=== PATIENT | female | born 1940 | race Caucasian/White ===

== ENCOUNTER 2017-06-23 11:13 | Emergency (ER) | payer MEDICARE, OTHER ==
[~2017-06-23] VITALS: Ht 162.6 cm; Wt 72.6 kg
[~2017-06-23 11:13] MED LIST: AGM875T PO; APIX5TAB2 PO; AZAT50TA PO; ENAL2.5T PO; FERR240T9 PO; KETO5DRO OP; LEVO50TA6 PO; LISI1TAB6 PO; METO25TA2 PO; METO50TA2 PO
--- NOTE | 2017-06-23 11:38 | ED EENT ---
History of Present Illness General Chief Complaint: Foreign Body Stated Complaint: HEARING AID STUCK IN LEFT EAR Nursing Triage Note: pt reports she has part of her hearing aide stuck in her l ear. Source: patient Exam Limitations: no limitations History of Present Illness Time seen by provider: 11:22 Initial Comments Here with report that she believes part of her hearing aid is stuck in her left ear. She states that she was combing her hair and accidentally caught her hearing aid wire and then her hearing aid flew out. She noticed that there was a piece missing and was concerned it was in her ear. She denies any pain. Timing/Duration: abrupt, this morning Associated Symptoms: No change in hearing, No ear drainage Allergies and Home Medications Allergies Coded Allergies: Sulfa (Sulfonamide Antibiotics) (Unverified Allergy, Unknown, 08/31/14) aspirin (Unverified Allergy, Unknown, 08/31/14) Home Medications Apixaban 5 Mg Tablet, 5 MG PO BID, #60 Ref 4 Prescribed by: KAILASH CANALES on 09/03/14 0933 Azathioprine 50 Mg Tablet, 50 MG PO DAILY, (Reported) Enalapril Maleate 2.5 Mg Tablet, 2.5 MG PO DAILY, #30 Ref 4 Prescribed by: KAILASH CANALES on 09/03/14 0933 Levothyroxine Sodium 50 Mcg Tablet, 50 MCG PO DAILY, (Reported) Metoprolol Tartrate 50 Mg Tablet, 50 MG PO BID, #60 Ref 12 Prescribed by: HENNA COLE on 11/19/15 1249 Review of Systems Constitutional: see HPI Ears: See HPI, Denies Pain, Denies Bloody Discharge Past Raeqpje-Qvrzrj-Rvkjwe Hx Patient Social History Alcohol Use: Denies Use Recreational Drug Use: No Smoking Status: Never a Smoker Recent Foreign Travel: No Contact w/Someone Who Travel: No Recent Infectious Disease Expo: No Immunizations Up To Date PED Vaccines UTD: No Date of Influenza Vaccine: Aug 16, 2015 Seasonal Allergies Seasonal Allergies: No Surgeries HX Surgeries: Yes Surgeries: Gallbladder Respiratory Hx Respiratory Disorders: No Cardiovascular Hx Cardiac Disorders: Yes ([place] 2013, EF 35% when in Afib last in 2013, up to 52 % on conversion) Cardiac Disorders: Atrial Fibrillation, Heart Attack, Hypertension Neurological Hx Neurological Disorders: No Reproductive System Hx Reproductive Disorders: No Genitourinary Hx Genitourinary Disorders: No Gastrointestinal Hx Gastrointestinal Disorders: Yes (Autoimmune Hepatitis ) Gastrointestinal Disorders: Hepatitis, Gall Bladder Disease Musculoskeletal Hx Musculoskeletal Disorders: No Endocrine Hx Endocrine Disorders: Yes Endocrine Disorders: Hypothyroidsim HEENT HX ENT Disorders: Yes Hearing Impairment: Hard of Hearing, Bilateral Hearing Aide Cancer Hx Cancer: No Psychosocial Hx Psychiatric Problems: No Integumentary HX Skin/Integumentary Disorder: No Blood Transfusions Hx Blood Disorders: Yes (anemia) Adverse Reaction to a Blood Tr: No Reviewed Nursing Assessment Reviewed/Agree w Nursing PMH: Yes Family Medical History Family Medial History: Cardiovascular disease G8 BROTHER (PACEMAKER) Completed stroke 19 FATHER 19 MOTHER Congenital disease Diabetes mellitus G8 BROTHER FHx: cancer G8 SISTER (FEMALE CANCER, UNSURE OF TYPE, OF CA) Myocardial infarction 19 FATHER Prostate cancer 19 FATHER Physical Exam Vital Signs Vital Sign - Last 12Hours 06/23/17 11:25 Temp 98.1 Pulse 76 Resp 18 B/P (MAP) 156/90 Pulse Ox 100 General Appearance: WD/WN, no apparent distress Ears: left ear other (no foreign body noted), bilateral ear TM normal, bilateral ear auricle normal, bilateral ear canal normal Neurologic/Psychiatric: alert, oriented x 3 Progress/Results/Core Measures Results/Orders Vital Signs/I&O Vital Sign - Last 12Hours 06/23/17 11:25 Temp 98.1 Pulse 76 Resp 18 B/P (MAP) 156/90 Pulse Ox 100 Blood Pressure Mean: 112 Progress Note : Progress Note Seen and evaluated. Evaluation of the ear on the left and right done and no foreign body identified. Patient will follow-up with her ear doctor. Discharged home with return precautions. Patient verbalize understanding instructions and agreement with plan. Departure Impression Impression: Primary Impression: Normal ear exam Disposition: HOME, SELF-CARE Condition: Improved Departure-Patient Inst. Decision time for Depature: 11:36 Referrals: DIEGO QUINONEZ MD, MARK D MD (PCP/Family) Primary Care Physician Patient Instructions: General (DC) Add. Discharge Instructions: All discharge instructions reviewed with patient and/or family. Voiced understanding. No obvious foreign body found. Follow-up with Dr. Quinonez to evaluate your hearing aid. Return for other concerns as needed. LATOYA BARRON MD Jun 23, 2017 11:38
[2017-06-23 11:43] VITALS: BP 152/89
== END 2017-06-23 11:43 | disposition home or self-care (01) ==
LOC: EDUNIT# 11:13 → ER 11:15
DX: T16.2XXA Foreign body in left ear, initial encounter (principal); I48.91 Unspecified atrial fibrillation; I25.2 Old myocardial infarction; I10 Essential (primary) hypertension; E03.9 Hypothyroidism, unspecified; D64.9 Anemia, unspecified; Z79.01 Long term (current) use of anticoagulants
CPT/HCPCS: 99282

== ENCOUNTER → 2017-09-07 | Outpatient (CLI) | payer MEDICARE, OTHER | LOC: CARD 12:59 | PROVIDERS: ATTEND Internal Medicine Cardiovascular Disease | DX: I48.0 Paroxysmal atrial fibrillation (principal); I25.10 Atherosclerotic heart disease of native coronary artery without angina pectoris; R09.89 Other specified symptoms and signs involving the circulatory and respiratory systems; I10 Essential (primary) hypertension; I34.0 Nonrheumatic mitral (valve) insufficiency | CPT/HCPCS: 93306 ==

== ENCOUNTER 2018-06-28 22:46 | Inpatient (IN) | payer MEDICARE, OTHER ==
[~2018-06-28] VITALS: Ht 162.6 cm; Wt 34.1 kg
[~2018-06-28 22:46] MED LIST changes: +METO50TA15 PO; -METO50TA2 PO
[2018-06-28] MEDS ORDERED: ONDANSETRON 4 MG (ZOFRAN) ORAL DISSOLVE TAB PO ONE (23:30)
[2018-06-28 23:37] VITALS: BP_SYST 162; BP_SYST 163; BP_SYST 169; BP_DIAS 79; BP_DIAS 81; BP_DIAS 82
--- NOTE | 2018-06-28 23:39 | ED Neurological Problem ---
General Chief Complaint: Abdominal/GI Problems Stated Complaint: NAUSEA/VOMITING/BALANCE ISSUES Nursing Triage Note: PT PRESENTS TO ER WITH COMPLAINT OF NAUSEA, VOMITING, AND DIARRHEA. Nursing Sepsis Screen: No Definite Risk Source: patient Exam Limitations: no limitations History of Present Illness Date Seen by Provider: Jun 28, 2018 Time Seen by Provider: 23:29 Initial Comments Patient presents to the ER by private conveyance with her son and chief complaint that today he sometime around 10:00 in the morning she started having some dizziness without tinnitus, ear pain, nose congestion, fever, chills, falls , syncope or history of coronary disease or stroke. She describes the dizziness as being pulled from one side to the other but not any one side specifically. She's having no weakness numbness or tingling. No facial asymmetry or slurred speech. She says when she gets up from lying down or from sitting or changes position she starts getting dizzy feeling the room spinning around her. She's having no dysuria, cough, shortness of breath or chest pain. She has not taken her evening blood pressure pills yet. She also has a history of autoimmune hepatitis. 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 She says is progressively gotten worse when she changes positions tonight and is why she came to the ER. She's had this set of symptoms before in the past several times but never lasting more than a day and never very serious usually just for an hour or so. She does not have a history of Mnire's disease. She does wear bilateral hearing aids but does not use nasal steroids. She is on L acquits for atrial fibrillation and has not missed any doses. Allergies and Home Medications Allergies Coded Allergies: Sulfa (Sulfonamide Antibiotics) (Unverified Allergy, Unknown, 08/31/14) aspirin (Unverified Allergy, Unknown, 08/31/14) Home Medications Apixaban 5 Mg Tablet, 5 MG PO BID Prescribed by: KAILASH CANALES on 09/03/14932 Azathioprine 50 Mg Tablet, 50 MG PO DAILY, (Reported) Enalapril Maleate 2.5 Mg Tablet, 2.5 MG PO DAILY Prescribed by: KAILASH CANALES on 09/03/14932 Levothyroxine Sodium 50 Mcg Tablet, 50 MCG PO DAILY, (Reported) Metoprolol Tartrate 50 Mg Tablet, 50 MG PO BID Prescribed by: HENNA COLE on 11/19/15 1249 Patient Home Medication List Home Medication List Reviewed: Yes Review of Systems Constitutional: No chills, No diaphoresis; dizziness; No fever, No malaise Eyes: Denies Blindness, Denies Blurred Vision, Denies Drainage, Denies Inflammation, Denies Pain, Denies Photophobia, Denies Previous Injury Ears, Nose, Mouth, Throat: denies ear pain, denies ear discharge, denies nose pain, denies nose discharge, denies epistaxis Respiratory: No cough, No dyspnea on exertion, No phlegm, No short of breath Cardiovascular: No chest pain, No palpitations Gastrointestinal: No abdominal pain; nausea, vomiting Genitourinary: No discharge, No dysuria Past Sgaloew-Uevikf-Rzkxxq Hx Patient Social History Alcohol Use: Denies Use Recreational Drug Use: No Smoking Status: Never a Smoker Recent Foreign Travel: No Contact w/Someone Who Travel: No Recent Infectious Disease Expo: No Immunizations Up To Date PED Vaccines UTD: No Date of Influenza Vaccine: Aug 16, 2015 Seasonal Allergies Seasonal Allergies: No Past Medical History Surgeries: Yes Gallbladder Respiratory: No Cardiac: Yes ([place] 2013, EF 35% when in Afib last in 2013, up to 52% on conversion) Atrial Fibrillation, Heart Attack, Hypertension Neurological: No Reproductive Disorders: No Genitourinary: No Gastrointestinal: Yes (Autoimmune Hepatitis ) Hepatitis, Gall Bladder Disease Musculoskeletal: No Endocrine: Yes Hypothyroidsim HEENT: Yes Hearing Impairment: Hard of Hearing, Bilateral Hearing Aide Cancer: No Psychosocial: No Integumentary: No Blood Disorders: Yes (anemia) Adverse Reaction/Blood Tranf: No Family Medical History Cardiovascular disease G8 BROTHER (PACEMAKER) Completed stroke 19 FATHER 19 MOTHER Congenital disease Diabetes mellitus G8 BROTHER FHx: cancer G8 SISTER (FEMALE CANCER, UNSURE OF TYPE, OF CA) Myocardial infarction 19 FATHER Prostate cancer 19 FATHER Physical Exam Vital Signs Vital Signs - First Documented 06/28/18 23:09 Temp 98.2 Pulse 88 Resp 20 B/P (MAP) 173/83 (113) Pulse Ox 97 O2 Delivery Room Air Capillary Refill : Less Than 3 Seconds Height, Weight, BMI Height: 5'4.00" Weight: 160lbs. 12.8oz. [id number]; BMI Method:Stated General Appearance: WD/WN, no apparent distress HEENT: PERRL/EOMI, normal ENT inspection, TMs normal, pharynx normal Neck: non-tender, full range of motion, supple, normal inspection Respiratory: chest non-tender, lungs clear, normal breath sounds, no respiratory distress, no accessory muscle use Cardiovascular: normal peripheral pulses, regular rate, rhythm, no edema Peripheral Pulses: 2+ Radial Pulses (R), 2+ Radial Pulses (L) Gastrointestinal: normal bowel sounds, non tender, soft, no organomegaly Extremities: normal inspection, normal capillary refill Neurologic/Psychiatric: alert, normal mood/affect, oriented x 3, other ( negative head impulse test, negative for nystagmus, negative test of skew.) Crainal Nerves: normal hearing, normal speech, PERRL Coordination/Gait: normal finger to nose, normal gait Motor/Sensory: no motor deficit, no sensory deficit, no pronator drift Stroke Onset of Symptoms Date of Onset of Symptoms: Jun 28, 2018 Time of Symptom Onset: 10:00 Onset of Symptoms: Yes Symptoms onset unknown: No NIH Stroke Scale Assessment Select: Initial Level of Consciousness: 0=Alert (0), Level of Consciousness- Questions: 0=Answers both month/age (0), LOC Commands: 0=Performs both tasks (0) , Gaze: Normal (0), Visual Loyd: 0=No visual loss (0), Facial Movement ( Facial Paresis): 0=Normal symmetrical mnt (0), Motor Function-Arms Right: 0=No drift (0), Motor Function-Arms Left: 0=No drift (0), Motor Function-Legs Right: 0=No drift (0), Motor Function-Legs Left: 0=No drift (0), Limb Ataxia: 0=Absent (0), Sensory: 0=Normal:no loss (0), Best Language: 0=No aphasia (0), Dysarthria : 0=Normal (0), Extinction & Inattention: 0=No abnormality (0), Total: 0 Stroke Thrombolytic Exclusion Age 18 or Over: Yes Acute intenal hemorrhage: No History of CVA: No Uncontrolled Coagulation Defec: No Intracranial Hemorrhage: No Severe Hypertension: No GI or Bleed: No Subarachnoid Hemorrhage: No Intracranial Neoplasm/Aneurysm: No Oral Anticoagulants: Yes Surgery or Trauma: No Puncture of Non-Compressible V: No Recent CPR: No Diabetic Hemorrhagic Retinopat: No Organ Biopsy: No Recent Obstetric Delivery: No Glucose: No Significant Hepatic Dysfunctio: No NIH Stoke Scale >22: No Bacterial Endocarditis: No Pericarditis: No Improving Symptoms: No Platelets: No TPA Contraindication: Yes IV - TPa Received IV - TPa Procedure Performed?: No Progress/Results/Core Measures Results/Orders Lab Results Laboratory Tests Test 06/28/18 23:21 06/29/18 00:15 06/29/18 00:16 Range/Units Urine Color YELLOW Urine Clarity SLIGHTLY CLOUDY Urine pH 6 5-9 Urine Specific [place] 1.015 L 1.016-1.022 Urine Protein 3+ H NEGATIVE Urine Glucose (UA) NEGATIVE NEGATIVE Urine Ketones NEGATIVE NEGATIVE Urine Nitrite NEGATIVE NEGATIVE Urine Bilirubin NEGATIVE NEGATIVE Urine Urobilinogen NORMAL NORMAL MG/DL Urine Leukocyte Esterase 2+ H NEGATIVE Urine RBC (Auto) 2+ H NEGATIVE Urine RBC NONE /HPF Urine WBC 0-2 /HPF Urine Squamous Epithelial Cells 2-5 /HPF Urine Crystals NONE /LPF Urine Bacteria MODERATE H /HPF Urine Casts NONE /LPF Urine Mucus LARGE H /LPF Urine Culture Indicated YES White Blood Count 9.9 4.3-11.0 10^3/uL Red Blood Count 4.87 4.35-5.85 10^6/uL Hemoglobin 14.1 11.5-16.0 G/DL Hematocrit 44 35-52 % Mean Corpuscular Volume 91 80-99 FL Mean Corpuscular Hemoglobin 29 25-34 PG Mean Corpuscular Hemoglobin Concent 32 32-36 G/DL Red Cell Distribution Width 14.5 10.0-14.5 % Platelet Count 262 130-400 10^3/uL Mean Platelet Volume 10.1 7.4-10.4 FL Neutrophils (%) (Auto) 85 H 42-75 % Lymphocytes (%) (Auto) 8 L 12-44 % Monocytes (%) (Auto) 6 0-12 % Eosinophils (%) (Auto) 0 0-10 % Basophils (%) (Auto) 0 0-10 % Neutrophils # (Auto) 8.5 H 1.8-7.8 X 10^3 Lymphocytes # (Auto) 0.8 L 1.0-4.0 X 10^3 Monocytes # (Auto) 0.6 0.0-1.0 X 10^3 Eosinophils # (Auto) 0.0 0.0-0.3 10^3/uL Basophils # (Auto) 0.0 0.0-0.1 10^3/uL Prothrombin Time 13.0 12.2-14.7 SEC INR Comment 1.0 0.8-1.4 Activated Partial Thromboplast Time 28 24-35 SEC D-Dimer 0.38 0.00-0.49 UG/ML Sodium Level 140 135-145 MMOL/L Potassium Level 4.2 3.6-5.0 MMOL/L Chloride Level 105 98-107 MMOL/L Carbon Dioxide Level 24 21-32 MMOL/L Anion Gap 11 5-14 MMOL/L Blood Urea Nitrogen 9 7-18 MG/DL Creatinine 0.77 0.60-1.30 MG/DL Estimat Glomerular Filtration Rate > 60 BUN/Creatinine Ratio 12 Glucose Level 123 H 70-105 MG/DL Calcium Level 10.6 H 8.5-10.1 MG/DL Corrected Calcium 10.5 H 8.5-10.1 MG/DL Total Bilirubin 0.7 0.1-1.0 MG/DL Aspartate Amino Transf (AST/SGOT) 41 H 5-34 U/L Alanine Aminotransferase (ALT/SGPT) 65 H 0-55 U/L Alkaline Phosphatase 173 H 40-136 U/L Troponin I < 0.30 <0.30 NG/ML Total Protein 7.6 6.4-8.2 GM/DL Albumin 4.1 3.2-4.5 GM/DL Glucometer 115 H 70-110 MG/DL My Orders Orders - CARLOS ALBERTO PATTERSON Ondansetron Oral Dissolve Tab (Zofran (06/28/18 23:30) Orthostatic Vital Signs (Adult (06/28/18 23:29) Ekg Tracing (06/28/18 23:39) Continuous Ekg Monitoring (06/28/18 23:39) Cbc With Automated Diff (06/29/18 00:08) Protime With Inr (06/29/18 00:08) Partial Thromboplastin Time (06/29/18 00:08) Comprehensive Metabolic Panel (06/29/18 00:08) Fibrin Degradation Products (06/29/18 00:08) Troponin I (06/29/18 00:08) Ua Culture If Indicated (06/29/18 00:08) Nothing By Mouth (06/29/18 Breakfast) Accucheck Stat ONCE (06/29/18 00:08) Saline Lock/Iv-Start (06/29/18 00:08) Vital Signs Stroke Patient Q15M (06/29/18 00:08) Ct Head Wo-R/O Stroke (06/29/18 00:08) Intake & Output 06,14,22 (06/29/18 00:08) Monitor-Rhythm Ecg Trace Only (06/29/18 00:08) Dysphagia Screening Tool (06/29/18 00:08) Urine Culture (06/28/18 23:21) Medications Given in ED Current Medications Medications Dose Ordered Sig/Corazon Route Start Time Stop Time Status Last Admin Dose Admin Ondansetron HCl 4 mg ONCE ONCE PO 06/28/18 23:30 06/28/18 23:31 DC 06/28/18 23:36 4 MG Vital Signs/I&O 06/28/18 06/28/18 23:09 23:37 Temp 98.2 Pulse 88 68 70 70 Resp 20 B/P (MAP) 173/83 (113) 162/79 (106) 169/82 (111) 163/81 (108) Pulse Ox 97 O2 Delivery Room Air Blood Pressure Mean: 113 Progress Progress Note : Time: 23:38 Progress Note Hints negative making a central etiology less likely. NIH score is 0. This sounds like BPPV by history and cursory examination. We'll get a set of orthostatic vitals and an EKG but she is not presently in atrial fibrillation. She is on her blood thinners so a stroke is fairly unlikely. She is not exhibiting any neurologic deficits. We'll give her some nausea medicine and wants her nausea is feeling better then we will check her for [place]-Hallpike maneuver for BPPV. Orthostatic vital signs unremarkable. Sonya-Hallpike examination unrevealing of any nystagmus or vertigo. Patient's now revealing that her symptoms are more that she's been pulled to one side or the other but not any one side specifically which seems less like vertigo. We'll get a CT scan to look at her cerebellum as the best test secondary tonight and consult with neurology but other than her otitis media effusion her clinical exam so far has been negative. NIH -0. Initial ECG Impression Date: Jun 28, 2018 Initial ECG Impression Time: 23:44 Initial ECG Rate: 67 Initial ECG Rhythm: Normal Sinus Initial ECG Intervals: Normal Initial ECG Impression: Normal Comment No ST elevation or depression. Sinus rhythm. Diagnostic Imaging Diagonstic Imaging: CT (c/o) Plain Films/CT/US/NM/MRI: head Comments No acute intracranial hemorrhage, mass effect, tumor, evidence of stroke. Reviewed: Reviewed by Me, Discussed w/Radiologist Consults : Consults Notes Dr. Pretty, [facility] neurology stroke center [place] paraprofessional physician: After reviewing her symptoms, clinical history and examination he feels that with her nausea vomiting and being pulled to both sides as well as a little unusual could be a stroke and her ABCD 2 score is 4 points which is moderate risk so he recommends holding on to her and getting an MRI in the morning. Departure Communication (Admissions) Time/Spoke to Admitting Phy: 01:23 Dr. Miranda: Discussed case lab imaging findings and plan to get an MRI in the morning and he agrees with this plan. Impression Primary Impression: Cerebellar disorder Additional Impression: Nausea & vomiting Qualified Codes: R11.2 - Nausea with vomiting, unspecified Disposition: 09 ADMITTED INPATIENT Condition: Stable Admissions Decision to Admit Reason: Admit from ER (General) Decision to Admit/Date: Jun 29, 2018 Time/Decision to Admit Time: 01:23 Departure-Patient Inst. Referrals: HENNA COLE MD (PCP/Family) Primary Care Physician Copy Copies To 1: HENNA COLE MD, TITUS J Jun 28, 2018 23:39
[2018-06-29 00:18] LABS: BILIRUBIN,URINE NEGATIVE (NEGATIVE); COLOR,URINE YELLOW; GLUCOSE, URINE (UA) NEGATIVE (NEGATIVE); KETONES,URINE NEGATIVE (NEGATIVE); LEUKOCYTE ESTERASE ,URINE 2+ (NEGATIVE); NITRITE,URINE NEGATIVE (NEGATIVE); PH,URINE 6 (5-9); PROTEIN,URINE 3+ (NEGATIVE); UROBILINOGEN,URINE NORMAL (NORMAL)
[2018-06-29 00:26] LABS: BACTERIA,URINE MODERATE /HPF; CLARITY,URINE SLIGHTLY CLOUDY; WBC,URINE 0-2 /HPF
[2018-06-29 00:27] LABS: BASOPHILS % (AUTO) 0 % (0-10); EOSINOPHILS % (AUTO) 0 % (0-10); HEMATOCRIT 44 % (35-52); HEMOGLOBIN 14.1 G/DL (11.5-16.0); LYMPHOCYTES # (AUTO) 0.8 X 10^3 (1.0-4.0); LYMPHOCYTES % (AUTO) 8 % (12-44); MEAN CORPUSCULAR HEMOGLOBIN 29 PG (25-34); MEAN CORPUSCULAR HGB CONC 32 G/DL (32-36); MEAN CORPUSCULAR VOLUME 91 FL (80-99); MEAN PLATELET VOLUME 10.1 FL (7.4-10.4); MONOCYTES # (AUTO) 0.6 X 10^3 (0.0-1.0); MONOCYTES % (AUTO) 6 % (0-12); NEUTROPHILS # (AUTO) 8.5 X 10^3 (1.8-7.8); NEUTROPHILS % (AUTO) 85 % (42-75); PLATELET COUNT 262 10^3/uL (130-400); RED BLOOD COUNT 4.87 10^6/uL (4.35-5.85); RED CELL DISTRIBUTION WIDTH 14.5 % (10.0-14.5); WHITE BLOOD COUNT 9.9 10^3/uL (4.3-11.0)
[2018-06-29 00:37] LABS: FIBRIN DEGRADATION PRODUCTS 0.38 UG/ML (0.00-0.49)
[2018-06-29 00:45] LABS: ALANINE AMINOTRANSFERASE 65 U/L (0-55); ALBUMIN 4.1 GM/DL (3.2-4.5); ALKALINE PHOSPHATASE 173 U/L (40-136); BILIRUBIN,TOTAL 0.7 MG/DL (0.1-1.0); BUN/CREATININE RATIO 12; CALCIUM 10.6 MG/DL (8.5-10.1); CARBON DIOXIDE 24 MMOL/L (21-32); CHLORIDE 105 MMOL/L (98-107); CREATININE SERUM 0.77 MG/DL (0.60-1.30); GFR ESTIMATED > 60; GLUCOSE 123 MG/DL (70-105); POTASSIUM 4.2 MMOL/L (3.6-5.0); SODIUM 140 MMOL/L (135-145); TOTAL PROTEIN 7.6 GM/DL (6.4-8.2)
--- OUTSIDE RECORDS SUMMARY | 2018-06-29 02:12 | XMS REPORT | Continuity of Care Document ---
Author Author [facility] Organization [facility] Address Unknown Phone Unavailable Allergies Active Description Code Type Severity Reaction Onset Reported/Identified Relationship to Patient Clinical Status Yes aspirin [id number] Drug Allergy Unknown N/A 08/31/2014 Yes Sulfa (Sulfonamide Antibiotics) [id number] Drug Allergy Unknown N/A 2013 Medications There is no data. Problems Date Dx Coded Attending Type Code Diagnosis Diagnosed By 09/03/2014 KAILASH CANALES MD Ot 244.8 ACQUIRED HYPOTHYROID NEC 09/03/2014 KAILASH CANALES MD Ot 272.4 HYPERLIPIDEMIA NEC/NOS 09/03/2014 KAILASH CANALES MD Ot 275.42 HYPERCALCEMIA 09/03/2014 KAILASH CANALES MD Ot 276.51 DEHYDRATION 09/03/2014 KAILASH CANALES MD Ot 276.8 HYPOPOTASSEMIA 09/03/2014 KAILASH CANALES MD Ot 401.9 HYPERTENSION NOS 09/03/2014 KAILASH CANALES MD Ot 414.01 CORONARY ATHEROSCLEROSIS OF [place] CORON 09/03/2014 KAILASH CANALES MD Ot 427.31 ATRIAL FIBRILLATION 09/03/2014 KAILASH CANALES MD Ot 780.79 OTH MALAISE FATIGUE 09/03/2014 KAILASH CANALES MD Ot 787.01 NAUSEA WITH VOMITING 09/03/2014 KAILASH CANALES MD Ot 790.29 OTHER ABNORMAL GLUCOSE 09/29/2014 KAILASH CANALES MD Ot 397.0 09/29/2014 KAILASH CANALES MD Ot 401.9 09/29/2014 KAILASH CANALES MD Ot 414.00 09/29/2014 KAILASH CANALES MD Ot 424.0 09/29/2014 KAILASH CANALES MD Ot 427.31 09/29/2014 KAILASH CANALES MD Ot 428.0 11/03/2014 KAILASH CANALES MD Ot 397.0 11/03/2014 KAILASH CANALES MD, Ot 401.9 11/03/2014 PARKER BECKFORD, KAILASH García Ot 414.00 11/03/2014 PARKER BECKFORD, KAILASH García Ot 424.0 11/03/2014 PARKER BECKFORD, KAILASH García Ot 427.31 11/03/2014 KAILASH CANALES MD Ot 428.0 11/28/2014 HENNA COLE MD Ot 790.6 12/25/2014 HENNA COLE MD Ot 790.6 01/01/2015 HENNA COLE MD Ot 790.6 05/25/2015 CLAIR ENRIQUE [employer] Ot 372.74 CONJUNCTIVA VASC ANOMALY 05/25/2015 CLAIR [employer] Ot 379.93 REDNESS/DISCHARGE OF EYE 05/25/2015 CLAIR [employer] Ot 465.9 ACUTE URI NOS 11/19/2015 HENNA COLE MD Ot E03.9 HYPOTHYROIDISM, UNSPECIFIED 11/19/2015 HENNA COLE MD Ot E78.5 HYPERLIPIDEMIA, UNSPECIFIED 11/19/2015 HENNA COLE MD Ot E86.0 DEHYDRATION 11/19/2015 HENNA COLE MD Ot I10 ESSENTIAL (PRIMARY) HYPERTENSION 11/19/2015 HENNA COLE MD Ot I25.10 ATHSCL HEART DISEASE OF [place] CORONARY 11/19/2015 HENNA COLE MD Ot I25.2 OLD MYOCARDIAL INFARCTION 11/19/2015 HENNA COLE MD Ot I42.9 CARDIOMYOPATHY, UNSPECIFIED 11/19/2015 HENNA COLE MD Ot I48.0 PAROXYSMAL ATRIAL FIBRILLATION 11/19/2015 HENNA COLE MD Ot I50.9 HEART FAILURE, UNSPECIFIED 11/19/2015 HENNA COLE MD Ot I65.23 OCCLUSION AND STENOSIS OF BILATERAL [place] 11/19/2015 HENNA COLE MD Ot K52.9 NONINFECTIVE GASTROENTERITIS AND COLITIS 11/19/2015 HENNA COLE MD Ot K75.4 AUTOIMMUNE HEPATITIS 11/19/2015 HENNA COLE MD Ot Z79.01 RESIDENTIAL (CURRENT) USE OF ANTICOAGULANT 06/23/2017 LATOYA BARRON MD Ot D64.9 ANEMIA, UNSPECIFIED 06/23/2017 LATOYA BARRON MD Ot E03.9 HYPOTHYROIDISM, UNSPECIFIED 06/23/2017 LATOYA BARRON MD Ot I10 ESSENTIAL (PRIMARY) HYPERTENSION 06/23/2017 LATOYA BARRON MD Ot I25.2 OLD MYOCARDIAL INFARCTION 06/23/2017 LATOYA BARRON MD Ot I48.91 UNSPECIFIED ATRIAL FIBRILLATION 06/23/2017 LATOYA BARRON MD Ot T16.2XXA FOREIGN BODY IN LEFT EAR, INITIAL ENCOUN 06/23/2017 LATOYA BARRON MD Ot 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 06/23/2017 Ot V76.12 OTH SCREEN MAMMO-MALIGN NEOPLASM OF PAZ 06/23/2017 KAILASH CANALES MD Ot 397.0 TRICUSPID VALVE DISEASE 06/23/2017 KAILASH CANALES MD Ot 401.9 HYPERTENSION NOS 06/23/2017 KAILASH CANALES MD Ot 414.00 CORON ATHEROSCLER NOS TYPE VESSEL, NATIV 06/23/2017 KAILASH CANALES MD Ot 424.0 MITRAL VALVE DISORDER 06/23/2017 KAILASH CANALES MD Ot 427.31 ATRIAL FIBRILLATION 06/23/2017 KAILASH CANALES MD Ot 428.0 CONGESTIVE HEART FAILURE NOS 06/23/2017 KELSEY BECKFORD, HENNA Moreland Ot 790.6 ABN BLOOD CHEMISTRY NEC 09/29/2017 KAILASH CANALES MD Ot I10 ESSENTIAL (PRIMARY) HYPERTENSION 09/29/2017 KAILASH CANALES MD Ot I25.10 ATHSCL HEART DISEASE OF [place] CORONARY 09/29/2017 KAILASH CANALES MD Ot I34.0 NONRHEUMATIC MITRAL (VALVE) INSUFFICIENC 09/29/2017 KAILASH CANALES MD, Ot I48.0 PAROXYSMAL ATRIAL FIBRILLATION 09/29/2017 KAILASH CANALES MD Ot R09.89 OTH SYMPTOMS AND SIGNS INVOLVING THE CIR 10/01/2017 KAILASH CANALES MD Ot I10 ESSENTIAL (PRIMARY) HYPERTENSION 10/01/2017 KAILASH CANALES MD Ot I25.10 ATHSCL HEART DISEASE OF [place] CORONARY 10/01/2017 KAILASH CANALES MD Ot I34.0 NONRHEUMATIC MITRAL (VALVE) INSUFFICIENC 10/01/2017 KAILASH CANALES MD Ot I48.0 PAROXYSMAL ATRIAL FIBRILLATION 10/01/2017 KAILASH CANALES MD Ot R09.89 OTH SYMPTOMS AND SIGNS INVOLVING THE CIR Procedures Code Description Performed By Performed On 37.22 LEFT HEART CARDIAC CATH 09/02/2014 88.56 CORONAR ARTERIOGR-2 CATH 09/02/2014 Results There is no data. Encounters ACCT No. Visit Date/Time Discharge Status Pt. Type Provider Facility Loc./Unit Complaint [id number] 09/07/2017 12:59:00 09/07/2017 23:59:59 CLS Outpatient KAILASH CANALES MD [facility] CARD CAD I25.10 [id number] 06/23/2017 11:15:00 06/23/2017 11:43:00 DIS Emergency LATOYA BARRON MD [facility] ER HEARING AID STUCK IN LEFT EAR [id number] 11/16/2015 11:25:00 11/19/2015 13:45:00 DIS Inpatient HENNA COLE MD [facility] 4TH AFIB WITH RVR NAUSEA VOMITING [id number] 05/25/2015 15:31:00 05/25/2015 16:08:00 DIS Emergency CLAIR ENRIQUE [employer] [facility] ER EYE IRRITATION [id number] 11/27/2014 10:43:00 11/27/2014 23:59:59 CLS Outpatient HENNA COLE MD [facility] RAD ELEVATED LFT [id number] 09/26/2014 08:56:00 09/26/2014 23:59:59 CLS Outpatient KAILASH CANALES MD [facility] CARD AFIB,CAD,CHF,HTN [id number] 08/31/2014 02:43:00 09/03/2014 14:05:00 DIS Inpatient KAILASH CANALES MD [facility] CSD A FIB W/RVR [id number] 07/09/2012 10:29:00 Document Registration [id number] 05/26/2015 05:31:59 ACT Document Registration
[2018-06-29 04:12] VITALS: BP 184/81
[2018-06-29] MEDS ORDERED: ACETAMINOPHEN 500 MG TAB (TYLENOL) PO PRN (05:00)
[2018-06-29] MEDS ORDERED: ONDANSETRON 4 MG/2 ML (SDV) Z0FRAN IV PRN (05:00)
--- NOTE | 2018-06-29 06:33 | Diagnostic Imaging Report ---
INDICATION: Dizziness, nausea and vomiting. FINDINGS: There is no intracranial hemorrhage, hydrocephalus, edema, mass or mass effect. There are no abnormal extra-axial fluid collections. The basilar cisterns patent. The sulci were non-effaced. Orbits, sinuses and calvarium appeared nonacute. IMPRESSION: No hemorrhage, edema or acute appearing abnormalities. Dictated by: Dictated on workstation # [id number]
[2018-06-29] MEDS: LEVOTHYROXINE 50 MCG (LEVOTHROID) TAB PO SCH (06:52)
[2018-06-29 07:31] VITALS: BP 166/80
[2018-06-29] MEDS: meTOprolol TARTRATE 50 MG (LOPRESSOR) TAB PO SCH ×2 (09:19→19:55)
[2018-06-29] MEDS: azaTHIOprine (IMURAN) 50 MG TAB PO SCH (09:19)
[2018-06-29] MEDS: APIXABAN 5 MG (ELIQUIS) TABLET PO SCH ×2 (09:20→19:55)
[2018-06-29] MEDS: ENALAPRIL 2.5 MG (VASOTEC) TAB PO SCH (09:20)
--- NOTE | 2018-06-29 10:08 | History & Physical-Hospitalist ---
History of Present Illness HPI/Chief Complaint The patient is a 78-year-old white female who was feeling well up until some time after 2 p.m. She'll return having driven herself to her eye appointment and back earlier that morning. Sometime after 2 she developed unbalanced sensation where she had difficulty walking. She's had a history of vertigo likely benign positional in etiology in the past for report of this was different. She became diaphoretic and then had some nausea and vomiting. She called her son who brought her to the emergency room. This was later more than 6 hours after the onset of her symptoms. A CT head was performed which revealed no significant abnormalities. She apparently at that time did not have a facial droop that was noted did appear to have some mild dysmetria and was admitted to undergo MRI this morning. Upon my arrival the patient was sleeping she was easily aroused but exhibited significant dysarthria and had a mild but obvious right facial droop. She denied headache nausea or vomiting initiate attempted to answer more questions during the interview her speech improved from being initially unintelligible to being mostly intelligible. She voices no other complaints see below review of systems. Lying in bed she was not feeling unsteady. She also denied any current vertigo. Past medical history is significant for paroxysmal atrial fibrillation for which she has been on Eliquis for the last several years. She's had no previous history of CVA or thromboembolic events. She does have a history of hypertension as well as autoimmune hepatitis for which she has done well on low- dose azathioprine and sulfasalazine. Date Seen 06/29/18 Time Seen by Provider: 09:00 Attending Physician Henna Cole MD PCP Henna Cole MD Referring Physician Date of Admission Jun 29, 2018 at 02:05 Home Medications & Allergies Home Medications Reviewed patient Home Medication Reconciliation performed by pharmacy medication reconciliations certified appliance service technician and/or nursing. Patients Allergies have been reviewed. Allergies Allergies Coded Allergies Sulfa (Sulfonamide Antibiotics) (Unverified Allergy, Unknown, 08/31/14) aspirin (Unverified Allergy, Unknown, 08/31/14) Past Rcqxiom-Kyvbjy-Kblomz Hx Past Med/Social Hx: Reviewed and Corrections made Patient Social History Alcohol Use: Denies Use Recreational Drug Use: No Smoking Status: Never a Smoker Physical Abuse Screen: No Sexual Abuse: No Recent Foreign Travel: No Contact w/other who traveled: No Recent Infectious Disease Expo: No Immunizations Up To Date Pediatric: No Date of Influenza Vaccine: Aug 16, 2015 Seasonal Allergies Seasonal Allergies: No Past Medical History Surgeries: Gallbladder Cardiac: Atrial Fibrillation, Heart Attack, Hypertension Reproductive: No Gastrointestinal: Hepatitis, Gall Bladder Disease Endocrine: Hypothyroidsim Hearing Impairment: Hard of Hearing, Bilateral Hearing Aide History of Blood Disorders: Yes (anemia) Adverse Reaction to Blood Mena: No Family History Cardiovascular disease G8 BROTHER (PACEMAKER) Completed stroke 19 FATHER 19 MOTHER Congenital disease Diabetes mellitus G8 BROTHER FHx: cancer G8 SISTER (FEMALE CANCER, UNSURE OF TYPE, OF CA) Myocardial infarction 19 FATHER Prostate cancer 19 FATHER Review of Systems Constitutional: No chills, No diaphoresis; dizziness; No fever, No malaise; weakness; No weight gain, No weight loss, No other EENTM: other (No double vision change in hearing or change in tinnitus reported.) Respiratory: No cough, No dyspnea on exertion, No hemoptysis, No orthopnea, No phlegm, No short of breath, No stridor, No wheezing, No other Cardiovascular: no symptoms reported, see HPI; No chest pain, No edema, No Hx of Intervention, No palpitations, No syncope, No vascular heart diseas, No other Psychiatric/Neurological: No Symptoms Reported, See HPI; Denies Anxiety, Denies Depressed, Denies Emotional Problems, Denies Headache, Denies Numbness, Denies Paresthesia, Denies Pre-Existing Deficit, Denies Seizure, Denies Tingling , Denies Tremors; Weakness (Mild generalized); Denies Other Physical Exam Physical Exam Vital Signs Vital Signs - First Documented 06/28/18 23:09 Temp 98.2 Pulse 88 Resp 20 B/P (MAP) 173/83 (113) Pulse Ox 97 O2 Delivery Room Air Capillary Refill : Less Than 3 Seconds Height, Weight, BMI Height: 5'4.00" Weight: 75lbs. 3.0oz. [id number]; BMI Method:Stated General Appearance: No Apparent Distress, WD/WN HEENT: PERRL/EOMI, Pharynx Normal, Other (Mild right facial droop patient is able to smile but there is loss of the right nasolabial fold at rest) Neck: Full Range of Motion, Normal Inspection, Non Tender, Supple, Carotid Bruit Respiratory: Chest Non Tender, Lungs Clear, Normal Breath Sounds, No Accessory Muscle Use, No Respiratory Distress Cardiovascular: Regular Rate, Rhythm, No Edema, No Gallop, No JVD, No Murmur, Normal Peripheral Pulses Gastrointestinal: Normal Bowel Sounds, No Organomegaly, No Pulsatile Mass, Non Tender, Soft Extremity: Normal Capillary Refill, Normal Inspection, Normal Range of Motion, Non Tender, No Calf Tenderness, No Pedal Edema Neurologic/Psychiatric: Alert, Normal Mood/Affect, launch leader II-XII Norm as Tested ( Except for mild right seventh nerve deficit), Abnormal Cerebellar Tests ( Patient exhibits some mild dysmetria on the right with finger to nose pointing there is just mildly impaired right lower extremity control on attempting to perform guiding the right heel down the left alcantara. This is in comparison to the left) Results Results/Procedures Labs Laboratory Tests 06/29/18 00:15 Patient resulted labs reviewed. Assessment/Plan Admission Diagnosis 1. 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 In addition there appears to be mild right seventh nerve deficit. MRI with contrast pending we will initiate physical therapy and likely subsequent speech therapy. We'll add aspirin to Eliquis. 2. History of paroxysmal fibrillation continue telemetry monitoring for now. 3. Autoimmune hepatitis under good control on low-dose azathioprine in and sulfasalazine will continue. 4. Hypertension continue current therapy. Admission Status: Inpatient Order (span 2 midnights) Reason for Inpatient Admission: See above Critical Care Critically Ill Patient Clinical Quality Measures DVT/VTE Risk/Contraindication: Risk Factor Score Per Nursin RFS Level Per Nursing on Admit: 1=Low/No VTE PPX Stroke: Date of last known well: Jun 28, 2018 Time of last known well: 10:00 Symptoms onset unknown: No HENNA COLE MD Jun 29, 2018 10:08
[2018-06-29] MEDS ORDERED: VITA400C60 PO (10:43)
[2018-06-29] MEDS ORDERED: APIX5TAB PO (10:43)
[2018-06-29] MEDS ORDERED: METO50TA15 PO (10:43)
[2018-06-29] MEDS ORDERED: ENAL5TAB PO (10:43)
[2018-06-29 12:00] VITALS: BP 161/71
--- NOTE | 2018-06-29 12:03 | Diagnostic Imaging Report ---
CLINICAL INDICATION: Patient states she feels off balance. Patient has recently been diagnosed with glaucoma. EXAM: MRI of the brain performed without IV contrast. Sequences include axial DWI, ADC map, axial T2, axial FLAIR, axial T1, coronal gradient echo, and sagittal T1. COMPARISON: Head CT without contrast dated 06/29/2018. FINDINGS: There is a 7 mm x 4 mm area of diffusion restriction within the midline/just left of midline aspect of the jennifer with very minimal associated T2 signal. There is consistent with acute infarct. There is no other acute intracranial process. There is focal, patchy and confluent areas of high T2 signal white matter changes seen throughout both cerebral hemispheres, jennifer, and right cerebellum, likely representing chronic small vessel ischemic changes. The brain parenchymal volume appears appropriate for patient's age. [place] vascular structures show no gross abnormality as visualized. The pituitary gland, sella, and suprasellar regions are unremarkable as visualized. Basal cisterns are unremarkable. There is no hydrocephalus. There is no intracranial hemorrhage or brain herniation. There are postoperative changes to both globes which may be related to lens implants. Otherwise, the extracranial soft tissue, skull, and orbits are unremarkable. Paranasal sinuses are clear. Temporal bone structures show no significant abnormality. IMPRESSION: 1: There is a small acute cerebral infarct involving the midline/slightly left of midline aspect of the jennifer. There is no intracranial hemorrhage, hydrocephalus, or brain herniation. 2: Otherwise, there are age-related brain parenchymal changes with chronic small vessel ischemic disease and mild leukoaraiosis. Results of this report was discussed with Dr. Tip Miranda via the telephone on 06/29/2018 at 1155 hours. Dictated by: Dictated on workstation # [id number]
[2018-06-29 13:11] LABS: CHOLESTEROL 235 MG/DL (< 200); HDL CHOLESTEROL 59 MG/DL (40-60); TRIGLYCERIDES 127 MG/DL (<150); VLDL CHOLESTEROL 25 MG/DL (5-40)
--- NOTE | 2018-06-29 14:18 | Physical Therapy Evaluation ---
PT Evaluation-General Medical Diagnosis Admission Date Jun 29, 2018 at 02:05 Medical Diagnosis: cerebellar D/O Onset Date: Jun 29, 2018 Therapy Diagnosis Therapy Diagnosis: generalized weakness/debility Height/Weight Height (Feet): 5 Height (Inches): 4.00 Weight (Pounds): 75 Weight (Ounces): 3.0 Precautions Precautions/Isolations: Fall Prevention, Standard Precautions Weight Bear Status Right Lower Extremity: Right Weight Bearing/Tolerated Left Lower Extremity: Left Weight Bearing/Tolerated Referral Physician: Mynor Reason for Referral: Evaluation/Treatment Medical History Pertinent Medical History: Atrial Fib, HTN, [place] Current History ER with N&V and balance issues/patient denies dizziness Reviewed History: Yes Social History Home: Single Level Current Living Status: Alone Entry Into Home: Stairs With Railing PT Steps Into Home: 3 PT Steps Inside Home: 2 Prior/Core FIM Prior Level of Function Functional [place] Measure 0=Not Assessed/NA 4=Minimal Assistance 1=Total Assistance 5=Supervision or Setup 2=Maximal Assistance 6=Modified Candler 3=Moderate Assistance 7=Complete [place] Bed Mobility: 7 Transfers (B,C,W/C) (FIM): 7 Gait: 7 Locomotion: 7 drove to eye appointment 06/28/18 PT Evaluation-Current Subjective Patient agrees to PT. Denies pain. Pain Numeric Pain Scale: 0-No Pain Location: No Pain Reported Objective Patient Orientation: Normal For Age Problem Solving: Fair ROM/Strength ROM Lower Extremities bilateral LE WNL Strength Lower Extremities left knee flexion/extension 4+/5; hip flexion 4+/5; DF/PF 4+/5 right knee flexion/extension 4-/5; hip flexion 4-/5; DF/PF 4-/5 Integumentary/Posture Integumentary refer to nursing notes Bowel Incontinence: No Bladder Incontinence: No Posture WFL Neuromuscular (Tone, Coordination, Reflexes) diminished proprioception with right sided activities Sensory Vision: Hearing: Hearing Aid/Aides Sensation Right Lower Extremit: Intact Sensation Left Lower Extremity: Intact Transfers Functional Candler Measure 0=Not Assessed/NA 4=Minimal Assistance 1=Total Assistance 5=Supervision or Setup 2=Maximal Assistance 6=Modified Candler 3=Moderate Assistance 7=Complete [place] Transfers (B, C, W/C) (FIM): 4 Scootin Rollin Supine to/from Sit: 5 Sit to/from Stand: 4 (CGA for safety) CGA for safety Gait Mode of Locomotion: Walk Anticipated Mode of Locomotion: Walk Gait (FIM): 5 Distance (FIM): 3=150 ft Distance: 300' Gait Level of Assist: 5 Gait Persons Needed: 1 Gait Assistive Device: FWW Comments/Gait Description steady, functional gait sequence with no deviation with FWW use/close SBA for safety Balance Sitting Static: Normal Sitting Dynamic: Normal Standing Static: Fair Standing Dynamic: Fair Assessment/Needs 78 y.o. female, will benefit from skilled PT to address functional mobility to improve current LOF. Patient has noted right sided "lag" with activity and requires FWW for safe mobility with Fair Balance. Rehab Potential: Fair PT Chief Writer Goals Chief Writer Goals PT Senior Care Goals Time Frame: Jul 10, 2018 Transfers (B,C,W/C) (FIM): 6 Gait (FIM): 6 Gait distance (FIM): 3=150 ft Distance: >400' Gait Level of Assist: 6 Gait Assistive Device: None, FWW Stairs (FIM): 2 # of Steps: 5 Stairs Level Of Assist: 6 PT Plan Problem List Problem List: Functional Strength, Safety, Balance, Gait Treatment/Plan Treatment Plan: Continue Plan of Care Treatment Plan: Education, Functional Activity Lizet, Functional Strength, Gait , Safety, Therapeutic Exercise, Transfers Treatment Duration: Jul 10, 2018 Frequency: 11 times per week Estimated Hrs Per Day: .5 hour per day Patient and/or Family Agrees t: Yes Safety Risks/Education Patient Education: Safety Issues Teaching Recipient: Patient Response to Teaching: Verbalize Understanding Discharge Recommendations Therapy D/C Recommendations: Acute Rehab, Physical Therapy Home Care, Group Home (TCU/NH) Time/GCodes Time In: 1245 Time Out: 1314 Total Billed Treatment Time: 29 Total Billed Treatment 1 visit EVModC 14 min FA 15 min PT/OT Therapy GCodes Therapy Functional Limitation: Physical Therapy Test(s)/Tool used to determine: FIM Functional Limitation-Current Charge Code: MOBCUR Modifier: CK Functional Limitation-Goal Charge Code: MOBGOAL Modifier: MICHELLE HERCULES PT Jun 29, 2018 14:18
[2018-06-29 15:35] VITALS: BP 121/58
--- NOTE | 2018-06-29 16:46 | ST Dysphagia Evaluation ---
Speech Evaluation-General Medical Diagnosis cerebellar D/O Onset Date: Jun 29, 2018 Therapy Diagnosis Therapy Diagnosis: Dysphagia Precautions Precautions/Isolations: Fall Prevention, Standard Precautions Referral Referring Physician: Dr. Lowe Reason for Referral: Evaluation/Treatment Medical History Pertinent Medical History: Atrial Fib, HTN, [place] Reviewed History: Yes Social History Current Living Status: Alone Speech PLF/Current-Dysphagia Prior Level of Function No dysphagia in the past. Subjective Pt in bed. Pleasant and cooperative. Cognitive Status Patient Orientation: Person Oral Motor Skills Dentition: Natural Ability to Follow Directions: Good Oral Expression Ability: Mild Impairment Voice Voice Phonatory-Based Quality: Normal Voice Pitch: Normal Voice Loudness: Normal Oral-Facial Assessment Oral-Facial Dentition: Normal Labial Seal Description: Droops Left Smile: Droops Left Lingual Protrusion: Normal Lingual Strength: Normal Dysphagia Evaluation Consistencies Presented: Regular, Thin Liquid, Mechanical Soft, Pureed WFL WFL Dietary Recommendations: Regular Liquid Recommendations: Thin Dysphagia Evaluation Summary Pt appears to have functional swallow with no s/s of aspiration. Barriers to Learning None Speech Short Term Goals Short Term Goals Short Term Goals no STGs as skilled ST not indicated. Speech Fci Goals Fci Goals no LTGs as skilled ST not indicated. Speech-Plan Patient/Family Goals Patient/Family Goals: to return home Treatment Plan Speech Therapy Treatment Plan: Modify Plan, See Comments (skilled ST not indicated) no skilled ST indicated Frequency: Modified Program (IRF) (0) Estimated Hrs Per Day: Other Rehab Potential: Good Pt/Family Agrees to Plan: Yes Safety Risks/Education Teaching Recipient: Patient Teaching Methods: Discussion Response to Teaching: Verbalize Understanding Time Speech Therapy Time In: 15:15 Speech Therapy Time Out: 15:30 Total Billed Time: 15 Billed Treatment Time 1, DYSEVS Speech GCodes Functional Limitation-Current Modifier: CK Functional Limitation-Goal Modifier: CI NEHAL CERVANTES ST Jun 29, 2018 16:46
[2018-06-29 19:50] VITALS: BP 154/68
[2018-06-30] VITALS (7 sets, daily range): BP systolic 127–167; BP diastolic 60–84
[2018-06-30] MEDS: LEVOTHYROXINE 50 MCG (LEVOTHROID) TAB PO SCH (05:50)
[2018-06-30] MEDS: ENALAPRIL 2.5 MG (VASOTEC) TAB PO SCH (08:53)
[2018-06-30] MEDS: azaTHIOprine (IMURAN) 50 MG TAB PO SCH (08:53)
[2018-06-30] MEDS: APIXABAN 5 MG (ELIQUIS) TABLET PO SCH ×2 (08:53→20:32)
[2018-06-30] MEDS: meTOprolol TARTRATE 50 MG (LOPRESSOR) TAB PO SCH ×2 (08:55→20:32)
--- NOTE | 2018-06-30 10:59 | Progress Note-Hospitalist ---
MIKEVICENTE ESPINOZA MED STUDENT 06/30/18 1059: Subjective HPI/CC On Admission Date Seen by Provider: Jun 30, 2018 Time Seen by Provider: 10:30 The patient is a 78-year-old white female who was feeling well up until some time after 2 p.m. She'll return having driven herself to her eye appointment and back earlier that morning. Sometime after 2 she developed unbalanced sensation where she had difficulty walking. She's had a history of vertigo likely benign positional in etiology in the past for report of this was different. She became diaphoretic and then had some nausea and vomiting. She called her son who brought her to the emergency room. This was later more than 6 hours after the onset of her symptoms. A CT head was performed which revealed no significant abnormalities. She apparently at that time did not have a facial droop that was noted did appear to have some mild dysmetria and was admitted to undergo MRI this morning. Upon my arrival the patient was sleeping she was easily aroused but exhibited significant dysarthria and had a mild but obvious right facial droop. She denied headache nausea or vomiting initiate attempted to answer more questions during the interview her speech improved from being initially unintelligible to being mostly intelligible. She voices no other complaints see below review of systems. Lying in bed she was not feeling unsteady. She also denied any current vertigo. Past medical history is significant for paroxysmal atrial fibrillation for which she has been on Eliquis for the last several years. She's had no previous history of CVA or thromboembolic events. She does have a history of hypertension as well as autoimmune hepatitis for which she has done well on low- dose azathioprine and sulfasalazine. Subjective/Events-last exam Pt was alert and oriented this morning. Denies pain. Has not been able to ambulate yet. R facial droop is still apparent. Interview complicated by significant dysarthria. R CN VII impairment. B/l muscle strength testing performed: +5/5 L UE, +5/5 L LE, +3/5 R UE, +1/5 R LE. Objective Exam Vital Signs Vital Signs Date Time Temp Pulse Resp B/P (MAP) Pulse Ox O2 Delivery O2 Flow Rate FiO2 06/30/18 08:00 97.4 80 18 132/62 (85) 96 Room Air Capillary Refill : Less Than 3 Seconds Results/Procedures Lab Patient resulted labs reviewed. Assessment/Plan Assessment and Plan Assess & Plan/Chief Complaint Assessment: CVA Plan: Rehab consult Restart home medications Continue telemetry- hx of paroxysmal fibrillation Continue Eliquis Monitor bowel/bladder Critical Care Critical Care: Critically Ill Patient Clinical Quality Measures DVT/VTE Risk/Contraindication: Risk Factor Score Per Nursin RFS Level Per Nursing on Admit: 1=Low/No VTE PPX Stroke: Date of last known well: Jun 28, 2018 Time of last known well: 10:00 Symptoms onset unknown: No JESSICA GARCIA DO 06/30/18 1148: Subjective Subjective/Events-last exam Difficult to communicate due to dysarthria Inpatient rehabilitation evaluation and will likely go there tomorrow Reconcile all home meds Review of Systems Neurological: Weakness, Incoordination Objective Exam General Appearance: No Apparent Distress, WD/WN, Chronically ill Respiratory: Chest Non Tender, Lungs Clear, Normal Breath Sounds, No Accessory Muscle Use, No Respiratory Distress Cardiovascular: Regular Rate, Rhythm, No Edema, No Gallop, No JVD, No Murmur, Normal Peripheral Pulses Neurologic/Psychiatric: Alert, Oriented x3, Depressed Affect, Motor Weakness Assessment/Plan Assessment and Plan Assess & Plan/Chief Complaint DC telemetry Reconcile and restarted all home meds Inpatient rehabilitation tomorrow Diagnosis/Problems Diagnosis/Problems (1) Acute CVA (cerebrovascular accident) Status: Acute (2) Dysarthria Status: Acute (3) Atrial fibrillation Status: Chronic Qualifiers: Atrial fibrillation type: paroxysmal Qualified Codes: I48.0 - Paroxysmal atrial fibrillation VICENTE SEGOVIA STUDENT Jun 30, 2018 10:59 JESSICA GARCIA DO Jun 30, 2018 11:48
--- NOTE | 2018-06-30 11:04 | Progress Note-Hospitalist ---
Subjective HPI/CC On Admission Date Seen by Provider: Jun 30, 2018 Time Seen by Provider: 10:00 The patient is a 78-year-old white female who was feeling well up until some time after 2 p.m. She'll return having driven herself to her eye appointment and back earlier that morning. Sometime after 2 she developed unbalanced sensation where she had difficulty walking. She's had a history of vertigo likely benign positional in etiology in the past for report of this was different. She became diaphoretic and then had some nausea and vomiting. She called her son who brought her to the emergency room. This was later more than 6 hours after the onset of her symptoms. A CT head was performed which revealed no significant abnormalities. She apparently at that time did not have a facial droop that was noted did appear to have some mild dysmetria and was admitted to undergo MRI this morning. Upon my arrival the patient was sleeping she was easily aroused but exhibited significant dysarthria and had a mild but obvious right facial droop. She denied headache nausea or vomiting initiate attempted to answer more questions during the interview her speech improved from being initially unintelligible to being mostly intelligible. She voices no other complaints see below review of systems. Lying in bed she was not feeling unsteady. She also denied any current vertigo. Past medical history is significant for paroxysmal atrial fibrillation for which she has been on Eliquis for the last several years. She's had no previous history of CVA or thromboembolic events. She does have a history of hypertension as well as autoimmune hepatitis for which she has done well on low- dose azathioprine and sulfasalazine. Subjective/Events-last exam Patient stable See other note completed Objective Exam Vital Signs Vital Signs Date Time Temp Pulse Resp B/P (MAP) Pulse Ox O2 Delivery O2 Flow Rate FiO2 06/30/18 08:00 97.4 80 18 132/62 (85) 96 Room Air Capillary Refill : Less Than 3 Seconds General Appearance: No Apparent Distress, WD/WN Neurologic/Psychiatric: Motor Weakness Results/Procedures Lab Patient resulted labs reviewed. Assessment/Plan Assessment and Plan Assess & Plan/Chief Complaint CVA Critical Care Critical Care: Critically Ill Patient Clinical Quality Measures DVT/VTE Risk/Contraindication: Risk Factor Score Per Nursin RFS Level Per Nursing on Admit: 1=Low/No VTE PPX Stroke: Date of last known well: Jun 28, 2018 Time of last known well: 10:00 Symptoms onset unknown: JESSICA Mcallister DO Jun 30, 2018 11:04
--- NOTE | 2018-06-30 15:38 | Physical Therapy Daily Note ---
PT Daily Note-Current Subjective Pt. up in chair, states she feels she is weaker today than yesterday, has less control and less balance. Speech slurred and facial droop evident Pain Numeric Pain Scale: 0-No Pain Mental Status Patient Orientation: Normal For Age Transfers Functional [place] Measure 0=Not Assessed/NA 4=Minimal Assistance 1=Total Assistance 5=Supervision or Setup 2=Maximal Assistance 6=Modified [place] 3=Moderate Assistance 7=Complete IndependenceIRFPAI Quality Coding Scale 6 Independent with activity with or without an assistive device 5 Patient requires set up or clean up by helper. Patient completes activity by themselves 4 Supervision or touching assist (CGA). [place] provide cues , steadying assist 3 The helper provides less than half the effort to complete the activity 2 The helper provides more than half the effort to complete the activity 1 Dependent. The helper does all the effort to complete an activity 7 Patient refused to complete or attempt activity 9 The patient did not perform the activity before the current illness or injury 88 Not attempted due to Medical conditions or safety concerns sit to stand x 8 trials started out requiring min assist and ended at CGA to SBA with cues and education Weight Bearing Right Lower Extremity: Right Weight Bearing/Tolerated Left Lower Extremity: Left Weight Bearing/Tolerated Gait Training 100ft, 25ftx4,40ft, many sit to stands turns approaches and education regarding use of FWW in tight space like home. pt. flexed at trunk with effort required to advance RLE. R hand also has difficulty holding to FWW Exercises Seated Therapy Exercises: Ankle pumps, Sit to stand (x8 ), Long arc quads, Hip flexion, Hip abd/add Seated Reps: 15 Assessment Current Status: Good Progress possibly increased symptoms this date PT Care Home Goals Document Control Supervisor Goals PT Document Control Supervisor Goals Time Frame: Jul 10, 2018 Transfers (B,C,W/C) (FIM): 6 Gait (FIM): 6 Gait distance (FIM): 3=150 ft Distance: >400' Gait Level of Assist: 6 Gait Assistive Device: None, FWW Stairs (FIM): 2 # of Steps: 5 Stairs Level Of Assist: 6 PT Plan Treatment/Plan Treatment Plan: Continue Plan of Care Treatment Plan: Education, Functional Activity Lizet, Functional Strength, Gait , Safety, Therapeutic Exercise, Transfers Treatment Duration: Jul 10, 2018 Frequency: 11 times per week Estimated Hrs Per Day: .5 hour per day Patient and/or Family Agrees t: Yes Safety Risks/Education Patient Education: Gait Training, Transfer Techniques, Correct Positioning, Disease Process, Safety Issues Teaching Recipient: Patient Teaching Methods: Demonstration, Discussion Response to Teaching: Verbalize Understanding, Return Demonstration, Reinforcement Needed Time/GCodes Time In: 1505 Time Out: 1535 Total Billed Treatment Time: 30 Total Billed Treatment 1,EX10m,GT20m G Codes Necessary: No PT/OT Therapy GCodes Therapy Functional Limitation: Physical Therapy Test(s)/Tool used to determine: FIM Functional Limitation-Current Charge Code: MOBCUR Modifier: CK Functional Limitation-Goal Charge Code: MOBGOAL Modifier: FRANTZ SANCHEZ ASSOCIATE ACCOUNTANT Jun 30, 2018 15:37
[2018-07-01] VITALS: BP 145/67
[2018-07-01 08:00] VITALS: BP 126/73
[2018-07-01] MEDS: LEVOTHYROXINE 50 MCG (LEVOTHROID) TAB PO SCH (08:44)
[2018-07-01] MEDS: meTOprolol TARTRATE 50 MG (LOPRESSOR) TAB PO SCH ×2 (08:44→20:34)
[2018-07-01] MEDS: APIXABAN 5 MG (ELIQUIS) TABLET PO SCH ×2 (08:44→20:33)
[2018-07-01] MEDS: azaTHIOprine (IMURAN) 50 MG TAB PO SCH (08:45)
[2018-07-01] MEDS: ENALAPRIL 5 MG (VASOTEC) TAB PO SCH (10:05)
--- NOTE | 2018-07-01 11:00 | Progress Note-Hospitalist ---
JULIETTEVICENTE MED STUDENT 07/01/18 1100: Subjective HPI/CC On Admission Date Seen by Provider: Jul 01, 2018 Time Seen by Provider: 10:56 The patient is a 78-year-old white female who was feeling well up until some time after 2 p.m. She'll return having driven herself to her eye appointment and back earlier that morning. Sometime after 2 she developed unbalanced sensation where she had difficulty walking. She's had a history of vertigo likely benign positional in etiology in the past for report of this was different. She became diaphoretic and then had some nausea and vomiting. She called her son who brought her to the emergency room. This was later more than 6 hours after the onset of her symptoms. A CT head was performed which revealed no significant abnormalities. She apparently at that time did not have a facial droop that was noted did appear to have some mild dysmetria and was admitted to undergo MRI this morning. Upon my arrival the patient was sleeping she was easily aroused but exhibited significant dysarthria and had a mild but obvious right facial droop. She denied headache nausea or vomiting initiate attempted to answer more questions during the interview her speech improved from being initially unintelligible to being mostly intelligible. She voices no other complaints see below review of systems. Lying in bed she was not feeling unsteady. She also denied any current vertigo. Past medical history is significant for paroxysmal atrial fibrillation for which she has been on Eliquis for the last several years. She's had no previous history of CVA or thromboembolic events. She does have a history of hypertension as well as autoimmune hepatitis for which she has done well on low- dose azathioprine and sulfasalazine. Subjective/Events-last exam Pt is doing well No improvement in muscle strength since yesterday Denies any pain Has not had a BM in a few days- will start bowel regimen Elevated LDL- initiate statin therapy Plan is to move down to rehab tomorrow morning Note: spoke to attending regarding repeat MRI due to RN concerns. Repeat neurologic exam showed no changes from yesterday- muscle strength +5/5 LUE, LLE. +1/5 RLE, +4/5 RUE. Sensation intact b/l. CN I-XII intact b/l. Dysarthria noted. Denies numbness/tingling. Has recently started to feel a bit dizzy. Will notify nurse. Objective Exam Vital Signs Vital Signs Date Time Temp Pulse Resp B/P (MAP) Pulse Ox O2 Delivery O2 Flow Rate FiO2 07/01/18 10:05 61 07/01/18 08:00 97.4 18 126/73 (90) 97 Room Air Capillary Refill : Less Than 3 Seconds General Appearance: No Apparent Distress Results/Procedures Lab Laboratory Tests 07/01/18 12:05 Patient resulted labs reviewed. Assessment/Plan Assessment and Plan Assess & Plan/Chief Complaint Assessment: CVA Plan: Bowel regimen Start statin Reviewed meds and labs Move to rehab tomorrow Critical Care Critical Care: Critically Ill Patient Diagnosis/Problems Diagnosis/Problems (1) Cerebellar disorder Status: Acute (2) Dysarthria Status: Acute (3) Acute CVA (cerebrovascular accident) Status: Acute Clinical Quality Measures DVT/VTE Risk/Contraindication: Risk Factor Score Per Nursin RFS Level Per Nursing on Admit: 1=Low/No VTE PPX Stroke: Date of last known well: Jun 28, 2018 Time of last known well: 10:00 Symptoms onset unknown: No JESSICA GARCIA DO 07/01/18 1151: Subjective Subjective/Events-last exam RN concerned about extension of the stroke since her ability to walk with PT was significantly depressed compared to yesterday so will order repeat MRI of the brain and I spoke to Radiologist Dr Messina about this I called Stroke center after MRI confirmed extension of the stroke on MRI and she recommended CT angiogram of brain and neck to assess for any thrombosis was that was obtained and noted at 1830 hours the results revealed no thrombosis. Pt has no additional treatment options since she is allergic to ASA. Review of Systems Neurological: Weakness, Incoordination Objective Exam General Appearance: No Apparent Distress, WD/WN, Chronically ill Respiratory: Lungs Clear, Normal Breath Sounds Cardiovascular: Regular Rate, Rhythm, No Edema Neurologic/Psychiatric: Alert, Oriented x3, Motor Weakness (right) Results/Procedures Lab Laboratory Tests 07/01/18 12:05 Assessment/Plan Assessment and Plan Assess & Plan/Chief Complaint Rechecked MRI for new infarct versus extension of the CVA and it did reveal extension of the CVA but CT angiogram did not reveal any thrombosis amenable for extraction at [facility] Diagnosis/Problems Diagnosis/Problems (1) Acute CVA (cerebrovascular accident) Status: Acute (2) Cerebellar disorder Status: Acute (3) Dysarthria Status: Acute (4) Atrial fibrillation Status: Chronic Qualifiers: Atrial fibrillation type: chronic Qualified Codes: I48.2 - Chronic atrial fibrillation (5) Hemiparesis Status: Acute Qualifiers: Hemiparesis etiology: late effect of cerebrovascular disease Cerebrovascular disease type: cerebral infarction Hemiparesis laterality: right dominant side Qualified Codes: I69.351 - Hemiplegia and hemiparesis following cerebral infarction affecting right dominant side VICENTE SEGOVIA STUDENT Jul 01, 2018 11:00 JESSICA GARCIA DO Jul 01, 2018 11:51
--- NOTE | 2018-07-01 11:29 | Physical Therapy Daily Note ---
PT Daily Note-Current Subjective Patient in bed pre tx, agrees to PT, no complaints of pain. Appearance Patient in recliner post tx with nurse call, phone, tray, chair alarm on. Mental Status Patient Orientation: Person, Place Transfers Functional [place] Measure 0=Not Assessed/NA 4=Minimal Assistance 1=Total Assistance 5=Supervision or Setup 2=Maximal Assistance 6=Modified [place] 3=Moderate Assistance 7=Complete IndependenceIRFPAI Quality Coding Scale 6 Independent with activity with or without an assistive device 5 Patient requires set up or clean up by helper. Patient completes activity by themselves 4 Supervision or touching assist (CGA). [place] provide cues , steadying assist 3 The helper provides less than half the effort to complete the activity 2 The helper provides more than half the effort to complete the activity 1 Dependent. The helper does all the effort to complete an activity 7 Patient refused to complete or attempt activity 9 The patient did not perform the activity before the current illness or injury 88 Not attempted due to Medical conditions or safety concerns Transfers (B, C, W/C) (FIM): 4 Scootin Rollin Supine to/from Sit: 4 Sit to/from Stand: 4 Bed to/from Chair: 4 Patient needed min assist for bed mobility, sit to stand, and stand pivot transfers. She needs assist getting her right leg out of bed, and has poor balance initially upon standing. Weight Bearing Right Lower Extremity: Right Weight Bearing/Tolerated Left Lower Extremity: Left Weight Bearing/Tolerated Gait Training Gait (FIM): 2 Distance: 60' Gait Level of Assist: 4 Gait Persons Needed: 1 Gait Assistive Device: FWW CGA, slow ambulation, patient needs cues to not slump over walker, impaired coordination with stepping with the right leg. Exercises Seated Therapy Exercises: Ankle pumps, Long arc quads, Hip flexion Seated Reps: 20 Treatments bed mobility and transfers, ambulation, functional strengthening/AROM Assessment Current Status: Poor Progress Patient seems to have had a decline in general functional mobility since her evaluation. PT [employer] Management Consultant Goals Skilled Nursing Goals PT Skilled Nursing Goals Time Frame: Jul 10, 2018 Transfers (B,C,W/C) (FIM): 6 Gait (FIM): 6 Gait distance (FIM): 3=150 ft Distance: >400' Gait Level of Assist: 6 Gait Assistive Device: None, FWW Stairs (FIM): 2 # of Steps: 5 Stairs Level Of Assist: 6 PT Plan Problem List Problem List: Activity Tolerance, Functional Strength, Safety, Balance, Gait, Transfer, Bed Mobility, ROM Treatment/Plan Treatment Plan: Continue Plan of Care Treatment Plan: Bed Mobility, Education, Functional Activity Lizet, Functional Strength, Gait, Safety, Therapeutic Exercise, Transfers Treatment Duration: Jul 10, 2018 Frequency: 11 times per week Estimated Hrs Per Day: .5 hour per day Patient and/or Family Agrees t: Yes Safety Risks/Education Patient Education: Gait Training, Transfer Techniques, Correct Positioning, Safety Issues Teaching Recipient: Patient Teaching Methods: Demonstration, Discussion Response to Teaching: Reinforcement Needed Time/GCodes Time In: 1105 Time Out: 1121 Total Billed Treatment Time: 16 Total Billed Treatment 1 visit GT 16' PT/OT Therapy GCodes Therapy Functional Limitation: Physical Therapy Test(s)/Tool used to determine: FIM Functional Limitation-Current Charge Code: MOBCUR Modifier: CK Functional Limitation-Goal Charge Code: MOBGOAL Modifier: NEDRA LOBATO PT Jul 01, 2018 11:29
[2018-07-01] MEDS: POLYETHYLENE GLYCOL 17 GM (MIRALAX) PACK PO SCH ×2 (11:55→20:33)
[2018-07-01] MEDS: SENNA W/DOCUSATE (SENOKOT S) TABLET PO SCH ×2 (11:55→20:34)
[2018-07-01] MEDS: LACTULOSE SYRUP 10GM/15ML (ENULOSE) 30ML UDC PO SCH ×2 (11:55→20:33)
[2018-07-01 12:12] LABS: HEMOGLOBIN 14.3 G/DL (11.5-16.0); MEAN PLATELET VOLUME 9.6 FL (7.4-10.4); RED BLOOD COUNT 4.82 10^6/uL (4.35-5.85); RED CELL DISTRIBUTION WIDTH 14.5 % (10.0-14.5); WHITE BLOOD COUNT 7.6 10^3/uL (4.3-11.0)
[2018-07-01 12:32] LABS: ALANINE AMINOTRANSFERASE 54 U/L (0-55); ALKALINE PHOSPHATASE 146 U/L (40-136); BILIRUBIN,TOTAL 0.9 MG/DL (0.1-1.0); BUN/CREATININE RATIO 14; CALCIUM 10.7 MG/DL (8.5-10.1); CARBON DIOXIDE 25 MMOL/L (21-32); CHLORIDE 105 MMOL/L (98-107); CREATININE SERUM 0.76 MG/DL (0.60-1.30); GFR ESTIMATED > 60; GLUCOSE 116 MG/DL (70-105); POTASSIUM 3.7 MMOL/L (3.6-5.0); SODIUM 138 MMOL/L (135-145); TOTAL PROTEIN 7.3 GM/DL (6.4-8.2)
[2018-07-01] MEDS ORDERED: GADOBUTROL 7.5 MMOL/7.5 ML (GADAVIST) VIAL IV ONE (13:45)
--- NOTE | 2018-07-01 14:17 | Diagnostic Imaging Report ---
CLINICAL INDICATION: Patient having worsening stroke symptoms with right leg weakness. EXAMINATION: MRI of the brain performed without and with 7 cc of Gadavist IV contrast. Sequences include axial DWI, ADC map, axial gradient echo, axial T2, axial FLAIR, axial T1, axial T1 post IV contrast, coronal T1 fat-sat post IV contrast, and sagittal T1 post IV contrast. COMPARISON: MRI of the brain performed without contrast dated 06/29/2018. FINDINGS: There is interval progression and increased size of the acute/subacute infarct in the left of midline of the jennifer with diffusion restriction seen. This area currently measures 1.9 cm x 1.0 cm in greatest axial dimension compared to the prior study measured at 7 mm x 4 mm. There is associated high T2 signal in the region. There is no associated IV contrast enhancement. There are no other areas concerning for acute intracranial process. There is stable focal, patchy, and confluent areas of high T2 signal white matter changes seen throughout both cerebral hemispheres and periventricular regions, likely representing chronic small vessel ischemic disease and leukoaraiosis. The brain parenchymal volume appears appropriate for patient's age. The [place] vascular structures show no gross abnormality as visualized. The pituitary gland, sella, and suprasellar regions are unremarkable as visualized. There is no hydrocephalus. Basal cisterns are unremarkable. There are postoperative changes to both globes which may be related to lens implants. The extracranial soft tissue, skull, and orbits are stable and otherwise unremarkable. Paranasal sinuses and temporal bone structures show no significant abnormality. IMPRESSION: 1: There is interval progression and increased size of the acute/subacute infarct involving the left midline aspect of the jennifer. There is associated high T2 signal with no abnormal IV contrast enhancement. 2: The remainder of this exam shows no significant interval change compared to the prior study of comparison. Dictated by: Dictated on workstation # [id number]
[2018-07-01] MEDS ORDERED: IOHEXOL 350 MG/ML 100 ML (OMNIPAQUE 350) VIAL IV ONE (15:30)
[2018-07-01] MEDS ORDERED: NS 100 ML (IVPB) BAG IV ONE (15:30)
[2018-07-01 16:00] VITALS: BP 130/60
--- NOTE | 2018-07-01 18:44 | Diagnostic Imaging Report ---
PROCEDURE: CT angiography of the head and CT angiography of the neck with and without contrast. TECHNIQUE: Contiguous noncontrast images were obtained from the skull base through the vertex. After intravenous contrast administration, helical CT angiography of the neck was performed. Source data was reformatted into multiple MIP projections. Delayed post contrast acquisition was also obtained. INDICATION: Infarct of the left jennifer demonstrated on MRI. FINDINGS: Noncontrasted images of the head show no evidence of intracranial hemorrhage. There is good opacification of the aorta and cervical vessels. The vertebral arteries and carotid arteries show normal takeoff. The vessels are symmetrical. The internal carotid artery shows moderate stenosis, bilaterally, estimated at less than 50%, at the proximal takeoff. The internal carotid arteries show good flow and are widely patent to the carotid siphon. There is no significant atherosclerotic change within the carotid siphon. The anterior, middle and posterior cerebral arteries show good opacification without evidence of occlusion or stenosis. The cerebellar arteries are patent. Both vertebral arteries supply the basilar artery. There is no evidence of intracranial aneurysm. Delayed images show no evidence of abnormal intracranial enhancement. The ventricles and cortical gyral pattern are normal. IMPRESSION: 1. MR angiography of the head and neck showing mild atherosclerotic changes in the carotid arteries, bilaterally, at the internal coronary takeoff with no hemodynamic changes. No evidence of carotid dissection. 2. Intracranial vessels show no evidence of occlusive disease or stenosis. No evidence of vascular spasm. Dictated by: Dictated on workstation # [id number]
[2018-07-01] MEDS ORDERED: ATORVASTATIN 10 MG (LIPITOR) TABLET PO SCH (21:00)
[2018-07-01 23:01] VITALS: BP 130/61
[2018-07-02] MEDS: LEVOTHYROXINE 50 MCG (LEVOTHROID) TAB PO SCH (05:38)
[2018-07-02 07:35] VITALS: BP 151/67
[2018-07-02] MEDS: POLYETHYLENE GLYCOL 17 GM (MIRALAX) PACK PO SCH (08:57)
[2018-07-02] MEDS: ENALAPRIL 5 MG (VASOTEC) TAB PO SCH (08:57)
[2018-07-02] MEDS: APIXABAN 5 MG (ELIQUIS) TABLET PO SCH (08:58)
[2018-07-02] MEDS: azaTHIOprine (IMURAN) 50 MG TAB PO SCH (08:58)
[2018-07-02] MEDS: LACTULOSE SYRUP 10GM/15ML (ENULOSE) 30ML UDC PO SCH (08:58)
[2018-07-02] MEDS: meTOprolol TARTRATE 50 MG (LOPRESSOR) TAB PO SCH (08:58)
[2018-07-02] MEDS: SENNA W/DOCUSATE (SENOKOT S) TABLET PO SCH (08:58)
[2018-07-02] MEDS ORDERED: ATOR10TA66 PO (10:23)
--- NOTE | 2018-07-02 10:24 | Discharge Summary-Hospitalist ---
Diagnosis/Chief Complaint Date of Admission Jun 29, 2018 at 14:14 Date of Discharge Discharge Date: Jul 02, 2018 Admission Diagnosis 1. 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 In addition there appears to be mild right seventh nerve deficit. MRI with contrast pending we will initiate physical therapy and likely subsequent speech therapy. We'll add aspirin to Eliquis. 2. History of paroxysmal fibrillation continue telemetry monitoring for now. 3. Autoimmune hepatitis under good control on low-dose azathioprine in and sulfasalazine will continue. 4. Hypertension continue current therapy. Discharge Diagnosis (1) Acute CVA (cerebrovascular accident) Status: Acute Assessment & Plan: not a tPA candidate (2) Cerebellar disorder Status: Acute (3) Dysarthria Status: Acute (4) Atrial fibrillation Status: Chronic (5) Hemiparesis Status: Acute Discharge Summary Discharge Physical Exam Allergies: Coded Allergies: Sulfa (Sulfonamide Antibiotics) (Unverified Allergy, Unknown, 08/31/14) aspirin (Unverified Allergy, Unknown, 08/31/14) Vitals & I&Os Vital Signs Date Time Temp Pulse Resp B/P (MAP) Pulse Ox O2 Delivery O2 Flow Rate FiO2 07/02/18 07:35 97.0 62 18 151/67 (95) 97 Room Air General Appearance: Alert, Oriented X3, Cooperative Respiratory: Clear to Auscultation, Normal Air Movement Cardiovascular: Regular Rate, Normal S1, Normal S2 Neuro: Other (motor weakness right) Hospital Course Hospital course: Patient had an uneventful hospital course although there was a subtle change in her status with physical therapy the day before transferring to inpatient rehabilitation prompting a repeat MRI that did show an extension of the stroke but by only a subtle amount so I did speak with stroke center and they recommended CT angiogram of the neck and brain which revealed no large thrombosis that would be possible to evacuate so she was maintain on current treatment and I did confer with her about her aspirin sensitivity and she cannot take aspirin medication because of the irritation to her stomach. She was ready for inpatient rehabilitation transfer and she did resume normal bowel function after medications were given yesterday and was ready to begin therapy to recover. Labs (last 24 hrs) Laboratory Tests 07/01/18 12:05: White Blood Count 7.6, Red Blood Count 4.82, Hemoglobin 14.3, Hematocrit 44, Mean Corpuscular Volume 91, Mean Corpuscular Hemoglobin 30, Mean Corpuscular Hemoglobin Concent 33, Red Cell Distribution Width 14.5, Platelet Count 287, Mean Platelet Volume 9.6, Sodium Level 138, Potassium Level 3.7, Chloride Level 105, Carbon Dioxide Level 25, Anion Gap 8, Blood Urea Nitrogen 11, Creatinine 0.76, Estimat Glomerular Filtration Rate > 60, BUN/Creatinine Ratio 14, Glucose Level 116H, Calcium Level 10.7H, Corrected Calcium 10.7H, Total Bilirubin 0.9, Aspartate Amino Transf (AST/SGOT) 37H, Alanine Aminotransferase (ALT/SGPT) 54, Alkaline Phosphatase 146H, Total Protein 7.3, Albumin 4.0 Microbiology 06/28/18 Urine Culture - Final, Complete See Comments Sent To [facility] Patient resulted labs reviewed. Discussion & Recommendations Discharge Planning: <30 minutes discharge planning Discharge Home Medications: Active Scripts Active Atorvastatin Calcium 10 Mg Tablet 10 Mg PO HS Reported Eliquis (Apixaban) 5 Mg Tablet 5 Mg PO BID Metoprolol Tartrate 50 Mg Tablet 50 Mg PO BID Enalapril Maleate 5 Mg Tablet 5 Mg PO DAILY Vitamin E (Vitamin E Acetate) 400 Unit Capsule 400 Unit PO DAILY Levothyroxine Sodium 50 Mcg Tablet 50 Mcg PO DAILY Azathioprine 50 Mg Tablet 50 Mg PO DAILY Instructions to patient/family Please see electronic discharge instructions given to patient. Clinical Quality Measures DVT/VTE Risk/Contraindication: Risk Factor Score Per Nursin RFS Level Per Nursing on Admit: 1=Low/No VTE PPX Stroke: Date of last known well: Jun 28, 2018 Time of last known well: 10:00 Symptoms onset unknown: No Problem Qualifiers (1) Atrial fibrillation: Atrial fibrillation type: chronic Qualified Codes: I48.2 - Chronic atrial fibrillation (2) Hemiparesis: Hemiparesis etiology: late effect of cerebrovascular disease Cerebrovascular disease type: cerebral infarction Hemiparesis laterality: right dominant side Qualified Codes: I69.351 - Hemiplegia and hemiparesis following cerebral infarction affecting right dominant side JESSICA GARCIA DO Jul 02, 2018 10:24
== END 2018-07-02 09:40 | DRG 65 ==
LOC: EDUNIT# 22:46 → ER 22:47 → 4TH 22:48 → UNDOADMOB 06-29 02:05 → INTOOBSV 06-29 14:14 → OBSVTOIN 06-29 14:14 → UNDODISIN 07-02 09:40
PROVIDERS: ADMIT Internal Medicine; ATTEND Internal Medicine
DX: I63.9 Cerebral infarction, unspecified (principal); R47.1 Dysarthria and anarthria; R29.810 Facial weakness; R27.0 Ataxia, unspecified; G81.91 Hemiplegia, unspecified affecting right dominant side; I48.0 Paroxysmal atrial fibrillation; I10 Essential (primary) hypertension; R29.700 NIHSS score 0; K75.4 Autoimmune hepatitis; I25.2 Old myocardial infarction; E03.9 Hypothyroidism, unspecified; H91.93 Unspecified hearing loss, bilateral; H40.9 Unspecified glaucoma; Z79.01 Long term (current) use of anticoagulants; Z79.899 Other long term (current) drug therapy; Z97.4 Presence of external hearing-aid
CPT/HCPCS: 36415; 70450; 70496; 70498; 70551; 70553; 80053; 80061; 81000; 82962; 84484; 85025; 85027; 85379; 85610; 85730; 87088; 93005; 93041; G0378

== ENCOUNTER 2018-07-02 09:17 | Inpatient (IN) | payer MEDICARE, OTHER ==
[~2018-07-02] VITALS: Ht 162.6 cm; Wt 75.2 kg
[~2018-07-02 09:17] MED LIST changes: +APIX5TAB PO; +ENAL5TAB PO; +VITA400C60 PO
[2018-07-02] MEDS ORDERED: ATOR10TA66 PO (10:23)
[2018-07-02 10:45] VITALS: BP 147/70
--- NOTE | 2018-07-02 12:59 | Physical Therapy Evaluation ---
PT Evaluation-General Medical Diagnosis Admission Date Jul 02, 2018 at 09:40 Medical Diagnosis: Acute posterior circulation/vertebrobasilar CVA Onset Date: Jun 29, 2018 Therapy Diagnosis Therapy Diagnosis: Weakness right side; abn gait. 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 PT Evaluation-Current Subjective Pt agreeable to PT. Reports she wants to get better at walking so she can return home. Pain Numeric Pain Scale: 0-No Pain Location: No Pain Reported Objective Patient Orientation: Person, Place, Time, Situation Problem Solving: Fair Attachments: IV ROM/Strength ROM Lower Extremities Left LE ROM is WNL all planes; Rigth LE AAROM WNL all planes. Strenght Lower Extremities Right LE strength is as follows: quads 2/5; hamstrings 2/5; DF 0/5, hip flexion 1/5 Left LE strength is grossly 4+/5. Integumentary/Posture Integumentary Refer to nursing notes Posture Pt tends to keep her head down; rounded shoulders. Neuromuscular (Tone, Coordination, Reflexes) Functional Sensory Vision: Functional Hearing: Functional Hand Dominance: Left Sensation Right Lower Extremit: Impaired Sensation Left Lower Extremity: Impaired Transfers Functional [place] Measure 0=Not Assessed/NA 4=Minimal Assistance 1=Total Assistance 5=Supervision or Setup 2=Maximal Assistance 6=Modified [place] 3=Moderate Assistance 7=Complete IndependenceIRFPAI Quality Coding Scale 6 Independent with activity with or without an assistive device 5 Patient requires set up or clean up by helper. Patient completes activity by themselves 4 Supervision or touching assist (CGA). [place] provide cues , steadying assist 3 The helper provides less than half the effort to complete the activity 2 The helper provides more than half the effort to complete the activity 1 Dependent. The helper does all the effort to complete an activity 7 Patient refused to complete or attempt activity 9 The patient did not perform the activity before the current illness or injury 88 Not attempted due to Medical conditions or safety concerns Transfers (B, C, W/C) (FIM): 3 Roll Left to Right (QC): 4 Supine to/from Sit: 3 (assist with both legs into bed. ) Sit to/from Stand: 3 (mod assist at initial standing; tends to be retropulsive and locks her right knee) bed t/f WC(FIM only if WC use): 3 Sit to Lying (QC): 3 Lying to Sitting/Side of Bed(Q: 3 Sit to Stand (QC): 3 Chair/Xuj-db-Zlgse Xfer(QC): 3 Car Transfer (QC): 3 skilled cues for for sequencing and segmentation of task; slow to complete all tasks. Gait Does the Patient Walk?: Yes Mode of Locomotion: Walk Anticipated Mode of Locomotion: Walk Gait (FIM): 2 Distance (FIM): 3=154-87 ft Walk 10 feet (QC): 4 (CGA for safety due to limited DF [facility]. ) Walk 50 ft with 2 Turns(QC): 4 Walk 150 ft (QC): 88 Walking 10ft/uneven surface-QC: 3 Gait Level of Assist: 4 Gait Persons Needed: 1 Gait Assistive Device: FWW Comments/Gait Description Decreased coordination with the right LE and decreased toe clearance with step through; tends to lock right knee in extension to stabilize. Keeps head down. Slow and with difficulty. Stairs Stairs (FIM): 2 #of Steps: 1 Level of Assist: 3 1 Step (curb) (QC): 3 4 Steps (QC): 88 12 Steps (QC): 88 Needs cues to sequence and mod assist to get her right foot upl. Balance Sitting Static: Fair Sitting Dynamic: Fair Standing Static: Poor Standing Dynamic: Poor Picking up an Object (QC): 88 (unsafe to attempt) Treatment Treatment focused on gait short distances specifically in her room with turning ; also worked on sit to stand transfers with sequencing. Then, co treat with OT to address functional transfers during showering and dressing/undressing. OT addressed self care tasks, as PT addressed safety with transfers and worked on transfers into and out of shower, standing static and dynamic balacne to non garment sewing machine operator the shower as well as to don and doff her pants for toileting and undress/dressing. REquired the skill of 2 clinicians as her balance is poor and with impaired use of her right UE needs assist for ADL's. Assessment/Needs Pt presents post CVA with right Hemiparesis. She has impaired bed mobilty, transfers, gait, LE weakness on the right (foot drop); impaired balance and limited functional activity tolerance. She was indep at her PLOF. She will beneift from aggressive skilled PT intervention to address these deficits and promote her mobility to allow her to return home as before. Rehab Potential: Good PT Short Term Goals Short Term Goals Time Frame: Jul 16, 2018 Transfers (B,C,W/C) (FIM): 4 Gait (FIM): 4 Distance (FIM): 3=150 ft Gait Assistive Device: FWW PT Detention Goals Salvage Diver Goals PT Salvage Diver Goals Time Frame: Jul 30, 2018 Transfers (B,C,W/C) (FIM): 6 Sit to Lying (QC): 6 Lying-Sitting on Side/Bed(QC): 6 Sit to Stand (QC): 6 Roll Left to Right (QC): 6 Chair/Dqf-mz-Tailt Xfer(QC): 6 Car Transfer (QC): 6 Gait (FIM): 6 Gait distance (FIM): 3=150 ft Walk 10 feet (QC): 6 Walk 10ft-Uneven Surface(QC): 6 Walk 50ft with 2 Turns (QC): 6 Walk 150 ft (QC): 6 Gait Assistive Device: FWW Stairs (FIM): 5 # of Steps: 4 (household exception) 1 Step (curb) (QC): 6 4 Steps (QC): 6 12 Steps (QC): 88 Stairs Level Of Assist: 6 Picking up an Object (QC): 4 Goals are for patient to be mod indep with mobility to allow her to return home as before. PT Plan Problem List Problem List: Activity Tolerance, Functional Strength, Safety, Balance, Gait, Transfer, Bed Mobility Treatment/Plan Treatment Plan: Continue Plan of Care Treatment Plan: Bed Mobility, Education, Functional Activity Lizet, Functional Strength, Group Therapy, Gait, Safety, Therapeutic Exercise, Transfers Treatment Duration: Jul 30, 2018 Frequency: At least 5 of 7 days/Wk (IRF) Estimated Hrs Per Day: 1.5 hours per day Patient and/or Family Agrees t: Yes Safety Risks/Education Patient Education: Gait Training, Transfer Techniques, Safety Issues Teaching Recipient: Patient Teaching Methods: Discussion Response to Teaching: Reinforcement Needed Time/GCodes Time In: 1040 Time Out: 1120 ([id number] treat with OT) Total Billed Treatment Time: 80 Total Billed Treatment visit [facility] 20 FA 60 DAVID MIR PT Jul 02, 2018 12:59
--- NOTE | 2018-07-02 14:32 | Therapy Group Daily Note ---
Therapy Daily Group Note Patient Education Topic Other List Below Other/Notes Pt was an active participant in OT/PT group. She introduced herself by sharing her name, where she lives and what she would do with a million dollars. She contributed to education/discussion on transfers, including bed, car, and chair. She was returned to her room at 1:30 and [facility] Start Time: 13:00 Stop Time: 13:30 Total Billed Treatment Time: 30 Total Billed Treatment visit, group 30 minutes ELIZABETH HUDSON OT Jul 02, 2018 14:31
--- NOTE | 2018-07-02 14:36 | Occupational Therapy Eval ---
OT Evaluation-General/PLF Medical Diagnosis Admission Date Jul 02, 2018 at 09:40 Medical Diagnosis: Acute posterior circulation/vertebrobasilar CVA Onset Date: Jun 29, 2018 Therapy Diagnosis Therapy Diagnosis: decr self care, weakness, decr funct mob, decr coord, decr act deep Height/Weight Height (Feet): 5 Height (Inches): 4.00 Weight (Pounds): 160 Weight (Ounces): 0.0 Precautions Precautions/Isolations: Fall Prevention, Standard Precautions, Pressure Ulcer Referral Physician: Deondre Referral Reason: Evaluation/Treatment Medical History Pertinent Medical History: Atrial Fib, HTN, Hypothroidism, [place] Additional Medical History Autoimmune hepatitis, glaucoma. [place]. Anemia. Vertigo Current History Admitted with n/v and balance issues. R sided weakness, dysarthria Reviewed History: Yes Social History Home: Single Level Current Living Status: Alone Entry Into Home: Ramp (in garage) ADL-Prior Level of Function ADL PLOF Comments Pt reported that she was able to manage all of her basic ADLs, cook, clean, do laundry prior to illness. 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 DME/Equipment: Shower (with seat), Tall Toilet OT Current Status Subjective Pt seen in room, up in w/c, agreeable to OT. Pain reported 0/10. Appearance Alert, cooperative Mental Status/Objective Patient Orientation: Person, Place, Time, Situation Attachments: [place]ine Lock Current Glasses/Contacts: Yes (reading) Hearing Aids: Yes (bilat) Dentures/Partials: Yes (bilat) Hand Dominance: Left Upper Extremity ROM Grossly WFL bilat, with R hand lagging behind L and with incoordination Upper Extremity Sensation WFL bilat per pt report Upper Extremity Strength R UE lags behind L, with decreased grasp. R shoulder approx 3+/5, elbow 3+/5, wrist 2+/5, fingers 2+/5. L UE 4/5 overall Pt has difficulty with smooth eye movements and may have some r sided neglect ADL-Treatment ADL-Current Co-treat ADLS with PT due to need for two different skilled professionals. OT worked on ADLs, transfers and UE function and PT worked on balance, LE function , transfers. Pt needed occasional help to place R hand on walker or on grab bar. Pt groomed, bathed, dressed, toileted and was left up in recliner to finish eating, all needs met. Functional [place] Measure 0=Not Assessed/NA 4=Minimal Assistance 1=Total Assistance 5=Supervision or Setup 2=Maximal Assistance 6=Modified [place] 3=Moderate Assistance 7=Complete IndependenceIRFPAI Quality Coding Scale 6 Independent with activity with or without an assistive device 5 Patient requires set up or clean up by helper. Patient completes activity by themselves 4 Supervision or touching assist (CGA). [place] provide cues , steadying assist 3 The helper provides less than half the effort to complete the activity 2 The helper provides more than half the effort to complete the activity 1 Dependent. The helper does all the effort to complete an activity 7 Patient refused to complete or attempt activity 9 The patient did not perform the activity before the current illness or injury 88 Not attempted due to Medical conditions or safety concerns Eating (FIM): 5 (Setup, extra time. has dentures and can't eat some foods without them) Eating (QC): 5 Grooming (FIM): 4 (Min assist brushing teeth, seated at sink. Brushed hair setup. Washed face and hands in shower) Oral Hygiene (QC): 3 Bathing (FIM): 1 (60%. Decreased sigging balance affects ability to wash and dry feet. two person assist to stand to wash and dry bottom and mario alberto. Shower bench, grab bars, hand held shower) Bathing Location: L Arm, R Arm, L Upper Leg, R Upper Leg, Chest, Abdomen Shower/Bathe Self (QC): 1 Upper Body Dressing (FIM): 3 (Min assist to don shirt. Help to hook bra) Upper Body Dressing (QC): 3 Lower Body Dressing (FIM): 1 (Two people to stand to pull pants up (one to balance, one to pull pants up.) Help with slipper socks off and on) Lower Body Dressing (QC): 1 On/Off Footwear (QC): 1 Toileting (FIM): 1 (Two people, one to stnad and one to manage clothing. Pt can manage hygiene in front with supervision. Tall toilet, grab bar, FWW) Toileting Hygiene (QC): 1 Toilet/Commode Transfer (FIM): 3 (Min assist to sit, mod assist to get off tall toilet, grab bar, FWW) Toilet Transfer (QC): 3 Shower Transfer (FIM): 1 (two person assist due to decreased mobility R foot and decr use R hand. In/out of shower stall and on/off shower bench. Grab bars) Education OT Patient Education: Modified ADL techniques, Purpose of tx/functional activities, Rehab process, Safety issues, Transfer techniques, Use of adapted equipment Teaching Recipient: Patient Teaching Methods: Demonstration, Discussion Response to Teaching: Verbalize Understanding, Return Demonstration, Reinforcement Needed OT Short Term Goals Short Term Goals Time Frame: Jul 09, 2018 Grooming(FIM): 5 Upper Body Dressing(FIM): 5 Lower Body Dressing(FIM): 3 Toileting(FIM): 3 Toilet/Commode Transfer(FIM): 3 Additional Short Term Goals: 1-Demonstrate ADL Tasks, 2-Verbalize Understanding , 3-ImproveStrength/[place] 1=Demonstrate adherence to instructed precautions during ADL tasks. 2=Patient will verbalize/demonstrate understanding of assistive devices/ modifications for ADL. 3=Patient will improve strength/tolerance for activity to enable patient to perform ADL's. OT Fci Goals Fci Goals Time Frame: Jul 23, 2018 Eating (FIM): 6 Eating (QC): 6 Groomin Oral Hygiene (QC): 6 Bathing(FIM): 5 Shower/Bathe Self (QC): 5 Upper Body Dressing(FIM): 5 Upper Body Dressing (QC): 5 Lower Body Dressing(FIM): 5 Lower Body Dressing (QC): 5 On/Off Footwear (QC): 5 Toileting(FIM): 6 Toileting Hygiene (QC): 6 Toilet/Commode Transfer(FIM): 6 Toilet/Commode Transfer (QC): 6 Shower Transfer(FIM): 5 Additional Goals: 1-Demonstrate ADL Tasks, 2-Verbalize Understanding, 3- ImproveStrength/[place] 1=Demonstrate adherence to instructed precautions during ADL tasks. 2=Patient will verbalize/demonstrate understanding of assistive devices/ modifications for ADL. 3=Patient will improve strength/tolerance for activity to enable patient to perform ADL's. OT Education/Plan Problem List/Assessment Assessment: Decreased Activ Tolerance, Decreased UE Strength, Dependent Transfers, Impaired Coordination, Impaired Funct Balance, Impaired Self-Care Skills, Restricted Funct UE ROM, Visual-Perceptual Deficit Discharge Recommendations Plan/Recommendations: Continue POC Treatment Plan/Plan of Care Treatment,Training & Education: Yes Patient would benefit from OT for education, treatment and training to promote independence in ADL's, mobility, safety and/or upper extremity function for ADL' s. Plan of Care: ADL Retraining, Functional Mobility, Group Exercise/Act as Ind ( education, exercise, activity tolerance, communication, functional activities, functional mobility), UE Funct Exercise/Act, UE Neuromus Re-Ed/Coord, Visual/ Perceptual Retrain (if needed) Treatment Duration: Jul 23, 2018 Frequency: At least 5 of 7 days/Wk (IRF) Estimated Hrs Per Day: 1.5 hours per day Agreement: Yes Rehab Potential: Good Time/GCodes Start Time: 11:20 Stop Time: 12:15 Total Time Billed (hr/min): 55 Billed Treatment Time visit, OT evaluation high intensity 15 minutes ([id number]), ADL 40 minutes ([id number]) co-tx with PT ELIZABETH HUDSON OT Jul 02, 2018 14:36
--- NOTE | 2018-07-02 14:47 | ST Cognitive Linguistic Eval ---
Speech Evaluation-General Medical Diagnosis Acute posterior circulation/vertebrobasilar CVA Onset Date: Jun 29, 2018 Therapy Diagnosis Therapy Diagnosis: Cognition Precautions Precautions/Isolations: Fall Prevention, Standard Precautions, Pressure Ulcer Referral Referring Physician: Dr. Mendosa Reason for Referral: Evaluation/Treatment Medical History Pertinent Medical History: Atrial Fib, HTN, [place] Reviewed History: Yes Social History Current Living Status: Alone Speech PLF-Current Status Prior Level of Function Independent Subjective Pt pleasant. Pain Numeric Pain Scale: 0-No Pain Language Eval: Auditory Comprehends Simple Yes/No Ques: Functional Follows 1-Step Commands: Functional Follows Complex Directions: Functional Follows General Conversations: Functional Language Eval: Verbal Language Completes Spontaneous Greeting: Functional Produces Auto, Serial Info: Functional Cognitive Patient Orientation Pt oriented x 3. Objective Cognitive Domain Attention: WNL Memory: WNL Problem Solving: Functional Objective Results [facility] results indicate cognition WFL. Pt demonstrates mild dysarthria and is mostly intelligible. Oral Motor/Speech Production Mild dysarthria. Impression Cognition WFL. Mild dysarthria. Communication/Social Cognition Comprehension: 7 Expression: 4 Social Interaction: 7 Problem Solvin Memory: 7 Speech Patient Assess Expression of Ideas/Wants: Expression (4) Understanding Verbal Content: Understands (4) Repetition of Three Words: Three (3) Temporal Orientation: Year: Correct (3) Temporal Orientation: Month: Accurate within 5 days(2) Temporal Orientation: Day: Correct (1) Recall : Wear to say "Sock": Yes, no cue required (2) Recall : Color: Yes, no cue required (2) Recall : Bed: Yes, no cue required (2) Speech Short Term Goals Short Term Goals Short Term Goals Pt will only require min assist with oral motor exercises. Pt will complete verbal expression tasks with at least 80% accuracy with or without comp strategies. Comprehension: 7 Expression: 4 Social Interaction: 7 Problem Solvin Memory: 7 Speech Preschool Education Director Goals [place] Goals Pt will be independent with Oral motor exercises Pt's verbal expressive speech will be at least 95% accurate with or without the use compensatory strategies. Comprehension: 7 Expression: 6 Social Interaction: 7 Problem Solvin Memory: 7 Speech-Plan Patient/Family Goals Patient/Family Goals: to talk better. Treatment Plan Speech Therapy Treatment Plan: Modify Plan, See Comments (Skilled ST ) Pt could benefit from skilled ST. Frequency: 5 times per week Estimated Hrs Per Day: .25 hour per day Rehab Potential: Good Barriers to Learning: Nnone Pt/Family Agrees to Plan: Yes Safety Risks/Education Teaching Recipient: Patient Teaching Methods: Discussion Response to Teaching: Verbalize Understanding Time Speech Therapy Time In: 13:00 Speech Therapy Time Out: 13:30 Total Billed Time: 30 Billed Treatment Time 1, LASTNDNEHAL Weaver Jul 02, 2018 14:46
--- NOTE | 2018-07-02 15:38 | PM&R Post Admission Assessment ---
Post Admission Physician Asses Date seen by provider: Jul 02, 2018 Time seen by provider: 12:45 The preadmission screen agrees with the post admission assessment that the patient is a good candidate for inpatient rehabilitation. The patient will have a comprehensive program of inpatient rehabilitation with a goal of maximizing level of functional independence prior to discharge home with family and HHC. The patient will have PT/OT ninety minutes per day, each discipline, five days a week for 18 days for gait, strengthening, conditioning , balance, ADLs, any patient/family/caregiver training as necessary. Speech therapy to do cognitive assessment and treat as indicated. Rehabilitation nursing to assist with bowel, bladder, skin, wound care, medication administration, pain management. Inking Machine Tender to assist with discharge planning, community reentry. SCD's for DVT prophylaxis. She appears to be well motivated to participate in three hours of therapy a day. She should be able to tolerate three hours of therapy a day from a medical standpoint. She should benefit from the three hours of therapy a day. She has a reasonable discharge plan, reasonable discharge rehabilitation goals and a supportive family. She has various comorbidities that need to be closely monitored with medications and treatments adjusted on a daily basis as needed. These include: HTN Chronic A FIB Barriers to discharge for this patient who had been independent prior to this are for her to be modified independent to supervision for ADLs and mobility skills prior to discharge home with Family and HHC, so as to lessen the burden of the caregivers. Risks for this patient include: 1. Fall 2. Fracture 3. DVT 4. Pulmonary embolism 5. Wound infection 6. Skin breakdown 7. Contractures 8. Poorly controlled pain 9. Urinary retention 10. UTI 11. Respiratory infection 12. Aspiration 13. Poorly controlled HTN 14. Poorly controlled A FIB 15. Recurrent stroke Estimated Length of Stay: 18 days Prognosis: Rehab prognosis appears good for goal of discharge home with family and HHC hopefully at the level ofmodified independent to supervision for ADLs and mobility skills. General: Alert, Oriented X3, Cooperative, No Acute Distress HEENT: Atraumatic, PERRLA, EOMI, Mucous Memb Moist/[place] Neck: Supple, No JVD Lungs: Clear to Auscultation Heart: Regular Rate Abdomen: Normal Bowel Sounds, Soft, No Tenderness Extremities: No Edema Neuro: Other (RT HP gait imbalance poor standing balance) RATNA COULTER MD Jul 02, 2018 15:38
--- NOTE | 2018-07-02 16:07 | HISTORY AND PHYSICAL ---
DATE OF SERVICE: 07/02/2018 ADMISSION HISTORY AND PHYSICAL CHIEF COMPLAINT: Difficulty with walking. HISTORY OF PRESENT ILLNESS: The patient is a 78-year-old female, who has been living alone independently in [place], [place], who developed dizziness and difficulty walking and difficulty with balance. She was admitted to the service of Dr. Lowe PCP for evaluation and treatment. MRI revealed an acute/subacute infarct involving the left jennifer accounting for her complaints. Therapies were begun. She was felt to be appropriate for inpatient rehabilitation. Currently, she is mod assist for transfers, has poor standing balance. She is alert and oriented and able to follow commands. She is left hand dominant. She requires assistance for her ADLs as well.She is setup for eating and min assist for grooming .She is Mod assist for upper body dressing and dependent for lower body dressing. PAST MEDICAL HISTORY: Paroxysmal atrial fibrillation, placed on Eliquis with aspirate now added, autoimmune hepatitis under good control on low dose of azathioprine and sulfasalazine, will continue, and hypertension. PAST SURGICAL HISTORY: Noncontributory. ALLERGIES: SULFA AND ASPIRIN. FAMILY HISTORY: Noncontributory. SOCIAL HISTORY: She is a and had been independent, driving prior to this. She has supportive family nearby. REVIEW OF SYSTEMS: A 10-point review of systems significant for impaired balance, right-sided weakness. MEDICATIONS: 1. Vasotec 5 mg p.o. daily. 2. Vitamin E 400 units p.o. daily. 3. Imuran 50 mg p.o. daily. 4. Synthroid 50 mcg p.o. daily. 5. Lipitor 10 mg p.o. at bedtime. 6. Lactulose 10 grams p.o. b.i.d. 7. MiraLax 34 grams p.o. b.i.d. 8. Senokot-S 2 tablets p.o. b.i.d. 9. Eliquis 5 mg p.o. b.i.d. 10. Metoprolol 50 mg p.o. b.i.d. PHYSICAL EXAMINATION: GENERAL: Significant for a pleasant elderly female appearing her stated age, lying in bed, in no acute distress. VITAL SIGNS: She is afebrile, pulse is 58, respirations 18, blood pressure 147/70, O2 sat 97% on room air. HEENT: Vision, speech and hearing grossly intact. She was reported to have mild dysarthria, I believe that is improved. No oral lesion is noted. No swallow disorder noted. NECK: Supple without mass. HEART: Regular rhythm. CHEST: Clear. ABDOMEN: Soft, nontender, bowel sounds present. EXTREMITIES: No lower leg edema, no calf tenderness. MUSCULOSKELETAL: The patient has functional active range of motion in all 4 extremities. NEUROLOGIC: Right lower extremity strength quads are 2/5 as well as hamstrings, hip flexion 1/5, dorsiflexion 0/5. The left lower extremity grossly 4+/5. Sensation is diminished to touch in both feet. Cognition appears grossly intact.Discordination RT Upper limb and sensation intact BUES Strength RT shoulder 3+/5 elbow 3+/5 RT wrist and fingers 2+/5 .Left upper limb 4/5 IMPRESSION: 1. 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 2. Dysarthria appears improving. 3. Atrial fibrillation, chronic. Controlled with medication. 4. Paroxysmal atrial fibrillation, on Eliquis, controlled. 5. Autoimmune hepatitis under good control with Imuran. 6. Hypertension, controlled with medication. 7. DVT prophylaxis Eliquis and scds PLAN: The patient will have a comprehensive program of inpatient rehabilitation with goal of maximizing level of functional independence prior to discharge home with family and home health care. The patient will have PT and OT 90 minutes per day each discipline, 5 days a week for 18 days with the above goals in mind. Please see post admission physician evaluation, which is a separate document for details of plan of care. Speech therapy to do a cognitive assessment and treat as indicated. Rehabilitation nursing to assist with bowel, bladder, skin care, medication administration, pain management. visitor services specialist to assist with discharge planning and community reentry. Follow up with Dr. Rodríguez and hospitalist service as per their schedule. ESTIMATED LENGTH OF STAY: 18 days. PROGNOSIS: Rehab prognosis appears good for goal of discharging home with home health care and family. Hopefully, at the modified independent to supervision level for ADLs and mobility skills. DIET: Regular. CODE STATUS: Full code. Job ID: [id number] DocumentID: [id number] Dictated Date: 07/02/2018 15:34:08 [place] Date: 07/02/2018 16:06:52 Dictated By: RATNA COULTER MD [facility]
[2018-07-02 18:10] VITALS: BP 146/73
--- OUTSIDE RECORDS SUMMARY | 2018-07-02 18:23 | XMS REPORT | Continuity of Care Document ---
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 05/25/2015 CLAIR ENRIQUE MUD ANALYSIS OPERATOR Ot 379.93 REDNESS/DISCHARGE OF EYE 05/25/2015 CLAIR ENRIQUE MUD ANALYSIS OPERATOR Ot 465.9 ACUTE URI NOS 11/19/2015 HENNA COLE MD Ot E03.9 HYPOTHYROIDISM, UNSPECIFIED 11/19/2015 HENNA COLE MD Ot E78.5 HYPERLIPIDEMIA, UNSPECIFIED 11/19/2015 HENNA COLE MD Ot E86.0 DEHYDRATION 11/19/2015 HENNA COLE MD Ot I10 ESSENTIAL (PRIMARY) HYPERTENSION 11/19/2015 HENNA COLE MD Ot I25.10 ATHSCL HEART DISEASE OF [place] CORONARY 11/19/2015 HENNA COLE MD Ot I25.2 [...] HEPATITIS 11/19/2015 HENNA COLE MD Ot Z79.01 SENIOR CARE (CURRENT) USE OF ANTICOAGULANT 06/23/2017 LATOYA BARRON [...] ENCOUN 06/23/2017 LATOYA BARRON MD Ot Z79.01 GUIDANCE SERVICES COORDINATOR (CURRENT) USE OF ANTICOAGULANT 06/23/2017 Ot V76.12 [...] MD Ot I25.10 ATHSCL HEART DISEASE OF [place] CORONARY 09/29/2017 KAILASH CANALES MD Ot I34.0 NONRHEUMATIC MITRAL (VALVE) INSUFFICIENC 09/29/2017 KAILASH CANALES MD, Ot I48.0 PAROXYSMAL ATRIAL FIBRILLATION 09/29/2017 KAILASH CANALES MD Ot R09.89 OTH SYMPTOMS AND SIGNS INVOLVING THE CIR 10/01/2017 KAILASH CANALES MD Ot I10 ESSENTIAL (PRIMARY) HYPERTENSION 10/01/2017 KAILASH CANALES MD Ot I25.10 ATHSCL HEART DISEASE OF [place] CORONARY 10/01/2017 KAILASH CANALES MD Ot I34.0 [...] Status Pt. Type Provider Facility Loc./Unit Complaint [id number] 09/07/2017 12:59:00 09/07/2017 23:59:59 CLS Outpatient KAILASH CANALES MD [facility] CARD CAD I25.10 [id number] 06/23/2017 11:15:00 06/23/2017 11:43:00 DIS Emergency LATOYA BARRON MD [facility] ER HEARING AID STUCK IN LEFT EAR [id number] 11/16/2015 11:25:00 11/19/2015 13:45:00 DIS Inpatient HENNA COLE MD [facility] 4TH AFIB WITH RVR NAUSEA VOMITING [id number] 05/25/2015 15:31:00 05/25/2015 16:08:00 DIS Emergency CLAIR ENRIQUE MUD ANALYSIS OPERATOR [facility] ER EYE IRRITATION [id number] 11/27/2014 10:43:00 11/27/2014 23:59:59 CLS Outpatient HENNA COLE MD [facility] RAD ELEVATED LFT [id number] 09/26/2014 08:56:00 09/26/2014 23:59:59 CLS Outpatient KAILASH CANALES MD [facility] CARD AFIB,CAD,CHF,HTN [id number] 08/31/2014 02:43:00 09/03/2014 14:05:00 DIS Inpatient KAILASH CANALES MD [facility] CSD A FIB W/RVR [id number] 07/09/2012 10:29:00 Document Registration [email or web address] 05/26/2015 05:31:59 ACT Document Registration
[2018-07-02] MEDS: ATORVASTATIN 10 MG (LIPITOR) TABLET PO SCH (21:07)
[2018-07-02] MEDS: APIXABAN 5 MG (ELIQUIS) TABLET PO SCH (21:07)
[2018-07-02] MEDS: SENNA W/DOCUSATE (SENOKOT S) TABLET PO SCH (21:07)
[2018-07-02] MEDS: meTOprolol TARTRATE 50 MG (LOPRESSOR) TAB PO SCH (21:07)
[2018-07-02] MEDS: LACTULOSE SYRUP 10GM/15ML (ENULOSE) 30ML UDC PO SCH (21:15)
[2018-07-02] MEDS: POLYETHYLENE GLYCOL 17 GM (MIRALAX) PACK PO SCH (21:15)
[2018-07-03 06:13] VITALS: BP 137/73
[2018-07-03] MEDS: LEVOTHYROXINE 50 MCG (LEVOTHROID) TAB PO SCH (06:20)
--- NOTE | 2018-07-03 07:52 | PM & R (SOAP) Progress Note ---
Subjective This was a face to face visit with the patient. Date Seen by Provider: Jul 03, 2018 Time Seen by Provider: 08:00 Subjective/Events-last exam Patient was seen in her room this AM Adjusting well to unit Patient mod assist for transfers Review of Systems Neurological: Weakness, Incoordination Objective Physician Exam Last Set of Vital Signs Vital Signs Date Time Temp Pulse Resp B/P (MAP) Pulse Ox O2 Delivery O2 Flow Rate FiO2 07/03/18 06:13 97.8 53 18 137/73 (94) 98 Room Air Capillary Refill : I&O Intake and Output 07/03/18 00:00 Daily Weight Change No General: Alert, Oriented X3, Cooperative, No Acute Distress HEENT: Atraumatic, PERRLA, EOMI, Mucous Memb Moist/[place] Neck: Supple, No JVD Lungs: Clear to Auscultation Heart: Regular Rate Abdomen: Normal Bowel Sounds, Soft, No Tenderness Extremities: No Edema Neuro: Other (RT HP gait imbalance poor standing balance) Assessment/Plan Assessment and Plan Left jennifer stroke with RT HP and gait imbalance Dysarthria improving A FIB controlled with med on eliquis Autoimmune hepatitis managed with meds HTN controlled with meds Plan Continue PT/OT/ST Team Conference next week 07-07-18 Co-Morbidities that are continuing to impact the rehab process: (include details ) RATNA COULTER MD Jul 03, 2018 07:52
[2018-07-03] MEDS: POLYETHYLENE GLYCOL 17 GM (MIRALAX) PACK PO SCH ×3 (09:08→21:02)
[2018-07-03] MEDS: SENNA W/DOCUSATE (SENOKOT S) TABLET PO SCH ×3 (09:08→21:02)
[2018-07-03] MEDS: ENALAPRIL 5 MG (VASOTEC) TAB PO SCH (09:08)
[2018-07-03] MEDS: APIXABAN 5 MG (ELIQUIS) TABLET PO SCH ×2 (09:09→20:55)
[2018-07-03] MEDS: meTOprolol TARTRATE 50 MG (LOPRESSOR) TAB PO SCH ×2 (09:09→20:55)
[2018-07-03] MEDS: VITAMIN E 400 INTLU CAP PO SCH (09:09)
[2018-07-03] MEDS: azaTHIOprine (IMURAN) 50 MG TAB PO SCH (09:09)
[2018-07-03] MEDS: LACTULOSE SYRUP 10GM/15ML (ENULOSE) 30ML UDC PO SCH ×3 (09:09→21:02)
--- NOTE | 2018-07-03 15:57 | Physical Therapy Daily Note ---
PT Daily Note-Current Subjective No issues reported on arrival or during treatment. Mental Status Patient Orientation: Person, Place, Time, Situation Transfers Functional [place] Measure 0=Not Assessed/NA 4=Minimal Assistance 1=Total Assistance 5=Supervision or Setup 2=Maximal Assistance 6=Modified [place] 3=Moderate Assistance 7=Complete IndependenceIRFPAI Quality Coding Scale 6 Independent with activity with or without an assistive device 5 Patient requires set up or clean up by helper. Patient completes activity by themselves 4 Supervision or touching assist (CGA). [place] provide cues , steadying assist 3 The helper provides less than half the effort to complete the activity 2 The helper provides more than half the effort to complete the activity 1 Dependent. The helper does all the effort to complete an activity 7 Patient refused to complete or attempt activity 9 The patient did not perform the activity before the current illness or injury 88 Not attempted due to Medical conditions or safety concerns Supine to/from Sit: 4 Sit to/from Stand: 4 Weight Bearing Right Lower Extremity: Right Full Weight Bearing Left Lower Extremity: Left Full Weight Bearing Gait Training Does the Patient Walk?: Yes Gait (FIM): 3 Distance (FIM): 3=150 ft Distance: 150ft Gait Level of Assist: 3 Gait Persons Needed: 1 Gait Assistive Device: FWW Had to rate her gait fim at 3 due to 2 episodes of loss of balance requiring moderate assist. Began dragging (R) foot in last 10ft of gait training. Exercises Supine Ex: LE Protocol Supine Reps: 15 50% assist needed for (R) LE exercises. Assessment Pt is aware of the loss of balance and foot drag, but the (R) hemiparesis limits her ability to respond and correct. PT Short Term Goals Short Term Goals Time Frame: Jul 16, 2018 Gait (FIM): 4 Distance (FIM): 3=150 ft Gait Assistive Device: FWW PT Fleet Administrative Assistant Goals Fleet Administrative Assistant Goals PT Fleet Administrative Assistant Goals Time Frame: Jul 30, 2018 Transfers (B,C,W/C) (FIM): 6 Sit to Lying (QC): 6 Lying-Sitting on Side/Bed(QC): 6 Sit to Stand (QC): 6 Roll Left to Right (QC): 6 Chair/Asu-ws-Gceze Xfer(QC): 6 Car Transfer (QC): 6 Gait (FIM): 6 Gait distance (FIM): 3=150 ft Walk 10 feet (QC): 6 Walk 10ft-Uneven Surface(QC): 6 Walk 50ft with 2 Turns (QC): 6 Walk 150 ft (QC): 6 Gait Assistive Device: FWW Stairs (FIM): 5 # of Steps: 4 (household exception) 1 Step (curb) (QC): 6 4 Steps (QC): 6 12 Steps (QC): 88 Stairs Level Of Assist: 6 Picking up an Object (QC): 4 PT Plan Treatment/Plan Treatment Plan: Continue Plan of Care Treatment Plan: Bed Mobility, Education, Functional Activity Lizet, Functional Strength, Group Therapy, Gait, Safety, Therapeutic Exercise, Transfers Treatment Duration: Jul 30, 2018 Frequency: At least 5 of 7 days/Wk (IRF) Estimated Hrs Per Day: 1.5 hours per day Patient and/or Family Agrees t: Yes Time/GCodes Time In: 1200 Time Out: 1215 Total Billed Treatment Time: 15 Total Billed Treatment 1, gt 15 CHAGO SUN PT Jul 03, 2018 15:57
[2018-07-03 18:42] VITALS: BP 152/73
[2018-07-03] MEDS: ATORVASTATIN 10 MG (LIPITOR) TABLET PO SCH (20:55)
[2018-07-04 05:11] VITALS: BP 148/76
[2018-07-04] MEDS: LEVOTHYROXINE 50 MCG (LEVOTHROID) TAB PO SCH (06:04)
[2018-07-04] MEDS: azaTHIOprine (IMURAN) 50 MG TAB PO SCH (09:32)
[2018-07-04] MEDS: meTOprolol TARTRATE 50 MG (LOPRESSOR) TAB PO SCH ×2 (09:32→20:08)
[2018-07-04] MEDS: APIXABAN 5 MG (ELIQUIS) TABLET PO SCH ×2 (09:32→20:08)
[2018-07-04] MEDS: ENALAPRIL 5 MG (VASOTEC) TAB PO SCH (09:32)
[2018-07-04] MEDS: VITAMIN E 400 INTLU CAP PO SCH (09:32)
[2018-07-04] MEDS: SENNA W/DOCUSATE (SENOKOT S) TABLET PO SCH ×2 (09:51→20:07)
[2018-07-04] MEDS: LACTULOSE SYRUP 10GM/15ML (ENULOSE) 30ML UDC PO SCH ×2 (09:51→20:06)
[2018-07-04] MEDS: POLYETHYLENE GLYCOL 17 GM (MIRALAX) PACK PO SCH ×2 (09:51→20:07)
[2018-07-04 18:00] VITALS: BP 134/67
[2018-07-04] MEDS: ATORVASTATIN 10 MG (LIPITOR) TABLET PO SCH (20:08)
[2018-07-05 05:33] VITALS: BP 114/71
[2018-07-05] MEDS: LEVOTHYROXINE 50 MCG (LEVOTHROID) TAB PO SCH (06:01)
[2018-07-05] MEDS: VITAMIN E 400 INTLU CAP PO SCH (08:02)
[2018-07-05] MEDS: azaTHIOprine (IMURAN) 50 MG TAB PO SCH (08:02)
[2018-07-05] MEDS: SENNA W/DOCUSATE (SENOKOT S) TABLET PO SCH ×2 (08:03→20:27)
[2018-07-05] MEDS: APIXABAN 5 MG (ELIQUIS) TABLET PO SCH ×2 (08:03→20:27)
[2018-07-05] MEDS: LACTULOSE SYRUP 10GM/15ML (ENULOSE) 30ML UDC PO SCH ×2 (08:03→20:26)
[2018-07-05] MEDS: POLYETHYLENE GLYCOL 17 GM (MIRALAX) PACK PO SCH ×2 (08:03→20:25)
[2018-07-05] MEDS: ENALAPRIL 5 MG (VASOTEC) TAB PO SCH (08:11)
[2018-07-05] MEDS: meTOprolol TARTRATE 50 MG (LOPRESSOR) TAB PO SCH ×2 (08:11→20:27)
--- NOTE | 2018-07-05 11:02 | Physical Therapy Daily Note ---
PT Daily Note-Current Subjective Pt. agrees to Rx. States she is feeling a little better. Pain Numeric Pain Scale: 0-No Pain Mental Status Patient Orientation: Person, Place, Situation Transfers Functional [place] Measure 0=Not Assessed/NA 4=Minimal Assistance 1=Total Assistance 5=Supervision or Setup 2=Maximal Assistance 6=Modified [place] 3=Moderate Assistance 7=Complete IndependenceIRFPAI Quality Coding Scale 6 Independent with activity with or without an assistive device 5 Patient requires set up or clean up by helper. Patient completes activity by themselves 4 Supervision or touching assist (CGA). [place] provide cues , steadying assist 3 The helper provides less than half the effort to complete the activity 2 The helper provides more than half the effort to complete the activity 1 Dependent. The helper does all the effort to complete an activity 7 Patient refused to complete or attempt activity 9 The patient did not perform the activity before the current illness or injury 88 Not attempted due to Medical conditions or safety concerns Transfers (B, C, W/C) (FIM): 3 Scootin Rollin Supine to/from Sit: 4 Sit to/from Stand: 3 much work focused on sit to stand with forward weight shift emphasized as well as how to toll to right and side to sit TRF. Pt required min to mod assist for these TRFs Weight Bearing Right Lower Extremity: Right Full Weight Bearing Left Lower Extremity: Left Full Weight Bearing Gait Training Does the Patient Walk?: Yes Gait (FIM): 3 Distance (FIM): 3=150 ft (150,100,75) Gait Level of Assist: 3 Gait Persons Needed: 1 Gait Assistive Device: FWW w/c to follow, needs assist for balance and alignment and skilled verbal instruction for step length etc Wheelchair Training Does the Pt Use a Wheelchair?: No Exercises Supine Ex: Bridging, Ankle pumps (HC stretch), Rolling, Heel Slides, Short Arc Quads, Scooting, Straight leg raise, Hip abd/add Supine Reps: 15 Seated Therapy Exercises: Sit to stand, Long arc quads Seated Reps: 10 Treatments required assist for exercises on right: heels slides and hip abd Assessment Current Status: Good Progress gives full effort, gait improved, sit to stand consistently requires assist, sup to side to sit improving PT Short Term Goals Short Term Goals Time Frame: Jul 16, 2018 Gait (FIM): 4 Distance (FIM): 3=150 ft Gait Assistive Device: FWW PT Retirement Goals Retirement Goals PT Retirement Goals Time Frame: Jul 30, 2018 Transfers (B,C,W/C) (FIM): 6 Sit to Lying (QC): 6 Lying-Sitting on Side/Bed(QC): 6 Sit to Stand (QC): 6 Roll Left to Right (QC): 6 Chair/Llm-nt-Yocfs Xfer(QC): 6 Car Transfer (QC): 6 Gait (FIM): 6 Gait distance (FIM): 3=150 ft Walk 10 feet (QC): 6 Walk 10ft-Uneven Surface(QC): 6 Walk 50ft with 2 Turns (QC): 6 Walk 150 ft (QC): 6 Gait Assistive Device: FWW Stairs (FIM): 5 # of Steps: 4 (household exception) 1 Step (curb) (QC): 6 4 Steps (QC): 6 12 Steps (QC): 88 Stairs Level Of Assist: 6 Picking up an Object (QC): 4 PT Plan Treatment/Plan Treatment Plan: Continue Plan of Care Treatment Plan: Bed Mobility, Education, Functional Activity Lizet, Functional Strength, Group Therapy, Gait, Safety, Therapeutic Exercise, Transfers Treatment Duration: Jul 30, 2018 Frequency: At least 5 of 7 days/Wk (IRF) Estimated Hrs Per Day: 1.5 hours per day Patient and/or Family Agrees t: Yes Safety Risks/Education Patient Education: Gait Training, Transfer Techniques, Correct Positioning, Safety Issues Teaching Recipient: Patient Teaching Methods: Demonstration, Discussion Response to Teaching: Verbalize Understanding, Reinforcement Needed needs instruction and hands on for all Time/GCodes Time In: 1000 Time Out: 1100 Total Billed Treatment Time: 60 Total Billed Treatment 1,GT30m,FA15m,EX15m G Codes Necessary: FRANTZ Kolb INTEGRATED PROGRAM TEACHER Jul 05, 2018 11:02
--- NOTE | 2018-07-05 11:30 | Occupational Ther Daily Note ---
OT Current Status-Daily Note Subjective Pt seen in room, up in bed, agreeable to OT. No pain mentioned. Appearance Alert, cooperative Mental Status/Objective Functional [place] Measure 0=Not Assessed/NA 4=Minimal Assistance 1=Total Assistance 5=Supervision or Setup 2=Maximal Assistance 6=Modified [place] 3=Moderate Assistance 7=Complete [place] ADL-Treatment Pt wanted to shower. She was able to get up out to EOB with close SBA, with HOB raised up. Sit to stand mod A, cues for hand placement. Walked mod A, FWW to bathroom and was able to get on/off tall toilet with mod assist. She stood, balancing on FWW with R hand and able to pull pants down with L, mod assist. Managed hygiene, pulling paper off roll with R hand. She walked mod A to shower (R foot with more difficulty clearing steps) and transferred into shower with min assist, mod assist out of shower stall (moving toward R leg). On/off shower bench with min assist, help to position leg, place R hand on grab bar. She washed and dried all parts except back and bottom, seated on bench. She used both hands but L was limited by IV in elbow and took cap off soap. Pt concerned about falling when seated so she was encouraged to hold on to grab bar with R hand. transferred mod assist to w/c positioned next to shower. Pt was able to put pre-fastened bra on over her head and also don shirt, both with just a little help to straighten them in back. Help to put feet into pants and underwear but she pulled them up to thighs. OT pulled pants up while she balanced with both hands on FWW, with help. OT put on slipper socks. She brushed her teeth and hair while seated at sink, managing toothpaste cap and water. pt left up in w/c, all needs met. Functional [place] Measure 0=Not Assessed/NA 4=Minimal Assistance 1=Total Assistance 5=Supervision or Setup 2=Maximal Assistance 6=Modified [place] 3=Moderate Assistance 7=Complete IndependenceIRFPAI Quality Coding Scale 6 Independent with activity with or without an assistive device 5 Patient requires set up or clean up by helper. Patient completes activity by themselves 4 Supervision or touching assist (CGA). [place] provide cues , steadying assist 3 The helper provides less than half the effort to complete the activity 2 The helper provides more than half the effort to complete the activity 1 Dependent. The helper does all the effort to complete an activity 7 Patient refused to complete or attempt activity 9 The patient did not perform the activity before the current illness or injury 88 Not attempted due to Medical conditions or safety concerns Grooming (FIM): 5 (setup to get to sink, w/c. Brushed teeth and hair) Bathing (FIM): 4 (Washed and dried all aprts except back and bottom, seated on shower bench, Grab bar, hand held shower. Pt used R hand to wash, take cap of soap) Upper Body (FIM): 4 (Bra and shirt, a little help to straighten in back) Lower Body Dressing (FIM): 2 (Help with socks, pants over feet, pants over hips. FWW) Toileting (FIM): 3 (Helped to pull pants down, able to wipe (pants take off to shower)) Toilet/Commode Transfer (FIM): 3 (Mod assist getting on/off tall toilet, with grab bar, FWW) Education OT Patient Education: Modified ADL techniques, Progress toward Goal/Update tx plan, Purpose of tx/functional activities, Safety issues, Transfer techniques Teaching Recipient: Patient Teaching Methods: Discussion Response to Teaching: Verbalize Understanding, Return Demonstration, Reinforcement Needed OT Short Term Goals Short Term Goals Time Frame: Jul 09, 2018 Grooming(FIM): 5 Upper Body Dressing(FIM): 5 Lower Body Dressing(FIM): 3 Toileting(FIM): 3 Toilet/Commode Transfer(FIM): 3 Additional Short Term Goals: 1-Demonstrate ADL Tasks, 2-Verbalize Understanding , 3-ImproveStrength/[place] 1=Demonstrate adherence to instructed precautions during ADL tasks. 2=Patient will verbalize/demonstrate understanding of assistive devices/ modifications for ADL. 3=Patient will improve strength/tolerance for activity to enable patient to perform ADL's. OT Report Clerk Goals Report Clerk Goals Time Frame: Jul 23, 2018 Eating (FIM): 6 Eating (QC): 6 Groomin Oral Hygiene (QC): 6 Bathing(FIM): 5 Shower/Bathe Self (QC): 5 Upper Body Dressing(FIM): 5 Upper Body Dressing (QC): 5 Lower Body Dressing(FIM): 5 Lower Body Dressing (QC): 5 On/Off Footwear (QC): 5 Toileting(FIM): 6 Toileting Hygiene (QC): 6 Toilet/Commode Transfer(FIM): 6 Toilet/Commode Transfer (QC): 6 Shower Transfer(FIM): 5 Additional Goals: 1-Demonstrate ADL Tasks, 2-Verbalize Understanding, 3- ImproveStrength/[place] 1=Demonstrate adherence to instructed precautions during ADL tasks. 2=Patient will verbalize/demonstrate understanding of assistive devices/ modifications for ADL. 3=Patient will improve strength/tolerance for activity to enable patient to perform ADL's. OT Education/Plan Discharge Recommendations Plan/Recommendations: Continue POC Treatment Plan/Plan of Care Patient would benefit from OT for education, treatment and training to promote independence in ADL's, mobility, safety and/or upper extremity function for ADL' s. Plan of Care: ADL Retraining, Functional Mobility, Group Exercise/Act as Ind ( education, exercise, activity tolerance, communication, functional activities, functional mobility), UE Funct Exercise/Act, UE Neuromus Re-Ed/Coord, Visual/ Perceptual Retrain (if needed) Treatment Duration: Jul 23, 2018 Frequency: At least 5 of 7 days/Wk (IRF) Estimated Hrs Per Day: 1.5 hours per day Agreement: Yes Rehab Potential: Good Time/GCodes Start Time: 09:00 Stop Time: 10:00 Total Time Billed (hr/min): 60 Billed Treatment Time visit, 60 minutes ADL ELIZABETH HUDSON OT Jul 05, 2018 11:30
--- NOTE | 2018-07-05 14:15 | Occupational Ther Daily Note ---
OT Current Status-Daily Note Subjective Pt seen in room, up in w/c, agreeable to OT. No pain mentioned. Appearance Alert, cooperative Mental Status/Objective Functional [place] Measure 0=Not Assessed/NA 4=Minimal Assistance 1=Total Assistance 5=Supervision or Setup 2=Maximal Assistance 6=Modified [place] 3=Moderate Assistance 7=Complete [place] ADL-Treatment Functional [place] Measure 0=Not Assessed/NA 4=Minimal Assistance 1=Total Assistance 5=Supervision or Setup 2=Maximal Assistance 6=Modified [place] 3=Moderate Assistance 7=Complete IndependenceIRFPAI Quality Coding Scale 6 Independent with activity with or without an assistive device 5 Patient requires set up or clean up by helper. Patient completes activity by themselves 4 Supervision or touching assist (CGA). [place] provide cues , steadying assist 3 The helper provides less than half the effort to complete the activity 2 The helper provides more than half the effort to complete the activity 1 Dependent. The helper does all the effort to complete an activity 7 Patient refused to complete or attempt activity 9 The patient did not perform the activity before the current illness or injury 88 Not attempted due to Medical conditions or safety concerns Other Treatment Pt was transported to gym per w/c. Worked on R UE coordination, with pt reaching for, grasping, stacking and releasing cones with R hand. Started with large plastic cones and ended up with smaller cones, placed in various planes, requiring her to reach up, out, down and other directions. She also was able to grasp and release amezcua bags, with 90% accuracy placement into box at different distances from her. pt pleased with progress. pt returned to room, left up in w/ c for PT, all meeds met. Education OT Patient Education: Exercise program, Progress toward Goal/Update tx plan, Purpose of tx/functional activities Teaching Recipient: Patient Teaching Methods: Demonstration, Discussion Response to Teaching: Verbalize Understanding, Return Demonstration OT Short Term Goals Short Term Goals Time Frame: Jul 09, 2018 Grooming(FIM): 5 Upper Body Dressing(FIM): 5 Lower Body Dressing(FIM): 3 Toileting(FIM): 3 Toilet/Commode Transfer(FIM): 3 Additional Short Term Goals: 1-Demonstrate ADL Tasks, 2-Verbalize Understanding , 3-ImproveStrength/Lizet 1=Demonstrate adherence to instructed precautions during ADL tasks. 2=Patient will verbalize/demonstrate understanding of assistive devices/ modifications for ADL. 3=Patient will improve strength/tolerance for activity to enable patient to perform ADL's. OT Room Service Attendant Goals [place] Goals Time Frame: Jul 23, 2018 Eating (FIM): 6 Eating (QC): 6 Groomin Oral Hygiene (QC): 6 Bathing(FIM): 5 Shower/Bathe Self (QC): 5 Upper Body Dressing(FIM): 5 Upper Body Dressing (QC): 5 Lower Body Dressing(FIM): 5 Lower Body Dressing (QC): 5 On/Off Footwear (QC): 5 Toileting(FIM): 6 Toileting Hygiene (QC): 6 Toilet/Commode Transfer(FIM): 6 Toilet/Commode Transfer (QC): 6 Shower Transfer(FIM): 5 Additional Goals: 1-Demonstrate ADL Tasks, 2-Verbalize Understanding, 3- ImproveStrength/Lizet 1=Demonstrate adherence to instructed precautions during ADL tasks. 2=Patient will verbalize/demonstrate understanding of assistive devices/ modifications for ADL. 3=Patient will improve strength/tolerance for activity to enable patient to perform ADL's. OT Education/Plan Discharge Recommendations Plan/Recommendations: Continue POC Treatment Plan/Plan of Care Patient would benefit from OT for education, treatment and training to promote independence in ADL's, mobility, safety and/or upper extremity function for ADL' s. Plan of Care: ADL Retraining, Functional Mobility, Group Exercise/Act as Ind ( education, exercise, activity tolerance, communication, functional activities, functional mobility), UE Funct Exercise/Act, UE Neuromus Re-Ed/Coord, Visual/ Perceptual Retrain (if needed) Treatment Duration: Jul 23, 2018 Frequency: At least 5 of 7 days/Wk (IRF) Estimated Hrs Per Day: 1.5 hours per day Agreement: Yes Rehab Potential: Good Time/GCodes Start Time: 13:45 Stop Time: 14:05 Total Time Billed (hr/min): 20 Billed Treatment Time visit, 20 minutes neuromotor ELIZABETH HUDSON OT Jul 05, 2018 14:14
--- NOTE | 2018-07-05 15:19 | Physical Therapy Daily Note ---
PT Daily Note-Current Subjective Pt. states that she is so tired this after noon and wants to work on walking and then toilet and lay down. Pain Numeric Pain Scale: 0-No Pain Mental Status Patient Orientation: Normal For Age Transfers Functional Day Measure 0=Not Assessed/NA 4=Minimal Assistance 1=Total Assistance 5=Supervision or Setup 2=Maximal Assistance 6=Modified [place] 3=Moderate Assistance 7=Complete IndependenceIRFPAI Quality Coding Scale 6 Independent with activity with or without an assistive device 5 Patient requires set up or clean up by helper. Patient completes activity by themselves 4 Supervision or touching assist (CGA). [place] provide cues , steadying assist 3 The helper provides less than half the effort to complete the activity 2 The helper provides more than half the effort to complete the activity 1 Dependent. The helper does all the effort to complete an activity 7 Patient refused to complete or attempt activity 9 The patient did not perform the activity before the current illness or injury 88 Not attempted due to Medical conditions or safety concerns sit to stand and sit to sup all min to SBA,. sit to stand from w/c and chair requires much instruction for "nose over toes" and weight shift etc Weight Bearing Right Lower Extremity: Right Full Weight Bearing Left Lower Extremity: Left Full Weight Bearing Gait Training Gait Assistive Device: FWW 50ftx3 FWW min to CGA, assist to affix right hand on FWW at times and to cue for awareness of right etc Exercises Supine Ex: Ankle pumps (HC stretch), Heel Slides (assist right), Hip abd/add Supine Reps: 12 Assessment Current Status: Good Progress gives full effort, fatigued this afternoon PT Short Term Goals Short Term Goals Time Frame: Jul 16, 2018 Gait (FIM): 4 Distance (FIM): 3=150 ft Gait Assistive Device: FWW PT Halfway Goals Relief Cook Goals PT Relief Cook Goals Time Frame: Jul 30, 2018 Transfers (B,C,W/C) (FIM): 6 Sit to Lying (QC): 6 Lying-Sitting on Side/Bed(QC): 6 Sit to Stand (QC): 6 Rollin Roll Left to Right (QC): 6 Chair/Dyb-im-Ku[place] Xfer(QC): 6 Car Transfer (QC): 6 Gait (FIM): 6 Gait distance (FIM): 3=150 ft Walk 10 feet (QC): 6 Walk 10ft-Uneven Surface(QC): 6 Walk 50ft with 2 Turns (QC): 6 Walk 150 ft (QC): 6 Gait Assistive Device: FWW Stairs (FIM): 5 # of Steps: 4 (household exception) 1 Step (curb) (QC): 6 4 Steps (QC): 6 12 Steps (QC): 88 Stairs Level Of Assist: 6 Picking up an Object (QC): 4 PT Plan Treatment/Plan Treatment Plan: Continue Plan of Care Treatment Plan: Bed Mobility, Education, Functional Activity Lizet, Functional Strength, Group Therapy, Gait, Safety, Therapeutic Exercise, Transfers Treatment Duration: Jul 30, 2018 Frequency: At least 5 of 7 days/Wk (IRF) Estimated Hrs Per Day: 1.5 hours per day Patient and/or Family Agrees t: Yes Safety Risks/Education Patient Education: Gait Training, Transfer Techniques, Correct Positioning, Safety Issues Teaching Recipient: Patient Teaching Methods: Demonstration, Discussion Response to Teaching: Verbalize Understanding, Return Demonstration, Reinforcement Needed Time/GCodes Time In: 1450 Time Out: 1520 Total Billed Treatment Time: 30 Total Billed Treatment 1,FT20m,FA10m G Codes Necessary: FRANTZ Kolb GRAIN MERCHANDISER Jul 05, 2018 15:19
--- NOTE | 2018-07-05 15:43 | Speech Therapy Daily Note ---
Speech Daily Progress Note Subjective Date Seen by Provider: Jul 05, 2018 Time Seen by Provider: 13:00 Pt pleasant and cooperative. Pain Numeric Pain Scale: 0-No Pain Objective Provided pt with handouts of Oral Motor Exercises (OMEs) for strengthening oral musculature. Reviewed exercises with here. Assessment Assessment Current Status: Good Progress Treatment Plan Continue Plan of Care Speech-Plan Patient/Family Goals Patient/Family Goals: to speak better. Treatment Plan Speech Therapy Treatment Plan: Continue Plan of Care pt very motivated to improve. Frequency: 5 times per week Estimated Hrs Per Day: .5 hour per day Rehab Potential: Good Pt/Family Agrees to Plan: Yes Safety Risks/Education Teaching Recipient: Patient Teaching Methods: Demonstration, Handout, Discussion Response to Teaching: Return Demonstration Time Speech Therapy Time In: 13:00 Speech Therapy Time Out: 13:30 Total Billed Time: 30 Billed Treatment Time 1, NEHAL Costello Jul 05, 2018 15:43
--- NOTE | 2018-07-05 16:17 | PM & R (SOAP) Progress Note ---
Subjective This was a face to face visit with the patient. Date Seen by Provider: Jul 05, 2018 Time Seen by Provider: 11:55 Subjective/Events-last exam Patient was seen in HER ROOM THIS am sITTING IN w/c IN nad.pATIENT sba FOR TRANSFERS Review of Systems Neurological: Weakness, Incoordination Objective Physician Exam Last Set of Vital Signs Vital Signs Date Time Temp Pulse Resp B/P (MAP) Pulse Ox O2 Delivery O2 Flow Rate FiO2 07/05/18 05:33 98.2 57 18 114/71 (85) 97 Room Air Capillary Refill : I&O Intake and Output 07/05/18 00:00 Intake Total 1050 ml Balance 1050 ml Intake Oral 1050 ml # Voids 8 # Bowel Movements 1 General: Alert, Oriented X3, Cooperative, No Acute Distress HEENT: Atraumatic, PERRLA, EOMI, Mucous Memb Moist/[place] Neck: Supple, No JVD Lungs: Clear to Auscultation Heart: Regular Rate Abdomen: Normal Bowel Sounds, Soft, No Tenderness Extremities: No Edema Neuro: Other (RT HP gait imbalance poor standing balance) Assessment/Plan Assessment and Plan lEFT AKANKSHA sTROKE WITH rt hp AND GAIT IMBALANCE dYSARTHRIA IMPROVING a fib CONTROLLED WITH MEDS aUTOIMMUNE HEPATITIS MANAGED WITH MEDS htn CONTROLLED WITH MEDS pLAN cONTINUE pt/ot/st tEAM CONFERENCE 07-07-18 Co-Morbidities that are continuing to impact the rehab process: (include details ) RATNA COULTER MD Jul 05, 2018 16:17
[2018-07-05 18:00] VITALS: BP 159/69
[2018-07-05] MEDS: ATORVASTATIN 10 MG (LIPITOR) TABLET PO SCH (20:27)
[2018-07-06 06:07] VITALS: BP 139/70
[2018-07-06] MEDS: LEVOTHYROXINE 50 MCG (LEVOTHROID) TAB PO SCH (06:27)
[2018-07-06] MEDS: APIXABAN 5 MG (ELIQUIS) TABLET PO SCH ×2 (08:07→19:58)
[2018-07-06] MEDS: azaTHIOprine (IMURAN) 50 MG TAB PO SCH (08:07)
[2018-07-06] MEDS: VITAMIN E 400 INTLU CAP PO SCH (08:07)
[2018-07-06] MEDS: LACTULOSE SYRUP 10GM/15ML (ENULOSE) 30ML UDC PO SCH (08:08)
[2018-07-06] MEDS: POLYETHYLENE GLYCOL 17 GM (MIRALAX) PACK PO SCH ×2 (08:08→19:51)
[2018-07-06] MEDS: SENNA W/DOCUSATE (SENOKOT S) TABLET PO SCH ×2 (08:08→19:51)
[2018-07-06] MEDS: meTOprolol TARTRATE 50 MG (LOPRESSOR) TAB PO SCH ×2 (08:09→19:57)
[2018-07-06] MEDS: ENALAPRIL 5 MG (VASOTEC) TAB PO SCH (08:10)
--- NOTE | 2018-07-06 08:47 | PM & R (SOAP) Progress Note ---
Subjective This was a face to face visit with the patient. Date Seen by Provider: Jul 06, 2018 Time Seen by Provider: 07:55 Subjective/Events-last exam Patient was seen in her room this AM Patient min assist for transfers Objective Physician Exam Last Set of Vital Signs Vital Signs Date Time Temp Pulse Resp B/P (MAP) Pulse Ox O2 Delivery O2 Flow Rate FiO2 07/06/18 06:07 98.3 60 18 139/70 (93) 96 Room Air Capillary Refill : I&O Intake and Output 07/06/18 00:00 Intake Total 1050 ml Balance 1050 ml Intake Oral 1050 ml # Voids 6 General: Alert, Oriented X3, Cooperative, No Acute Distress HEENT: Atraumatic, PERRLA, EOMI, Mucous Memb Moist/[place] Neck: Supple, No JVD Lungs: Clear to Auscultation Heart: Regular Rate Abdomen: Normal Bowel Sounds, Soft, No Tenderness Extremities: No Edema Neuro: Other (RT HP gait imbalance poor standing balance) Assessment/Plan Assessment and Plan Left jennifer stroke with RT HP and gait imbalance Dysarthria improving A FIB controlled with mess Autoimmune hepatitis managed with meds HTN controlled with meds Plan Continue PT/OT/ST Team Conference tomorrow Co-Morbidities that are continuing to impact the rehab process: (include details ) RATNA COULTER MD Jul 06, 2018 08:47
--- NOTE | 2018-07-06 08:53 | Individualized Plan of Care ---
Individualized Plan of Care Rehab Nursing IPOC Order Admission Date Jul 02, 2018 at 09:40 Current Orders Orders Pt Evaluate/Treat Request (07/02/18 09:18) Request Ot Evaluate & Treat (07/02/18 09:18) Request For Cognitive Services (07/02/18 09:18) Admission Arrival Bed Request (07/02/18 09:40) Admission Arrival Bed Request (07/02/18 11:07) General/Regular (07/02/18 Lunch) Ambulate TID (07/02/18 11:17) Sequential Compression Device 08,20 (07/02/18 11:17) Dvt/Vte Risk - Notifiy Physici 08 (07/02/18 11:17) Vital Signs: Routine (Order) 08,16,00 (07/02/18 11:46) Sequential Compression Device 08,20 (07/02/18 11:46) Rip And Groove Machine Operator-Inpt Rehab Con (07/02/18 11:46) Rehab Nursing Orders-Ipoc (07/02/18 11:46) Turn And Reposition Q2HR (07/02/18 11:46) Intake & Output 06,14,22 (07/02/18 11:46) Precautions (Aru) (07/02/18 11:46) Weekly Weight (Lbs) WEEK (07/02/18 11:46) Code/Resuscitation (07/02/18 11:48) Atorvastatin Tablet (Lipitor Tablet) (07/02/18 21:00) Lactulose Oral Solution (Enulose Oral So (07/02/18 21:00) Polyethylene Glycol Powder Pkt (Miralax (07/02/18 21:00) Senna S Tablet (Senokot S Tablet) (07/02/18 21:00) Admission Order(Inpt,Obs,Sdc) (07/02/18 11:50) Apixaban Tablet (Eliquis Tablet) (07/02/18 21:00) Azathioprine Tablet (Imuran Tablet) (07/03/18 08:00) Enalapril Tablet (Vasotec Tablet) (07/03/18 09:00) Levothyroxine Tablet (Synthroid Tablet) (07/03/18 06:30) Metoprolol Tartrate (Ir) Tab (Lopressor (07/02/18 21:00) D-Alpha Tochopheryl Capsule (Vitamin E C (07/03/18 09:00) Patient Visit (07/02/18 ) Pt Eval High Complexity (07/02/18 ) Functional Activities, Ea 15 (07/02/18 ) Patient Visit (07/02/18 ) Speech Sound Lang Comp (07/02/18 ) Patient Visit (07/02/18 ) Patient Visit (07/03/18 ) Gait Training, Ea 15 Min (07/03/18 ) Nursing Communication (Order) (07/05/18 14:16) Patient Visit (07/05/18 ) Gait Training, Ea 15 Min (07/05/18 ) Functional Activities, Ea 15 (07/05/18 ) Exercise Therap, Ea 15 Min (07/05/18 ) Patient Visit (07/05/18 ) Treat. Speech/Lang/Voice (07/05/18 ) Rehab Nursing Orders: Ongoing Assess. of Cognitive Status, Ongoing Assess. of Function Status, Disease Management & Educaiton, DVT Prophylaxis, Fall Prevention, Fluid/Electrolyte/Nutrition Mgmt, Infection Prevention, Medication Management & Education, Management of Risks & Complications, Management of Skin Intergrity, Nutrition Management, Pain Management, Patient/Family Support, Safety Management PT IPOC Problem List: Activity Tolerance, Functional Strength, Safety, Balance, Gait, Transfer, Bed Mobility Treatment Plan: Continue Plan of Care Bed Mobility, Education, Functional Activity Lizet, Functional Strength, Group Therapy, Gait, Safety, Therapeutic Exercise, Transfers Treatment Duration: Jul 30, 2018 Frequency: At least 5 of 7 days/Wk (IRF) Estimated Hrs Per Day: 1.5 hours per day OT IPOC Problems: Decreased Activ Tolerance, Decreased UE Strength, Dependent Transfers , Impaired Coordination, Impaired Funct Balance, Impaired Self-Care Skills, Restricted Funct UE ROM, Visual-Perceptual Deficit OT Treatment, Training and Edu: Yes Plan of Care: ADL Retraining, Functional Mobility, Group Exercise/Act as Ind ( education, exercise, activity tolerance, communication, functional activities, functional mobility), UE Funct Exercise/Act, UE Neuromus Re-Ed/Coord, Visual/ Perceptual Retrain (if needed) Treatment Duration: Jul 23, 2018 Frequency: At least 5 of 7 days/Wk (IRF) Estimated Hrs Per Day: 1.[address] IPOC Speech Therapy Treatment Plan: Modify Plan, See Comments (Skilled ST ) Treatment Duration: Jul 30, 2018 Frequency: 5 times per week Estimated Hrs Per Day: .25 hour per day Rip And Groove Machine Operator/Case Mgmt Rip And Groove Machine Operator/Case Managemen: Discharge Planning, Patient/Family Counseling Dietitian/Multi Punch Operator Dietitian/Multi Punch Operator to monitor nutritional status and make changes and/or recommendations as needed and work with speech pathology on dietary upgrades as the occur. Physician IPOC Medical Issues being managed closely and that require the 24 hour availability of a physician: HTN AFIB Autoimmune hepatitis IGC code 01.2 Etiologic DX Acute cerebral infarct involving the midline of the akanksha Medical Issues: DVT Prophylaxis, Falls Precautions, Infection Protection, Other (List) (as per above) Brief Synthesis of Preadmission Screen, Post-Admission Evaluation, and Therapy Evaluations: 78 yo female who had been Independent prior to a Left AKANKSHA Stroke with resulting RT HP and gait imbalance referrred to IRU for stroke reehab with goal of return to home.PMH as per above Medical Prognosis: Good Anticipated Length of Stay: 07-30-18 Modified Independent to supervision for adls and mobility skills Anticipated d/c Destination: Home with family and [facility] RATNA COULTER MD Jul 06, 2018 08:53
--- NOTE | 2018-07-06 09:46 | Occupational Ther Daily Note ---
OT Current Status-Daily Note Subjective Pt seen in room, up in bed, agreeable to OT. No pain mentioned. Appearance Alert, cooperative Mental Status/Objective Functional [place] Measure 0=Not Assessed/NA 4=Minimal Assistance 1=Total Assistance 5=Supervision or Setup 2=Maximal Assistance 6=Modified [place] 3=Moderate Assistance 7=Complete [place] ADL-Treatment Pt was able to get to EOB, with HOB raised up, struggling but did it. Scooted to EOB. Sit to stand with min-mod assist. Walked with close CGA to w/c, using R hand to help place walker. Encouraged to reach back with R hand to sit and to use it to help with getting up from surfaces. Also encouraged to use R UE as a support so that she can use her L hand for ADLs. Transported to sink where she brushed her teeth and soaked her dentures, brushed her hair without assistance. Sponge bath upper body. Pt was able to take top and bra off without help but struggling a little. Min assist to help put clean bra on and setup for top. Transferred to toilet with min-mod assist from w/c, using grab bars and balancing herself while OT managed clothing. Pt was able to do hygiene. Sit to stand from toilet mod assist, then stood at grab bars for clothing management. pt was able to get pants off feet and help get pants on feet. OT helped with slipper socks. Pt educ to use R hand for balancing while she reaches forward with L during dressing. Pt left up in w/c in commons area, nursing notified. Pt pleased which how much assistance her R hand provided. Functional [place] Measure 0=Not Assessed/NA 4=Minimal Assistance 1=Total Assistance 5=Supervision or Setup 2=Maximal Assistance 6=Modified [place] 3=Moderate Assistance 7=Complete IndependenceIRFPAI Quality Coding Scale 6 Independent with activity with or without an assistive device 5 Patient requires set up or clean up by helper. Patient completes activity by themselves 4 Supervision or touching assist (CGA). [place] provide cues , steadying assist 3 The helper provides less than half the effort to complete the activity 2 The helper provides more than half the effort to complete the activity 1 Dependent. The helper does all the effort to complete an activity 7 Patient refused to complete or attempt activity 9 The patient did not perform the activity before the current illness or injury 88 Not attempted due to Medical conditions or safety concerns Grooming (FIM): 5 (setup, at sink) Upper Body (FIM): 4 (Help with bra. She doffed bra, doffed shirt and donned shirt) Lower Body Dressing (FIM): 3 (Help getting pants on over feet, slipper socks) Toileting (FIM): 3 (Help with pants up and down, she did hygiene) Toilet/Commode Transfer (FIM): 3 (Tall toilet, grab bar, to w/c) Education OT Patient Education: Modified ADL techniques, Progress toward Goal/Update tx plan, Purpose of tx/functional activities, Safety issues, Transfer techniques Teaching Recipient: Patient Teaching Methods: Demonstration, Discussion Response to Teaching: Verbalize Understanding, Return Demonstration, Reinforcement Needed OT Short Term Goals Short Term Goals Time Frame: Jul 09, 2018 Grooming(FIM): 5 Upper Body Dressing(FIM): 5 Lower Body Dressing(FIM): 3 Toileting(FIM): 3 Toilet/Commode Transfer(FIM): 3 Comprehension(FIM): 7 Expression(FIM): 4 Social Interaction(FIM): 7 Problem Solving(FIM): 7 Memory(FIM): 7 Additional Short Term Goals: 1-Demonstrate ADL Tasks, 2-Verbalize Understanding , 3-ImproveStrength/Lizet 1=Demonstrate adherence to instructed precautions during ADL tasks. 2=Patient will verbalize/demonstrate understanding of assistive devices/ modifications for ADL. 3=Patient will improve strength/tolerance for activity to enable patient to perform ADL's. OT Lunch Counter Manager Goals Group Home Goals Time Frame: Jul 23, 2018 Eating (FIM): 6 Eating (QC): 6 Groomin Oral Hygiene (QC): 6 Bathing(FIM): 5 Shower/Bathe Self (QC): 5 Upper Body Dressing(FIM): 5 Upper Body Dressing (QC): 5 Lower Body Dressing(FIM): 5 Lower Body Dressing (QC): 5 On/Off Footwear (QC): 5 Toileting(FIM): 6 Toileting Hygiene (QC): 6 Toilet/Commode Transfer(FIM): 6 Toilet/Commode Transfer (QC): 6 Shower Transfer(FIM): 5 Comprehension(FIM): 7 Expression (FIM): 6 Social Interaction(FIM): 7 Problem Solving(FIM): 7 Memory(FIM): 7 Additional Goals: 1-Demonstrate ADL Tasks, 2-Verbalize Understanding, 3- ImproveStrength/Lizet 1=Demonstrate adherence to instructed precautions during ADL tasks. 2=Patient will verbalize/demonstrate understanding of assistive devices/ modifications for ADL. 3=Patient will improve strength/tolerance for activity to enable patient to perform ADL's. OT Education/Plan Discharge Recommendations Plan/Recommendations: Continue POC Treatment Plan/Plan of Care Patient would benefit from OT for education, treatment and training to promote independence in ADL's, mobility, safety and/or upper extremity function for ADL' s. Plan of Care: ADL Retraining, Functional Mobility, Group Exercise/Act as Ind ( education, exercise, activity tolerance, communication, functional activities, functional mobility), UE Funct Exercise/Act, UE Neuromus Re-Ed/Coord, Visual/ Perceptual Retrain (if needed) Treatment Duration: Jul 23, 2018 Frequency: At least 5 of 7 days/Wk (IRF) Estimated Hrs Per Day: 1.5 hours per day Agreement: Yes Rehab Potential: Good Time/GCodes Start Time: 08:30 Stop Time: 09:30 Total Time Billed (hr/min): 60 Billed Treatment Time visit, 60 minutes ADL ELIZABETH HUDSON OT Jul 06, 2018 09:45
--- NOTE | 2018-07-06 09:56 | Progress Note-Hospitalist ---
Subjective HPI/CC On Admission Date Seen by Provider: Jul 06, 2018 Time Seen by Provider: 09:00 Subjective/Events-last exam Patient reports stools of been loose with urgency. She normally has constipation but is been on Senokot and lactulose and MiraLAX. She is no stool more gas but denies abdominal pain and reports normal appetite. She and staff of noted improvement in speech as well as right upper extremity control. Right lower extremity is improving but still more impaired. Her ability to perform ADLs is improving per staff. She's had no chest discomfort presyncope syncope or dyspnea. Objective Exam Vital Signs Vital Signs Date Time Temp Pulse Resp B/P (MAP) Pulse Ox O2 Delivery O2 Flow Rate FiO2 07/06/18 06:07 98.3 60 18 139/70 (93) 96 Room Air Capillary Refill : General Appearance: No Apparent Distress, WD/WN Respiratory: Chest Non Tender, Lungs Clear, Normal Breath Sounds, No Accessory Muscle Use, No Respiratory Distress Cardiovascular: Regular Rate, Rhythm, No Edema, No Gallop, No JVD, No Murmur, Normal Peripheral Pulses Gastrointestinal: Normal Bowel Sounds, No Organomegaly, No Pulsatile Mass, Non Tender, Soft Neurologic/Psychiatric: Alert, Oriented x3, Other (Persistent dysmetria on the right but improving improving strength as well. Dysarthria much improved no difficulty understanding patient to stringing sentences together now.) Results/Procedures Lab Patient resulted labs reviewed. Assessment/Plan Assessment and Plan Assess & Plan/Chief Complaint 1. 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 2. Paroxysmal atrial fibrillation patient remains in sinus rhythm continue ELIQUIS 3. Mild hypercalcemia on admission we'll repeat basic metabolic panel if still elevated add PTH. 4. Autoimmune hepatitis stable continue low-dose azathioprine. 5. Constipation resolved will discontinue lactulose continue MiraLAX and Senokot Clinical Quality Measures DVT/VTE Risk/Contraindication: Risk Factor Score Per Nursin RFS Level Per Nursing on Admit: 3=High HENNA COLE MD Jul 06, 2018 09:56
[2018-07-06 11:19] LABS: BUN/CREATININE RATIO 19; CALCIUM 10.6 MG/DL (8.5-10.1); CARBON DIOXIDE 25 MMOL/L (21-32); CHLORIDE 107 MMOL/L (98-107); CREATININE SERUM 0.74 MG/DL (0.60-1.30); GFR ESTIMATED > 60; GLUCOSE 118 MG/DL (70-105); POTASSIUM 3.7 MMOL/L (3.6-5.0); SODIUM 140 MMOL/L (135-145)
--- NOTE | 2018-07-06 11:34 | Physical Therapy Daily Note ---
PT Daily Note-Current Transfers Functional [place] Measure 0=Not Assessed/NA 4=Minimal Assistance 1=Total Assistance 5=Supervision or Setup 2=Maximal Assistance 6=Modified [place] 3=Moderate Assistance 7=Complete IndependenceIRFPAI Quality Coding Scale 6 Independent with activity with or without an assistive device 5 Patient requires set up or clean up by helper. Patient completes activity by themselves 4 Supervision or touching assist (CGA). [place] provide cues , steadying assist 3 The helper provides less than half the effort to complete the activity 2 The helper provides more than half the effort to complete the activity 1 Dependent. The helper does all the effort to complete an activity 7 Patient refused to complete or attempt activity 9 The patient did not perform the activity before the current illness or injury 88 Not attempted due to Medical conditions or safety concerns Weight Bearing Right Lower Extremity: Right Full Weight Bearing Left Lower Extremity: Left Full Weight Bearing PT Short Term Goals Short Term Goals Time Frame: Jul 16, 2018 Gait (FIM): 4 Distance (FIM): 3=150 ft Gait Assistive Device: FWW PT Family Preservation Worker Goals Family Preservation Worker Goals PT Long-Term Goals Time Frame: Jul 30, 2018 Transfers (B,C,W/C) (FIM): 6 Sit to Lying (QC): 6 Lying-Sitting on Side/Bed(QC): 6 Sit to Stand (QC): 6 Rollin Roll Left to Right (QC): 6 Chair/Wev-hx-Oaokt Xfer(QC): 6 Car Transfer (QC): 6 Gait (FIM): 6 Gait distance (FIM): 3=150 ft Walk 10 feet (QC): 6 Walk 10ft-Uneven Surface(QC): 6 Walk 50ft with 2 Turns (QC): 6 Walk 150 ft (QC): 6 Gait Assistive Device: FWW Stairs (FIM): 5 # of Steps: 4 (household exception) 1 Step (curb) (QC): 6 4 Steps (QC): 6 12 Steps (QC): 88 Stairs Level Of Assist: 6 Picking up an Object (QC): 4 PT Plan Treatment/Plan Treatment Plan: Bed Mobility, Education, Functional Activity Lizet, Functional Strength, Group Therapy, Gait, Safety, Therapeutic Exercise, Transfers Treatment Duration: Jul 30, 2018 Frequency: At least 5 of 7 days/Wk (IRF) Estimated Hrs Per Day: 1.5 hours per day Patient and/or Family Agrees t: Yes KISHOR CHAVEZ PTA Jul 06, 2018 11:34
--- NOTE | 2018-07-06 13:50 | Occupational Ther Daily Note ---
OT Current Status-Daily Note Subjective Pt seen in room, up in w/c, agreeable to OT. No pain mentioned. Appearance Alert, cooperative Mental Status/Objective Functional [place] Measure 0=Not Assessed/NA 4=Minimal Assistance 1=Total Assistance 5=Supervision or Setup 2=Maximal Assistance 6=Modified [place] 3=Moderate Assistance 7=Complete [place] ADL-Treatment Functional [place] Measure 0=Not Assessed/NA 4=Minimal Assistance 1=Total Assistance 5=Supervision or Setup 2=Maximal Assistance 6=Modified [place] 3=Moderate Assistance 7=Complete IndependenceIRFPAI Quality Coding Scale 6 Independent with activity with or without an assistive device 5 Patient requires set up or clean up by helper. Patient completes activity by themselves 4 Supervision or touching assist (CGA). [place] provide cues , steadying assist 3 The helper provides less than half the effort to complete the activity 2 The helper provides more than half the effort to complete the activity 1 Dependent. The helper does all the effort to complete an activity 7 Patient refused to complete or attempt activity 9 The patient did not perform the activity before the current illness or injury 88 Not attempted due to Medical conditions or safety concerns Other Treatment Pt worked on coordinated bilat UE movements, some with hands together and some with UEs isolated. She was able to demonstrated full active wrist flex and ext, full finger flex and almost full finger extension. Able to touch thumb to side if index initially but after working on it, able to touch sides of middle and ring fingers as well. pt left up in w/c, all needs met. Education Teaching Recipient: Patient Teaching Methods: Demonstration Response to Teaching: Return Demonstration, Reinforcement Needed OT Short Term Goals Short Term Goals Time Frame: Jul 09, 2018 Grooming(FIM): 5 Upper Body Dressing(FIM): 5 Lower Body Dressing(FIM): 3 Toileting(FIM): 3 Toilet/Commode Transfer(FIM): 3 Comprehension(FIM): 7 Expression(FIM): 4 Social Interaction(FIM): 7 Problem Solving(FIM): 7 Memory(FIM): 7 Additional Short Term Goals: 1-Demonstrate ADL Tasks, 2-Verbalize Understanding , 3-ImproveStrength/Lizet 1=Demonstrate adherence to instructed precautions during ADL tasks. 2=Patient will verbalize/demonstrate understanding of assistive devices/ modifications for ADL. 3=Patient will improve strength/tolerance for activity to enable patient to perform ADL's. OT Residential Supervisor Goals Custodial Goals Time Frame: Jul 23, 2018 Eating (FIM): 6 Eating (QC): 6 Groomin Oral Hygiene (QC): 6 Bathing(FIM): 5 Shower/Bathe Self (QC): 5 Upper Body Dressing(FIM): 5 Upper Body Dressing (QC): 5 Lower Body Dressing(FIM): 5 Lower Body Dressing (QC): 5 On/Off Footwear (QC): 5 Toileting(FIM): 6 Toileting Hygiene (QC): 6 Toilet/Commode Transfer(FIM): 6 Toilet/Commode Transfer (QC): 6 Shower Transfer(FIM): 5 Comprehension(FIM): 7 Expression (FIM): 6 Social Interaction(FIM): 7 Problem Solving(FIM): 7 Memory(FIM): 7 Additional Goals: 1-Demonstrate ADL Tasks, 2-Verbalize Understanding, 3- ImproveStrength/Lizet 1=Demonstrate adherence to instructed precautions during ADL tasks. 2=Patient will verbalize/demonstrate understanding of assistive devices/ modifications for ADL. 3=Patient will improve strength/tolerance for activity to enable patient to perform ADL's. OT Education/Plan Discharge Recommendations Plan/Recommendations: Continue POC Treatment Plan/Plan of Care Patient would benefit from OT for education, treatment and training to promote independence in ADL's, mobility, safety and/or upper extremity function for ADL' s. Plan of Care: ADL Retraining, Functional Mobility, Group Exercise/Act as Ind ( education, exercise, activity tolerance, communication, functional activities, functional mobility), UE Funct Exercise/Act, UE Neuromus Re-Ed/Coord, Visual/ Perceptual Retrain (if needed) Treatment Duration: Jul 23, 2018 Frequency: At least 5 of 7 days/Wk (IRF) Estimated Hrs Per Day: 1.5 hours per day Agreement: Yes Rehab Potential: Good Time/GCodes Start Time: 13:05 Stop Time: 13:20 Total Time Billed (hr/min): 15 Billed Treatment Time visit, 15 minutes neuromotor ELIZABETH HUDSON OT Jul 06, 2018 13:50
--- NOTE | 2018-07-06 15:01 | Speech Therapy Daily Note ---
Speech Daily Progress Note Subjective Date Seen by Provider: Jul 06, 2018 Time Seen by Provider: 09:30 Pt pleasant and cooperative. Pain Numeric Pain Scale: 0-No Pain Objective Pt completed OMEs with min assist. Pt repeated multisyllabic words with 90% accuracy. Assessment Assessment Current Status: Good Progress Treatment Plan Continue Plan of Care Communication Comprehension: 7 Expression: 4 Social Cognition Social Interaction: 7 Problem Solvin Memory: 7 Speech Short Term Goals Short Term Goals Short Term Goals Pt will only require min assist with oral motor exercises. Pt will complete verbal expression tasks with at least 80% accuracy with or without comp strategies. Comprehension: 7 Expression: 4 Social Interaction: 7 Problem Solvin Memory: 7 Speech Dielectric Tester Goals Detention Goals Pt will be independent with Oral motor exercises Pt's verbal expressive speech will be at least 95% accurate with or without the use compensatory strategies. Comprehension: 7 Expression: 6 Social Interaction: 7 Problem Solvin Memory: 7 Speech-Plan Patient/Family Goals Patient/Family Goals: to talk better Treatment Plan Speech Therapy Treatment Plan: Continue Plan of Care pt very motivated to improve. Treatment Duration: Jul 30, 2018 Frequency: 5 times per week Estimated Hrs Per Day: .25 hour per day Rehab Potential: Good Pt/Family Agrees to Plan: Yes Safety Risks/Education Teaching Recipient: Patient Teaching Methods: Discussion Response to Teaching: Verbalize Understanding Time Speech Therapy Time In: 09:30 Speech Therapy Time Out: 10:00 Total Billed Time: 30 Billed Treatment Time 1TWAN RANDY ST Jul 06, 2018 15:01
--- NOTE | 2018-07-06 16:35 | Physical Therapy Daily Note ---
PT Daily Note-Current Subjective Pt sitting in [facility] in [facility] upon arrival. Pt agrees to PT. Mental Status Patient Orientation: Person, Place Transfers Functional [place] Measure 0=Not Assessed/NA 4=Minimal Assistance 1=Total Assistance 5=Supervision or Setup 2=Maximal Assistance 6=Modified [place] 3=Moderate Assistance 7=Complete IndependenceIRFPAI Quality Coding Scale 6 Independent with activity with or without an assistive device 5 Patient requires set up or clean up by helper. Patient completes activity by themselves 4 Supervision or touching assist (CGA). [place] provide cues , steadying assist 3 The helper provides less than half the effort to complete the activity 2 The helper provides more than half the effort to complete the activity 1 Dependent. The helper does all the effort to complete an activity 7 Patient refused to complete or attempt activity 9 The patient did not perform the activity before the current illness or injury 88 Not attempted due to Medical conditions or safety concerns Scootin Supine to/from Sit: 3 Sit to Stand (QC): 3 Weight Bearing Right Lower Extremity: Right Full Weight Bearing Left Lower Extremity: Left Full Weight Bearing Wheelchair Training Does the Pt Use a Wheelchair?: Yes Wheelchair Distance: 3=150 ft Distance: 75', 75' Wheelchair Level of Assist: 4 Wheel 50 ft with 2 turns (QC): 4 Wheel 150 ft (QC): 4 Type of Wheelchair: Manual Exercises Seated Therapy Exercises: Ankle pumps, Sit to stand (5 reps), Long arc quads, Hip flexion, Kicking activity Seated Reps: 20 Treatments Pt propels [facility] in [facility] area with focus on [place] and turning. Pt completes Seated Ex in [facility] . Pt completes Sit to Stands at //bars before being propelled back to room to rest at end of tx. Pt has all needs met, call light in lap. Assessment Current Status: Good Progress Pt is still struggling with weakness but is getting stronger through Ex and practice of WC. Pt will continue to gain strength during tx. PT Short Term Goals Short Term Goals Time Frame: Jul 16, 2018 Gait (FIM): 4 Distance (FIM): 3=150 ft Gait Assistive Device: FWW PT Bond Clerk Goals Bond Clerk Goals PT Nursing Home Goals Time Frame: Jul 30, 2018 Transfers (B,C,W/C) (FIM): 6 Sit to Lying (QC): 6 Lying-Sitting on Side/Bed(QC): 6 Sit to Stand (QC): 6 Rollin Roll Left to Right (QC): 6 Chair/Xnz-zq-Uwktk Xfer(QC): 6 Car Transfer (QC): 6 Gait (FIM): 6 Gait distance (FIM): 3=150 ft Walk 10 feet (QC): 6 Walk 10ft-Uneven Surface(QC): 6 Walk 50ft with 2 Turns (QC): 6 Walk 150 ft (QC): 6 Gait Assistive Device: FWW Stairs (FIM): 5 # of Steps: 4 (household exception) 1 Step (curb) (QC): 6 4 Steps (QC): 6 12 Steps (QC): 88 Stairs Level Of Assist: 6 Picking up an Object (QC): 4 PT Plan Problem List Problem List: Activity Tolerance, Functional Strength, Safety, Balance, Gait, Transfer, Bed Mobility Treatment/Plan Treatment Plan: Continue Plan of Care Treatment Plan: Bed Mobility, Education, Functional Activity Lizet, Functional Strength, Group Therapy, Gait, Safety, Therapeutic Exercise, Transfers Treatment Duration: Jul 30, 2018 Frequency: At least 5 of 7 days/Wk (IRF) Estimated Hrs Per Day: 1.5 hours per day Patient and/or Family Agrees t: Yes Safety Risks/Education Patient Education: Transfer Techniques, Correct Positioning, W/C Management, Safety Issues Teaching Recipient: Patient Teaching Methods: Discussion Response to Teaching: Verbalize Understanding, Reinforcement Needed Time/GCodes Time In: 1000 Time Out: 1045 Total Billed Treatment Time: 45 Total Billed Treatment 1, WCH (15m), EX (15m) & GT (15m) G Codes Necessary: KISHOR Kaur PLANNING LEAD Jul 06, 2018 16:35
--- NOTE | 2018-07-06 16:48 | Physical Therapy Daily Note ---
PT Daily Note-Current Subjective Pt sitting in [facility] upon arrival. Pt agrees to PT. Mental Status Patient Orientation: Person, Place Transfers Functional [place] Measure 0=Not Assessed/NA 4=Minimal Assistance 1=Total Assistance 5=Supervision or Setup 2=Maximal Assistance 6=Modified [place] 3=Moderate Assistance 7=Complete IndependenceIRFPAI Quality Coding Scale 6 Independent with activity with or without an assistive device 5 Patient requires set up or clean up by helper. Patient completes activity by themselves 4 Supervision or touching assist (CGA). [place] provide cues , steadying assist 3 The helper provides less than half the effort to complete the activity 2 The helper provides more than half the effort to complete the activity 1 Dependent. The helper does all the effort to complete an activity 7 Patient refused to complete or attempt activity 9 The patient did not perform the activity before the current illness or injury 88 Not attempted due to Medical conditions or safety concerns Scootin Sit to/from Stand: 3 Sit to Stand (QC): 3 Weight Bearing Right Lower Extremity: Right Full Weight Bearing Left Lower Extremity: Left Full Weight Bearing Wheelchair Training Does the Pt Use a Wheelchair?: Yes Wheelchair Distance: 3=150 ft Distance: 150' Wheelchair Level of Assist: 3 Wheel 50 ft with 2 turns (QC): 3 Wheel 150 ft (QC): 3 Type of Wheelchair: Manual Exercises Seated Therapy Exercises: Ankle pumps, Sit to stand (3 reps), Long arc quads, Hip flexion, Kicking activity Seated Reps: [address] [facility] in [facility] towards [facility]. Pt completes Seated Ex in [facility]. Pt completes Sit to Stand at //bars before returning to room to rest in bed. INDUCTION BRAZER assists pt with SPT from [facility] to bed. Pt needs Min A to get BLE into bed. Pt has all needs met, including call light at end of tx. Assessment Current Status: Good Progress Pt continues to work hard and stay motivated to get better. Pt still requires assistance although it is decreasing as pt's strength increases. PT Short Term Goals Short Term Goals Time Frame: Jul 16, 2018 Gait (FIM): 4 Distance (FIM): 3=150 ft Gait Assistive Device: FWW Wheelchair Distance: 75', 75' PT Fpc Goals Enginehouse Brakeman Goals PT Fpc Goals Time Frame: Jul 30, 2018 Transfers (B,C,W/C) (FIM): 6 Sit to Lying (QC): 6 Lying-Sitting on Side/Bed(QC): 6 Sit to Stand (QC): 6 Rollin Roll Left to Right (QC): 6 Chair/Ktg-rb-Qvecw Xfer(QC): 6 Car Transfer (QC): 6 Gait (FIM): 6 Gait distance (FIM): 3=150 ft Walk 10 feet (QC): 6 Walk 10ft-Uneven Surface(QC): 6 Walk 50ft with 2 Turns (QC): 6 Walk 150 ft (QC): 6 Gait Assistive Device: FWW Stairs (FIM): 5 # of Steps: 4 (household exception) 1 Step (curb) (QC): 6 4 Steps (QC): 6 12 Steps (QC): 88 Stairs Level Of Assist: 6 Picking up an Object (QC): 4 PT Plan Problem List Problem List: Activity Tolerance, Functional Strength, Safety, Balance, Gait, Transfer, Bed Mobility Treatment/Plan Treatment Plan: Continue Plan of Care Treatment Plan: Bed Mobility, Education, Functional Activity Lizet, Functional Strength, Group Therapy, Gait, Safety, Therapeutic Exercise, Transfers Treatment Duration: Jul 30, 2018 Frequency: At least 5 of 7 days/Wk (IRF) Estimated Hrs Per Day: 1.5 hours per day Patient and/or Family Agrees t: Yes Safety Risks/Education Patient Education: Transfer Techniques, Correct Positioning, W/C Management, Safety Issues Teaching Recipient: Patient Teaching Methods: Discussion Response to Teaching: Verbalize Understanding Time/GCodes Time In: 1430 Time Out: 1500 Total Billed Treatment Time: 30 Total Billed Treatment 1, WCH (15m) & EX (15m) G Codes Necessary: KISHOR Kaur INDUCTION BRAZER Jul 06, 2018 16:48
[2018-07-06 18:07] VITALS: BP 145/68
[2018-07-06] MEDS: ATORVASTATIN 10 MG (LIPITOR) TABLET PO SCH (19:58)
[2018-07-07 05:41] VITALS: BP 130/70
[2018-07-07] MEDS: LEVOTHYROXINE 50 MCG (LEVOTHROID) TAB PO SCH (06:07)
[2018-07-07] MEDS: azaTHIOprine (IMURAN) 50 MG TAB PO SCH (08:55)
[2018-07-07] MEDS: ENALAPRIL 5 MG (VASOTEC) TAB PO SCH (08:55)
[2018-07-07] MEDS: meTOprolol TARTRATE 50 MG (LOPRESSOR) TAB PO SCH ×2 (08:55→20:34)
[2018-07-07] MEDS: APIXABAN 5 MG (ELIQUIS) TABLET PO SCH ×2 (08:55→20:34)
[2018-07-07] MEDS: VITAMIN E 400 INTLU CAP PO SCH (08:55)
--- NOTE | 2018-07-07 09:24 | PM & R (SOAP) Progress Note ---
Subjective This was a face to face visit with the patient. Date Seen by Provider: Jul 07, 2018 Time Seen by Provider: 07:50 Subjective/Events-last exam Patient was seen in her room this Am Patient with mid dysarthria -St continues to work on intelligibility. Review of Systems HEENT: Other (dysarthria) Objective Physician Exam Last Set of Vital Signs Vital Signs Date Time Temp Pulse Resp B/P (MAP) Pulse Ox O2 Delivery O2 Flow Rate FiO2 07/07/18 05:41 97.6 56 18 130/70 (90) 96 Room Air Capillary Refill : I&O Intake and Output 07/07/18 00:00 Intake Total 750 ml Balance 750 ml Intake Oral 750 ml # Voids 6 # Bowel Movements 1 General: Alert, Oriented X3, Cooperative, No Acute Distress HEENT: Atraumatic, PERRLA, EOMI, Mucous Memb Moist/[place] Neck: Supple, No JVD Lungs: Clear to Auscultation Heart: Regular Rate Abdomen: Normal Bowel Sounds, Soft, No Tenderness Extremities: No Edema Neuro: Other (RT HP gait imbalance poor standing balance) Results Lab Data Laboratory Tests 07/06/18 10:52: Sodium Level 140, Potassium Level 3.7, Chloride Level 107, Carbon Dioxide Level 25, Anion Gap 8, Blood Urea Nitrogen 14, Creatinine 0.74, Estimat Glomerular Filtration Rate > 60, BUN/Creatinine Ratio 19, Glucose Level 118H, Calcium Level 10.6H Assessment/Plan Assessment and Plan 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
--- NOTE | 2018-07-07 10:25 | Occupational Ther Daily Note ---
OT Current Status-Daily Note Subjective Pt seen in room, up in bed, agreeable to OT. Does not want to shower today but does want to chance clothes. Appearance Alert, cooperative Mental Status/Objective Functional [place] Measure 0=Not Assessed/NA 4=Minimal Assistance 1=Total Assistance 5=Supervision or Setup 2=Maximal Assistance 6=Modified [place] 3=Moderate Assistance 7=Complete [place] ADL-Treatment Pt able to get up form supine to sit EOB with SBA. Sit to stand CGA assist and walked CGA, FWW to bathroom. Toilet transfer min assist, cues for hand placement. Plan to place BSC over toilet so that she has place to reach back with R hand for transfers. OT managed clothing down while pt balanced but she did hygiene. Help to get pants on/off R foot but she did with L, pulled pants up over hips with cues, min assist standing. Still needs help with slipper socks. Doffed and donned shirt and bra with setup. Pt used R hand to turn water on/off, wring out washcloth, propel w/c, put pants on. Functional [place] Measure 0=Not Assessed/NA 4=Minimal Assistance 1=Total Assistance 5=Supervision or Setup 2=Maximal Assistance 6=Modified [place] 3=Moderate Assistance 7=Complete IndependenceIRFPAI Quality Coding Scale 6 Independent with activity with or without an assistive device 5 Patient requires set up or clean up by helper. Patient completes activity by themselves 4 Supervision or touching assist (CGA). [place] provide cues , steadying assist 3 The helper provides less than half the effort to complete the activity 2 The helper provides more than half the effort to complete the activity 1 Dependent. The helper does all the effort to complete an activity 7 Patient refused to complete or attempt activity 9 The patient did not perform the activity before the current illness or injury 88 Not attempted due to Medical conditions or safety concerns Grooming (FIM): 6 (brushed teeth and hair at sink, seated. Extra time) Upper Body (FIM): 5 Lower Body Dressing (FIM): 3 (Help getting pants on over R foot, balance support. socks. FWW) Toileting (FIM): 3 (Help with pants down, she did hygiene and pants up.) Toilet/Commode Transfer (FIM): 4 Other Treatment She helped propel her w/c part of the way to the gym. She worked on R UE coordination and movement, moving and throwing ball and working with amezcua bags, challenging her with various distances and directions. She was initially 50% accurate but improved to 90% accuracy. She was returned to her room, per w/c and left up in w/c, all needs met. Education OT Patient Education: Modified ADL techniques, Progress toward Goal/Update tx plan, Purpose of tx/functional activities, Transfer techniques, Other ( coordination) Teaching Recipient: Patient Teaching Methods: Demonstration, Discussion Response to Teaching: Verbalize Understanding, Return Demonstration, Reinforcement Needed OT Short Term Goals Short Term Goals Time Frame: Jul 09, 2018 Grooming(FIM): 5 Upper Body Dressing(FIM): 5 Lower Body Dressing(FIM): 3 Toileting(FIM): 3 Toilet/Commode Transfer(FIM): 3 Comprehension(FIM): 7 Expression(FIM): 4 Social Interaction(FIM): 7 Problem Solving(FIM): 7 Memory(FIM): 7 Additional Short Term Goals: 1-Demonstrate ADL Tasks, 2-Verbalize Understanding , 3-ImproveStrength/Lizet 1=Demonstrate adherence to instructed precautions during ADL tasks. 2=Patient will verbalize/demonstrate understanding of assistive devices/ modifications for ADL. 3=Patient will improve strength/tolerance for activity to enable patient to perform ADL's. OT Proof Passer Goals Penitentiary Goals Time Frame: Jul 23, 2018 Eating (FIM): 6 Eating (QC): 6 Groomin Oral Hygiene (QC): 6 Bathing(FIM): 5 Shower/Bathe Self (QC): 5 Upper Body Dressing(FIM): 5 Upper Body Dressing (QC): 5 Lower Body Dressing(FIM): 5 Lower Body Dressing (QC): 5 On/Off Footwear (QC): 5 Toileting(FIM): 6 Toileting Hygiene (QC): 6 Toilet/Commode Transfer(FIM): 6 Toilet/Commode Transfer (QC): 6 Shower Transfer(FIM): 5 Comprehension(FIM): 7 Expression (FIM): 6 Social Interaction(FIM): 7 Problem Solving(FIM): 7 Memory(FIM): 7 Additional Goals: 1-Demonstrate ADL Tasks, 2-Verbalize Understanding, 3- ImproveStrength/Lizet 1=Demonstrate adherence to instructed precautions during ADL tasks. 2=Patient will verbalize/demonstrate understanding of assistive devices/ modifications for ADL. 3=Patient will improve strength/tolerance for activity to enable patient to perform ADL's. OT Education/Plan Discharge Recommendations Plan/Recommendations: Continue POC Treatment Plan/Plan of Care Patient would benefit from OT for education, treatment and training to promote independence in ADL's, mobility, safety and/or upper extremity function for ADL' s. Plan of Care: ADL Retraining, Functional Mobility, Group Exercise/Act as Ind ( education, exercise, activity tolerance, communication, functional activities, functional mobility), UE Funct Exercise/Act, UE Neuromus Re-Ed/Coord, Visual/ Perceptual Retrain (if needed) Treatment Duration: Jul 23, 2018 Frequency: At least 5 of 7 days/Wk (IRF) Estimated Hrs Per Day: 1.5 hours per day Agreement: Yes Rehab Potential: Good Time/GCodes Start Time: 08:30 Stop Time: 09:30 Total Time Billed (hr/min): 60 Billed Treatment Time visit, 35 minutes ADL, 25 minutes neuromotor ELIZABETH HUDSON OT Jul 07, 2018 10:24
--- NOTE | 2018-07-07 11:04 | Physical Therapy Daily Note ---
PT Daily Note-Current Subjective Pt. agrees to Rx. States she is afraid of falling during TRFs hernan sit to stand Pain Numeric Pain Scale: 0-No Pain Mental Status Patient Orientation: Normal For Age hard of hearing Transfers Functional [place] Measure 0=Not Assessed/NA 4=Minimal Assistance 1=Total Assistance 5=Supervision or Setup 2=Maximal Assistance 6=Modified [place] 3=Moderate Assistance 7=Complete IndependenceIRFPAI Quality Coding Scale 6 Independent with activity with or without an assistive device 5 Patient requires set up or clean up by helper. Patient completes activity by themselves 4 Supervision or touching assist (CGA). [place] provide cues , steadying assist 3 The helper provides less than half the effort to complete the activity 2 The helper provides more than half the effort to complete the activity 1 Dependent. The helper does all the effort to complete an activity 7 Patient refused to complete or attempt activity 9 The patient did not perform the activity before the current illness or injury 88 Not attempted due to Medical conditions or safety concerns Transfers (B, C, W/C) (FIM): 4 Scootin Rollin Supine to/from Sit: 5 Sit to/from Stand: 4 much work this Rx on weight shift for sit to stand as well as safe approach to chair , turning, TRFing hands from FWW to chair arms etc, fear of falling and poor awareness of where she is in space contributes to this Weight Bearing Right Lower Extremity: Right Full Weight Bearing Left Lower Extremity: Left Full Weight Bearing Gait Training Does the Patient Walk?: Yes Gait (FIM): 4 Distance (FIM): 3=150 ft (165x2) Gait Level of Assist: 4 Gait Persons Needed: 1 Gait Assistive Device: FWW flexed posture, tone in RLE, Exercises Supine Ex: Bridging, Ankle pumps (HC stretches), Rolling, Heel Slides (assist left), Short Arc Quads, Scooting, Straight leg raise, Hip abd/add Supine Reps: 20 Seated Therapy Exercises: Ankle pumps, Sit to stand, Long arc quads, Hip flexion Seated Reps: 10 Assessment Current Status: Good Progress gives full effort, gait improved, sit to stand and stand to sit still challenging for control and indep PT Short Term Goals Short Term Goals Time Frame: Jul 16, 2018 Gait (FIM): 4 Distance (FIM): 3=150 ft Gait Assistive Device: FWW Wheelchair Distance: 150' PT Intermediate Goals Water Maintenance Supervisor Goals PT Intermediate Goals Time Frame: Jul 30, 2018 Transfers (B,C,W/C) (FIM): 6 Sit to Lying (QC): 6 Lying-Sitting on Side/Bed(QC): 6 Sit to Stand (QC): 6 Rollin Roll Left to Right (QC): 6 Chair/Gvd-eb-Hnbyt Xfer(QC): 6 Car Transfer (QC): 6 Gait (FIM): 6 Gait distance (FIM): 3=150 ft Walk 10 feet (QC): 6 Walk 10ft-Uneven Surface(QC): 6 Walk 50ft with 2 Turns (QC): 6 Walk 150 ft (QC): 6 Gait Assistive Device: FWW Stairs (FIM): 5 # of Steps: 4 (household exception) 1 Step (curb) (QC): 6 4 Steps (QC): 6 12 Steps (QC): 88 Stairs Level Of Assist: 6 Picking up an Object (QC): 4 PT Plan Treatment/Plan Treatment Plan: Continue Plan of Care Treatment Plan: Bed Mobility, Education, Functional Activity Lizet, Functional Strength, Group Therapy, Gait, Safety, Therapeutic Exercise, Transfers Treatment Duration: Jul 30, 2018 Frequency: At least 5 of 7 days/Wk (IRF) Estimated Hrs Per Day: 1.5 hours per day Patient and/or Family Agrees t: Yes Safety Risks/Education Patient Education: Gait Training, Transfer Techniques, Correct Positioning, Disease Process, Safety Issues Teaching Recipient: Patient Teaching Methods: Demonstration, Discussion Response to Teaching: Verbalize Understanding, Return Demonstration, Reinforcement Needed Time/GCodes Time In: 1000 Time Out: 1100 Total Billed Treatment Time: 60 Total Billed Treatment 1,GT25m,FA20m,EX15m G Codes Necessary: FRANTZ Kolb GAS MASK INSPECTOR Jul 07, 2018 11:03
[2018-07-07] MEDS: SENNA W/DOCUSATE (SENOKOT S) TABLET PO SCH ×2 (11:06→20:31)
[2018-07-07] MEDS: POLYETHYLENE GLYCOL 17 GM (MIRALAX) PACK PO SCH ×2 (11:06→20:31)
--- NOTE | 2018-07-07 14:51 | Therapy Group Daily Note ---
Therapy Daily Group Note Patient Education Topic Fall Prevention, Other List Below (rehab process) Other/Notes Pt was an active participant in OT/PT group. She introduced herself appropriately and shared an event memory. She participated in fall prevention quiz and contributed to education/discussion on fall prevention, sharing her experiences. She took herself back to her room per w/c and was left up in bed, all needs met. Start Time: 13:00 Stop Time: 14:15 Total Billed Treatment Time: 75 Total Billed Treatment visit, 75 minutes group ELIZABETH HUDSON OT Jul 07, 2018 14:51
--- NOTE | 2018-07-07 15:33 | Speech Therapy Daily Note ---
Speech Daily Progress Note Subjective Date Seen by Provider: Jul 07, 2018 Time Seen by Provider: 09:30 pleasant Pain Numeric Pain Scale: 0-No Pain Objective Pt completed OMEs with min assist. Recalled 1/2 strategies to facilitate speech intelligibility. Assessment Assessment Current Status: Good Progress Treatment Plan Continue Plan of Care Communication Comprehension: 7 Expression: 4 Social Cognition Social Interaction: 7 Problem Solvin Memory: 7 Speech Short Term Goals Short Term Goals Short Term Goals Pt will only require min assist with oral motor exercises. Pt will complete verbal expression tasks with at least 80% accuracy with or without comp strategies. Comprehension: 7 Expression: 4 Social Interaction: 7 Problem Solvin Memory: 7 Speech Operational Communication Chief Goals Operational Communication Chief Goals Pt will be independent with Oral motor exercises Pt's verbal expressive speech will be at least 95% accurate with or without the use compensatory strategies. Comprehension: 7 Expression: 6 Social Interaction: 7 Problem Solvin Memory: 7 Speech-Plan Patient/Family Goals Patient/Family Goals: talk better Treatment Plan Speech Therapy Treatment Plan: Continue Plan of Care pt very motivated. Treatment Duration: Jul 30, 2018 Frequency: 5 times per week Estimated Hrs Per Day: .5 hour per day Rehab Potential: Good Pt/Family Agrees to Plan: Yes Time Speech Therapy Time In: 09:30 Speech Therapy Time Out: 10:00 Total Billed Time: 30 Billed Treatment Time 1, NEHAL BLOOM Jul 07, 2018 15:33
[2018-07-07 17:51] VITALS: BP 150/73
[2018-07-07] MEDS: ATORVASTATIN 10 MG (LIPITOR) TABLET PO SCH (20:34)
[2018-07-08] MEDS: LEVOTHYROXINE 50 MCG (LEVOTHROID) TAB PO SCH (05:31)
[2018-07-08 05:44] VITALS: BP 156/80
[2018-07-08] MEDS: SENNA W/DOCUSATE (SENOKOT S) TABLET PO SCH ×2 (08:42→19:32)
[2018-07-08] MEDS: POLYETHYLENE GLYCOL 17 GM (MIRALAX) PACK PO SCH ×2 (08:42→19:26)
[2018-07-08] MEDS: ENALAPRIL 5 MG (VASOTEC) TAB PO SCH (09:44)
[2018-07-08] MEDS: azaTHIOprine (IMURAN) 50 MG TAB PO SCH (09:44)
[2018-07-08] MEDS: meTOprolol TARTRATE 50 MG (LOPRESSOR) TAB PO SCH ×2 (09:44→20:02)
[2018-07-08] MEDS: VITAMIN E 400 INTLU CAP PO SCH (09:44)
[2018-07-08] MEDS: APIXABAN 5 MG (ELIQUIS) TABLET PO SCH ×2 (09:44→20:03)
--- NOTE | 2018-07-08 10:04 | PM & R (SOAP) Progress Note ---
Subjective This was a face to face visit with the patient. Date Seen by Provider: Jul 08, 2018 Time Seen by Provider: 08:05 Subjective/Events-last exam Patient was seen in her room this AM Patient min assist for transfers. Objective Physician Exam Last Set of Vital Signs Vital Signs Date Time Temp Pulse Resp B/P (MAP) Pulse Ox O2 Delivery O2 Flow Rate FiO2 07/08/18 05:44 97.2 53 18 156/80 (105) 96 Room Air Capillary Refill : I&O Intake and Output 07/08/18 00:00 Intake Total 1150 ml Balance 1150 ml Intake Oral 1150 ml # Voids 6 General: Alert, Oriented X3, Cooperative, No Acute Distress HEENT: Atraumatic, PERRLA, EOMI, Mucous Memb Moist/[place] Neck: Supple, No JVD Lungs: Clear to Auscultation Heart: Regular Rate Abdomen: Normal Bowel Sounds, Soft, No Tenderness Extremities: No Edema Neuro: Other (RT HP gait imbalance poor standing balance) Results Lab Data Laboratory Tests 07/06/18 10:52: Sodium Level 140, Potassium Level 3.7, Chloride Level 107, Carbon Dioxide Level 25, Anion Gap 8, Blood Urea Nitrogen 14, Creatinine 0.74, Estimat Glomerular Filtration Rate > 60, BUN/Creatinine Ratio 19, Glucose Level 118H, Calcium Level 10.6H Assessment/Plan Assessment and Plan Thrombotic Left pontine cva with improving dysarthria and rt sided weaknes PAF on eliquis patient currently in Sinus r, Mild hypercalcemia Autoimmune hepatitis on meds Constipation treated Plan Continue PT/OT/ST Team Conference held yesterday-see report for full functional update and POC and ELOS Co-Morbidities that are continuing to impact the rehab process: (include details ) RATNA COULTER MD Jul 08, 2018 10:04
--- NOTE | 2018-07-08 10:17 | Occupational Ther Daily Note ---
OT Current Status-Daily Note Subjective Pt seen in room, up in bed, agreeable to OT. No pain mentioned. Appearance Alert, cooperative Mental Status/Objective Functional [place] Measure 0=Not Assessed/NA 4=Minimal Assistance 1=Total Assistance 5=Supervision or Setup 2=Maximal Assistance 6=Modified [place] 3=Moderate Assistance 7=Complete [place] ADL-Treatment She was able to move from supine to sit EOB with a little difficulty, using bed rail. Sit to stand with cues for hand placement. Walked with CGA, FWW slowly to bathroom. Transferred CGA to [facility] over toilet. Pt managed clothing up and down and wiped in front but needed help to wipe after BM. Walked CGA, FWW to shower and transferred into shower with CGA, as well as for sitting on shower bench, using grab bars. Pt washed and dried all parts with setup and was able to wash hair with just a little help. Stood with CGA to dry bottom. Transferred CGA to w /c for dressing. She was able to get pants and slipper socks off (although difficult), get pants on over feet with just a little help on R foot with slacks , pull pants up over hips with CGA, FWW. Help to put slipper socks on. Cues for donning bra over head. Also put on shirt, supervision. Increased use of R UE for reaching, grasping, balancing on bar or w/c arm rest. Pt left at sink to brush hair, teeth, with setup. Nursing in room. Functional [place] Measure 0=Not Assessed/NA 4=Minimal Assistance 1=Total Assistance 5=Supervision or Setup 2=Maximal Assistance 6=Modified [place] 3=Moderate Assistance 7=Complete IndependenceIRFPAI Quality Coding Scale 6 Independent with activity with or without an assistive device 5 Patient requires set up or clean up by helper. Patient completes activity by themselves 4 Supervision or touching assist (CGA). [place] provide cues , steadying assist 3 The helper provides less than half the effort to complete the activity 2 The helper provides more than half the effort to complete the activity 1 Dependent. The helper does all the effort to complete an activity 7 Patient refused to complete or attempt activity 9 The patient did not perform the activity before the current illness or injury 88 Not attempted due to Medical conditions or safety concerns Grooming (FIM): 5 (setup) Bathing (FIM): 4 (CGA when standing to dry bottom. Washed and dried all parts. Shower bench, grab bar, hand held shower) Upper Body (FIM): 5 (supervision, cues) Lower Body Dressing (FIM): 3 (Help to get pants on over R foot (slacks) She pulled them up. CHGA for balance when pulling pants up over hips. FWW. Help to put slipper socks on but she took them off. ) Toileting (FIM): 3 (manage clothing CGA, help to wipe after BM) Toilet/Commode Transfer (FIM): 4 (CGA, CSC over toilet) Shower Transfer(FIM): 4 (CGA, shower bench, grab bar) Education OT Patient Education: Modified ADL techniques, Progress toward Goal/Update tx plan, Purpose of tx/functional activities, Safety issues, Transfer techniques Teaching Recipient: Patient Teaching Methods: Discussion Response to Teaching: Verbalize Understanding, Return Demonstration, Reinforcement Needed OT Short Term Goals Short Term Goals Time Frame: Jul 09, 2018 Grooming(FIM): 5 Upper Body Dressing(FIM): 5 Lower Body Dressing(FIM): 3 Toileting(FIM): 3 Toilet/Commode Transfer(FIM): 3 Comprehension(FIM): 7 Expression(FIM): 4 Social Interaction(FIM): 7 Problem Solving(FIM): 7 Memory(FIM): 7 Additional Short Term Goals: 1-Demonstrate ADL Tasks, 2-Verbalize Understanding , 3-ImproveStrength/[place]iz[place] 1=Demonstrate adherence to instructed precautions during ADL tasks. 2=Patient will verbalize/demonstrate understanding of assistive devices/ modifications for ADL. 3=Patient will improve strength/tolerance for activity to enable patient to perform ADL's. OT Ornamental Painter Goals Alf Goals Time Frame: Jul 23, 2018 Eating (FIM): 6 Eating (QC): 6 Groomin Oral Hygiene (QC): 6 Bathing(FIM): 5 Shower/Bathe Self (QC): 5 Upper Body Dressing(FIM): 5 Upper Body Dressing (QC): 5 Lower Body Dressing(FIM): 5 Lower Body Dressing (QC): 5 On/Off Footwear (QC): 5 Toileting(FIM): 6 Toileting Hygiene (QC): 6 Toilet/Commode Transfer(FIM): 6 Toilet/Commode Transfer (QC): 6 Shower Transfer(FIM): 5 Comprehension(FIM): 7 Expression (FIM): 6 Social Interaction(FIM): 7 Problem Solving(FIM): 7 Memory(FIM): 7 Additional Goals: 1-Demonstrate ADL Tasks, 2-Verbalize Understanding, 3- ImproveStrength/Lizet 1=Demonstrate adherence to instructed precautions during ADL tasks. 2=Patient will verbalize/demonstrate understanding of assistive devices/ modifications for ADL. 3=Patient will improve strength/tolerance for activity to enable patient to perform ADL's. OT Education/Plan Discharge Recommendations Plan/Recommendations: Continue POC Treatment Plan/Plan of Care Patient would benefit from OT for education, treatment and training to promote independence in ADL's, mobility, safety and/or upper extremity function for ADL' s. Plan of Care: ADL Retraining, Functional Mobility, Group Exercise/Act as Ind ( education, exercise, activity tolerance, communication, functional activities, functional mobility), UE Funct Exercise/Act, UE Neuromus Re-Ed/Coord, Visual/ Perceptual Retrain (if needed) Treatment Duration: Jul 23, 2018 Frequency: At least 5 of 7 days/Wk (IRF) Estimated Hrs Per Day: 1.5 hours per day Agreement: Yes Rehab Potential: Good Time/GCodes Start Time: 08:30 Stop Time: 09:30 Total Time Billed (hr/min): 60 Billed Treatment Time visit, 60 minutes ADL ELIZABETH HUDSON OT Jul 08, 2018 10:17
--- NOTE | 2018-07-08 11:54 | Physical Therapy Daily Note ---
PT Daily Note-Current Subjective Pt sitting in [facility] in room upon arrival. Pt agrees to PT. Pain Location: No Pain Reported Mental Status Patient Orientation: Person, Place Transfers Functional [place] Measure 0=Not Assessed/NA 4=Minimal Assistance 1=Total Assistance 5=Supervision or Setup 2=Maximal Assistance 6=Modified [place] 3=Moderate Assistance 7=Complete IndependenceIRFPAI Quality Coding Scale 6 Independent with activity with or without an assistive device 5 Patient requires set up or clean up by helper. Patient completes activity by themselves 4 Supervision or touching assist ([facility]). [place] provide cues , steadying assist 3 The helper provides less than half the effort to complete the activity 2 The helper provides more than half the effort to complete the activity 1 Dependent. The helper does all the effort to complete an activity 7 Patient refused to complete or attempt activity 9 The patient did not perform the activity before the current illness or injury 88 Not attempted due to Medical conditions or safety concerns Sit to/from Stand: 4 Sit to Stand (QC): 4 Weight Bearing Right Lower Extremity: Right Full Weight Bearing Left Lower Extremity: Left Full Weight Bearing Wheelchair Training Does the Pt Use a Wheelchair?: Yes Wheelchair Distance: 3=150 ft Distance: 150' Wheelchair Level of Assist: 4 Wheel 50 ft with 2 turns (QC): 4 Wheel 150 ft (QC): 4 Type of Wheelchair: Manual Exercises Seated Therapy Exercises: Ankle pumps, Sit to stand (10 reps), Long arc quads, Hip flexion, Kicking activity Seated Reps: 20 Treatments Pt propelled self to in hallway to Therapy Gym at [facility] for occasional assistance. Pt completes Seated Ex in chair as well as Sit to Stands with short rest after every couple of reps. Pt returns to room to rest at end of tx with all needs met, including call light. Assessment Current Status: Good Progress Pt has improved with safety and independence of transfers especially from [facility] to standing. PT Short Term Goals Short Term Goals Time Frame: Jul 16, 2018 Gait (FIM): 4 Distance (FIM): 3=150 ft Gait Assistive Device: FWW Wheelchair Distance: 150' PT Harpooner Goals Harpooner Goals PT Jail Goals Time Frame: Jul 30, 2018 Transfers (B,C,W/C) (FIM): 6 Sit to Lying (QC): 6 Lying-Sitting on Side/Bed(QC): 6 Sit to Stand (QC): 6 Rollin Roll Left to Right (QC): 6 Chair/Tju-mq-Vphlt Xfer(QC): 6 Car Transfer (QC): 6 Gait (FIM): 6 Gait distance (FIM): 3=150 ft Walk 10 feet (QC): 6 Walk 10ft-Uneven Surface(QC): 6 Walk 50ft with 2 Turns (QC): 6 Walk 150 ft (QC): 6 Gait Assistive Device: FWW Stairs (FIM): 5 # of Steps: 4 (household exception) 1 Step (curb) (QC): 6 4 Steps (QC): 6 12 Steps (QC): 88 Stairs Level Of Assist: 6 Picking up an Object (QC): 4 PT Plan Problem List Problem List: Activity Tolerance, Functional Strength, Safety, Balance, Gait Treatment/Plan Treatment Plan: Continue Plan of Care Treatment Plan: Bed Mobility, Education, Functional Activity Lizet, Functional Strength, Group Therapy, Gait, Safety, Therapeutic Exercise, Transfers Treatment Duration: Jul 30, 2018 Frequency: At least 5 of 7 days/Wk (IRF) Estimated Hrs Per Day: 1.5 hours per day Patient and/or Family Agrees t: Yes Safety Risks/Education Patient Education: Gait Training, Transfer Techniques, Correct Positioning, W/ C Management, Safety Issues Teaching Recipient: Patient Teaching Methods: Discussion Response to Teaching: Verbalize Understanding Time/GCodes Time In: 1000 Time Out: 1045 Total Billed Treatment Time: 45 Total Billed Treatment 1, [facility] (15m) & EX x2 (30m) G Codes Necessary: KISHOR Kaur SEO ASSOCIATE Jul 08, 2018 11:54
--- NOTE | 2018-07-08 15:32 | Therapy Group Daily Note ---
Therapy Daily Group Note Patient Education Topic Exercises, Other List Below (Education over Memory & Memory Strategies) Exercises LE Seated Exercise, Sit to/from Stand, UE Exercise Other/Notes Pt propelled self to PT/OT Group in Therapy [facility]. Group consisted of Introduction (Name, Where you are from & Variety of Favorites Questions depending on on how dice was rolled), Socialization, Seated UE & LE Exercise, Education over Memory Strategies & Memory Activity. Pt participated in Group by standing to roll dice at chair, answering the corresponding question as well as completing Seated Ex and giving personal examples of Memory Strategies. Pt returns to room to rest at the end of Group with all needs met. Start Time: 13:00 Stop Time: 14:20 Total Billed Treatment Time: 80 Total Billed Treatment 1, GRP KISHOR CHAVEZ HYGIENE TEACHER Jul 08, 2018 15:32
--- NOTE | 2018-07-08 15:46 | Speech Therapy Daily Note ---
Speech Daily Progress Note Subjective Date Seen by Provider: Jul 08, 2018 Time Seen by Provider: 11:00 Pt pleasant and cooperative. Pain Numeric Pain Scale: 0-No Pain Objective Pt completed OMEs with min assist. Speech intelligibility for sentence length material was 100%. Pt required cues to recall speech strategies. Assessment Assessment Current Status: Good Progress Treatment Plan Continue Plan of Care Communication Comprehension: 7 Expression: 4 Social Cognition Social Interaction: 7 Problem Solvin Memory: 7 Speech Short Term Goals Short Term Goals Short Term Goals Pt will only require min assist with oral motor exercises. Pt will complete verbal expression tasks with at least 80% accuracy with or without comp strategies. Comprehension: 7 Expression: 4 Social Interaction: 7 Problem Solvin Memory: 7 Speech Half-Way Goals Half-Way Goals Pt will be independent with Oral motor exercises Pt's verbal expressive speech will be at least 95% accurate with or without the use compensatory strategies. Comprehension: 7 Expression: 6 Social Interaction: 7 Problem Solvin Memory: 7 Speech-Plan Patient/Family Goals Patient/Family Goals: to talk better. Treatment Plan Speech Therapy Treatment Plan: Continue Plan of Care Pt very motivated. Treatment Duration: Jul 30, 2018 Frequency: 5 times per week Estimated Hrs Per Day: .5 hour per day Rehab Potential: Good Pt/Family Agrees to Plan: Yes Safety Risks/Education Teaching Recipient: Patient Teaching Methods: Discussion Response to Teaching: Verbalize Understanding Time Speech Therapy Time In: 11:00 Speech Therapy Time Out: 11:30 Total Billed Time: 30 Billed Treatment Time 1TWAN R[address]Y ST Jul 08, 2018 15:46
[2018-07-08 18:03] VITALS: BP 154/72
[2018-07-08] MEDS: ATORVASTATIN 10 MG (LIPITOR) TABLET PO SCH (20:02)
[2018-07-09] MEDS: LEVOTHYROXINE 50 MCG (LEVOTHROID) TAB PO SCH (05:51)
[2018-07-09 05:56] VITALS: BP 145/71
[2018-07-09] MEDS: ENALAPRIL 5 MG (VASOTEC) TAB PO SCH (08:47)
[2018-07-09] MEDS: POLYETHYLENE GLYCOL 17 GM (MIRALAX) PACK PO SCH ×2 (08:47→21:24)
[2018-07-09] MEDS: APIXABAN 5 MG (ELIQUIS) TABLET PO SCH ×2 (08:47→21:24)
[2018-07-09] MEDS: meTOprolol TARTRATE 50 MG (LOPRESSOR) TAB PO SCH ×2 (08:47→21:24)
[2018-07-09] MEDS: SENNA W/DOCUSATE (SENOKOT S) TABLET PO SCH ×2 (08:47→21:25)
[2018-07-09] MEDS: VITAMIN E 400 INTLU CAP PO SCH (08:47)
[2018-07-09] MEDS: azaTHIOprine (IMURAN) 50 MG TAB PO SCH (08:50)
--- NOTE | 2018-07-09 08:52 | PM & R (SOAP) Progress Note ---
Subjective This was a face to face visit with the patient. Date Seen by Provider: Jul 09, 2018 Time Seen by Provider: 08:10 Subjective/Events-last exam Patient was seen in her room this AM patient Min assist for transfers. Objective Physician Exam Last Set of Vital Signs Vital Signs Date Time Temp Pulse Resp B/P (MAP) Pulse Ox O2 Delivery O2 Flow Rate FiO2 07/09/18 05:56 97.6 56 16 145/71 (95) 97 Room Air Capillary Refill : I&O Intake and Output 07/09/18 00:00 Intake Total 880 ml Balance 880 ml Intake Oral 880 ml # Voids 5 # Bowel Movements 1 General: Alert, Oriented X3, Cooperative, No Acute Distress HEENT: Atraumatic, PERRLA, EOMI, Mucous Memb Moist/[place] Neck: Supple, No JVD Lungs: Clear to Auscultation Heart: Regular Rate Abdomen: Normal Bowel Sounds, Soft, No Tenderness Extremities: No Edema Neuro: Other (RT HP gait imbalance poor standing balance) Results Lab Data Laboratory Tests 07/06/18 10:52: Sodium Level 140, Potassium Level 3.7, Chloride Level 107, Carbon Dioxide Level 25, Anion Gap 8, Blood Urea Nitrogen 14, Creatinine 0.74, Estimat Glomerular Filtration Rate > 60, BUN/Creatinine Ratio 19, Glucose Level 118H, Calcium Level 10.6H Assessment/Plan Assessment and Plan Left pontine CVA with RT HP and dysarthria improving PAF on Eliquis currently in sinus Mild hypercalcemia Autoimmune hepatitis on meds Constipation treated Plan Continue Pt/OT/St Team Conference held 07-07-18-See report for full functional update and POC and ELOS Co-Morbidities that are continuing to impact the rehab process: (include details ) RATNA COULTER MD Jul 09, 2018 08:52
[2018-07-09 11:02] LABS: BUN/CREATININE RATIO 21; CALCIUM 10.6 MG/DL (8.5-10.1); CARBON DIOXIDE 24 MMOL/L (21-32); CHLORIDE 109 MMOL/L (98-107); GFR ESTIMATED > 60; GLUCOSE 110 MG/DL (70-105); POTASSIUM 3.9 MMOL/L (3.6-5.0); SODIUM 142 MMOL/L (135-145)
--- NOTE | 2018-07-09 11:08 | Occupational Ther Daily Note ---
OT Current Status-Daily Note Subjective Pt seen in room, up in bed, agreeable to OT. No pain reported. Appearance Alert, cooperative Mental Status/Objective Functional [place] Measure 0=Not Assessed/NA 4=Minimal Assistance 1=Total Assistance 5=Supervision or Setup 2=Maximal Assistance 6=Modified [place] 3=Moderate Assistance 7=Complete [place] ADL-Treatment She was able to move from supine to sit EOB without help. She got up from bed with CGA and walked CGA, FWW to bathroom. She toileted with CGA, BSC over toilet , and managed clothing and hygiene, CGA. Undressed lower body in preparation for bathing. Transferred to w/c with CGA, using R hand for help with transfer. She sat at the sink to brush her teeth and hair, mod I (extra time). She washed and dried all parts with sponge bath at sink. standing with CGA and balancing on countertop, to wash and dry mario alberto front and back. She donned t shirt with set up and was able to get pants on over L foot but not R (almost, though), balancing to lean forward. Pulled pants up over thighs with CGA when standing, FWW. Pt left up in w/c, all needs met. Functional [place] Measure 0=Not Assessed/NA 4=Minimal Assistance 1=Total Assistance 5=Supervision or Setup 2=Maximal Assistance 6=Modified [place] 3=Moderate Assistance 7=Complete IndependenceIRFPAI Quality Coding Scale 6 Independent with activity with or without an assistive device 5 Patient requires set up or clean up by helper. Patient completes activity by themselves 4 Supervision or touching assist (CGA). [place] provide cues , steadying assist 3 The helper provides less than half the effort to complete the activity 2 The helper provides more than half the effort to complete the activity 1 Dependent. The helper does all the effort to complete an activity 7 Patient refused to complete or attempt activity 9 The patient did not perform the activity before the current illness or injury 88 Not attempted due to Medical conditions or safety concerns Grooming (FIM): 6 (w/c, at sink) Bathing (FIM): 5 (sestup. Washed and dried all parts. SHower bench, rgab bar, hand held shower) Upper Body (FIM): 5 (setup) Lower Body Dressing (FIM): 3 (CGA when standing to manage pants over hips. help to get R foot into pants and slipper socks on. FWW) Toileting (FIM): 4 (CGA when standing for clothing management. BSC over toilet) Toilet/Commode Transfer (FIM): 4 (CGA getting scott nd off BSC over toilet, grab bar, FWW) Education OT Patient Education: Modified ADL techniques, Progress toward Goal/Update tx plan, Purpose of tx/functional activities, Transfer techniques Teaching Recipient: Patient Teaching Methods: Demonstration Response to Teaching: Verbalize Understanding, Return Demonstration, Reinforcement Needed OT Short Term Goals Short Term Goals Time Frame: Jul 09, 2018 Grooming(FIM): 5 Upper Body Dressing(FIM): 5 Lower Body Dressing(FIM): 3 Toileting(FIM): 3 Toilet/Commode Transfer(FIM): 3 Comprehension(FIM): 7 Expression(FIM): 4 Social Interaction(FIM): 7 Problem Solving(FIM): 7 Memory(FIM): 7 Additional Short Term Goals: 1-Demonstrate ADL Tasks, 2-Verbalize Understanding , 3-ImproveStrength/[place] 1=Demonstrate adherence to instructed precautions during ADL tasks. 2=Patient will verbalize/demonstrate understanding of assistive devices/ modifications for ADL. 3=Patient will improve strength/tolerance for activity to enable patient to perform ADL's. OT Corporation Secretary Goals Corporation Secretary Goals Time Frame: Jul 23, 2018 Eating (FIM): 6 Eating (QC): 6 Groomin Oral Hygiene (QC): 6 Bathing(FIM): 5 Shower/Bathe Self (QC): 5 Upper Body Dressing(FIM): 5 Upper Body Dressing (QC): 5 Lower Body Dressing(FIM): 5 Lower Body Dressing (QC): 5 On/Off Footwear (QC): 5 Toileting(FIM): 6 Toileting Hygiene (QC): 6 Toilet/Commode Transfer(FIM): 6 Toilet/Commode Transfer (QC): 6 Shower Transfer(FIM): 5 Comprehension(FIM): 7 Expression (FIM): 6 Social Interaction(FIM): 7 Problem Solving(FIM): 7 Memory(FIM): 7 Additional Goals: 1-Demonstrate ADL Tasks, 2-Verbalize Understanding, 3- ImproveStrength/Lizet 1=Demonstrate adherence to instructed precautions during ADL tasks. 2=Patient will verbalize/demonstrate understanding of assistive devices/ modifications for ADL. 3=Patient will improve strength/tolerance for activity to enable patient to perform ADL's. OT Education/Plan Discharge Recommendations Plan/Recommendations: Continue POC Treatment Plan/Plan of Care Patient would benefit from OT for education, treatment and training to promote independence in ADL's, mobility, safety and/or upper extremity function for ADL' s. Plan of Care: ADL Retraining, Functional Mobility, Group Exercise/Act as Ind ( education, exercise, activity tolerance, communication, functional activities, functional mobility), UE Funct Exercise/Act, UE Neuromus Re-Ed/Coord, Visual/ Perceptual Retrain (if needed) Treatment Duration: Jul 23, 2018 Frequency: At least 5 of 7 days/Wk (IRF) Estimated Hrs Per Day: 1.5 hours per day Agreement: Yes Rehab Potential: Good Time/GCodes Start Time: 08:15 Stop Time: 09:00 Total Time Billed (hr/min): 45 Billed Treatment Time visit, 45 minutes ADL ELIZABETH HUDSON OT Jul 09, 2018 11:08
--- NOTE | 2018-07-09 12:17 | Progress Note-Hospitalist ---
Subjective HPI/CC On Admission Date Seen by Provider: Jul 09, 2018 Time Seen by Provider: 12:00 Subjective/Events-last exam Patient reports slow progress with ambulation. Staff report progress is well with improving stamina. Patient has a good attitude and has been working hard. Her calcium was again elevated at 10.8. She hasn't no known previous history of hypercalcemia. She has had issues with constipation but no problems with peptic ulcer disease or nephrolithiasis known. She voices no complaints. Objective Exam Vital Signs Vital Signs Date Time Temp Pulse Resp B/P (MAP) Pulse Ox O2 Delivery O2 Flow Rate FiO2 07/09/18 05:56 97.6 56 16 145/71 (95) 97 Room Air Capillary Refill : General Appearance: No Apparent Distress, WD/WN Neck: Full Range of Motion, Normal Inspection, Non Tender, Supple, Other ( Palpable neck abnormalities noted. No adenopathy.) Respiratory: Chest Non Tender, Lungs Clear, Normal Breath Sounds, No Accessory Muscle Use, No Respiratory Distress Cardiovascular: Regular Rate, Rhythm, No Edema, No Gallop, No JVD, No Murmur, Normal Peripheral Pulses Extremity: Normal Capillary Refill, Normal Inspection, Normal Range of Motion, Non Tender, No Calf Tenderness, No Pedal Edema Neurologic/Psychiatric: Alert, Oriented x3, Other (Mild dysmetria of the right upper extremity more prominent in the right lower extremity. There is also evidence for some truncal ataxia) Results/Procedures Lab Laboratory Tests 07/09/18 10:35 Patient resulted labs reviewed. Assessment/Plan Assessment and Plan Assess & Plan/Chief Complaint 1. 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 2. Paroxysmal atrial fibrillation patient remains in sinus rhythm continue ELIQUIS 3. Mild hypercalcemia on admission her cysts with a level of 10.8 a basic metabolic panel and a PTH level have been obtained today. 4. Autoimmune hepatitis stable continue low-dose azathioprine. 5. Constipation resolved will discontinue lactulose continue MiraLAX and Senokot Clinical Quality Measures DVT/VTE Risk/Contraindication: Risk Factor Score Per Nursin RFS Level Per Nursing on Admit: 3=High HENNA COLE MD Jul 09, 2018 12:17
--- NOTE | 2018-07-09 14:22 | Physical Therapy Daily Note ---
PT Daily Note-Current Subjective Pt. agrees to Rx. States she is hearing better with the auditory aide [employer] gave her to wear. Pain Numeric Pain Scale: 0-No Pain Mental Status Patient Orientation: Person, Place, Time, Situation Attachments: Other-See Comments (auditory aide) Transfers Functional [place] Measure 0=Not Assessed/NA 4=Minimal Assistance 1=Total Assistance 5=Supervision or Setup 2=Maximal Assistance 6=Modified [place] 3=Moderate Assistance 7=Complete IndependenceIRFPAI Quality Coding Scale 6 Independent with activity with or without an assistive device 5 Patient requires set up or clean up by helper. Patient completes activity by themselves 4 Supervision or touching assist (CGA). [place] provide cues , steadying assist 3 The helper provides less than half the effort to complete the activity 2 The helper provides more than half the effort to complete the activity 1 Dependent. The helper does all the effort to complete an activity 7 Patient refused to complete or attempt activity 9 The patient did not perform the activity before the current illness or injury 88 Not attempted due to Medical conditions or safety concerns Transfers (B, C, W/C) (FIM): 4 Scootin Rollin Supine to/from Sit: 4 Sit to/from Stand: 4 sit to stands still make pt. feel as if she is going to fall onto her nose, resists/hesitates wt shift forward, 8-10 trials today with some improvement noted Weight Bearing Right Lower Extremity: Right Full Weight Bearing Left Lower Extremity: Left Full Weight Bearing Gait Training Does the Patient Walk?: Yes Gait (FIM): 4 Distance (FIM): 3=150 ft (x3) Gait Level of Assist: 4 Gait Persons Needed: 1 Gait Assistive Device: FWW CGA , no LOB, fatigues Exercises Supine Ex: Heel Slides, Straight leg raise, Hip abd/add Supine Reps: 10 NuStep Minutes: 11 NuStep Workload: 2 Treatments emphasis on sit to stand and weight shift for TRFs and gait Assessment Current Status: Good Progress gives full effort PT Short Term Goals Short Term Goals Time Frame: Jul 16, 2018 Gait (FIM): 4 Distance (FIM): 3=150 ft Gait Assistive Device: FWW Wheelchair Distance: 150' PT Correction Goals Correction Goals PT Group Activities Aide Goals Time Frame: Jul 30, 2018 Transfers (B,C,W/C) (FIM): 6 Sit to Lying (QC): 6 Lying-Sitting on Side/Bed(QC): 6 Sit to Stand (QC): 6 Rollin Roll Left to Right (QC): 6 Chair/Whj-jt-Wmmsz Xfer(QC): 6 Car Transfer (QC): 6 Gait (FIM): 6 Gait distance (FIM): 3=150 ft Walk 10 feet (QC): 6 Walk 10ft-Uneven Surface(QC): 6 Walk 50ft with 2 Turns (QC): 6 Walk 150 ft (QC): 6 Gait Assistive Device: FWW Stairs (FIM): 5 # of Steps: 4 (household exception) 1 Step (curb) (QC): 6 4 Steps (QC): 6 12 Steps (QC): 88 Stairs Level Of Assist: 6 Picking up an Object (QC): 4 PT Plan Treatment/Plan Treatment Plan: Continue Plan of Care Treatment Plan: Bed Mobility, Education, Functional Activity Lizet, Functional Strength, Group Therapy, Gait, Safety, Therapeutic Exercise, Transfers Treatment Duration: Jul 30, 2018 Frequency: At least 5 of 7 days/Wk (IRF) Estimated Hrs Per Day: 1.5 hours per day Patient and/or Family Agrees t: Yes Safety Risks/Education Patient Education: Gait Training, Transfer Techniques, Correct Positioning, Disease Process, Safety Issues Teaching Recipient: Patient Teaching Methods: Demonstration, Discussion Response to Teaching: Verbalize Understanding, Return Demonstration, Reinforcement Needed Time/GCodes Time In: 1130 Time Out: 1215 Total Billed Treatment Time: 45 Total Billed Treatment 1,GT20m,FA15m,EX10m G Codes Necessary: FRANTZ Kolb MANUFACTURERS SERVICE REPRESENTATIVE Jul 09, 2018 14:22
--- NOTE | 2018-07-09 14:57 | Therapy Group Daily Note ---
Therapy Daily Group Note Patient Education Topic Fall Prevention, Exercises, Other List Below (Community Safety) Exercises UE Exercise Other/Notes Pt propelled self in [facility] to Group. Group consisted of Introductions (Name, Where you are from & What career/job did you want when you grew up?), Socialization, Fall Prevention Education, Community Safety Bingo as well as Pt led Seated UE Ex. Pt participated in Group by giving occupation she would chosen, completing EX and placing markers on bingo signs as called. Pt returns to room to use restroom and rest in bed at end of Group. Start Time: 13:00 Stop Time: 14:15 Total Billed Treatment Time: 75 Total Billed Treatment 1, GRP AUSTENKISHOR MARTINEZ RN [facility] Jul 09, 2018 14:57
--- NOTE | 2018-07-09 15:34 | Speech Therapy Daily Note ---
Speech Daily Progress Note Subjective Date Seen by Provider: Jul 09, 2018 Time Seen by Provider: 11:00 pleasant Pain Numeric Pain Scale: 0-No Pain Objective Pt completed OMEs with min assist for correction of exercise. Assessment Assessment Current Status: Good Progress Treatment Plan Continue Plan of Care Communication Comprehension: 7 Expression: 4 Social Cognition Social Interaction: 7 Problem Solvin Memory: 7 Speech Short Term Goals Short Term Goals Short Term Goals Pt will only require min assist with oral motor exercises. Pt will complete verbal expression tasks with at least 80% accuracy with or without comp strategies. Comprehension: 7 Expression: 4 Social Interaction: 7 Problem Solvin Memory: 7 Speech Green Building Materials Designer Goals Green Building Materials Designer Goals Pt will be independent with Oral motor exercises Pt's verbal expressive speech will be at least 95% accurate with or without the use compensatory strategies. Comprehension: 7 Expression: 6 Social Interaction: 7 Problem Solvin Memory: 7 Speech-Plan Patient/Family Goals Patient/Family Goals: to talk better Treatment Plan Speech Therapy Treatment Plan: Continue Plan of Care pt very motivated. Treatment Duration: Jul 30, 2018 Frequency: 5 times per week Estimated Hrs Per Day: .5 hour per day Rehab Potential: Good Pt/Family Agrees to Plan: Yes Safety Risks/Education Teaching Recipient: Patient Teaching Methods: Discussion Response to Teaching: Verbalize Understanding Time Speech Therapy Time In: 11:00 Speech Therapy Time Out: 11:30 Total Billed Time: 30 Billed Treatment Time 1, NEHAL BLOOM Jul 09, 2018 15:34
[2018-07-09 17:57] VITALS: BP 146/66
[2018-07-09] MEDS: ATORVASTATIN 10 MG (LIPITOR) TABLET PO SCH (21:24)
[2018-07-10 04:50] VITALS: BP 150/76
[2018-07-10] MEDS: LEVOTHYROXINE 50 MCG (LEVOTHROID) TAB PO SCH (06:37)
--- NOTE | 2018-07-10 08:16 | PM & R (SOAP) Progress Note ---
Subjective This was a face to face visit with the patient. Date Seen by Provider: Jul 10, 2018 Time Seen by Provider: 07:20 Subjective/Events-last exam Patient was seen in her room this AM Patient min assist for transfers Appreciate Dr gomez note Objective Physician Exam Last Set of Vital Signs Vital Signs Date Time Temp Pulse Resp B/P (MAP) Pulse Ox O2 Delivery O2 Flow Rate FiO2 07/10/18 04:50 97.6 56 18 150/76 (100) 97 Room Air Capillary Refill : I&O Intake and Output 07/10/18 00:00 Intake Total 960 ml Balance 960 ml Intake Oral 960 ml # Voids 6 General: Alert, Oriented X3, Cooperative, No Acute Distress HEENT: Atraumatic, PERRLA, EOMI, Mucous Memb Moist/[place] Neck: Supple, No JVD Lungs: Clear to Auscultation Heart: Regular Rate Abdomen: Normal Bowel Sounds, Soft, No Tenderness Extremities: No Edema Neuro: Other (RT HP gait imbalance poor standing balance) Results Lab Data Laboratory Tests 07/09/18 10:35: Sodium Level 142, Potassium Level 3.9, Chloride Level 109H, Carbon Dioxide Level 24, Anion Gap 9, Blood Urea Nitrogen 15, Creatinine 0.70, Estimat Glomerular Filtration Rate > 60, BUN/Creatinine Ratio 21, Glucose Level 110H, Calcium Level 10.6H Assessment/Plan Assessment and Plan Left pontine CVA with RT HP and dysarthria improving' PAF on eliquis in sinus Mild hypercalcemia Autoimmune hepatitis on meds Constipation treated Plan Continue PT/OT/ST Next Team Conference [id number] Co-Morbidities that are continuing to impact the rehab process: (include details ) RATNA COULTER MD Jul 10, 2018 08:16
[2018-07-10] MEDS: APIXABAN 5 MG (ELIQUIS) TABLET PO SCH ×2 (08:34→21:33)
[2018-07-10] MEDS: azaTHIOprine (IMURAN) 50 MG TAB PO SCH (08:34)
[2018-07-10] MEDS: ENALAPRIL 5 MG (VASOTEC) TAB PO SCH (08:34)
[2018-07-10] MEDS: VITAMIN E 400 INTLU CAP PO SCH (08:34)
[2018-07-10] MEDS: POLYETHYLENE GLYCOL 17 GM (MIRALAX) PACK PO SCH ×2 (08:35→21:41)
[2018-07-10] MEDS: SENNA W/DOCUSATE (SENOKOT S) TABLET PO SCH ×2 (08:35→21:41)
[2018-07-10 08:43] VITALS: BP 147/57
[2018-07-10] MEDS: meTOprolol TARTRATE 50 MG (LOPRESSOR) TAB PO SCH ×2 (08:43→21:33)
--- NOTE | 2018-07-10 10:34 | Physical Therapy Daily Note ---
PT Daily Note-Current Subjective Pt. agrees to Rx. States she is a little tired and anxious to go to bed and sleep for a nap Pain Numeric Pain Scale: 0-No Pain Mental Status Patient Orientation: Normal For Age Transfers Functional [place] Measure 0=Not Assessed/NA 4=Minimal Assistance 1=Total Assistance 5=Supervision or Setup 2=Maximal Assistance 6=Modified [place] 3=Moderate Assistance 7=Complete IndependenceIRFPAI Quality Coding Scale 6 Independent with activity with or without an assistive device 5 Patient requires set up or clean up by helper. Patient completes activity by themselves 4 Supervision or touching assist (CGA). [place] provide cues , steadying assist 3 The helper provides less than half the effort to complete the activity 2 The helper provides more than half the effort to complete the activity 1 Dependent. The helper does all the effort to complete an activity 7 Patient refused to complete or attempt activity 9 The patient did not perform the activity before the current illness or injury 88 Not attempted due to Medical conditions or safety concerns Transfers (B, C, W/C) (FIM): 4 Scootin Rollin Supine to/from Sit: 5 Sit to/from Stand: 4 much emphasis on sit to stand as pt. extends at hips and resists stating she feels she will go over on her nose Weight Bearing Right Lower Extremity: Right Full Weight Bearing Left Lower Extremity: Left Full Weight Bearing Gait Training Does the Patient Walk?: Yes Gait (FIM): 4 Distance (FIM): 3=150 ft (175x2) Gait Level of Assist: 4 Gait Persons Needed: 1 Gait Assistive Device: FWW Exercises Seated Therapy Exercises: Ankle pumps, Sit to stand, Long arc quads, Hip flexion Seated Reps: 12 Treatments TRF emphasis Assessment Current Status: Good Progress PT Short Term Goals Short Term Goals Time Frame: Jul 16, 2018 Gait (FIM): 4 Distance (FIM): 3=150 ft Gait Assistive Device: FWW Wheelchair Distance: 150' PT Fdc Goals Fdc Goals PT Fdc Goals Time Frame: Jul 30, 2018 Transfers (B,C,W/C) (FIM): 6 Sit to Lying (QC): 6 Lying-Sitting on Side/Bed(QC): 6 Sit to Stand (QC): 6 Rollin Roll Left to Right (QC): 6 Chair/Zpq-ri-Vzzwj Xfer(QC): 6 Car Transfer (QC): 6 Gait (FIM): 6 Gait distance (FIM): 3=150 ft Walk 10 feet (QC): 6 Walk 10ft-Uneven Surface(QC): 6 Walk 50ft with 2 Turns (QC): 6 Walk 150 ft (QC): 6 Gait Assistive Device: FWW Stairs (FIM): 5 # of Steps: 4 (household exception) 1 Step (curb) (QC): 6 4 Steps (QC): 6 12 Steps (QC): 88 Stairs Level Of Assist: 6 Picking up an Object (QC): 4 PT Plan Treatment/Plan Treatment Plan: Continue Plan of Care Treatment Plan: Bed Mobility, Education, Functional Activity Lizet, Functional Strength, Group Therapy, Gait, Safety, Therapeutic Exercise, Transfers Treatment Duration: Jul 30, 2018 Frequency: At least 5 of 7 days/Wk (IRF) Estimated Hrs Per Day: 1.5 hours per day Patient and/or Family Agrees t: Yes Safety Risks/Education Patient Education: Gait Training, Transfer Techniques, Correct Positioning, Safety Issues Teaching Recipient: Patient Teaching Methods: Demonstration, Discussion Response to Teaching: Verbalize Understanding, Return Demonstration, Reinforcement Needed Time/GCodes Time In: 855 Time Out: 925 Total Billed Treatment Time: 30 Total Billed Treatment 1,GT15,FA15 G Codes Necessary: FRANTZ Kolb RESOURCING CONSULTANT Jul 10, 2018 10:34
[2018-07-10 16:47] VITALS: BP 138/75
[2018-07-10] MEDS: ATORVASTATIN 10 MG (LIPITOR) TABLET PO SCH (21:33)
[2018-07-11 04:58] VITALS: BP 139/71
[2018-07-11] MEDS: LEVOTHYROXINE 50 MCG (LEVOTHROID) TAB PO SCH (06:14)
[2018-07-11 07:59] VITALS: BP 127/59
[2018-07-11] MEDS: APIXABAN 5 MG (ELIQUIS) TABLET PO SCH ×2 (08:00→20:06)
[2018-07-11] MEDS: VITAMIN E 400 INTLU CAP PO SCH (08:00)
[2018-07-11] MEDS: azaTHIOprine (IMURAN) 50 MG TAB PO SCH (08:00)
[2018-07-11] MEDS: ENALAPRIL 5 MG (VASOTEC) TAB PO SCH (08:00)
[2018-07-11] MEDS: SENNA W/DOCUSATE (SENOKOT S) TABLET PO SCH ×2 (08:01→20:06)
[2018-07-11] MEDS: POLYETHYLENE GLYCOL 17 GM (MIRALAX) PACK PO SCH ×2 (08:01→20:06)
[2018-07-11] MEDS: meTOprolol TARTRATE 50 MG (LOPRESSOR) TAB PO SCH ×2 (08:01→20:06)
[2018-07-11 18:16] VITALS: BP 124/52
[2018-07-11] MEDS: ATORVASTATIN 10 MG (LIPITOR) TABLET PO SCH (20:06)
[2018-07-12] MEDS: LEVOTHYROXINE 50 MCG (LEVOTHROID) TAB PO SCH (05:55)
[2018-07-12 06:39] VITALS: BP 154/76
[2018-07-12] MEDS: VITAMIN E 400 INTLU CAP PO SCH (08:35)
[2018-07-12] MEDS: azaTHIOprine (IMURAN) 50 MG TAB PO SCH (08:35)
[2018-07-12] MEDS: APIXABAN 5 MG (ELIQUIS) TABLET PO SCH ×2 (08:35→20:49)
[2018-07-12] MEDS: meTOprolol TARTRATE 50 MG (LOPRESSOR) TAB PO SCH ×2 (08:35→20:49)
[2018-07-12] MEDS: ENALAPRIL 5 MG (VASOTEC) TAB PO SCH (08:35)
[2018-07-12] MEDS: POLYETHYLENE GLYCOL 17 GM (MIRALAX) PACK PO SCH ×2 (08:38→20:49)
[2018-07-12] MEDS: SENNA W/DOCUSATE (SENOKOT S) TABLET PO SCH ×2 (08:38→20:49)
--- NOTE | 2018-07-12 09:45 | Physical Therapy Daily Note ---
PT Daily Note-Current Subjective Pt. agreeable to rx. Pain Numeric Pain Scale: 0-No Pain Mental Status Patient Orientation: Person, Place, Time, Situation Transfers Functional [place] Measure 0=Not Assessed/NA 4=Minimal Assistance 1=Total Assistance 5=Supervision or Setup 2=Maximal Assistance 6=Modified [place] 3=Moderate Assistance 7=Complete IndependenceIRFPAI Quality Coding Scale 6 Independent with activity with or without an assistive device 5 Patient requires set up or clean up by helper. Patient completes activity by themselves 4 Supervision or touching assist (CGA). [place] provide cues , steadying assist 3 The helper provides less than half the effort to complete the activity 2 The helper provides more than half the effort to complete the activity 1 Dependent. The helper does all the effort to complete an activity 7 Patient refused to complete or attempt activity 9 The patient did not perform the activity before the current illness or injury 88 Not attempted due to Medical conditions or safety concerns Transfers (B, C, W/C) (FIM): 5 Scootin Rollin Supine to/from Sit: 5 Sit to/from Stand: 5 Weight Bearing Right Lower Extremity: Right Full Weight Bearing Left Lower Extremity: Left Full Weight Bearing Gait Training Does the Patient Walk?: Yes Gait (FIM): 4 Distance (FIM): 3=150 ft (x3) Gait Level of Assist: 4 Gait Persons Needed: 1 Gait Assistive Device: FWW Exercises Seated Therapy Exercises: Sit to stand, Hip flexion Seated Reps: 20 NuStep Minutes: 8 NuStep Workload: 4 Treatments toileted with mod assist pants and cleanup Assessment Current Status: Good Progress low steady progress all phases of Rx PT Short Term Goals Short Term Goals Time Frame: Jul 16, 2018 Gait (FIM): 4 Distance (FIM): 3=150 ft Gait Assistive Device: FWW Wheelchair Distance: 150' PT Long-Term Goals Gold Letterer Goals PT Gold Letterer Goals Time Frame: Jul 30, 2018 Transfers (B,C,W/C) (FIM): 6 Sit to Lying (QC): 6 Lying-Sitting on Side/Bed(QC): 6 Sit to Stand (QC): 6 Rollin Roll Left to Right (QC): 6 Chair/Uxg-gs-Mnsbz Xfer(QC): 6 Car Transfer (QC): 6 Gait (FIM): 6 Gait distance (FIM): 3=150 ft Walk 10 feet (QC): 6 Walk 10ft-Uneven Surface(QC): 6 Walk 50ft with 2 Turns (QC): 6 Walk 150 ft (QC): 6 Gait Assistive Device: FWW Stairs (FIM): 5 # of Steps: 4 (household exception) 1 Step (curb) (QC): 6 4 Steps (QC): 6 12 Steps (QC): 88 Stairs Level Of Assist: 6 Picking up an Object (QC): 4 PT Plan Treatment/Plan Treatment Plan: Continue Plan of Care Treatment Plan: Bed Mobility, Education, Functional Activity Lizet, Functional Strength, Group Therapy, Gait, Safety, Therapeutic Exercise, Transfers Treatment Duration: Jul 30, 2018 Frequency: At least 5 of 7 days/Wk (IRF) Estimated Hrs Per Day: 1.5 hours per day Patient and/or Family Agrees t: Yes Safety Risks/Education Patient Education: Gait Training, Transfer Techniques, Correct Positioning, Disease Process, Safety Issues Teaching Recipient: Patient Teaching Methods: Demonstration, Discussion Response to Teaching: Verbalize Understanding, Return Demonstration, Reinforcement Needed Time/GCodes Time In: 845 Time Out: 930 Total Billed Treatment Time: 45 Total Billed Treatment 1,GT15m,EX15m,FA15m G Codes Necessary: FRANTZ Kolb STOCK SHIPPER Jul 12, 2018 09:45
--- NOTE | 2018-07-12 12:51 | Occupational Ther Daily Note ---
OT Current Status-Daily Note Subjective Pt seen in room, up in bed, agreeable to OT. No pain mentioned. Appearance Alert, cooperative Mental Status/Objective Functional [place] Measure 0=Not Assessed/NA 4=Minimal Assistance 1=Total Assistance 5=Supervision or Setup 2=Maximal Assistance 6=Modified [place] 3=Moderate Assistance 7=Complete [place] ADL-Treatment Pt got up to EOB and sit to stand with SBA. Walked with CGA, FWW to bathroom. transferred on/off BSC over toilet with close SBA. Managed pants down with close SBA, grab bar and completed hygiene. Walked to shower and transferred into shower and on/off shower bench with CGA, grab bar. pt washed and dried all parts with setup, seated on bench. SBA when standing to dry bottom. transferred out of shower min assist and walked to chair with arms for dressing. Donned bra , shirt with setup. Needed a little help getting R foot onto pants and underwear , then she pulled pants up with close SBA, FWW. Able to get slipper socks off but needed a little help getting shoes on. Walked back to bathroom with CGA, FWW and transferred to chair with arms with CGA, FWW. Pt groomed independently at sink. Walked back to room with CGA, FWW and sat in chair with arms, all needs met. Functional [place] Measure 0=Not Assessed/NA 4=Minimal Assistance 1=Total Assistance 5=Supervision or Setup 2=Maximal Assistance 6=Modified [place] 3=Moderate Assistance 7=Complete IndependenceIRFPAI Quality Coding Scale 6 Independent with activity with or without an assistive device 5 Patient requires set up or clean up by helper. Patient completes activity by themselves 4 Supervision or touching assist (CGA). [place] provide cues , steadying assist 3 The helper provides less than half the effort to complete the activity 2 The helper provides more than half the effort to complete the activity 1 Dependent. The helper does all the effort to complete an activity 7 Patient refused to complete or attempt activity 9 The patient did not perform the activity before the current illness or injury 88 Not attempted due to Medical conditions or safety concerns Grooming (FIM): 6 Bathing (FIM): 5 Upper Body (FIM): 5 Lower Body Dressing (FIM): 3 Toileting (FIM): 5 Toilet/Commode Transfer (FIM): 5 Shower Transfer(FIM): 4 Education OT Patient Education: Modified ADL techniques, Progress toward Goal/Update tx plan, Purpose of tx/functional activities, Safety issues, Transfer techniques Teaching Recipient: Patient Teaching Methods: Demonstration, Discussion Response to Teaching: Verbalize Understanding, Return Demonstration, Reinforcement Needed OT Short Term Goals Short Term Goals Time Frame: Jul 09, 2018 Grooming(FIM): 5 Upper Body Dressing(FIM): 5 Lower Body Dressing(FIM): 3 Toileting(FIM): 3 Toilet/Commode Transfer(FIM): 3 Comprehension(FIM): 7 Expression(FIM): 4 Social Interaction(FIM): 7 Problem Solving(FIM): 7 Memory(FIM): 7 Additional Short Term Goals: 1-Demonstrate ADL Tasks, 2-Verbalize Understanding , 3-ImproveStrength/Lizet 1=Demonstrate adherence to instructed precautions during ADL tasks. 2=Patient will verbalize/demonstrate understanding of assistive devices/ modifications for ADL. 3=Patient will improve strength/tolerance for activity to enable patient to perform ADL's. OT Chcf Goals Chcf Goals Time Frame: Jul 23, 2018 Eating (FIM): 6 Eating (QC): 6 Groomin Oral Hygiene (QC): 6 Bathing(FIM): 5 Shower/Bathe Self (QC): 5 Upper Body Dressing(FIM): 5 Upper Body Dressing (QC): 5 Lower Body Dressing(FIM): 5 Lower Body Dressing (QC): 5 On/Off Footwear (QC): 5 Toileting(FIM): 6 Toileting Hygiene (QC): 6 Toilet/Commode Transfer(FIM): 6 Toilet/Commode Transfer (QC): 6 Shower Transfer(FIM): 5 Comprehension(FIM): 7 Expression (FIM): 6 Social Interaction(FIM): 7 Problem Solving(FIM): 7 Memory(FIM): 7 Additional Goals: 1-Demonstrate ADL Tasks, 2-Verbalize Understanding, 3- ImproveStrength/Lizet 1=Demonstrate adherence to instructed precautions during ADL tasks. 2=Patient will verbalize/demonstrate understanding of assistive devices/ modifications for ADL. 3=Patient will improve strength/tolerance for activity to enable patient to perform ADL's. OT Education/Plan Discharge Recommendations Plan/Recommendations: Continue POC Treatment Plan/Plan of Care Patient would benefit from OT for education, treatment and training to promote independence in ADL's, mobility, safety and/or upper extremity function for ADL' s. Plan of Care: ADL Retraining, Functional Mobility, Group Exercise/Act as Ind ( education, exercise, activity tolerance, communication, functional activities, functional mobility), UE Funct Exercise/Act, UE Neuromus Re-Ed/Coord, Visual/ Perceptual Retrain (if needed) Treatment Duration: Jul 23, 2018 Frequency: At least 5 of 7 days/Wk (IRF) Estimated Hrs Per Day: 1.5 hours per day Agreement: Yes Rehab Potential: Good Time/GCodes Start Time: 09:45 Stop Time: 10:45 Total Time Billed (hr/min): 60 Billed Treatment Time visit, 60 minutes ADL ELIZABETH HUDSON OT Jul 12, 2018 12:51
--- NOTE | 2018-07-12 14:45 | Therapy Group Daily Note ---
Therapy Daily Group Note Patient Education Topic Other List Below (benefits of exercise) Exercises LE Seated Exercise, UE Exercise, Other (core) Other/Notes Pt. ambulated to from PT gym for PT OT group session. Pt. participated well and was very social with others. Pts introduced selves and shared what they were most proud of in their lives. Pts discussed what activity level they had enjoyed most of their lives and the value of exercise now in their life. Pts participated in U&L extremity seated exercise demonstrated on screen with 2 levels of exercise to choose from. Pt. to room after with assist. In bed with jackson at hand Start Time: 13:00 Stop Time: 14:20 Total Billed Treatment Time: 80 Total Billed Treatment 1,GRP FRANTZ DILLARD WOOD STOCK BLANK HANDLER Jul 12, 2018 14:45
[2018-07-12 18:18] VITALS: BP 127/57
--- NOTE | 2018-07-12 20:18 | PM & R (SOAP) Progress Note ---
Subjective This was a face to face visit with the patient. Date Seen by Provider: Jul 12, 2018 Time Seen by Provider: 19:50 Subjective/Events-last exam Patient was seen in her room this Evening Patient SBA for transfers Objective Physician Exam Last Set of Vital Signs Vital Signs Date Time Temp Pulse Resp B/P (MAP) Pulse Ox O2 Delivery O2 Flow Rate FiO2 07/12/18 18:18 96.9 55 18 127/57 (80) 98 Room Air Capillary Refill : I&O Intake and Output 07/12/18 00:00 Intake Total 1020 ml Balance 1020 ml Intake Oral 1020 ml # Voids 4 # Bowel Movements 1 General: Alert, Oriented X3, Cooperative, No Acute Distress HEENT: Atraumatic, PERRLA, EOMI, Mucous Memb Moist/[place] Neck: Supple, No JVD Lungs: Clear to Auscultation Heart: Regular Rate Abdomen: Normal Bowel Sounds, Soft, No Tenderness Extremities: No Edema Neuro: Other (RT HP gait imbalance poor standing balance) Assessment/Plan Assessment and Plan 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
[2018-07-12] MEDS: ATORVASTATIN 10 MG (LIPITOR) TABLET PO SCH (20:49)
[2018-07-13 04:50] VITALS: BP 135/74
[2018-07-13] MEDS: LEVOTHYROXINE 50 MCG (LEVOTHROID) TAB PO SCH (05:39)
--- NOTE | 2018-07-13 08:07 | PM & R (SOAP) Progress Note ---
Subjective This was a face to face visit with the patient. Date Seen by Provider: Jul 13, 2018 Time Seen by Provider: 07:25 Subjective/Events-last exam Patient was seen in her room this AM Patient SBA for transfers Objective Physician Exam Last Set of Vital Signs Vital Signs Date Time Temp Pulse Resp B/P (MAP) Pulse Ox O2 Delivery O2 Flow Rate FiO2 07/13/18 05:02 Room Air 07/13/18 04:50 97.0 53 16 135/74 (94) 97 Capillary Refill : I&O Intake and Output 07/13/18 00:00 Intake Total 980 ml Balance 980 ml Intake Oral 980 ml # Voids 5 # Bowel Movements 3 General: Alert, Oriented X3, Cooperative, No Acute Distress HEENT: Atraumatic, PERRLA, EOMI, Mucous Memb Moist/[place] Neck: Supple, No JVD Lungs: Clear to Auscultation Heart: Regular Rate Abdomen: Normal Bowel Sounds, Soft, No Tenderness Extremities: No Edema Neuro: Other (RT HP gait imbalance poor standing balance) Assessment/Plan Assessment and Plan Left [place] stroke with RT HP PAF on eliquis in sinus R Mild hypercalcemia Autoimmune hepatitis on med Constipation treated Plan Continue PT/OT/ST Team Conference tomorrow Co-Morbidities that are continuing to impact the rehab process: (include details ) RATNA COULTER MD Jul 13, 2018 08:06
[2018-07-13 09:05] VITALS: BP 117/70
--- NOTE | 2018-07-13 09:33 | Occupational Ther Daily Note ---
OT Current Status-Daily Note Subjective Pt lying in bed sleeping, awakened to name. No c/o pain. Pt agrees to therapy. Mental Status/Objective Patient Orientation: Person, Place, Time, Situation Functional [place] Measure 0=Not Assessed/NA 4=Minimal Assistance 1=Total Assistance 5=Supervision or Setup 2=Maximal Assistance 6=Modified [place] 3=Moderate Assistance 7=Complete [place] ADL-Treatment Pt declined shower, but agreed to washing face and grooming. Functional [place] Measure 0=Not Assessed/NA 4=Minimal Assistance 1=Total Assistance 5=Supervision or Setup 2=Maximal Assistance 6=Modified [place] 3=Moderate Assistance 7=Complete IndependenceIRFPAI Quality Coding Scale 6 Independent with activity with or without an assistive device 5 Patient requires set up or clean up by helper. Patient completes activity by themselves 4 Supervision or touching assist (CGA). [place] provide cues , steadying assist 3 The helper provides less than half the effort to complete the activity 2 The helper provides more than half the effort to complete the activity 1 Dependent. The helper does all the effort to complete an activity 7 Patient refused to complete or attempt activity 9 The patient did not perform the activity before the current illness or injury 88 Not attempted due to Medical conditions or safety concerns Grooming (FIM): 5 (Set up. At seated position in front of sink, pt able to complete by self. ) Oral Hygiene (QC): 6 Upper Body (FIM): 5 (Set up. Pt able to complete by self from sitting position. ) Upper Body Dressing (QC): 5 On/Off Footwear (QC): 2 Toileting (FIM): 4 (CGA, pt uses grabbars, BSC, and FWW for stability. ) Toileting Hygiene (QC): 4 Transfers (B, C, W/C) (FIM): 4 (Pt uses arm rales and FWW for stability from EOB to w/c.) Toilet/Commode Transfer (FIM): 4 (CGA, pt uses grabbars, BSC, and FWW for stability. ) Toilet Transfer (QC): 4 Other Treatment Pt able to go from supine to sitting position on EOB, CGA. Pt ambulated to therapy gym using FWW, taking break half way. Pt completed dynamic sitting balance increasing core strength and balance needed for daily functional tasks and transfers. Pt completed arm bike for 10 min with no resistance increasing activity tolerance and arm strength. Pt ambulated back to room, taking a break half way. Pt needed increased verbal cue on sitting to stand positioning while transferring. CGA on w/c to EOB transfer, pt able to go from sitting to supine position by self. After therapy, pt lying in bed with call light/phone within reach. All needs met in room. OT Short Term Goals Short Term Goals Time Frame: Jul 09, 2018 Grooming(FIM): 5 Upper Body Dressing(FIM): 5 Lower Body Dressing(FIM): 3 Toileting(FIM): 3 Toilet/Commode Transfer(FIM): 3 Comprehension(FIM): 7 Expression(FIM): 4 Social Interaction(FIM): 7 Problem Solving(FIM): 7 Memory(FIM): 7 Additional Short Term Goals: 1-Demonstrate ADL Tasks, 2-Verbalize Understanding , 3-ImproveStrength/Lizet 1=Demonstrate adherence to instructed precautions during ADL tasks. 2=Patient will verbalize/demonstrate understanding of assistive devices/ modifications for ADL. 3=Patient will improve strength/tolerance for activity to enable patient to perform ADL's. OT Machine Adjuster Leader Goals Intermediate Goals Time Frame: Jul 23, 2018 Eating (FIM): 6 Eating (QC): 6 Groomin Oral Hygiene (QC): 6 Bathing(FIM): 5 Shower/Bathe Self (QC): 5 Upper Body Dressing(FIM): 5 Upper Body Dressing (QC): 5 Lower Body Dressing(FIM): 5 Lower Body Dressing (QC): 5 On/Off Footwear (QC): 5 Toileting(FIM): 6 Toileting Hygiene (QC): 6 Toilet/Commode Transfer(FIM): 6 Toilet/Commode Transfer (QC): 6 Shower Transfer(FIM): 5 Comprehension(FIM): 7 Expression (FIM): 6 Social Interaction(FIM): 7 Problem Solving(FIM): 7 Memory(FIM): 7 Additional Goals: 1-Demonstrate ADL Tasks, 2-Verbalize Understanding, 3- ImproveStrength/Lizet 1=Demonstrate adherence to instructed precautions during ADL tasks. 2=Patient will verbalize/demonstrate understanding of assistive devices/ modifications for ADL. 3=Patient will improve strength/tolerance for activity to enable patient to perform ADL's. OT Education/Plan Discharge Recommendations Plan/Recommendations: Continue POC Treatment Plan/Plan of Care Patient would benefit from OT for education, treatment and training to promote independence in ADL's, mobility, safety and/or upper extremity function for ADL' s. Plan of Care: ADL Retraining, Functional Mobility, Group Exercise/Act as Ind ( education, exercise, activity tolerance, communication, functional activities, functional mobility), UE Funct Exercise/Act, UE Neuromus Re-Ed/Coord, Visual/ Perceptual Retrain (if needed) Treatment Duration: Jul 23, 2018 Frequency: At least 5 of 7 days/Wk (IRF) Estimated Hrs Per Day: 1.5 hours per day Agreement: Yes Rehab Potential: Good Time/GCodes Start Time: 07:00 Stop Time: 08:30 Total Time Billed (hr/min): 90 Billed Treatment Time 1 visit- ADL 1 (20 min) NM 5 (70 min) DAVID CRUZ Jul 13, 2018 09:33
--- NOTE | 2018-07-13 10:31 | Physical Therapy Daily Note ---
PT Daily Note-Current Subjective Patient in recliner pre tx, agrees to PT, has pain of 4/10. Patient needs to be dressed and use the restroom. Appearance Patient in recliner post tx with nurse call, phone, tray, all needs met. Mental Status Patient Orientation: Person, Place, Situation Transfers Functional [place] Measure 0=Not Assessed/NA 4=Minimal Assistance 1=Total Assistance 5=Supervision or Setup 2=Maximal Assistance 6=Modified [place] 3=Moderate Assistance 7=Complete IndependenceIRFPAI Quality Coding Scale 6 Independent with activity with or without an assistive device 5 Patient requires set up or clean up by helper. Patient completes activity by themselves 4 Supervision or touching assist (CGA). [place] provide cues , steadying assist 3 The helper provides less than half the effort to complete the activity 2 The helper provides more than half the effort to complete the activity 1 Dependent. The helper does all the effort to complete an activity 7 Patient refused to complete or attempt activity 9 The patient did not perform the activity before the current illness or injury 88 Not attempted due to Medical conditions or safety concerns Transfers (B, C, W/C) (FIM): 4 Sit to/from Stand: 4 Bed to/from Chair: 4 CGA, cues for hand placement and safety Weight Bearing Right Lower Extremity: Right Full Weight Bearing Left Lower Extremity: Left Full Weight Bearing Gait Training Gait (FIM): 2 Distance: 120'x2 Gait Level of Assist: 4 Gait Persons Needed: 1 Gait Assistive Device: FWW CGA, patient ambulates very slowly, antalgic, barely flexed left knee, decreased stance time on left leg. Exercises Seated Therapy Exercises: Ankle pumps, Long arc quads, Hip flexion Seated Reps: 20 NuStep Minutes: 10 NuStep Workload: 3 (Patient encouaged to flex left knee, she performed poorly with this) Treatments bed mobility and transfers, patient was dressed (needed some assist to get pants onto left leg), and was toileted, ambulation, functional strengthening and ROM Assessment Current Status: Poor Progress Patient has poor ROM in left knee. PT Short Term Goals Short Term Goals Time Frame: Jul 16, 2018 Gait (FIM): 4 Distance (FIM): 3=150 ft Gait Assistive Device: FWW Wheelchair Distance: 150' PT Pound Keeper Goals Pound Keeper Goals PT Fci Goals Time Frame: Jul 30, 2018 Transfers (B,C,W/C) (FIM): 6 Sit to Lying (QC): 6 Lying-Sitting on Side/Bed(QC): 6 Sit to Stand (QC): 6 Rollin Roll Left to Right (QC): 6 Chair/Lce-xo-Aligx Xfer(QC): 6 Car Transfer (QC): 6 Gait (FIM): 6 Gait distance (FIM): 3=150 ft Walk 10 feet (QC): 6 Walk 10ft-Uneven Surface(QC): 6 Walk 50ft with 2 Turns (QC): 6 Walk 150 ft (QC): 6 Gait Assistive Device: FWW Stairs (FIM): 5 # of Steps: 4 (household exception) 1 Step (curb) (QC): 6 4 Steps (QC): 6 12 Steps (QC): 88 Stairs Level Of Assist: 6 Picking up an Object (QC): 4 PT Plan Problem List Problem List: Activity Tolerance, Functional Strength, Safety, Balance, Gait, Transfer, Bed Mobility, ROM Treatment/Plan Treatment Plan: Continue Plan of Care Treatment Plan: Bed Mobility, Education, Functional Activity Lizet, Functional Strength, Group Therapy, Gait, Safety, Therapeutic Exercise, Transfers Treatment Duration: Jul 30, 2018 Frequency: At least 5 of 7 days/Wk (IRF) Estimated Hrs Per Day: 1.5 hours per day Patient and/or Family Agrees t: Yes Safety Risks/Education Patient Education: Gait Training, Transfer Techniques, Correct Positioning, Safety Issues Teaching Recipient: Patient Teaching Methods: Demonstration, Discussion Response to Teaching: Reinforcement Needed Time/GCodes Time In: 0900 Time Out: 1000 Total Billed Treatment Time: 60 Total Billed Treatment 1 visit GT 40' EX 20' NEDRA SHOOK PT Jul 13, 2018 10:31
--- NOTE | 2018-07-13 11:00 | Physical Therapy Daily Note ---
PT Daily Note-Current Subjective Patient in bed pre tx, agrees to PT, no complaints of pain. Appearance Patient BTB post tx with nurse call, phone, tray, all needs met. Mental Status Patient Orientation: Person, Place, Situation Transfers Functional [place] Measure 0=Not Assessed/NA 4=Minimal Assistance 1=Total Assistance 5=Supervision or Setup 2=Maximal Assistance 6=Modified [place] 3=Moderate Assistance 7=Complete IndependenceIRFPAI Quality Coding Scale 6 Independent with activity with or without an assistive device 5 Patient requires set up or clean up by helper. Patient completes activity by themselves 4 Supervision or touching assist (CGA). [place] provide cues , steadying assist 3 The helper provides less than half the effort to complete the activity 2 The helper provides more than half the effort to complete the activity 1 Dependent. The helper does all the effort to complete an activity 7 Patient refused to complete or attempt activity 9 The patient did not perform the activity before the current illness or injury 88 Not attempted due to Medical conditions or safety concerns Transfers (B, C, W/C) (FIM): 4 Scootin Rollin Supine to/from Sit: 4 Sit to/from Stand: 4 Bed to/from Chair: 4 sit to stand min assist, transfers CGA, needs cues for hand placement EVERY TIME she stands or sits Weight Bearing Right Lower Extremity: Right Full Weight Bearing Left Lower Extremity: Left Full Weight Bearing Gait Training Gait (FIM): 4 Distance: 150', 120' Gait Level of Assist: 4 Gait Persons Needed: 1 Gait Assistive Device: FWW CGA, patient has increased right leg extensor tone, right toes drag forcefully across the floor Exercises Supine Ex: Ankle pumps, Knee to chest, Short Arc Quads Supine Reps: 60 Standing: Side steps Pt walks 10' to go over step, turns, and goes back over step, then back to chair x3. Pt cued for using left leg to ascend step and right leg to descend. Pt demonstrates extensor tone with difficulty in getting enough hip flexion for foot clearance and plantarflexion/supination during descent. Treatments gait and mobility training, endurance, functional strengthening/AROM, transfers Assessment Current Status: Fair Progress improved mobility and endurance PT Short Term Goals Short Term Goals Time Frame: Jul 16, 2018 Gait (FIM): 4 Distance (FIM): 3=150 ft Gait Assistive Device: FWW Wheelchair Distance: 150' PT Mcc Goals Echocardiographer Goals PT Mcc Goals Time Frame: Jul 30, 2018 Transfers (B,C,W/C) (FIM): 6 Sit to Lying (QC): 6 Lying-Sitting on Side/Bed(QC): 6 Sit to Stand (QC): 6 Rollin Roll Left to Right (QC): 6 Chair/Emn-sn-Ymhxq Xfer(QC): 6 Car Transfer (QC): 6 Gait (FIM): 6 Gait distance (FIM): 3=150 ft Walk 10 feet (QC): 6 Walk 10ft-Uneven Surface(QC): 6 Walk 50ft with 2 Turns (QC): 6 Walk 150 ft (QC): 6 Gait Assistive Device: FWW Stairs (FIM): 5 # of Steps: 4 (household exception) 1 Step (curb) (QC): 6 4 Steps (QC): 6 12 Steps (QC): 88 Stairs Level Of Assist: 6 Picking up an Object (QC): 4 PT Plan Problem List Problem List: Activity Tolerance, Functional Strength, Safety, Balance, Gait, Transfer, Bed Mobility, ROM Treatment/Plan Treatment Plan: Continue Plan of Care Treatment Plan: Bed Mobility, Education, Functional Activity Lizet, Functional Strength, Group Therapy, Gait, Safety, Therapeutic Exercise, Transfers Treatment Duration: Jul 30, 2018 Frequency: At least 5 of 7 days/Wk (IRF) Estimated Hrs Per Day: 1.5 hours per day Patient and/or Family Agrees t: Yes Safety Risks/Education Patient Education: Gait Training, Transfer Techniques, Correct Positioning, Safety Issues Teaching Recipient: Patient Teaching Methods: Demonstration, Discussion Response to Teaching: Reinforcement Needed Time/GCodes Time In: 1000 Time Out: 1100 Total Billed Treatment Time: 60 Total Billed Treatment 1 visit GT 35' EX 25' NEDRA SHOOK PT Jul 13, 2018 11:00
[2018-07-13] MEDS: SENNA W/DOCUSATE (SENOKOT S) TABLET PO SCH ×2 (11:17→21:04)
[2018-07-13] MEDS: POLYETHYLENE GLYCOL 17 GM (MIRALAX) PACK PO SCH ×2 (11:17→22:16)
[2018-07-13] MEDS: APIXABAN 5 MG (ELIQUIS) TABLET PO SCH ×2 (11:18→21:03)
[2018-07-13] MEDS: ENALAPRIL 5 MG (VASOTEC) TAB PO SCH (11:19)
[2018-07-13] MEDS: VITAMIN E 400 INTLU CAP PO SCH (11:19)
[2018-07-13] MEDS: meTOprolol TARTRATE 50 MG (LOPRESSOR) TAB PO SCH ×2 (11:19→21:04)
[2018-07-13] MEDS: azaTHIOprine (IMURAN) 50 MG TAB PO SCH (11:19)
--- NOTE | 2018-07-13 14:38 | Physical Therapy Daily Note ---
PT Daily Note-Current Subjective Pt in recliner pre tx, agrees to PT, no complaints of pain Appearance Pt in bed post tx, w/ tray, call light, phone, all needs met Mental Status Patient Orientation: Person, Place, Time Transfers Functional [place] Measure 0=Not Assessed/NA 4=Minimal Assistance 1=Total Assistance 5=Supervision or Setup 2=Maximal Assistance 6=Modified [place] 3=Moderate Assistance 7=Complete IndependenceIRFPAI Quality Coding Scale 6 Independent with activity with or without an assistive device 5 Patient requires set up or clean up by helper. Patient completes activity by themselves 4 Supervision or touching assist (CGA). [place] provide cues , steadying assist 3 The helper provides less than half the effort to complete the activity 2 The helper provides more than half the effort to complete the activity 1 Dependent. The helper does all the effort to complete an activity 7 Patient refused to complete or attempt activity 9 The patient did not perform the activity before the current illness or injury 88 Not attempted due to Medical conditions or safety concerns Transfers (B, C, W/C) (FIM): 4 Supine to/from Sit: 4 Sit to/from Stand: 4 Sit <-> stand CGA, sit <-> supine CGA, occassionally needs Robyn w/ RLE supine <- > sit, cues needed for hand placement and safety. Weight Bearing Right Lower Extremity: Right Full Weight Bearing Left Lower Extremity: Left Full Weight Bearing Gait Training Does the Patient Walk?: Yes Gait (FIM): 5 Distance (FIM): 3=150 ft Distance: 150'x2 Gait Level of Assist: 5 Gait Persons Needed: 1 Gait Assistive Device: FWW Pt ambulates to/from gym 150' w/ SBA using FWW. Gait is slow but steady, no LOB. Pt demonstrates RLE extensor tone w/ knee hyperextension and planterflexion. Toes drag across the floor during swing phase of RLE. Exercises NuStep Minutes: 15 NuStep Workload: 5 Treatments gait and mobility training, endurance training Assessment Current Status: Fair Progress improved mobility supine<->sit and endurance PT Short Term Goals Short Term Goals Time Frame: Jul 16, 2018 Gait (FIM): 4 Distance (FIM): 3=150 ft Gait Assistive Device: FWW Wheelchair Distance: 150' PT Shelter Goals Shelter Goals PT Automotive Artist Goals Time Frame: Jul 30, 2018 Transfers (B,C,W/C) (FIM): 6 Sit to Lying (QC): 6 Lying-Sitting on Side/Bed(QC): 6 Sit to Stand (QC): 6 Rollin Roll Left to Right (QC): 6 Chair/Pwo-dw-[id number] Xfer(QC): 6 Car Transfer (QC): 6 Gait (FIM): 6 Gait distance (FIM): 3=150 ft Walk 10 feet (QC): 6 Walk 10ft-Uneven Surface(QC): 6 Walk 50ft with 2 Turns (QC): 6 Walk 150 ft (QC): 6 Gait Assistive Device: FWW Stairs (FIM): 5 # of Steps: 4 (household exception) 1 Step (curb) (QC): 6 4 Steps (QC): 6 12 Steps (QC): 88 Stairs Level Of Assist: 6 Picking up an Object (QC): 4 PT Plan Problem List Problem List: Activity Tolerance, Functional Strength, Safety, Balance, Gait, Transfer, Bed Mobility, ROM Treatment/Plan Treatment Plan: Continue Plan of Care Treatment Plan: Bed Mobility, Education, Functional Activity Lizet, Functional Strength, Group Therapy, Gait, Safety, Therapeutic Exercise, Transfers Treatment Duration: Jul 30, 2018 Frequency: At least 5 of 7 days/Wk (IRF) Estimated Hrs Per Day: 1.5 hours per day Patient and/or Family Agrees t: Yes Safety Risks/Education Patient Education: Gait Training, Transfer Techniques, Correct Positioning, Safety Issues Teaching Recipient: Patient Teaching Methods: Demonstration, Discussion Response to Teaching: Reinforcement Needed Time/GCodes Time In: 200 Time Out: 230 Total Billed Treatment Time: 30 Total Billed Treatment 1 visit GT 15' EX 15' NEDRA SHOOK PT Jul 13, 2018 14:38
--- NOTE | 2018-07-13 16:39 | Speech Therapy Daily Note ---
Speech Daily Progress Note Subjective Date Seen by Provider: Jul 13, 2018 Time Seen by Provider: 13:00 pt pleasant Pain Numeric Pain Scale: 0-No Pain Objective Pt completed dysphagia exercises with supervision. Pt very motivated to improve. Assessment Assessment Current Status: Good Progress Treatment Plan Continue Plan of Care Communication Comprehension: 7 Expression: 4 Social Cognition Social Interaction: 7 Problem Solvin Memory: 7 Speech Short Term Goals Short Term Goals Short Term Goals Pt will only require min assist with oral motor exercises. Pt will complete verbal expression tasks with at least 80% accuracy with or without comp strategies. Comprehension: 7 Expression: 4 Social Interaction: 7 Problem Solvin Memory: 7 Speech Phosphoric Acid Supervisor Goals Phosphoric Acid Supervisor Goals Pt will be independent with Oral motor exercises Pt's verbal expressive speech will be at least 95% accurate with or without the use compensatory strategies. Comprehension: 7 Expression: 6 Social Interaction: 7 Problem Solvin Memory: 7 Speech-Plan Patient/Family Goals Patient/Family Goals: to talk better Treatment Plan Speech Therapy Treatment Plan: Continue Plan of Care pt very motivated Treatment Duration: Jul 30, 2018 Frequency: 5 times per week Estimated Hrs Per Day: .5 hour per day Rehab Potential: Good Pt/Family Agrees to Plan: Yes Safety Risks/Education Teaching Recipient: Patient Teaching Methods: Discussion Response to Teaching: Verbalize Understanding Time Speech Therapy Time In: 13:00 Speech Therapy Time Out: 13:30 Total Billed Time: 30 Billed Treatment Time [address]TW[address] Jul 13, 2018 16:39
[2018-07-13 17:34] VITALS: BP 135/81
[2018-07-13] MEDS: ATORVASTATIN 10 MG (LIPITOR) TABLET PO SCH (21:03)
--- NOTE | 2018-07-13 21:52 | Progress Note-Hospitalist ---
Subjective HPI/CC On Admission Date Seen by Provider: Jul 13, 2018 Time Seen by Provider: 09:30 Subjective/Events-last exam Patient reports that she no she's making progress but she is discouraged at its slow pace. Staff note improving stamina but balance is still a major factor requiring a lot of right sided cueing for using her walker. She still requires significant assistance when donning and doffing close due to poor truncal balance wanting to fall forward. She's had no palpitations chest discomfort or difficulty with dysphasia per her report. Objective Exam Vital Signs Vital Signs Date Time Temp Pulse Resp B/P (MAP) Pulse Ox O2 Delivery O2 Flow Rate FiO2 07/20/18 08:24 Room Air 07/20/18 05:09 97.8 61 16 138/81 (100) 98 Capillary Refill : General Appearance: No Apparent Distress Respiratory: Chest Non Tender, Lungs Clear, Normal Breath Sounds, No Accessory Muscle Use, No Respiratory Distress Cardiovascular: Regular Rate, Rhythm, No Edema, No Gallop, No JVD, No Murmur, Normal Peripheral Pulses Neurologic/Psychiatric: Alert, Oriented x3, Other (Affect somewhat flat patient denies depression and is working well with therapy. Dysmetria of the right upper extremity is improved significantly balance is still poor and she is still dragging her right foot) Results/Procedures Lab Patient resulted labs reviewed. Assessment/Plan Assessment and Plan Assess & Plan/Chief Complaint 1. 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 2. Paroxysmal atrial fibrillation patient remains in sinus rhythm continue ELIQUIS 3. Mild hypercalcemia on admission her persists with a level of 10.8 and an inappropriately elevated PTH in the 50s compatible with hyperparathyroidism. Hypercalcemia remains mild patient has had no problems with kidney stones and constipation is under control with no history of peptic ulcer disease or GI bleeding. We will obtain as an outpatient a bone density test to determine whether or not workup for parathyroidectomy is warranted versus conservative medical management considering age and current medical comorbidity. 4. Autoimmune hepatitis stable continue low-dose azathioprine. 5. Constipation resolved will discontinue lactulose continue MiraLAX and Senokot likely aggravated by hyperparathyroidism. Clinical Quality Measures DVT/VTE Risk/Contraindication: Risk Factor Score Per Nursin RFS Level Per Nursing on Admit: 3=High HENNA COLE MD Jul 13, 2018 21:52
[2018-07-14 06:03] VITALS: BP 148/77
[2018-07-14] MEDS: LEVOTHYROXINE 50 MCG (LEVOTHROID) TAB PO SCH (06:08)
--- NOTE | 2018-07-14 08:24 | Occupational Ther Daily Note ---
OT Current Status-Daily Note Subjective Pt awake, lying in bed. No c/o pain. Pt agrees to therapy. Mental Status/Objective Patient Orientation: Person, Place, Time, Situation Functional [place] Measure 0=Not Assessed/NA 4=Minimal Assistance 1=Total Assistance 5=Supervision or Setup 2=Maximal Assistance 6=Modified [place] 3=Moderate Assistance 7=Complete [place] ADL-Treatment Pt agrees to take a shower. Functional [place] Measure 0=Not Assessed/NA 4=Minimal Assistance 1=Total Assistance 5=Supervision or Setup 2=Maximal Assistance 6=Modified [place] 3=Moderate Assistance 7=Complete IndependenceIRFPAI Quality Coding Scale 6 Independent with activity with or without an assistive device 5 Patient requires set up or clean up by helper. Patient completes activity by themselves 4 Supervision or touching assist (CGA). [place] provide cues , steadying assist 3 The helper provides less than half the effort to complete the activity 2 The helper provides more than half the effort to complete the activity 1 Dependent. The helper does all the effort to complete an activity 7 Patient refused to complete or attempt activity 9 The patient did not perform the activity before the current illness or injury 88 Not attempted due to Medical conditions or safety concerns Grooming (FIM): 6 (Pt able to complete at seated position.) Oral Hygiene (QC): 6 Bathing (FIM): 5 (Set up. Pt able to complete by self using shower bench, hand held shower,and grabbars for stability. Min A with retrieving hand held shower.) Bathing Location: L Arm, R Arm, L Upper Leg, R Upper Leg, L Lower Leg ( including foot), R Lower Leg (including foot), Chest, Abdomen, Buttocks, Perineal Area Shower/Bathe Self (QC): 5 Upper Body (FIM): 5 (Set up. Pt able to complete by self at seated position.) Upper Body Dressing (QC): 5 Lower Body Dressing (FIM): 4 (CGA, for stability using FWW while hiking pants over hips/buttocks. Doffs shoes by self in sitting. Assist to don shoes over heels, able to place toes into shoes.) Lower Body Dressing (QC): 4 On/Off Footwear (QC): 3 Transfers (B, C, W/C) (FIM): 4 (CGA, Pt able to complete by self using FWW and arm rails for stability. ) Toilet/Commode Transfer (FIM): 4 Shower Transfer(FIM): 4 (CGA, pt able to complete using grabbars and FWW for stability. ) Other Treatment After shower, pt completed LE dressing simulation using theraband increasing balance and technique needed for bending forward during LE dressing. After therapy, pt sitting in recliner with call light phone within reach. Chair alarm on. All needs met in room. OT Short Term Goals Short Term Goals Time Frame: Jul 09, 2018 Grooming(FIM): 5 Upper Body Dressing(FIM): 5 Lower Body Dressing(FIM): 3 Toileting(FIM): 3 Toilet/Commode Transfer(FIM): 3 Comprehension(FIM): 7 Expression(FIM): 4 Social Interaction(FIM): 7 Problem Solving(FIM): 7 Memory(FIM): 7 Additional Short Term Goals: 1-Demonstrate ADL Tasks, 2-Verbalize Understanding , 3-ImproveStrength/[place] 1=Demonstrate adherence to instructed precautions during ADL tasks. 2=Patient will verbalize/demonstrate understanding of assistive devices/ modifications for ADL. 3=Patient will improve strength/tolerance for activity to enable patient to perform ADL's. OT Heavy Truck Technician Goals Heavy Truck Technician Goals Time Frame: Jul 23, 2018 Eating (FIM): 6 Eating (QC): 6 Groomin Oral Hygiene (QC): 6 Bathing(FIM): 5 Shower/Bathe Self (QC): 5 Upper Body Dressing(FIM): 5 Upper Body Dressing (QC): 5 Lower Body Dressing(FIM): 5 Lower Body Dressing (QC): 5 On/Off Footwear (QC): 5 Toileting(FIM): 6 Toileting Hygiene (QC): 6 Toilet/Commode Transfer(FIM): 6 Toilet/Commode Transfer (QC): 6 Shower Transfer(FIM): 5 Comprehension(FIM): 7 Expression (FIM): 6 Social Interaction(FIM): 7 Problem Solving(FIM): 7 Memory(FIM): 7 Additional Goals: 1-Demonstrate ADL Tasks, 2-Verbalize Understanding, 3- ImproveStrength/[place] 1=Demonstrate adherence to instructed precautions during ADL tasks. 2=Patient will verbalize/demonstrate understanding of assistive devices/ modifications for ADL. 3=Patient will improve strength/tolerance for activity to enable patient to perform ADL's. OT Education/Plan Discharge Recommendations Plan/Recommendations: Continue POC Treatment Plan/Plan of Care Patient would benefit from OT for education, treatment and training to promote independence in ADL's, mobility, safety and/or upper extremity function for ADL' s. Plan of Care: ADL Retraining, Functional Mobility, Group Exercise/Act as Ind ( education, exercise, activity tolerance, communication, functional activities, functional mobility), UE Funct Exercise/Act, UE Neuromus Re-Ed/Coord, Visual/ Perceptual Retrain (if needed) Treatment Duration: Jul 23, 2018 Frequency: At least 5 of 7 days/Wk (IRF) Estimated Hrs Per Day: 1.5 hours per day Agreement: Yes Rehab Potential: Good Time/GCodes Start Time: 07:00 Stop Time: 08:15 Total Time Billed (hr/min): 75 Billed Treatment Time 1 visit- ADL 4 (60 min) FA (15 min) DAVID CRUZ Jul 14, 2018 08:24
[2018-07-14] MEDS: VITAMIN E 400 INTLU CAP PO SCH (09:14)
[2018-07-14] MEDS: ENALAPRIL 5 MG (VASOTEC) TAB PO SCH (09:14)
[2018-07-14] MEDS: meTOprolol TARTRATE 50 MG (LOPRESSOR) TAB PO SCH ×2 (09:15→21:20)
[2018-07-14] MEDS: APIXABAN 5 MG (ELIQUIS) TABLET PO SCH ×2 (09:15→21:19)
[2018-07-14] MEDS: azaTHIOprine (IMURAN) 50 MG TAB PO SCH (09:15)
--- NOTE | 2018-07-14 09:26 | PM & R (SOAP) Progress Note ---
Subjective This was a face to face visit with the patient. Date Seen by Provider: Jul 14, 2018 Time Seen by Provider: 08:15 Subjective/Events-last exam Patient was seen in her room this AM.Patient doing Morning Grooming Adls at sink today with OT Objective Physician Exam Last Set of Vital Signs Vital Signs Date Time Temp Pulse Resp B/P (MAP) Pulse Ox O2 Delivery O2 Flow Rate FiO2 07/14/18 06:03 97.7 54 18 148/77 (100) 97 Room Air Capillary Refill : I&O Intake and Output 07/14/18 00:00 Intake Total 2450 ml Balance 2450 ml Intake Oral 2450 ml # Voids 10 General: Alert, Oriented X3, Cooperative, No Acute Distress HEENT: Atraumatic, PERRLA, EOMI, Mucous Memb Moist/[place] Neck: Supple, No JVD Lungs: Clear to Auscultation Heart: Regular Rate Abdomen: Normal Bowel Sounds, Soft, No Tenderness Extremities: No Edema Neuro: Other (RT HP gait imbalance poor standing balance) Assessment/Plan Assessment and Plan Left pontine stroke with RHP PAF on eliquis and now in sinus R, Mild hypercalcemia Autoimmune hepatitis on meds Constipation treated Plan Continue Pt/OT Team Conference later today-see report for ful; functional update and POC and ELOS Co-Morbidities that are continuing to impact the rehab process: (include details ) RATNA COULTER MD Jul 14, 2018 09:26
--- NOTE | 2018-07-14 10:11 | Physical Therapy Daily Note ---
PT Daily Note-Current Subjective Pt. agrees to Rx. Pain Numeric Pain Scale: 0-No Pain Mental Status Patient Orientation: Normal For Age Transfers Functional [place] Measure 0=Not Assessed/NA 4=Minimal Assistance 1=Total Assistance 5=Supervision or Setup 2=Maximal Assistance 6=Modified [place] 3=Moderate Assistance 7=Complete IndependenceIRFPAI Quality Coding Scale 6 Independent with activity with or without an assistive device 5 Patient requires set up or clean up by helper. Patient completes activity by themselves 4 Supervision or touching assist (CGA). [place] provide cues , steadying assist 3 The helper provides less than half the effort to complete the activity 2 The helper provides more than half the effort to complete the activity 1 Dependent. The helper does all the effort to complete an activity 7 Patient refused to complete or attempt activity 9 The patient did not perform the activity before the current illness or injury 88 Not attempted due to Medical conditions or safety concerns Transfers (B, C, W/C) (FIM): 4 Scootin Rollin Supine to/from Sit: 4 (assist LEs at times) Sit to/from Stand: 4 Bed to/from Chair: 4 Car Transfer (QC): 4 (requires assist RLE) Weight Bearing Right Lower Extremity: Right Full Weight Bearing Left Lower Extremity: Left Full Weight Bearing Gait Training Does the Patient Walk?: Yes Gait (FIM): 4 Distance (FIM): 3=150 ft (x3) Gait Level of Assist: 4 Gait Persons Needed: 1 Gait Assistive Device: FWW slow, head down, much concentration on RLE steps Exercises Seated Therapy Exercises: Ankle pumps, Sit to stand, Long arc quads, Hip flexion, Hip abd/add Seated Reps: 15 Standing: Hip Abduction, Heel/toe raises, Marching, Mini squats, Sit to Stand ( 10) Standing Reps: 15 NuStep Minutes: 10 NuStep Workload: 3 Treatments toileting requires min to CGA with clothes. had pt. attempt left hand wiping cleansing today with good results Assessment Current Status: Good Progress sit to stand and stand to sit safer PT Short Term Goals Short Term Goals Time Frame: Jul 16, 2018 Gait (FIM): 4 Distance (FIM): 3=150 ft Gait Assistive Device: FWW Wheelchair Distance: 150' PT Griddle Cook Goals Griddle Cook Goals PT Mcfp Goals Time Frame: Jul 30, 2018 Transfers (B,C,W/C) (FIM): 6 Sit to Lying (QC): 6 Lying-Sitting on Side/Bed(QC): 6 Sit to Stand (QC): 6 Rollin Roll Left to Right (QC): 6 Chair/Duu-hu-Blmtj Xfer(QC): 6 Car Transfer (QC): 6 Gait (FIM): 6 Gait distance (FIM): 3=150 ft Walk 10 feet (QC): 6 Walk 10ft-Uneven Surface(QC): 6 Walk 50ft with 2 Turns (QC): 6 Walk 150 ft (QC): 6 Gait Assistive Device: FWW Stairs (FIM): 5 # of Steps: 4 (household exception) 1 Step (curb) (QC): 6 4 Steps (QC): 6 12 Steps (QC): 88 Stairs Level Of Assist: 6 Picking up an Object (QC): 4 PT Plan Treatment/Plan Treatment Plan: Continue Plan of Care Treatment Plan: Bed Mobility, Education, Functional Activity Lizet, Functional Strength, Group Therapy, Gait, Safety, Therapeutic Exercise, Transfers Treatment Duration: Jul 30, 2018 Frequency: At least 5 of 7 days/Wk (IRF) Estimated Hrs Per Day: 1.5 hours per day Patient and/or Family Agrees t: Yes Safety Risks/Education Patient Education: Gait Training, Transfer Techniques, Correct Positioning, Disease Process, Safety Issues Teaching Recipient: Patient Teaching Methods: Demonstration, Discussion Response to Teaching: Verbalize Understanding, Return Demonstration, Reinforcement Needed Time/GCodes Time In: 900 Time Out: 1000 Total Billed Treatment Time: 60 Total Billed Treatment 1,EX30m,FA15m,GT15 G Codes Necessary: FRANTZ Kolb BRICK GRADER Jul 14, 2018 10:11
[2018-07-14] MEDS: POLYETHYLENE GLYCOL 17 GM (MIRALAX) PACK PO SCH ×2 (11:13→21:33)
[2018-07-14] MEDS: SENNA W/DOCUSATE (SENOKOT S) TABLET PO SCH ×2 (11:13→21:34)
--- NOTE | 2018-07-14 11:32 | Progress Note-Hospitalist ---
VICENTE SEGOVIA MED STUDENT 07/14/18 1132: Subjective HPI/CC On Admission Date Seen by Provider: Jul 14, 2018 Time Seen by Provider: 08:40 Subjective/Events-last exam Pt is doing well- sitting up in chair during interview Getting around with walker pretty well Denies any pain Pt noted she has had some constipation- last BM was yesterday Objective Exam Vital Signs Vital Signs Date Time Temp Pulse Resp B/P (MAP) Pulse Ox O2 Delivery O2 Flow Rate FiO2 07/14/18 06:03 97.7 54 18 148/77 (100) 97 Room Air Capillary Refill : Results/Procedures Lab Patient resulted labs reviewed. Assessment/Plan Assessment and Plan Assess & Plan/Chief Complaint Assessment: CVA with dysarthria and R-sided weakness Paroxysmal AFib Autoimmune hepatitis Plan: Continue PT/OT Bowel regimen Eliquis Clinical Quality Measures DVT/VTE Risk/Contraindication: Risk Factor Score Per Nursin RFS Level Per Nursing on Admit: 3=High JESSICA GARCIA DO 07/14/18 1257: Subjective Subjective/Events-last exam Pt doing well overall Speech is improved Review of Systems General: Malaise Neurological: Change in speech Objective Exam General Appearance: No Apparent Distress, WD/WN HEENT: PERRL/EOMI, TMs Normal, Normal ENT Inspection, Pharynx Normal, Moist Mucous Membranes Neck: Full Range of Motion, Normal Inspection, Non Tender, Supple, Carotid Bruit Respiratory: Chest Non Tender, Lungs Clear, Normal Breath Sounds, No Accessory Muscle Use, No Respiratory Distress Cardiovascular: No Edema, No Gallop, No JVD, No Murmur, Normal Peripheral Pulses, Irregularly Irregular Gastrointestinal: Normal Bowel Sounds, No Organomegaly, No Pulsatile Mass, Non Tender, Soft Back: Normal Inspection, No CVA Tenderness, No Vertebral Tenderness Extremity: Normal Capillary Refill, Normal Inspection, Normal Range of Motion, Non Tender, No Calf Tenderness, No Pedal Edema Neurologic/Psychiatric: Alert, Oriented x3, Normal Mood/Affect, Motor Weakness Skin: Normal Color, Warm/Dry Lymphatic: No Adenopathy Assessment/Plan Assessment and Plan Assess & Plan/Chief Complaint Continue therapy Diagnosis/Problems Diagnosis/Problems (1) Acute CVA (cerebrovascular accident) Status: Chronic (2) Hemiparesis Status: Chronic Qualifiers: Hemiparesis etiology: late effect of cerebrovascular disease Cerebrovascular disease type: unspecified Hemiparesis laterality: right dominant side Qualified Codes: I69.951 - Hemiplegia and hemiparesis following unspecified cerebrovascular disease affecting right dominant side (3) Atrial fibrillation Status: Chronic (4) Dysarthria Status: Chronic VICENTE SEGOVIA MED STUDENT Jul 14, 2018 11:32 JESSICA GARCIA DO Jul 14, 2018 12:57
--- NOTE | 2018-07-14 11:47 | Progress Note-Hospitalist ---
MENDY ENRIQUE MEDICAL STUDENT 07/14/18 1147: Subjective HPI/CC On Admission Date Seen by Provider: Jul 14, 2018 Time Seen by Provider: 10:30 Subjective/Events-last exam Rachel Orellana had no acute events overnight. She is having regular BMs with her stool softener. She feels she is making slow and steady progress of her right sided weakness. She has no pain at this time. Review of Systems Neurological: Weakness, Incoordination Focused Exam Respiratory: Chest Non Tender, Lungs Clear, Normal Breath Sounds, No Respiratory Distress Cardiovascular: Regular Rate, Rhythm, No Edema, No Murmur Skin: normal color, warm/dry Objective Exam Vital Signs Capillary Refill : Results/Procedures Lab Patient resulted labs reviewed. Assessment/Plan Assessment and Plan Assess & Plan/Chief Complaint 63 year old recovering well from CVA resulting in right sided weakness. 1. Continue rehab stay and current bowel regimen 2. Given high-normal PTH in light of hypercalcemia, will obtain sestamibi scan on outpatient basis. Clinical Quality Measures DVT/VTE Risk/Contraindication: Risk Factor Score Per Nursin RFS Level Per Nursing on Admit: 3=High JESSICA GARCIA DO 08/17/18 1737: Objective Exam General Appearance: No Apparent Distress MENDY ENRIQUE MEDICAL STUDENT Jul 14, 2018 11:47 JESSICA GARCIA DO Aug 17, 2018 17:37
--- NOTE | 2018-07-14 13:48 | Physical Therapy Daily Note ---
PT Daily Note-Current Subjective Pt. agrees to Rx. States she is tired Mental Status Patient Orientation: Normal For Age Transfers Functional [place] Measure 0=Not Assessed/NA 4=Minimal Assistance 1=Total Assistance 5=Supervision or Setup 2=Maximal Assistance 6=Modified [place] 3=Moderate Assistance 7=Complete IndependenceIRFPAI Quality Coding Scale 6 Independent with activity with or without an assistive device 5 Patient requires set up or clean up by helper. Patient completes activity by themselves 4 Supervision or touching assist (CGA). [place] provide cues , steadying assist 3 The helper provides less than half the effort to complete the activity 2 The helper provides more than half the effort to complete the activity 1 Dependent. The helper does all the effort to complete an activity 7 Patient refused to complete or attempt activity 9 The patient did not perform the activity before the current illness or injury 88 Not attempted due to Medical conditions or safety concerns in out bed SBA, sit to stand emphasis with much instruction for weight shift forward Weight Bearing Right Lower Extremity: Right Full Weight Bearing Left Lower Extremity: Left Full Weight Bearing Gait Training Gait Assistive Device: FWW 150ft x 2 CGA to SBA, working on alignment and step clearance right Assessment Current Status: Good Progress gives full effort PT Short Term Goals Short Term Goals Time Frame: Jul 16, 2018 Gait (FIM): 4 Distance (FIM): 3=150 ft Gait Assistive Device: FWW Wheelchair Distance: 150' PT Bathhouse Attendant Goals Bathhouse Attendant Goals PT Bathhouse Attendant Goals Time Frame: Jul 30, 2018 Transfers (B,C,W/C) (FIM): 6 Sit to Lying (QC): 6 Lying-Sitting on Side/Bed(QC): 6 Sit to Stand (QC): 6 Rollin Roll Left to Right (QC): 6 Chair/Bmn-kk-Wixtm Xfer(QC): 6 Car Transfer (QC): 6 Gait (FIM): 6 Gait distance (FIM): 3=150 ft Walk 10 feet (QC): 6 Walk 10ft-Uneven Surface(QC): 6 Walk 50ft with 2 Turns (QC): 6 Walk 150 ft (QC): 6 Gait Assistive Device: FWW Stairs (FIM): 5 # of Steps: 4 (household exception) 1 Step (curb) (QC): 6 4 Steps (QC): 6 12 Steps (QC): 88 Stairs Level Of Assist: 6 Picking up an Object (QC): 4 PT Plan Treatment/Plan Treatment Plan: Continue Plan of Care Treatment Plan: Bed Mobility, Education, Functional Activity [place], Functional Strength, Group Therapy, Gait, Safety, Therapeutic Exercise, Transfers Treatment Duration: Jul 30, 2018 Frequency: At least 5 of 7 days/Wk (IRF) Estimated Hrs Per Day: 1.5 hours per day Patient and/or Family Agrees t: Yes Safety Risks/Education Patient Education: Gait Training, Transfer Techniques, Correct Positioning, Safety Issues Teaching Recipient: Patient Teaching Methods: Demonstration, Discussion Response to Teaching: Verbalize Understanding, Return Demonstration, Reinforcement Needed Time/GCodes Time In: 1325 Time Out: 1345 Total Billed Treatment Time: 20 Total Billed Treatment 1,FA20m G Codes Necessary: FRANTZ Kolb WASTEWATER DESIGN ENGINEER Jul 14, 2018 13:47
--- NOTE | 2018-07-14 14:48 | Speech Therapy Daily Note ---
Speech Daily Progress Note Subjective Date Seen by Provider: Jul 14, 2018 Time Seen by Provider: 11:30 Pt up in chair. Alert and pleasant. Pain Numeric Pain Scale: 0-No Pain Objective Oral Motor Exercises - pt completes with supervision. Speech intelligibility for sentence length material was 95% intelligible. Assessment Assessment Current Status: Good Progress Treatment Plan Continue Plan of Care Communication Comprehension: 7 Expression: 4 Social Cognition Social Interaction: 7 Problem Solvin Memory: 7 Speech Short Term Goals Short Term Goals Short Term Goals Pt will only require min assist with oral motor exercises. Pt will complete verbal expression tasks with at least 80% accuracy with or without comp strategies. Comprehension: 7 Expression: 4 Social Interaction: 7 Problem Solvin Memory: 7 Speech Academic Success Coordinator Goals Mcc Goals Pt will be independent with Oral motor exercises Pt's verbal expressive speech will be at least 95% accurate with or without the use compensatory strategies. Comprehension: 7 Expression: 6 Social Interaction: 7 Problem Solvin Memory: 7 Speech-Plan Patient/Family Goals Patient/Family Goals: to talk better Treatment Plan Speech Therapy Treatment Plan: Continue Plan of Care pt very motivated Treatment Duration: Jul 30, 2018 Frequency: 5 times per week Estimated Hrs Per Day: .5 hour per day Rehab Potential: Good Pt/Family Agrees to Plan: Yes Safety Risks/Education Teaching Recipient: Patient Teaching Methods: Discussion Response to Teaching: Verbalize Understanding Time Speech Therapy Time In: 11:30 Speech Therapy Time Out: 12:00 Total Billed Time: 30 Billed Treatment Time 1TWAN RANDY ST Jul 14, 2018 14:48
[2018-07-14 18:18] VITALS: BP 123/67
[2018-07-14] MEDS: ATORVASTATIN 10 MG (LIPITOR) TABLET PO SCH (21:19)
[2018-07-15 05:14] VITALS: BP_SYST 157; BP_SYST 168; BP_DIAS 60; BP_DIAS 80
[2018-07-15] MEDS: LEVOTHYROXINE 50 MCG (LEVOTHROID) TAB PO SCH (06:02)
--- NOTE | 2018-07-15 07:48 | PM & R (SOAP) Progress Note ---
Subjective This was a face to face visit with the patient. Date Seen by Provider: Jul 15, 2018 Time Seen by Provider: 07:25 Subjective/Events-last exam Patient was seen in her room this AM Patient SBA to CGA for gait Objective Physician Exam Last Set of Vital Signs Vital Signs Date Time Temp Pulse Resp B/P (MAP) Pulse Ox O2 Delivery O2 Flow Rate FiO2 07/15/18 05:14 98.3 54 18 168/80 (109) 98 Room Air Capillary Refill : I&O Intake and Output 07/15/18 00:00 Intake Total 1350 ml Balance 1350 ml Intake Oral 1350 ml # Voids 7 # Bowel Movements 2 General: Alert, Oriented X3, Cooperative, No Acute Distress HEENT: Atraumatic, PERRLA, EOMI, Mucous Memb Moist/[place] Neck: Supple, No JVD Lungs: Clear to Auscultation Heart: Regular Rate Abdomen: Normal Bowel Sounds, Soft, No Tenderness Extremities: No Edema Neuro: Other (RT HP gait imbalance poor standing balance) Assessment/Plan Assessment and Plan Left pontine strokw ith RHP PAF on 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
--- NOTE | 2018-07-15 09:09 | Occupational Ther Daily Note ---
OT Current Status-Daily Note Subjective Pt alert, lying in bed finishing her breakfast. During therapy, pt stated that she felt alot more alert today. Mental Status/Objective Patient Orientation: Person, Place, Time, Situation Functional [place] Measure 0=Not Assessed/NA 4=Minimal Assistance 1=Total Assistance 5=Supervision or Setup 2=Maximal Assistance 6=Modified [place] 3=Moderate Assistance 7=Complete [place] ADL-Treatment Pt able to use eating utensils. Pt did not want to change LE clothing. Educated pt on use of long handle shoe horn to don/doffed shoes. Pt required verbal cues to use initially then demonstrated understanding. Donned L shoe by self after education. Assist to don R shoe over toes then assist to manipulate side of shoe due to material bending. Pt able to slide L heel into shoe using shoe horn. Functional [place] Measure 0=Not Assessed/NA 4=Minimal Assistance 1=Total Assistance 5=Supervision or Setup 2=Maximal Assistance 6=Modified [place] 3=Moderate Assistance 7=Complete IndependenceIRFPAI Quality Coding Scale 6 Independent with activity with or without an assistive device 5 Patient requires set up or clean up by helper. Patient completes activity by themselves 4 Supervision or touching assist (CGA). [place] provide cues , steadying assist 3 The helper provides less than half the effort to complete the activity 2 The helper provides more than half the effort to complete the activity 1 Dependent. The helper does all the effort to complete an activity 7 Patient refused to complete or attempt activity 9 The patient did not perform the activity before the current illness or injury 88 Not attempted due to Medical conditions or safety concerns Grooming (FIM): 6 (Pt able to compelte by self at seated position in front of sink. ) Oral Hygiene (QC): 6 Upper Body (FIM): 5 (Set up. Pt able to complete by self at sitting position. ) Upper Body Dressing (QC): 5 On/Off Footwear (QC): 3 Toileting (FIM): 5 (SBA, pt able to complete using BSC and FWW for stability.) Toileting Hygiene (QC): 5 Transfers (B, C, W/C) (FIM): 5 (SBA, pt able to complete using FWW and arm rails for stability. ) Toilet/Commode Transfer (FIM): 5 (SBA, pt able to complete using FWW and BSC for stability. ) Toilet Transfer (QC): 4 Other Treatment Pt ambulated to therapy gym, taking rest break half way. Pt completed UE strengthening needed for transfers and functional tasks on arm bike for 15 min no resistance. Pt ambulated back to room, needing no rest break. After therapy, pt sitting in recliner with call light/phone within reach. All needs met in room. Education OT Patient Education: Modified ADL techniques, Use of adapted equipment Teaching Recipient: Patient Teaching Methods: Demonstration, Discussion Response to Teaching: Return Demonstration, Reinforcement Needed OT Short Term Goals Short Term Goals Time Frame: Jul 09, 2018 Grooming(FIM): 5 Upper Body Dressing(FIM): 5 Lower Body Dressing(FIM): 3 Toileting(FIM): 3 Toilet/Commode Transfer(FIM): 3 Comprehension(FIM): 7 Expression(FIM): 4 Social Interaction(FIM): 7 Problem Solving(FIM): 7 Memory(FIM): 7 Additional Short Term Goals: 1-Demonstrate ADL Tasks, 2-Verbalize Understanding , 3-ImproveStrength/[place] 1=Demonstrate adherence to instructed precautions during ADL tasks. 2=Patient will verbalize/demonstrate understanding of assistive devices/ modifications for ADL. 3=Patient will improve strength/tolerance for activity to enable patient to perform ADL's. OT Shelter Goals Shelter Goals Time Frame: Jul 23, 2018 Eating (FIM): 6 Eating (QC): 6 Groomin Oral Hygiene (QC): 6 Bathing(FIM): 5 Shower/Bathe Self (QC): 5 Upper Body Dressing(FIM): 5 Upper Body Dressing (QC): 5 Lower Body Dressing(FIM): 5 Lower Body Dressing (QC): 5 On/Off Footwear (QC): 5 Toileting(FIM): 6 Toileting Hygiene (QC): 6 Toilet/Commode Transfer(FIM): 6 Toilet/Commode Transfer (QC): 6 Shower Transfer(FIM): 5 Comprehension(FIM): 7 Expression (FIM): 6 Social Interaction(FIM): 7 Problem Solving(FIM): 7 Memory(FIM): 7 Additional Goals: 1-Demonstrate ADL Tasks, 2-Verbalize Understanding, 3- ImproveStrength/[place] 1=Demonstrate adherence to instructed precautions during ADL tasks. 2=Patient will verbalize/demonstrate understanding of assistive devices/ modifications for ADL. 3=Patient will improve strength/tolerance for activity to enable patient to perform ADL's. OT Education/Plan Discharge Recommendations Plan/Recommendations: Continue POC Treatment Plan/Plan of Care Patient would benefit from OT for education, treatment and training to promote independence in ADL's, mobility, safety and/or upper extremity function for ADL' s. Plan of Care: ADL Retraining, Functional Mobility, Group Exercise/Act as Ind ( education, exercise, activity tolerance, communication, functional activities, functional mobility), UE Funct Exercise/Act, UE Neuromus Re-Ed/Coord, Visual/ Perceptual Retrain (if needed) Treatment Duration: Jul 23, 2018 Frequency: At least 5 of 7 days/Wk (IRF) Estimated Hrs Per Day: 1.5 hours per day Agreement: Yes Rehab Potential: Good Time/GCodes Start Time: 06:55 Stop Time: 08:10 Total Time Billed (hr/min): 75 Billed Treatment Time 1 visit- ADL 4 (60 min) Ex 1 (15 min) DAVID CRUZ Jul 15, 2018 09:09
[2018-07-15] MEDS: VITAMIN E 400 INTLU CAP PO SCH (09:18)
[2018-07-15] MEDS: APIXABAN 5 MG (ELIQUIS) TABLET PO SCH ×2 (09:19→20:36)
[2018-07-15] MEDS: POLYETHYLENE GLYCOL 17 GM (MIRALAX) PACK PO SCH ×2 (09:21→20:36)
[2018-07-15] MEDS: SENNA W/DOCUSATE (SENOKOT S) TABLET PO SCH ×2 (09:21→20:35)
[2018-07-15] MEDS: ENALAPRIL 5 MG (VASOTEC) TAB PO SCH (09:23)
[2018-07-15] MEDS: meTOprolol TARTRATE 50 MG (LOPRESSOR) TAB PO SCH ×2 (09:24→20:36)
[2018-07-15 09:25] VITALS: BP 137/71
[2018-07-15] MEDS: azaTHIOprine (IMURAN) 50 MG TAB PO SCH (09:25)
--- NOTE | 2018-07-15 09:40 | Progress Note-Hospitalist ---
MENDY ENRIQUE MEDICAL STUDENT 07/15/18 0940: Subjective HPI/CC On Admission Date Seen by Provider: Jul 15, 2018 Time Seen by Provider: 09:15 Subjective/Events-last exam Rachel Orellana had no acute events overnight She is continuing to progress, though walking is more difficult for her than working with her arms. Bowel movements are regular. No questions or concerns. Objective Exam Vital Signs Capillary Refill : General Appearance: No Apparent Distress Respiratory: Lungs Clear, Normal Breath Sounds, Other Cardiovascular: Regular Rate, Rhythm Gastrointestinal: Normal Bowel Sounds Results/Procedures Lab Patient resulted labs reviewed. Assessment/Plan Assessment and Plan Assess & Plan/Chief Complaint 63 year old recovering well from CVA resulting in right sided weakness. 1. No changes to plan - continue rehab stay with current medication regimen. 2. Given high-normal PTH in light of hypercalcemia, will obtain sestamibi scan on outpatient basis. Clinical Quality Measures DVT/VTE Risk/Contraindication: Risk Factor Score Per Nursin RFS Level Per Nursing on Admit: 3=High JESSICA GARCIA DO 08/18/18 1317: Subjective Subjective/Events-last exam as above Objective Exam General Appearance: No Apparent Distress Assessment/Plan Assessment and Plan Assess & Plan/Chief Complaint I personally have seen and evaluated the patient and performed the physical exam. I agree with the documented assessment and plan. MENDY ENRIQUE MEDICAL STUDENT Jul 15, 2018 09:40 JESSICA GARCIA DO Aug 18, 2018 13:17
--- NOTE | 2018-07-15 10:58 | Physical Therapy Daily Note ---
PT Daily Note-Current Subjective Pt in recliner pre tx, agrees to PT, no pain to report Appearance Pt toileted prior to returning to recliner post tx, w/ tray, call light, phone, all needs met. Mental Status Patient Orientation: Person, Place, Time Transfers Functional [place] Measure 0=Not Assessed/NA 4=Minimal Assistance 1=Total Assistance 5=Supervision or Setup 2=Maximal Assistance 6=Modified [place] 3=Moderate Assistance 7=Complete IndependenceIRFPAI Quality Coding Scale 6 Independent with activity with or without an assistive device 5 Patient requires set up or clean up by helper. Patient completes activity by themselves 4 Supervision or touching assist (CGA). [place] provide cues , steadying assist 3 The helper provides less than half the effort to complete the activity 2 The helper provides more than half the effort to complete the activity 1 Dependent. The helper does all the effort to complete an activity 7 Patient refused to complete or attempt activity 9 The patient did not perform the activity before the current illness or injury 88 Not attempted due to Medical conditions or safety concerns Transfers (B, C, W/C) (FIM): 5 Sit to/from Stand: 5 sit<->stand SBA w/ FWW, pt takes a few seconds to get up/down but is steady, patient does much better with turning to sit and hand placement Weight Bearing Right Lower Extremity: Right Full Weight Bearing Left Lower Extremity: Left Full Weight Bearing Gait Training Does the Patient Walk?: Yes Gait (FIM): 5 Distance: 150'x2 Gait Level of Assist: 5 Gait Persons Needed: 1 Pt ambulates to/from gym w/ FWW SBA, RLE extensor tone w/ plantarflexion and toe drag, slow but steady Exercises Standing: Step-ups Standing Reps: 50 parallel bar step ups onto pink step 1x20, 1x30 w/ pink step and airex pad on top, CGA NuStep Minutes: 15 NuStep Workload: 5 Neuromuscular standing balance parallel bars unsupported 3x10, 3-5s unsupported, CGA Treatments gait and mobility training, balance exercises, functional strengthening, endurance training Assessment Current Status: Fair Progress improved endurance, mobility, and standing balance PT Short Term Goals Short Term Goals Time Frame: Jul 16, 2018 Gait (FIM): 4 Distance (FIM): 3=150 ft Gait Assistive Device: FWW Wheelchair Distance: 150' PT Wire Stripping Machine Operator Goals Wire Stripping Machine Operator Goals PT Wire Stripping Machine Operator Goals Time Frame: Jul 30, 2018 Transfers (B,C,W/C) (FIM): 6 Sit to Lying (QC): 6 Lying-Sitting on Side/Bed(QC): 6 Sit to Stand (QC): 6 Rollin Roll Left to Right (QC): 6 Chair/Gso-wk-Ibktt Xfer(QC): 6 Car Transfer (QC): 6 Gait (FIM): 6 Gait distance (FIM): 3=150 ft Walk 10 feet (QC): 6 Walk 10ft-Uneven Surface(QC): 6 Walk 50ft with 2 Turns (QC): 6 Walk 150 ft (QC): 6 Gait Assistive Device: FWW Stairs (FIM): 5 # of Steps: 4 (household exception) 1 Step (curb) (QC): 6 4 Steps (QC): 6 12 Steps (QC): 88 Stairs Level Of Assist: 6 Picking up an Object (QC): 4 PT Plan Problem List Problem List: Activity Tolerance, Functional Strength, Safety, Balance, Gait, Transfer, Bed Mobility, ROM Treatment/Plan Treatment Plan: Continue Plan of Care Treatment Plan: Bed Mobility, Education, Functional Activity Lizet, Functional Strength, Group Therapy, Gait, Safety, Therapeutic Exercise, Transfers Treatment Duration: Jul 30, 2018 Frequency: At least 5 of 7 days/Wk (IRF) Estimated Hrs Per Day: 1.5 hours per day Patient and/or Family Agrees t: Yes Safety Risks/Education Patient Education: Gait Training, Transfer Techniques, Correct Positioning, Disease Process, Safety Issues Teaching Recipient: Patient Teaching Methods: Demonstration, Discussion Response to Teaching: Reinforcement Needed Time/GCodes Time In: 1000 Time Out: 1100 Total Billed Treatment Time: 60 Total Billed Treatment 1 visit GT 20' EX 30' NM 10' NEDRA SHOOK PT Jul 15, 2018 10:58
--- NOTE | 2018-07-15 11:37 | Speech Therapy Daily Note ---
Speech Daily Progress Note Subjective Date Seen by Provider: Jul 15, 2018 Time Seen by Provider: 11:00 Pt alert. Pain Numeric Pain Scale: 0-No Pain Objective Pt complete OMEs with supervision. Speech Intelligibility - Provided pt with a word and she was to create a sentence using the word. Pt was 95% accurate based on clinical observation. Treatment Plan Continue Plan of Care Communication Comprehension: 7 Expression: 4 Social Cognition Social Interaction: 7 Problem Solvin Memory: 7 Speech Short Term Goals Short Term Goals Short Term Goals Pt will only require min assist with oral motor exercises. Pt will complete verbal expression tasks with at least 80% accuracy with or without comp strategies. Comprehension: 7 Expression: 4 Social Interaction: 7 Problem Solvin Memory: 7 Speech Breakdown Man Goals Breakdown Man Goals Pt will be independent with Oral motor exercises Pt's verbal expressive speech will be at least 95% accurate with or without the use compensatory strategies. Comprehension: 7 Expression: 6 Social Interaction: 7 Problem Solvin Memory: 7 Speech-Plan Patient/Family Goals Patient/Family Goals: to talk better Treatment Plan Speech Therapy Treatment Plan: Continue Plan of Care Pt very motivated to improve. Treatment Duration: Jul 30, 2018 Frequency: 5 times per week Estimated Hrs Per Day: .5 hour per day Rehab Potential: Good Pt/Family Agrees to Plan: Yes Safety Risks/Education Teaching Recipient: Patient Teaching Methods: Discussion Response to Teaching: Verbalize Understanding Time Speech Therapy Time In: 11:00 Speech Therapy Time Out: 11:30 Total Billed Time: 30 Billed Treatment Time 1, NEHAL Costello Jul 15, 2018 11:37
--- NOTE | 2018-07-15 14:55 | Physical Therapy Daily Note ---
PT Daily Note-Current Subjective Pt in recliner pre tx, agrees to PT, no complaints of pain Appearance Pt on toilet post tx, instructed to use call light for nurse to get her when she is finished Mental Status Patient Orientation: Person, Place, Time Transfers Functional [place] Measure 0=Not Assessed/NA 4=Minimal Assistance 1=Total Assistance 5=Supervision or Setup 2=Maximal Assistance 6=Modified [place] 3=Moderate Assistance 7=Complete IndependenceIRFPAI Quality Coding Scale 6 Independent with activity with or without an assistive device 5 Patient requires set up or clean up by helper. Patient completes activity by themselves 4 Supervision or touching assist (CGA). [place] provide cues , steadying assist 3 The helper provides less than half the effort to complete the activity 2 The helper provides more than half the effort to complete the activity 1 Dependent. The helper does all the effort to complete an activity 7 Patient refused to complete or attempt activity 9 The patient did not perform the activity before the current illness or injury 88 Not attempted due to Medical conditions or safety concerns Transfers (B, C, W/C) (FIM): 5 Sit to/from Stand: 5 sit<->stand CGA, slow but steady and safe, pt does good job grabbing for/ pushing off armrests Weight Bearing Right Lower Extremity: Right Full Weight Bearing Left Lower Extremity: Left Full Weight Bearing Gait Training Gait (FIM): 5 Distance: 150'x2 Gait Level of Assist: 5 Gait Persons Needed: 1 Gait Assistive Device: FWW Pt ambulates to/from gym w/ CGA using FWW. RLE toe drag and plantarflexion Exercises Standing: Sit to Stand Standing Reps: 10 Treatments gait and mobility training, transfer training Assessment Current Status: Fair Progress improved endurance and sit/stand transfers w/ increased speed and stability PT Short Term Goals Short Term Goals Time Frame: Jul 16, 2018 Gait (FIM): 4 Distance (FIM): 3=150 ft Gait Assistive Device: FWW Wheelchair Distance: 150' PT Fpc Goals Cemetery Keeper Goals PT Fpc Goals Time Frame: Jul 30, 2018 Transfers (B,C,W/C) (FIM): 6 Sit to Lying (QC): 6 Lying-Sitting on Side/Bed(QC): 6 Sit to Stand (QC): 6 Rollin Roll Left to Right (QC): 6 Chair/Wda-xn-Wadkg Xfer(QC): 6 Car Transfer (QC): 6 Gait (FIM): 6 Gait distance (FIM): 3=150 ft Walk 10 feet (QC): 6 Walk 10ft-Uneven Surface(QC): 6 Walk 50ft with 2 Turns (QC): 6 Walk 150 ft (QC): 6 Gait Assistive Device: FWW Stairs (FIM): 5 # of Steps: 4 (household exception) 1 Step (curb) (QC): 6 4 Steps (QC): 6 12 Steps (QC): 88 Stairs Level Of Assist: 6 Picking up an Object (QC): 4 PT Plan Problem List Problem List: Activity Tolerance, Functional Strength, Safety, Balance, Gait, Transfer, Bed Mobility, ROM Treatment/Plan Treatment Plan: Continue Plan of Care Treatment Plan: Bed Mobility, Education, Functional Activity Lizet, Functional Strength, Group Therapy, Gait, Safety, Therapeutic Exercise, Transfers Treatment Duration: Jul 30, 2018 Frequency: At least 5 of 7 days/Wk (IRF) Estimated Hrs Per Day: 1.5 hours per day Patient and/or Family Agrees t: Yes Safety Risks/Education Patient Education: Gait Training, Transfer Techniques, Correct Positioning, Safety Issues Teaching Recipient: Patient Teaching Methods: Demonstration, Discussion Time/GCodes Time In: 1330 Time Out: 1400 Total Billed Treatment Time: 30 Total Billed Treatment 1 visit GT 15' EX 15' DVAID MIR PT Jul 15, 2018 14:55
[2018-07-15 18:00] VITALS: BP 135/69
[2018-07-15] MEDS: ATORVASTATIN 10 MG (LIPITOR) TABLET PO SCH (20:35)
[2018-07-16 06:00] VITALS: BP 151/62
[2018-07-16] MEDS: LEVOTHYROXINE 50 MCG (LEVOTHROID) TAB PO SCH (06:43)
[2018-07-16] MEDS: POLYETHYLENE GLYCOL 17 GM (MIRALAX) PACK PO SCH ×2 (07:21→20:41)
[2018-07-16] MEDS: SENNA W/DOCUSATE (SENOKOT S) TABLET PO SCH ×2 (07:21→20:48)
[2018-07-16] MEDS: VITAMIN E 400 INTLU CAP PO SCH (08:31)
[2018-07-16] MEDS: azaTHIOprine (IMURAN) 50 MG TAB PO SCH (08:31)
[2018-07-16] MEDS: meTOprolol TARTRATE 50 MG (LOPRESSOR) TAB PO SCH ×2 (08:31→20:40)
[2018-07-16] MEDS: ENALAPRIL 5 MG (VASOTEC) TAB PO SCH (08:31)
[2018-07-16] MEDS: APIXABAN 5 MG (ELIQUIS) TABLET PO SCH ×2 (08:31→20:41)
--- NOTE | 2018-07-16 08:44 | PM & R (SOAP) Progress Note ---
Subjective This was a face to face visit with the patient. Date Seen by Provider: Jul 16, 2018 Time Seen by Provider: 07:50 Subjective/Events-last exam Patient was seen in her room this AM Patient SBA to CGA for gait Objective Physician Exam Last Set of Vital Signs Vital Signs Date Time Temp Pulse Resp B/P (MAP) Pulse Ox O2 Delivery O2 Flow Rate FiO2 07/16/18 06:00 97.8 54 18 151/62 (91) 98 Room Air Capillary Refill : I&O Intake and Output 07/16/18 00:00 Intake Total 1000 ml Balance 1000 ml Intake Oral 1000 ml # Voids 5 General: Alert, Oriented X3, Cooperative, No Acute Distress HEENT: Atraumatic, PERRLA, EOMI, Mucous Memb Moist/[place] Neck: Supple, No JVD Lungs: Clear to Auscultation Heart: Regular Rate Abdomen: Normal Bowel Sounds, Soft, No Tenderness Extremities: No Edema Neuro: Other (RT HP gait imbalance poor standing balance) Assessment/Plan Assessment and Plan Left pontine stroke with RT HP PAF on Eliquis now in sinus R Mild hypercalcemia Autoimmune hepatitis on meds Constipation treated Plan Continue PT/OT Next Team Conference 07-21-18 Goal return home with family at Max level of functional [place] Co-Morbidities that are continuing to impact the rehab process: (include details ) RATNA COULTER MD Jul 16, 2018 08:44
--- NOTE | 2018-07-16 08:59 | Physical Therapy Daily Note ---
PT Daily Note-Current Subjective Pt in bed pre tx, agrees to PT, no pain to report Appearance Pt on toilet post tx, instructed to use call light when finished Mental Status Patient Orientation: Person, Place, Time Transfers Functional [place] Measure 0=Not Assessed/NA 4=Minimal Assistance 1=Total Assistance 5=Supervision or Setup 2=Maximal Assistance 6=Modified [place] 3=Moderate Assistance 7=Complete IndependenceIRFPAI Quality Coding Scale 6 Independent with activity with or without an assistive device 5 Patient requires set up or clean up by helper. Patient completes activity by themselves 4 Supervision or touching assist (CGA). [place] provide cues , steadying assist 3 The helper provides less than half the effort to complete the activity 2 The helper provides more than half the effort to complete the activity 1 Dependent. The helper does all the effort to complete an activity 7 Patient refused to complete or attempt activity 9 The patient did not perform the activity before the current illness or injury 88 Not attempted due to Medical conditions or safety concerns Transfers (B, C, W/C) (FIM): 4 Supine to/from Sit: 5 Sit to/from Stand: 4 Pt needs second attempt at sit<->stand from bed w/ Robyn, but is SBA the rest of tx session, SBA for bed mobility Weight Bearing Right Lower Extremity: Right Full Weight Bearing Left Lower Extremity: Left Full Weight Bearing Gait Training Does the Patient Walk?: Yes Gait (FIM): 5 Distance: 150',100', 2x20' Gait Level of Assist: 5 Gait Persons Needed: 1 Gait Assistive Device: FWW Pt ambulates to/from gym w/ SBA w/ FWW, gait is very slow but steady, pt leans heavily on walker and demonstrates toe drag and plantarflexion on RLE. Pt takes small shuffled steps. GT w/ quad-cane 2x20', once in parallel bars, once w/ assistance from SPT, CGA w / cues to lean on cane and increase stride length and foot clearance, very slow , unsteady w/ short steps but no LOB Exercises Standing: Step-ups Standing Reps: 20 step ups onto airex pad x20 w/ rest breaks, RLE up first and LLE down first Treatments gait and mobility training, balance training, functional strengthening Assessment Current Status: Fair Progress improved strength and coordination in RLE, will continue to progress gait w/ quad cane in therapy PT Short Term Goals Short Term Goals Time Frame: Jul 16, 2018 Gait (FIM): 4 Distance (FIM): 3=150 ft Gait Assistive Device: FWW Wheelchair Distance: 150' PT Payroll Benefits Clerk Goals Payroll Benefits Clerk Goals PT Payroll Benefits Clerk Goals Time Frame: Jul 30, 2018 Transfers (B,C,W/C) (FIM): 6 Sit to Lying (QC): 6 Lying-Sitting on Side/Bed(QC): 6 Sit to Stand (QC): 6 Rollin Roll Left to Right (QC): 6 Chair/Sbb-qd-Avznt Xfer(QC): 6 Car Transfer (QC): 6 Gait (FIM): 6 Gait distance (FIM): 3=150 ft Walk 10 feet (QC): 6 Walk 10ft-Uneven Surface(QC): 6 Walk 50ft with 2 Turns (QC): 6 Walk 150 ft (QC): 6 Gait Assistive Device: FWW Stairs (FIM): 5 # of Steps: 4 (household exception) 1 Step (curb) (QC): 6 4 Steps (QC): 6 12 Steps (QC): 88 Stairs Level Of Assist: 6 Picking up an Object (QC): 4 PT Plan Problem List Problem List: Activity Tolerance, Functional Strength, Safety, Balance, Gait, Transfer, Bed Mobility, ROM Treatment/Plan Treatment Plan: Continue Plan of Care Treatment Plan: Bed Mobility, Education, Functional Activity Lizet, Functional Strength, Group Therapy, Gait, Safety, Therapeutic Exercise, Transfers Treatment Duration: Jul 30, 2018 Frequency: At least 5 of 7 days/Wk (IRF) Estimated Hrs Per Day: 1.5 hours per day Patient and/or Family Agrees t: Yes Safety Risks/Education Patient Education: Gait Training, Transfer Techniques, Correct Positioning, Safety Issues Teaching Recipient: Patient Teaching Methods: Demonstration, Discussion Response to Teaching: Reinforcement Needed Time/GCodes Time In: 800 Time Out: 900 Total Billed Treatment Time: 60 Total Billed Treatment 1 visit GT 40' NM 20' NEDRA SHOOK PT Jul 16, 2018 08:59
--- NOTE | 2018-07-16 10:17 | Occupational Ther Daily Note ---
OT Current Status-Daily Note Subjective Pt sitting in recliner, finishing breakfast. Pt agrees to therapy once shes finished eating. No c/o pain. Mental Status/Objective Patient Orientation: Person, Place, Time, Situation Functional [place] Measure 0=Not Assessed/NA 4=Minimal Assistance 1=Total Assistance 5=Supervision or Setup 2=Maximal Assistance 6=Modified [place] 3=Moderate Assistance 7=Complete [place] ADL-Treatment Functional [place] Measure 0=Not Assessed/NA 4=Minimal Assistance 1=Total Assistance 5=Supervision or Setup 2=Maximal Assistance 6=Modified [place] 3=Moderate Assistance 7=Complete IndependenceIRFPAI Quality Coding Scale 6 Independent with activity with or without an assistive device 5 Patient requires set up or clean up by helper. Patient completes activity by themselves 4 Supervision or touching assist (CGA). [place] provide cues , steadying assist 3 The helper provides less than half the effort to complete the activity 2 The helper provides more than half the effort to complete the activity 1 Dependent. The helper does all the effort to complete an activity 7 Patient refused to complete or attempt activity 9 The patient did not perform the activity before the current illness or injury 88 Not attempted due to Medical conditions or safety concerns Eating (FIM): 6 (Pt able to manipulate packaging and used normal utensils. ) Eating (QC): 6 Grooming (FIM): 5 (Pt able to complete at sitting position in front of sink. ) Oral Hygiene (QC): 5 Bathing (FIM): 5 (SBA, pt able to complete using grabbars, shower bench, hand held shower.) Bathing Location: L Arm, R Arm, L Upper Leg, R Upper Leg, L Lower Leg ( including foot), R Lower Leg (including foot), Chest, Abdomen, Buttocks, Perineal Area Shower/Bathe Self (QC): 5 Upper Body (FIM): 5 (Set up. SBA, pt able to complete by self at sitting position.) Upper Body Dressing (QC): 5 Lower Body Dressing (FIM): 4 (Pt uses FWW and arm rails for stability while standing to hike pants over hips, SBA. Assist, Pt don/doff shoes using AE R LE , pt able to complete donning L LE by self. ) Lower Body Dressing (QC): 3 On/Off Footwear (QC): 3 Transfers (B, C, W/C) (FIM): 5 (SBA, pt able to complete using FWW and arm rails for stability while standing.) Shower Transfer(FIM): 5 (SBA, pt uses grabbars, shower bench and FWW for stability on transfer.) After therapy, pt sitting in recliner with call light/phone within reach. All needs met in room. OT Short Term Goals Short Term Goals Time Frame: Jul 09, 2018 Grooming(FIM): 5 Upper Body Dressing(FIM): 5 Lower Body Dressing(FIM): 3 Toileting(FIM): 3 Toilet/Commode Transfer(FIM): 3 Comprehension(FIM): 7 Expression(FIM): 4 Social Interaction(FIM): 7 Problem Solving(FIM): 7 Memory(FIM): 7 Additional Short Term Goals: 1-Demonstrate ADL Tasks, 2-Verbalize Understanding , 3-ImproveStrength/Lizet 1=Demonstrate adherence to instructed precautions during ADL tasks. 2=Patient will verbalize/demonstrate understanding of assistive devices/ modifications for ADL. 3=Patient will improve strength/tolerance for activity to enable patient to perform ADL's. OT Cane Cutter Goals Residential Goals Time Frame: Jul 23, 2018 Eating (FIM): 6 Eating (QC): 6 Groomin Oral Hygiene (QC): 6 Bathing(FIM): 5 Shower/Bathe Self (QC): 5 Upper Body Dressing(FIM): 5 Upper Body Dressing (QC): 5 Lower Body Dressing(FIM): 5 Lower Body Dressing (QC): 5 On/Off Footwear (QC): 5 Toileting(FIM): 6 Toileting Hygiene (QC): 6 Toilet/Commode Transfer(FIM): 6 Toilet/Commode Transfer (QC): 6 Shower Transfer(FIM): 5 Comprehension(FIM): 7 Expression (FIM): 6 Social Interaction(FIM): 7 Problem Solving(FIM): 7 Memory(FIM): 7 Additional Goals: 1-Demonstrate ADL Tasks, 2-Verbalize Understanding, 3- ImproveStrength/Lizet 1=Demonstrate adherence to instructed precautions during ADL tasks. 2=Patient will verbalize/demonstrate understanding of assistive devices/ modifications for ADL. 3=Patient will improve strength/tolerance for activity to enable patient to perform ADL's. OT Education/Plan Discharge Recommendations Plan/Recommendations: Continue POC Treatment Plan/Plan of Care Patient would benefit from OT for education, treatment and training to promote independence in ADL's, mobility, safety and/or upper extremity function for ADL' s. Plan of Care: ADL Retraining, Functional Mobility, Group Exercise/Act as Ind ( education, exercise, activity tolerance, communication, functional activities, functional mobility), UE Funct Exercise/Act, UE Neuromus Re-Ed/Coord, Visual/ Perceptual Retrain (if needed) Treatment Duration: Jul 23, 2018 Frequency: At least 5 of 7 days/Wk (IRF) Estimated Hrs Per Day: 1.5 hours per day Agreement: Yes Rehab Potential: Good Time/GCodes Start Time: 09:01 Stop Time: 10:05 Total Time Billed (hr/min): 64 Billed Treatment Time 1 visit- ADL 4 (64 min) DAVID CRUZ Jul 16, 2018 10:17
--- NOTE | 2018-07-16 14:03 | Speech Therapy Daily Note ---
Speech Daily Progress Note Subjective Date Seen by Provider: Jul 16, 2018 Time Seen by Provider: 11:00 Pt up in chair. Pain Numeric Pain Scale: 0-No Pain Objective Pt completed OMEs independently. Sentence completion activity was 100% intelligible. Assessment Assessment Current Status: Good Progress Treatment Plan Discontinue ST, Goals Met Communication Comprehension: 7 Expression: 6 Social Cognition Social Interaction: 7 Problem Solvin Memory: 7 Speech Short Term Goals Short Term Goals Short Term Goals Pt will only require min assist with oral motor exercises. Pt will complete verbal expression tasks with at least 80% accuracy with or without comp strategies. Time Frame-ST week Comprehension: 7 Expression: 4 Social Interaction: 7 Problem Solvin Memory: 7 Speech Chcf Goals Commercial Baker Helper Goals Pt will be independent with Oral motor exercises Pt's verbal expressive speech will be at least 95% accurate with or without the use compensatory strategies. Time Frame: 2-3 weeks Comprehension: 7 Expression: 6 Social Interaction: 7 Problem Solvin Memory: 7 Speech-Plan Patient/Family Goals Patient/Family Goals: to talk better and go home. 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 Treatment Duration: Jul 30, 2018 Frequency: Modified Program (IRF) (0) Estimated Hrs Per Day: Other (0) Rehab Potential: Good Pt/Family Agrees to Plan: Yes Safety Risks/Education Teaching Recipient: Patient Teaching Methods: Discussion Response to Teaching: Verbalize Understanding Discharge Recommendations pt does not require additional speech therapy Time Speech Therapy Time In: 11:00 Speech Therapy Time Out: 11:30 Total Billed Time: 30 Billed Treatment Time 1, SLNEHAL Alvarez Jul 16, 2018 14:03
--- NOTE | 2018-07-16 14:59 | Therapy Group Daily Note ---
Therapy Daily Group Note Patient Education Topic Other List Below (ARU description/expectations, wellness:nutrition,exercise) Other/Notes Pt ambulated using FWW to therapy gym for OT/PT group. Group consisted of introductions (name, place living, least favorite food), socialization, ARU description/expectations, wellness:nutrition and exercise education and seated UE/LE exercises. Pt introduced self appropriately and actively listened to peers. Pt verbalized understanding of educational topics and gave examples. Pt initiated and contributed to conversation among peers on topic of educational topics. Pt able to complete UE/LE seated exercises. Pt ambulated back to room and laid down in bed. Call light/phone in reach. All needs met in room. Start Time: 13:00 Stop Time: 14:15 Total Billed Treatment Time: 75 Total Billed Treatment 1-GRP DAVID CRUZ Jul 16, 2018 14:59
[2018-07-16 18:42] VITALS: BP 120/60
[2018-07-16] MEDS: ATORVASTATIN 10 MG (LIPITOR) TABLET PO SCH (20:40)
[2018-07-16 20:50] VITALS: BP 133/75
[2018-07-17 05:58] VITALS: BP 123/71
[2018-07-17] MEDS: LEVOTHYROXINE 50 MCG (LEVOTHROID) TAB PO SCH (06:24)
--- NOTE | 2018-07-17 07:30 | PM & R (SOAP) Progress Note ---
Subjective This was a face to face visit with the patient. Date Seen by Provider: Jul 17, 2018 Time Seen by Provider: 07:10 Subjective/Events-last exam Patient was seen in her room this AM Patient Min assist for transfers Objective Physician Exam Last Set of Vital Signs Vital Signs Date Time Temp Pulse Resp B/P (MAP) Pulse Ox O2 Delivery O2 Flow Rate FiO2 07/17/18 05:58 97.4 59 18 123/71 (88) 97 Room Air Capillary Refill : I&O Intake and Output 07/17/18 00:00 Intake Total 1170 ml Balance 1170 ml Intake Oral 1170 ml # Voids 5 General: Alert, Oriented X3, Cooperative, No Acute Distress HEENT: Atraumatic, PERRLA, EOMI, Mucous Memb Moist/[place] Neck: Supple, No JVD Lungs: Clear to Auscultation Heart: Regular Rate Abdomen: Normal Bowel Sounds, Soft, No Tenderness Extremities: No Edema Neuro: Other (RT HP gait imbalance poor standing balance) Assessment/Plan Assessment and Plan Left pontine stroke with RT HP PAF on Eliquis now in Sinu R Mild hypercalcemia Autoimmune hepatitis on meds Constipation treated Plan Continue PT/OT/ST Next Team Conference 07-21-18 Co-Morbidities that are continuing to impact the rehab process: (include details ) RATNA COULTER MD Jul 17, 2018 07:30
[2018-07-17] MEDS: azaTHIOprine (IMURAN) 50 MG TAB PO SCH (08:28)
[2018-07-17] MEDS: meTOprolol TARTRATE 50 MG (LOPRESSOR) TAB PO SCH ×2 (08:28→21:39)
[2018-07-17] MEDS: ENALAPRIL 5 MG (VASOTEC) TAB PO SCH (08:28)
[2018-07-17] MEDS: VITAMIN E 400 INTLU CAP PO SCH (08:28)
[2018-07-17] MEDS: SENNA W/DOCUSATE (SENOKOT S) TABLET PO SCH ×2 (08:29→21:40)
[2018-07-17] MEDS: POLYETHYLENE GLYCOL 17 GM (MIRALAX) PACK PO SCH ×2 (08:29→21:00)
[2018-07-17] MEDS: APIXABAN 5 MG (ELIQUIS) TABLET PO SCH ×2 (08:29→21:39)
--- NOTE | 2018-07-17 11:02 | Physical Therapy Daily Note ---
PT Daily Note-Current Subjective Pt agreeable. Pt denies pain. Pt c/o fatigue post therapy session. Mental Status Patient Orientation: Person, Place, Situation Transfers Functional [place] Measure 0=Not Assessed/NA 4=Minimal Assistance 1=Total Assistance 5=Supervision or Setup 2=Maximal Assistance 6=Modified [place] 3=Moderate Assistance 7=Complete IndependenceIRFPAI Quality Coding Scale 6 Independent with activity with or without an assistive device 5 Patient requires set up or clean up by helper. Patient completes activity by themselves 4 Supervision or touching assist (CGA). [place] provide cues , steadying assist 3 The helper provides less than half the effort to complete the activity 2 The helper provides more than half the effort to complete the activity 1 Dependent. The helper does all the effort to complete an activity 7 Patient refused to complete or attempt activity 9 The patient did not perform the activity before the current illness or injury 88 Not attempted due to Medical conditions or safety concerns Practiced transfer in/out bed. Pt mod (I) with transfers in/out bed and sit to stand. Pt did require vc's to scoot to edge and to use hands to push up. Weight Bearing Right Lower Extremity: Right Full Weight Bearing Left Lower Extremity: Left Full Weight Bearing Gait Training Gait Assistive Device: FWW Pt amb wtih FWW and CGA 2 x 65ft, vc's to stand upright and look up. Balance Special Test Comments Practiced standing in place with hands at sides x 30 sec Treatments Ther ex: supine AP, heel slide, hip abd isometrics, LTR, SLR, hooklying marching, bridges and SAQ (B) LE x 15 each. Seated LAQ, knee flexion and DF (R ) LE x 15 each. Standing march in place and weight shift R-L x 15 each Assessment Current Status: Good Progress Pt back to bed per pt request with call light and all needs met. Pt faitgued easily and allowed to rest as needed. Responded well to all instructions and no LOB noted but balance easily challenged. Pt requires CGA-SBA for safe mobility at this time. PT Short Term Goals Short Term Goals Time Frame: Jul 16, 2018 Gait (FIM): 4 Distance (FIM): 3=150 ft Gait Assistive Device: FWW Wheelchair Distance: 150' PT Cone Examiner Goals Shelter Goals PT Shelter Goals Time Frame: Jul 30, 2018 Transfers (B,C,W/C) (FIM): 6 Sit to Lying (QC): 6 Lying-Sitting on Side/Bed(QC): 6 Sit to Stand (QC): 6 Rollin Roll Left to Right (QC): 6 Chair/Xzr-nx-Gbeng Xfer(QC): 6 Car Transfer (QC): 6 Gait (FIM): 6 Gait distance (FIM): 3=150 ft Walk 10 feet (QC): 6 Walk 10ft-Uneven Surface(QC): 6 Walk 50ft with 2 Turns (QC): 6 Walk 150 ft (QC): 6 Gait Assistive Device: FWW Stairs (FIM): 5 # of Steps: 4 (household exception) 1 Step (curb) (QC): 6 4 Steps (QC): 6 12 Steps (QC): 88 Stairs Level Of Assist: 6 Picking up an Object (QC): 4 PT Plan Treatment/Plan Treatment Plan: Continue Plan of Care Treatment Plan: Bed Mobility, Education, Functional Activity Lizet, Functional Strength, Group Therapy, Gait, Safety, Therapeutic Exercise, Transfers Treatment Duration: Jul 30, 2018 Frequency: At least 5 of 7 days/Wk (IRF) Estimated Hrs Per Day: 1.5 hours per day Patient and/or Family Agrees t: Yes Time/GCodes Time In: 1000 Time Out: 1030 Total Billed Treatment Time: 30 Total Billed Treatment 1, gait 15 min, ther ex 15 min CAMILA MCKAY CPTPaul Jul 17, 2018 11:02
[2018-07-17 17:11] VITALS: BP 125/70
[2018-07-17 20:55] VITALS: BP 146/65
[2018-07-17] MEDS: ATORVASTATIN 10 MG (LIPITOR) TABLET PO SCH (21:39)
[2018-07-18 05:10] VITALS: BP 156/79
[2018-07-18] MEDS: LEVOTHYROXINE 50 MCG (LEVOTHROID) TAB PO SCH (06:43)
[2018-07-18] MEDS: VITAMIN E 400 INTLU CAP PO SCH (08:00)
[2018-07-18] MEDS: APIXABAN 5 MG (ELIQUIS) TABLET PO SCH ×2 (08:00→20:55)
[2018-07-18] MEDS: azaTHIOprine (IMURAN) 50 MG TAB PO SCH (08:00)
[2018-07-18] MEDS: meTOprolol TARTRATE 50 MG (LOPRESSOR) TAB PO SCH ×2 (08:01→20:55)
[2018-07-18] MEDS: ENALAPRIL 5 MG (VASOTEC) TAB PO SCH (08:01)
[2018-07-18] MEDS: POLYETHYLENE GLYCOL 17 GM (MIRALAX) PACK PO SCH ×2 (08:02→21:00)
[2018-07-18] MEDS: SENNA W/DOCUSATE (SENOKOT S) TABLET PO SCH ×2 (08:03→21:00)
[2018-07-18 16:40] VITALS: BP 103/65
[2018-07-18 20:45] VITALS: BP 155/73
[2018-07-18] MEDS: ATORVASTATIN 10 MG (LIPITOR) TABLET PO SCH (20:55)
[2018-07-19 05:54] VITALS: BP 139/75
[2018-07-19] MEDS: LEVOTHYROXINE 50 MCG (LEVOTHROID) TAB PO SCH (06:31)
[2018-07-19] MEDS: azaTHIOprine (IMURAN) 50 MG TAB PO SCH (07:59)
[2018-07-19] MEDS: SENNA W/DOCUSATE (SENOKOT S) TABLET PO SCH ×2 (08:00→21:12)
[2018-07-19] MEDS: VITAMIN E 400 INTLU CAP PO SCH (08:00)
[2018-07-19] MEDS: APIXABAN 5 MG (ELIQUIS) TABLET PO SCH ×2 (08:00→20:48)
[2018-07-19] MEDS: ENALAPRIL 5 MG (VASOTEC) TAB PO SCH (08:01)
[2018-07-19] MEDS: meTOprolol TARTRATE 50 MG (LOPRESSOR) TAB PO SCH ×2 (08:01→20:48)
[2018-07-19] MEDS: POLYETHYLENE GLYCOL 17 GM (MIRALAX) PACK PO SCH ×2 (08:01→21:12)
--- NOTE | 2018-07-19 09:03 | Occupational Ther Daily Note ---
OT Current Status-Daily Note Subjective Pt in bed, agrees to treatment. No c/o pain. Mental Status/Objective Functional [place] Measure 0=Not Assessed/NA 4=Minimal Assistance 1=Total Assistance 5=Supervision or Setup 2=Maximal Assistance 6=Modified [place] 3=Moderate Assistance 7=Complete [place] ADL-Treatment Supine to sit with supervision. Pt initially states she would like to shower, but then requests to clean up seated at sink. Gait to restroom with FWW, slow pace. Pt sat at sink and washed upper body with set up. Completed oral care and cleaned dentures with set up. Brushed hair without assistance. Pt completed dressing tasks seated in chair. Doff clothing with SBA. Don pullover shirt with set up. Don underwear with SBA an increased time. Pt required minimal assistance to start pants over right foot, then able to complete remainder of task with SBA. Close supervision for standing balance during pant hike using FWW for balance. Increased time for ADL tasks. Functional [place] Measure 0=Not Assessed/NA 4=Minimal Assistance 1=Total Assistance 5=Supervision or Setup 2=Maximal Assistance 6=Modified [place] 3=Moderate Assistance 7=Complete IndependenceIRFPAI Quality Coding Scale 6 Independent with activity with or without an assistive device 5 Patient requires set up or clean up by helper. Patient completes activity by themselves 4 Supervision or touching assist (CGA). [place] provide cues , steadying assist 3 The helper provides less than half the effort to complete the activity 2 The helper provides more than half the effort to complete the activity 1 Dependent. The helper does all the effort to complete an activity 7 Patient refused to complete or attempt activity 9 The patient did not perform the activity before the current illness or injury 88 Not attempted due to Medical conditions or safety concerns Grooming (FIM): 5 Oral Hygiene (QC): 5 Upper Body (FIM): 5 Upper Body Dressing (QC): 5 Lower Body Dressing (FIM): 4 Lower Body Dressing (QC): 3 Other Treatment Gait to therapy gym with FWW, slow pace but no LOB noted. Arm bike [id number] to increase overall strength needed for ADLs and transfers.Pt returned to room, sitting in chair with needs met after session. OT Short Term Goals Short Term Goals Time Frame: Jul 09, 2018 Grooming(FIM): 5 Upper Body Dressing(FIM): 5 Lower Body Dressing(FIM): 3 Toileting(FIM): 3 Toilet/Commode Transfer(FIM): 3 Comprehension(FIM): 7 Expression(FIM): 4 Social Interaction(FIM): 7 Problem Solving(FIM): 7 Memory(FIM): 7 Additional Short Term Goals: 1-Demonstrate ADL Tasks, 2-Verbalize Understanding , 3-ImproveStrength/[place]izet 1=Demonstrate adherence to instructed precautions during ADL tasks. 2=Patient will verbalize/demonstrate understanding of assistive devices/ modifications for ADL. 3=Patient will improve strength/tolerance for activity to enable patient to perform ADL's. OT Pc Maintenance Technician Goals Pc Maintenance Technician Goals Time Frame: Jul 23, 2018 Eating (FIM): 6 Eating (QC): 6 Groomin Oral Hygiene (QC): 6 Bathing(FIM): 5 Shower/Bathe Self (QC): 5 Upper Body Dressing(FIM): 5 Upper Body Dressing (QC): 5 Lower Body Dressing(FIM): 5 Lower Body Dressing (QC): 5 On/Off Footwear (QC): 5 Toileting(FIM): 6 Toileting Hygiene (QC): 6 Toilet/Commode Transfer(FIM): 6 Toilet/Commode Transfer (QC): 6 Shower Transfer(FIM): 5 Comprehension(FIM): 7 Expression (FIM): 6 Social Interaction(FIM): 7 Problem Solving(FIM): 7 Memory(FIM): 7 Additional Goals: 1-Demonstrate ADL Tasks, 2-Verbalize Understanding, 3- ImproveStrength/[place]izet 1=Demonstrate adherence to instructed precautions during ADL tasks. 2=Patient will verbalize/demonstrate understanding of assistive devices/ modifications for ADL. 3=Patient will improve strength/tolerance for activity to enable patient to perform ADL's. OT Education/Plan Discharge Recommendations Plan/Recommendations: Continue POC Treatment Plan/Plan of Care Patient would benefit from OT for education, treatment and training to promote independence in ADL's, mobility, safety and/or upper extremity function for ADL' s. Plan of Care: ADL Retraining, Functional Mobility, Group Exercise/Act as Ind ( education, exercise, activity tolerance, communication, functional activities, functional mobility), UE Funct Exercise/Act, UE Neuromus Re-Ed/Coord, Visual/ Perceptual Retrain (if needed) Treatment Duration: Jul 23, 2018 Frequency: At least 5 of 7 days/Wk (IRF) Estimated Hrs Per Day: 1.5 hours per day Agreement: Yes Rehab Potential: Good Time/GCodes Start Time: 08:15 Stop Time: 09:15 Total Time Billed (hr/min): 60 Billed Treatment Time 1 visit, ADLx3(45minutes), Ex(15minutes) RUTHIE RADER OT Jul 19, 2018 09:03
--- NOTE | 2018-07-19 11:04 | Physical Therapy Daily Note ---
PT Daily Note-Current Subjective Pts. daughter present from out of town, pt. emotional to say good bye. Pt. states she feels she has improved. Pain Numeric Pain Scale: 0-No Pain Mental Status Patient Orientation: Normal For Age Transfers Functional [place] Measure 0=Not Assessed/NA 4=Minimal Assistance 1=Total Assistance 5=Supervision or Setup 2=Maximal Assistance 6=Modified [place] 3=Moderate Assistance 7=Complete IndependenceIRFPAI Quality Coding Scale 6 Independent with activity with or without an assistive device 5 Patient requires set up or clean up by helper. Patient completes activity by themselves 4 Supervision or touching assist (CGA). [place] provide cues , steadying assist 3 The helper provides less than half the effort to complete the activity 2 The helper provides more than half the effort to complete the activity 1 Dependent. The helper does all the effort to complete an activity 7 Patient refused to complete or attempt activity 9 The patient did not perform the activity before the current illness or injury 88 Not attempted due to Medical conditions or safety concerns Transfers (B, C, W/C) (FIM): 4 Scootin Rollin Supine to/from Sit: 5 Sit to/from Stand: 5 Bed to/from Chair: 5 Car Transfer (QC): 4 Weight Bearing Right Lower Extremity: Right Full Weight Bearing Left Lower Extremity: Left Full Weight Bearing Gait Training Does the Patient Walk?: Yes Gait (FIM): 5 Distance (FIM): 3=150 ft (x2) Gait Level of Assist: 5 Gait Persons Needed: 1 Gait Assistive Device: FWW slow, head down, no LOB Stair Training Stair Training: Handrails/: 2 handrails Stairs (FIM): 2 #of Steps: 4 Stairs: Pattern: Step to Level of Assist: 4 instructions for all, pt. somewhat apprehensive Exercises Seated Therapy Exercises: Ankle pumps, Sit to stand, Long arc quads, Hip flexion Seated Reps: 10 Standing: Hip Abduction, Hamstring curls, Heel/toe raises, Marching, Mini squats, Sit to Stand Standing Reps: 12 Treatments toileting with SBA Assessment Current Status: Good Progress gives full effort PT Short Term Goals Short Term Goals Time Frame: Jul 16, 2018 Gait (FIM): 4 Distance (FIM): 3=150 ft Gait Assistive Device: FWW Wheelchair Distance: 150' PT Prison Goals Prison Goals PT Prison Goals Time Frame: Jul 30, 2018 Transfers (B,C,W/C) (FIM): 6 Sit to Lying (QC): 6 Lying-Sitting on Side/Bed(QC): 6 Sit to Stand (QC): 6 Rollin Roll Left to Right (QC): 6 Chair/Att-pu-Dedbt Xfer(QC): 6 Car Transfer (QC): 6 Gait (FIM): 6 Gait distance (FIM): 3=150 ft Walk 10 feet (QC): 6 Walk 10ft-Uneven Surface(QC): 6 Walk 50ft with 2 Turns (QC): 6 Walk 150 ft (QC): 6 Gait Assistive Device: FWW Stairs (FIM): 5 # of Steps: 4 (household exception) 1 Step (curb) (QC): 6 4 Steps (QC): 6 12 Steps (QC): 88 Stairs Level Of Assist: 6 Picking up an Object (QC): 4 PT Plan Treatment/Plan Treatment Plan: Continue Plan of Care Treatment Plan: Bed Mobility, Education, Functional Activity Lizet, Functional Strength, Group Therapy, Gait, Safety, Therapeutic Exercise, Transfers Treatment Duration: Jul 30, 2018 Frequency: At least 5 of 7 days/Wk (IRF) Estimated Hrs Per Day: 1.5 hours per day Patient and/or Family Agrees t: Yes Safety Risks/Education Patient Education: Gait Training, Transfer Techniques, Steps, Correct Positioning, Disease Process, Safety Issues Teaching Recipient: Patient Teaching Methods: Demonstration, Discussion Response to Teaching: Verbalize Understanding, Return Demonstration, Reinforcement Needed Time/GCodes Time In: 1000 Time Out: 1100 Total Billed Treatment Time: 60 Total Billed Treatment 1,GT20m,EX15m,FA25m G Codes Necessary: FRNATZ Kolb CLERICAL OFFICE Jul 19, 2018 11:04
--- NOTE | 2018-07-19 14:26 | Therapy Group Daily Note ---
Therapy Daily Group Note Patient Education Topic Home Safety, Fall Prevention Exercises LE Seated Exercise, UE Exercise Other/Notes Pt was an active participant on OT/PT group. She introduced herself by sharing a holiday memory. She contributed to group education/discussion on home safety and fall prevention and, at the end of the group, was able to identify one way that she will change her home to increase safety. She also did seated UE and LE exercises to help with transfers. She walked back to her room with SBA for safety, FWW and was left up in her recliner, all needs met. Start Time: 13:00 Stop Time: 14:10 Total Billed Treatment Time: 70 Total Billed Treatment visit, 70 minutes group ELIZABETH HUDSON OT Jul 19, 2018 14:26
[2018-07-19 17:25] VITALS: BP 145/73
[2018-07-19] MEDS: ATORVASTATIN 10 MG (LIPITOR) TABLET PO SCH (20:48)
--- NOTE | 2018-07-19 22:15 | PM & R (SOAP) Progress Note ---
Subjective This was a face to face visit with the patient. Date Seen by Provider: Jul 19, 2018 Time Seen by Provider: 21:45 Subjective/Events-last exam Patient was seen in her room this evening Patient min assist for transfers Objective Physician Exam Last Set of Vital Signs Vital Signs Date Time Temp Pulse Resp B/P (MAP) Pulse Ox O2 Delivery O2 Flow Rate FiO2 07/19/18 17:25 98.8 60 20 145/73 (97) 98 Room Air Capillary Refill : I&O Intake and Output 07/19/18 00:00 Intake Total 970 ml Balance 970 ml Intake Oral 970 ml # Voids 6 # Bowel Movements 2 General: Alert, Oriented X3, Cooperative, No Acute Distress HEENT: Atraumatic, PERRLA, EOMI, Mucous Memb Moist/[place] Neck: Supple, No JVD Lungs: Clear to Auscultation Heart: Regular Rate Abdomen: Normal Bowel Sounds, Soft, No Tenderness Extremities: No Edema Neuro: Other (RT HP gait imbalance poor standing balance) Assessment/Plan Assessment and Plan Left pontine stroke with RT HP PAD on Eliquis Hypercalcemia Autoimmune hepatitis on meds Constipation treated Plan Continue PT/OT Nest Team Conference 07-21-18 Co-Morbidities that are continuing to impact the rehab process: (include details ) RATNA COULTER MD Jul 19, 2018 22:15
[2018-07-20 05:09] VITALS: BP 138/81
[2018-07-20] MEDS: LEVOTHYROXINE 50 MCG (LEVOTHROID) TAB PO SCH (05:51)
[2018-07-20] MEDS: POLYETHYLENE GLYCOL 17 GM (MIRALAX) PACK PO SCH ×2 (07:17→21:00)
[2018-07-20] MEDS: SENNA W/DOCUSATE (SENOKOT S) TABLET PO SCH ×2 (07:18→21:00)
--- NOTE | 2018-07-20 07:20 | PM & R (SOAP) Progress Note ---
Subjective This was a face to face visit with the patient. Date Seen by Provider: Jul 20, 2018 Time Seen by Provider: 06:50 Subjective/Events-last exam Patient was seen in her room this AM Patient Min assist for transfers Objective Physician Exam Last Set of Vital Signs Vital Signs Date Time Temp Pulse Resp B/P (MAP) Pulse Ox O2 Delivery O2 Flow Rate FiO2 07/20/18 05:09 97.8 61 16 138/81 (100) 98 Room Air Capillary Refill : I&O Intake and Output 07/20/18 00:00 Intake Total 1160 ml Balance 1160 ml Intake Oral 1160 ml # Voids 5 # Bowel Movements 1 General: Alert, Oriented X3, Cooperative, No Acute Distress HEENT: Atraumatic, PERRLA, EOMI, Mucous Memb Moist/[place] Neck: Supple, No JVD Lungs: Clear to Auscultation Heart: Regular Rate Abdomen: Normal Bowel Sounds, Soft, No Tenderness Extremities: No Edema Neuro: Other (RT HP gait imbalance poor standing balance) Assessment/Plan Assessment and Plan Left pontine stroke with rt HP PAF on Eliquis Hypercalemia Autoimmune hepatitis on meds Constipation treated Plan Continue PT/OT Team Conference tomorrow 07-21-[address] Goals met and they have signed off Co-Morbidities that are continuing to impact the rehab process: (include details ) RATNA COULTER MD Jul 20, 2018 07:20
[2018-07-20] MEDS: VITAMIN E 400 INTLU CAP PO SCH (07:44)
[2018-07-20] MEDS: ENALAPRIL 5 MG (VASOTEC) TAB PO SCH (07:44)
[2018-07-20] MEDS: APIXABAN 5 MG (ELIQUIS) TABLET PO SCH ×2 (07:44→20:55)
[2018-07-20] MEDS: meTOprolol TARTRATE 50 MG (LOPRESSOR) TAB PO SCH ×2 (07:44→20:55)
[2018-07-20] MEDS: azaTHIOprine (IMURAN) 50 MG TAB PO SCH (07:44)
--- NOTE | 2018-07-20 09:57 | Progress Note-Hospitalist ---
Subjective HPI/CC On Admission Date Seen by Provider: Jul 20, 2018 Time Seen by Provider: 09:45 Subjective/Events-last exam Patient voices no complaints there is been some improvement with gait and she's been able to independently don and doff clothing without falling forward and not requiring any assistance per OT who was present during our interview today. With continued steady progress she is likely to qualify for another week after tomorrow's meeting. Objective Exam Vital Signs Vital Signs Date Time Temp Pulse Resp B/P (MAP) Pulse Ox O2 Delivery O2 Flow Rate FiO2 07/20/18 08:24 Room Air 07/20/18 05:09 97.8 61 16 138/81 (100) 98 Capillary Refill : General Appearance: No Apparent Distress Respiratory: Chest Non Tender, Lungs Clear, Normal Breath Sounds, No Accessory Muscle Use, No Respiratory Distress Cardiovascular: Regular Rate, Rhythm, No Edema, No Gallop, No JVD, No Murmur, Normal Peripheral Pulses Neurologic/Psychiatric: Alert, Normal Mood/Affect, Other (And relating with a walker independently but still requiring cueing to pickle pumper her right leg she was able to safely maneuver her walker to the bed and sit down with minimal cueing) Results/Procedures Lab Patient resulted labs reviewed. Assessment/Plan Assessment and Plan Assess & Plan/Chief Complaint 1. 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 2. Paroxysmal atrial fibrillation patient remains in sinus rhythm continue ELIQUIS 3. Mild hypercalcemia on admission her persists with a level of 10.8 and an inappropriately elevated PTH in the 50s compatible with hyperparathyroidism. Hypercalcemia remains mild patient has had no problems with kidney stones and constipation is under control with no history of peptic ulcer disease or GI bleeding. We will obtain as an outpatient a bone density test to determine whether or not workup for parathyroidectomy is warranted versus conservative medical management considering age and current medical comorbidity. 4. Autoimmune hepatitis stable continue low-dose azathioprine. 5. Constipation resolved will discontinue lactulose continue MiraLAX and Senokot likely aggravated by hyperparathyroidism. Clinical Quality Measures DVT/VTE Risk/Contraindication: Risk Factor Score Per Nursin RFS Level Per Nursing on Admit: 3=High HENNA COLE MD Jul 20, 2018 09:57
--- NOTE | 2018-07-20 10:21 | Occupational Ther Daily Note ---
OT Current Status-Daily Note Subjective Pt alert, lying in bed eating breakfast. Pt agrees to therapy once she completes eating her breakfast. No c/o pain at this time. Mental Status/Objective Patient Orientation: Person, Place, Time, Situation Functional [place] Measure 0=Not Assessed/NA 4=Minimal Assistance 1=Total Assistance 5=Supervision or Setup 2=Maximal Assistance 6=Modified [place] 3=Moderate Assistance 7=Complete [place] ADL-Treatment Pt declined wanting to change clothing or shower today. Functional [place] Measure 0=Not Assessed/NA 4=Minimal Assistance 1=Total Assistance 5=Supervision or Setup 2=Maximal Assistance 6=Modified [place] 3=Moderate Assistance 7=Complete IndependenceIRFPAI Quality Coding Scale 6 Independent with activity with or without an assistive device 5 Patient requires set up or clean up by helper. Patient completes activity by themselves 4 Supervision or touching assist (CGA). [place] provide cues , steadying assist 3 The helper provides less than half the effort to complete the activity 2 The helper provides more than half the effort to complete the activity 1 Dependent. The helper does all the effort to complete an activity 7 Patient refused to complete or attempt activity 9 The patient did not perform the activity before the current illness or injury 88 Not attempted due to Medical conditions or safety concerns Eating (FIM): 7 (Pt manipulates packaging and uses normal utensils. ) Eating (QC): 6 Grooming (FIM): 6 (Pt able to complete by self at sitting position in front of sink. ) Oral Hygiene (QC): 6 On/Off Footwear (QC): 4 (Min A, doning R LE, pt able to get toes into shoe, due to swelling pt unable to get heel in shoe. Pt able to don L LE by self using AE. ) Toileting (FIM): 5 (SBA, pt able to complete by self using BSC, Grabbars, and FWW for stability.) Toileting Hygiene (QC): 4 Transfers (B, C, W/C) (FIM): 5 (Close supervision, pt able to go from lying supine to sitting EOB by self. SBA, pt able to complete by self using FWW for stability. ) Toilet/Commode Transfer (FIM): 5 (SBA, pt able to complete using FWW, grabbars and BSC for stability. ) Toilet Transfer (QC): 4 Pt takes increased amount of time to eat. Other Treatment SBA, Pt ambulated to therapy gym using FWW needing no rest breaks. Pt completed UE strengthening tasks increasing activity tolerance and UE strength completing arm bike 15 min/ 10 sanders resistance, one break nrsg brought medication. Pt ambulated back to therapy gym using FWW needing no rest breaks. After therapy, pt sitting in recliner with call light/ phone within reach. All needs met in room. OT Short Term Goals Short Term Goals Time Frame: Jul 09, 2018 Grooming(FIM): 5 Upper Body Dressing(FIM): 5 Lower Body Dressing(FIM): 3 Toileting(FIM): 3 Toilet/Commode Transfer(FIM): 3 Comprehension(FIM): 7 Expression(FIM): 4 Social Interaction(FIM): 7 Problem Solving(FIM): 7 Memory(FIM): 7 Additional Short Term Goals: 1-Demonstrate ADL Tasks, 2-Verbalize Understanding , 3-ImproveStrength/[place] 1=Demonstrate adherence to instructed precautions during ADL tasks. 2=Patient will verbalize/demonstrate understanding of assistive devices/ modifications for ADL. 3=Patient will improve strength/tolerance for activity to enable patient to perform ADL's. OT Halfway Goals Senior [employer] Developer Goals Time Frame: Jul 23, 2018 Eating (FIM): 6 Eating (QC): 6 Groomin Oral Hygiene (QC): 6 Bathing(FIM): 5 Shower/Bathe Self (QC): 5 Upper Body Dressing(FIM): 5 Upper Body Dressing (QC): 5 Lower Body Dressing(FIM): 5 Lower Body Dressing (QC): 5 On/Off Footwear (QC): 5 Toileting(FIM): 6 Toileting Hygiene (QC): 6 Toilet/Commode Transfer(FIM): 6 Toilet/Commode Transfer (QC): 6 Shower Transfer(FIM): 5 Comprehension(FIM): 7 Expression (FIM): 6 Social Interaction(FIM): 7 Problem Solving(FIM): 7 Memory(FIM): 7 Additional Goals: 1-Demonstrate ADL Tasks, 2-Verbalize Understanding, 3- ImproveStrength/[place]izet 1=Demonstrate adherence to instructed precautions during ADL tasks. 2=Patient will verbalize/demonstrate understanding of assistive devices/ modifications for ADL. 3=Patient will improve strength/tolerance for activity to enable patient to perform ADL's. OT Education/Plan Discharge Recommendations Plan/Recommendations: Continue POC Treatment Plan/Plan of Care Patient would benefit from OT for education, treatment and training to promote independence in ADL's, mobility, safety and/or upper extremity function for ADL' s. Plan of Care: ADL Retraining, Functional Mobility, Group Exercise/Act as Ind ( education, exercise, activity tolerance, communication, functional activities, functional mobility), UE Funct Exercise/Act, UE Neuromus Re-Ed/Coord, Visual/ Perceptual Retrain (if needed) Treatment Duration: Jul 23, 2018 Frequency: At least 5 of 7 days/Wk (IRF) Estimated Hrs Per Day: 1.5 hours per day Agreement: Yes Rehab Potential: Good Time/GCodes Start Time: 06:45 Stop Time: 08:00 Total Time Billed (hr/min): 75 Billed Treatment Time 1 visit- ADL 3 (45 min) Ex 2 (30 min) DAVID CRUZ Jul 20, 2018 10:20
--- NOTE | 2018-07-20 12:18 | Physical Therapy Daily Note ---
PT Daily Note-Current Subjective Pt laying Supine in bed upon arrival. Pt agrees to PT. Pain Location: No Pain Reported Mental Status Patient Orientation: Person, Place, Situation Transfers Functional [place] Measure 0=Not Assessed/NA 4=Minimal Assistance 1=Total Assistance 5=Supervision or Setup 2=Maximal Assistance 6=Modified [place] 3=Moderate Assistance 7=Complete IndependenceIRFPAI Quality Coding Scale 6 Independent with activity with or without an assistive device 5 Patient requires set up or clean up by helper. Patient completes activity by themselves 4 Supervision or touching assist (CGA). [place] provide cues , steadying assist 3 The helper provides less than half the effort to complete the activity 2 The helper provides more than half the effort to complete the activity 1 Dependent. The helper does all the effort to complete an activity 7 Patient refused to complete or attempt activity 9 The patient did not perform the activity before the current illness or injury 88 Not attempted due to Medical conditions or safety concerns Scootin Rollin Roll Left to Right (QC): 5 Supine to/from Sit: 5 Sit to/from Stand: 5 Sit to Lying (QC): 5 Sit to Stand (QC): 5 Weight Bearing Right Lower Extremity: Right Full Weight Bearing Left Lower Extremity: Left Full Weight Bearing Gait Training Does the Patient Walk?: Yes Distance (FIM): 3=150 ft Distance: 200' Walk 10 feet (QC): 5 Walk 50 ft with 2 Turns(QC): 5 Walk 150 ft (QC): 4 Gait Level of Assist: 4 Gait Persons Needed: 1 Gait Assistive Device: FWW Pt has slow luca & slight kyphotic posture, slight B knee bent. Stair Training Stair Training: Handrails/: 2 handrails #of Steps: 8 1 Step (curb) (QC): 5 4 Steps (QC): 4 Stairs: Pattern: Step to Level of Assist: 4 Exercises Seated Therapy Exercises: Ankle pumps, Long arc quads, Hip flexion, Kicking activity Seated Reps: 20 NuStep Minutes: 10 NuStep Workload: 4 Treatments Pt transfers from Supine to EOB then HUMAN RESOURCE OFFICER assists with putting shoes on especially R one. Pt then transfers to standing using FWW at SBA. Pt ambulates in hallway using FWW at [facility] for longer distances for fatigue. Pt completes 2 sets of 4 steps with rest between each. Pt uses NuStep for 10m at [facility] 4 followed by Seated Ex. Pt returns to room at end of tx with all needs met. Pt resting Supine in bed. Assessment Current Status: Good Progress Pt's activity tolerance, mobility and strength have improved. PT Short Term Goals Short Term Goals Time Frame: Jul 16, 2018 Gait (FIM): 4 Distance (FIM): 3=150 ft Gait Assistive Device: FWW Wheelchair Distance: 150' PT Snf Goals Textile Machinery Instructor Goals PT Snf Goals Time Frame: Jul 30, 2018 Transfers (B,C,W/C) (FIM): 6 Sit to Lying (QC): 6 Lying-Sitting on Side/Bed(QC): 6 Sit to Stand (QC): 6 Rollin Roll Left to Right (QC): 6 Chair/Lyo-rg-Qjnbe Xfer(QC): 6 Car Transfer (QC): 6 Gait (FIM): 6 Gait distance (FIM): 3=150 ft Walk 10 feet (QC): 6 Walk 10ft-Uneven Surface(QC): 6 Walk 50ft with 2 Turns (QC): 6 Walk 150 ft (QC): 6 Gait Assistive Device: FWW Stairs (FIM): 5 # of Steps: 4 (household exception) 1 Step (curb) (QC): 6 4 Steps (QC): 6 12 Steps (QC): 88 Stairs Level Of Assist: 6 Picking up an Object (QC): 4 PT Plan Problem List Problem List: Activity Tolerance, Functional Strength, Balance, Gait Treatment/Plan Treatment Plan: Continue Plan of Care Treatment Plan: Bed Mobility, Education, Functional Activity Lizet, Functional Strength, Group Therapy, Gait, Safety, Therapeutic Exercise, Transfers Treatment Duration: Jul 30, 2018 Frequency: At least 5 of 7 days/Wk (IRF) Estimated Hrs Per Day: 1.5 hours per day Patient and/or Family Agrees t: Yes Safety Risks/Education Patient Education: Gait Training, Transfer Techniques, Correct Positioning, Safety Issues Teaching Recipient: Patient Teaching Methods: Discussion Response to Teaching: Verbalize Understanding Time/GCodes Time In: 815 Time Out: 915 Total Billed Treatment Time: 60 Total Billed Treatment 1, GT (15m), FA (15m) & EX x2 (30m) G Codes Necessary: KISHOR Kaur HUMAN RESOURCE OFFICER Jul 20, 2018 12:18
--- NOTE | 2018-07-20 14:04 | Physical Therapy Daily Note ---
PT Daily Note-Current Subjective Pt laying Supine in bed. Pt agrees to PT. Pain Location: No Pain Reported Mental Status Patient Orientation: Person, Place, Situation Transfers Functional [place] Measure 0=Not Assessed/NA 4=Minimal Assistance 1=Total Assistance 5=Supervision or Setup 2=Maximal Assistance 6=Modified [place] 3=Moderate Assistance 7=Complete IndependenceIRFPAI Quality Coding Scale 6 Independent with activity with or without an assistive device 5 Patient requires set up or clean up by helper. Patient completes activity by themselves 4 Supervision or touching assist (CGA). [place] provide cues , steadying assist 3 The helper provides less than half the effort to complete the activity 2 The helper provides more than half the effort to complete the activity 1 Dependent. The helper does all the effort to complete an activity 7 Patient refused to complete or attempt activity 9 The patient did not perform the activity before the current illness or injury 88 Not attempted due to Medical conditions or safety concerns Scootin Rollin Roll Left to Right (QC): 5 Supine to/from Sit: 5 Sit to/from Stand: 5 Sit to Lying (QC): 5 Sit to Stand (QC): 5 Weight Bearing Right Lower Extremity: Right Full Weight Bearing Left Lower Extremity: Left Full Weight Bearing Gait Training Does the Patient Walk?: Yes Distance (FIM): 3=150 ft Distance: 150' Walk 10 feet (QC): 5 Walk 50 ft with 2 Turns(QC): 5 Walk 150 ft (QC): 4 Walking 10ft/uneven surface-QC: 5 Gait Level of Assist: 4 Gait Persons Needed: 1 Gait Assistive Device: FWW Pt walks with slow luca, kyphotic posture & slightly bent B knees. Pt fatigues with longer distances. Wheelchair Training Does the Pt Use a Wheelchair?: No Treatments Pt ambulates in hallway to Therapy Gym then takes short rest before ambulating across varying surface/gym mat x 3 with short rest between each attempt. Pt returns to room to use restroom at end of tx. Pt has all needs met. Assessment Current Status: Good Progress Pt's balance is improving. PT Short Term Goals Short Term Goals Time Frame: Jul 16, 2018 Gait (FIM): 4 Distance (FIM): 3=150 ft Gait Assistive Device: FWW Wheelchair Distance: 150' PT Care Home Goals Care Home Goals PT Generalist Goals Time Frame: Jul 30, 2018 Transfers (B,C,W/C) (FIM): 6 Sit to Lying (QC): 6 Lying-Sitting on Side/Bed(QC): 6 Sit to Stand (QC): 6 Rollin Roll Left to Right (QC): 6 Chair/Ibm-fd-Fxrdc Xfer(QC): 6 Car Transfer (QC): 6 Gait (FIM): 6 Gait distance (FIM): 3=150 ft Walk 10 feet (QC): 6 Walk 10ft-Uneven Surface(QC): 6 Walk 50ft with 2 Turns (QC): 6 Walk 150 ft (QC): 6 Gait Assistive Device: FWW Stairs (FIM): 5 # of Steps: 4 (household exception) 1 Step (curb) (QC): 6 4 Steps (QC): 6 12 Steps (QC): 88 Stairs Level Of Assist: 6 Picking up an Object (QC): 4 PT Plan Problem List Problem List: Activity Tolerance, Functional Strength, Safety, Balance, Gait Treatment/Plan Treatment Plan: Continue Plan of Care Treatment Plan: Bed Mobility, Education, Functional Activity Lizet, Functional Strength, Group Therapy, Gait, Safety, Therapeutic Exercise, Transfers Treatment Duration: Jul 30, 2018 Frequency: At least 5 of 7 days/Wk (IRF) Estimated Hrs Per Day: 1.5 hours per day Patient and/or Family Agrees t: Yes Safety Risks/Education Patient Education: Gait Training, Correct Positioning, Safety Issues Teaching Recipient: Patient Teaching Methods: Discussion Response to Teaching: Verbalize Understanding Time/GCodes Time In: 1300 Time Out: 1330 Total Billed Treatment Time: 30 Total Billed Treatment 1, GT x2 (30m) G Codes Necessary: KISHOR Kaur PTA Jul 20, 2018 14:04
[2018-07-20 17:32] VITALS: BP 128/76
[2018-07-20] MEDS: ATORVASTATIN 10 MG (LIPITOR) TABLET PO SCH (20:55)
[2018-07-21] MEDS: LEVOTHYROXINE 50 MCG (LEVOTHROID) TAB PO SCH (05:54)
[2018-07-21 05:56] VITALS: BP 149/78
--- NOTE | 2018-07-21 07:47 | PM & R (SOAP) Progress Note ---
Subjective This was a face to face visit with the patient. Date Seen by Provider: Jul 21, 2018 Time Seen by Provider: 07:15 Subjective/Events-last exam Patient was seen in her room this AM Patient SBA for transfers Objective Physician Exam Last Set of Vital Signs Vital Signs Date Time Temp Pulse Resp B/P (MAP) Pulse Ox O2 Delivery O2 Flow Rate FiO2 07/21/18 05:56 98.2 57 20 149/78 (101) 98 Room Air Capillary Refill : I&O Intake and Output 07/21/18 00:00 Intake Total 750 ml Balance 750 ml Intake Oral 750 ml # Voids 6 # Bowel Movements 1 General: Alert, Oriented X3, Cooperative, No Acute Distress HEENT: Atraumatic, PERRLA, EOMI, Mucous Memb Moist/[place] Neck: Supple, No JVD Lungs: Clear to Auscultation Heart: Regular Rate Abdomen: Normal Bowel Sounds, Soft, No Tenderness Extremities: No Edema Neuro: Other (RT HP gait imbalance poor standing balance) Assessment/Plan Assessment and Plan Left pontine stroke with RT HP PAF on Eliquis Hypercalcemia Autoimmune hepatitis on med Constipation treated Plan Continue PT/OT Team Conference to be held later today-see report for full functional update and POC and [facility] ST has signed off on patient 07-16-18 as patient has reached goals Co-Morbidities that are continuing to impact the rehab process: (include details ) RATNA COULTER MD Jul 21, 2018 07:47
[2018-07-21] MEDS: azaTHIOprine (IMURAN) 50 MG TAB PO SCH (08:01)
[2018-07-21] MEDS: VITAMIN E 400 INTLU CAP PO SCH (08:01)
[2018-07-21] MEDS: APIXABAN 5 MG (ELIQUIS) TABLET PO SCH ×2 (08:01→20:56)
[2018-07-21] MEDS: meTOprolol TARTRATE 50 MG (LOPRESSOR) TAB PO SCH ×2 (08:03→20:56)
[2018-07-21] MEDS: ENALAPRIL 5 MG (VASOTEC) TAB PO SCH (08:03)
[2018-07-21] MEDS: POLYETHYLENE GLYCOL 17 GM (MIRALAX) PACK PO SCH ×2 (08:04→20:58)
[2018-07-21] MEDS: SENNA W/DOCUSATE (SENOKOT S) TABLET PO SCH ×2 (08:04→20:58)
--- NOTE | 2018-07-21 08:49 | Therapy Team Discharge Summary ---
Therapy Discharge Summary Discharge Recommendations Date of Discharge Occupational Therapy Decreased Activ Tolerance, Decreased UE Strength, Dependent Transfers, Impaired Coordination, Impaired Funct Balance, Impaired Self-Care Skills, Restricted Funct UE ROM, Visual-Perceptual Deficit Speech-Language Pathology Pt admitted with a diagnosis of CVA with right sided weakness. Evaluation results indicated functional cognitive skills. Pt did exhibit a mild dysarthria. Pt was provided with Oral Motor Exercises (OMEs) and was able to complete independently. Pt instructed in compensatory strategies for increased intelligibility which she could recall and put into practice. In conversation the pt's speech intelligibility was 90 to 100% accurate. The pt met all goals and is discharged from skilled speech therapy. No additional ST is indicated at this time. PT Dental Detail Representative Goals Residential Goals PT Dental Detail Representative Goals Time Frame: Jul 30, 2018 Transfers (B,C,W/C) (FIM): 6 Roll Left to Right (QC): 6 Sit to Lying (QC): 6 Lying-Sitting on Side/Bed(QC): 6 Sit to Stand (QC): 6 Chair/Hef-qt-Ghuyt Xfer(QC): 6 Car Transfer (QC): 6 Gait (FIM): 6 Gait distance (FIM): 3=150 ft Walk 10 feet (QC): 6 Walk 10ft-Uneven Surface(QC): 6 Walk 50ft with 2 Turns (QC): 6 Walk 150 ft (QC): 6 Gait Assistive Device: FWW Stairs (FIM): 5 # of Steps: 4 (household exception) 1 Step (curb) (QC): 6 4 Steps (QC): 6 12 Steps (QC): 88 Stairs Level Of Assist: 6 Picking up an Object (QC): 4 OT Dental Detail Representative Goals Dental Detail Representative Goals Time Frame: Jul 23, 2018 Eating (FIM): 6 Eating (QC): 6 Oral Hygiene (QC): 6 Grooming(FIM): 6 Bathing(FIM): 5 Shower/Bathe Self (QC): 5 Upper Body Dressing(FIM): 5 Upper Body Dressing (QC): 5 Lower Body Dressing(FIM): 5 Lower Body Dressing (QC): 5 On/Off Footwear (QC): 5 Toileting(FIM): 6 Toileting Hygiene (QC): 6 Toilet/Commode Transfer(FIM): 6 Toilet/Commode Transfer (QC): 6 Shower Transfer(FIM): 5 Comprehension(FIM): 7 Expression (FIM): 6 Social Interaction(FIM): 7 Problem Solving(FIM): 7 Memory(FIM): 7 Additional Goals: 1-Demonstrate ADL Tasks, 2-Verbalize Understanding, 3- ImproveStrength/Lizet 1=Demonstrate adherence to instructed precautions during ADL tasks. 2=Patient will verbalize/demonstrate understanding of assistive devices/ modifications for ADL. 3=Patient will improve strength/tolerance for activity to enable patient to perform ADL's. Speech Dental Detail Representative Goals Residential Goals Pt will be independent with Oral motor exercises Pt's verbal expressive speech will be at least 95% accurate with or without the use compensatory strategies. Goal met 07/16/2018. Time Frame: 2-3 weeks Comprehension: 7 Expression: 6 Social Interaction: 7 Problem Solvin Memory: 7 NEHAL CERVANTES Jul 21, 2018 08:48
--- NOTE | 2018-07-21 10:02 | Physical Therapy Daily Note ---
PT Daily Note-Current Subjective Pt agrees to Rx. Pain Numeric Pain Scale: 0-No Pain Mental Status Patient Orientation: Normal For Age Transfers Functional [place] Measure 0=Not Assessed/NA 4=Minimal Assistance 1=Total Assistance 5=Supervision or Setup 2=Maximal Assistance 6=Modified [place] 3=Moderate Assistance 7=Complete IndependenceIRFPAI Quality Coding Scale 6 Independent with activity with or without an assistive device 5 Patient requires set up or clean up by helper. Patient completes activity by themselves 4 Supervision or touching assist (CGA). [place] provide cues , steadying assist 3 The helper provides less than half the effort to complete the activity 2 The helper provides more than half the effort to complete the activity 1 Dependent. The helper does all the effort to complete an activity 7 Patient refused to complete or attempt activity 9 The patient did not perform the activity before the current illness or injury 88 Not attempted due to Medical conditions or safety concerns Transfers (B, C, W/C) (FIM): 5 Scootin Rollin Supine to/from Sit: 5 Sit to/from Stand: 5 Weight Bearing Right Lower Extremity: Right Full Weight Bearing Left Lower Extremity: Left Full Weight Bearing Gait Training Does the Patient Walk?: Yes Gait (FIM): 5 Distance (FIM): 3=150 ft (160x4) Gait Level of Assist: 5 Gait Persons Needed: 1 Gait Assistive Device: FWW extensive work on side step, retro walking, 360 degree turns and broader LORETA, all without LOB Exercises Seated Therapy Exercises: Ankle pumps, Sit to stand, Long arc quads, Hip flexion Seated Reps: 15 Assessment Current Status: Good Progress all mobility improving PT Short Term Goals Short Term Goals Time Frame: Jul 16, 2018 Gait (FIM): 4 Distance (FIM): 3=150 ft Gait Assistive Device: FWW Wheelchair Distance: 150' PT Admissions Supervisor Goals Fdc Goals PT Admissions Supervisor Goals Time Frame: Jul 30, 2018 Transfers (B,C,W/C) (FIM): 6 Sit to Lying (QC): 6 Lying-Sitting on Side/Bed(QC): 6 Sit to Stand (QC): 6 Rollin Roll Left to Right (QC): 6 Chair/Fit-fg-Vnnsw Xfer(QC): 6 Car Transfer (QC): 6 Gait (FIM): 6 Gait distance (FIM): 3=150 ft Walk 10 feet (QC): 6 Walk 10ft-Uneven Surface(QC): 6 Walk 50ft with 2 Turns (QC): 6 Walk 150 ft (QC): 6 Gait Assistive Device: FWW Stairs (FIM): 5 # of Steps: 4 (household exception) 1 Step (curb) (QC): 6 4 Steps (QC): 6 12 Steps (QC): 88 Stairs Level Of Assist: 6 Picking up an Object (QC): 4 PT Plan Treatment/Plan Treatment Plan: Continue Plan of Care Treatment Plan: Bed Mobility, Education, Functional Activity Lizet, Functional Strength, Group Therapy, Gait, Safety, Therapeutic Exercise, Transfers Treatment Duration: Jul 30, 2018 Frequency: At least 5 of 7 days/Wk (IRF) Estimated Hrs Per Day: 1.5 hours per day Patient and/or Family Agrees t: Yes Safety Risks/Education Patient Education: Gait Training, Transfer Techniques, Correct Positioning, Safety Issues Teaching Recipient: Patient Teaching Methods: Demonstration, Discussion Response to Teaching: Verbalize Understanding, Return Demonstration, Reinforcement Needed Time/GCodes Time In: 930 Time Out: 1000 Total Billed Treatment Time: 30 Total Billed Treatment 1,GT30m G Codes Necessary: FRANTZ Kolb JAVA TECHNICAL ARCHITECT Jul 21, 2018 10:02
--- NOTE | 2018-07-21 10:03 | Occupational Ther Daily Note ---
OT Current Status-Daily Note Subjective Pt alert, lying in bed finishing her breakfast. No c/o pain. Pt agrees to therapy after she finishes breakfast. Mental Status/Objective Patient Orientation: Person, Place, Time, Situation Functional [place] Measure 0=Not Assessed/NA 4=Minimal Assistance 1=Total Assistance 5=Supervision or Setup 2=Maximal Assistance 6=Modified [place] 3=Moderate Assistance 7=Complete [place] ADL-Treatment Functional [place] Measure 0=Not Assessed/NA 4=Minimal Assistance 1=Total Assistance 5=Supervision or Setup 2=Maximal Assistance 6=Modified [place] 3=Moderate Assistance 7=Complete IndependenceIRFPAI Quality Coding Scale 6 Independent with activity with or without an assistive device 5 Patient requires set up or clean up by helper. Patient completes activity by themselves 4 Supervision or touching assist (CGA). [place] provide cues , steadying assist 3 The helper provides less than half the effort to complete the activity 2 The helper provides more than half the effort to complete the activity 1 Dependent. The helper does all the effort to complete an activity 7 Patient refused to complete or attempt activity 9 The patient did not perform the activity before the current illness or injury 88 Not attempted due to Medical conditions or safety concerns Eating (FIM): 6 (Pt has partial dentures. Pt able to manipulate packaging and uses normal utensils. ) Eating (QC): 6 Grooming (FIM): 6 (Pt able to complete at seated position in front of sink. ) Oral Hygiene (QC): 6 Bathing (FIM): 5 (Supervision. Pt able to complete by self using shower bench, hand held shower, and grabbars for stability. ) Bathing Location: L Arm, R Arm, L Upper Leg, R Upper Leg, L Lower Leg ( including foot), R Lower Leg (including foot), Chest, Abdomen, Buttocks, Perineal Area Shower/Bathe Self (QC): 4 Upper Body (FIM): 5 (Set up. Pt able to complete by self at seated position. ) Upper Body Dressing (QC): 5 Lower Body Dressing (FIM): 4 (CGA, for stabililty while pt hikes pants over hips. ) Lower Body Dressing (QC): 4 On/Off Footwear (QC): 4 (Pt able to don/doff shoes by self. Pt able to don shoes on L LE by self using AE. Pt able to get toes in shoe with R LE, Min A to tie puller heel. Educated pt on shoe funnel for R LE donning shoe. ) Toileting (FIM): 5 (Supervision, pt able to complete by self using grabbars, BSC, and FWW for stability while hiking pants over hips. ) Toileting Hygiene (QC): 4 ( ) Transfers (B, C, W/C) (FIM): 5 (Pt able to go from lying supine to sitting EOB by self. SBA, pt able to transfer by self using arm rails and FWW for stability. ) Toilet/Commode Transfer (FIM): 5 (SBA, pt able to complete using grabbars, BSC , and FWW for stability.) Toilet Transfer (QC): 4 Shower Transfer(FIM): 5 (SBA, pt able to complete by self using grabbars, shower bench, and FWW for stability. ) Pt required increased assistance with dynamic standing balance today. After therapy, pt sitting in recliner with call light/phone in reach. All needs met in room. Education OT Patient Education: Use of adapted equipment Teaching Recipient: Patient Teaching Methods: Demonstration, Discussion Response to Teaching: Verbalize Understanding OT Short Term Goals Short Term Goals Time Frame: Jul 09, 2018 Grooming(FIM): 5 Upper Body Dressing(FIM): 5 Lower Body Dressing(FIM): 3 Toileting(FIM): 3 Toilet/Commode Transfer(FIM): 3 Comprehension(FIM): 7 Expression(FIM): 4 Social Interaction(FIM): 7 Problem Solving(FIM): 7 Memory(FIM): 7 Additional Short Term Goals: 1-Demonstrate ADL Tasks, 2-Verbalize Understanding , 3-ImproveStrength/Lizet 1=Demonstrate adherence to instructed precautions during ADL tasks. 2=Patient will verbalize/demonstrate understanding of assistive devices/ modifications for ADL. 3=Patient will improve strength/tolerance for activity to enable patient to perform ADL's. OT Cardiac Monitor Goals Shelter Goals Time Frame: Jul 23, 2018 Eating (FIM): 6 Eating (QC): 6 Groomin Oral Hygiene (QC): 6 Bathing(FIM): 5 Shower/Bathe Self (QC): 5 Upper Body Dressing(FIM): 5 Upper Body Dressing (QC): 5 Lower Body Dressing(FIM): 5 Lower Body Dressing (QC): 5 On/Off Footwear (QC): 5 Toileting(FIM): 6 Toileting Hygiene (QC): 6 Toilet/Commode Transfer(FIM): 6 Toilet/Commode Transfer (QC): 6 Shower Transfer(FIM): 5 Comprehension(FIM): 7 Expression (FIM): 6 Social Interaction(FIM): 7 Problem Solving(FIM): 7 Memory(FIM): 7 Additional Goals: 1-Demonstrate ADL Tasks, 2-Verbalize Understanding, 3- ImproveStrength/Lizet 1=Demonstrate adherence to instructed precautions during ADL tasks. 2=Patient will verbalize/demonstrate understanding of assistive devices/ modifications for ADL. 3=Patient will improve strength/tolerance for activity to enable patient to perform ADL's. OT Education/Plan Discharge Recommendations Plan/Recommendations: Continue POC Treatment Plan/Plan of Care Patient would benefit from OT for education, treatment and training to promote independence in ADL's, mobility, safety and/or upper extremity function for ADL' s. Plan of Care: ADL Retraining, Functional Mobility, Group Exercise/Act as Ind ( education, exercise, activity tolerance, communication, functional activities, functional mobility), UE Funct Exercise/Act, UE Neuromus Re-Ed/Coord, Visual/ Perceptual Retrain (if needed) Treatment Duration: Jul 23, 2018 Frequency: At least 5 of 7 days/Wk (IRF) Estimated Hrs Per Day: 1.5 hours per day Agreement: Yes Rehab Potential: Good Time/GCodes Start Time: 06:48 Stop Time: 08:03 Total Time Billed (hr/min): 75 Billed Treatment Time 1 visit- ADL 5 (75 min) DAVID CRUZ Jul 21, 2018 10:03
--- NOTE | 2018-07-21 14:00 | Occupational Ther Daily Note ---
OT Current Status-Daily Note Subjective Pt finishing up lunch sitting in recliner. Pt agrees to therapy. No c/o pain. Mental Status/Objective Patient Orientation: Person, Place, Time, Situation Functional [place] Measure 0=Not Assessed/NA 4=Minimal Assistance 1=Total Assistance 5=Supervision or Setup 2=Maximal Assistance 6=Modified [place] 3=Moderate Assistance 7=Complete [place] ADL-Treatment Using long handle shoehorn pt was able to don R shoe with SBA and verbal cues, 3x's. Pt's R foot has decreased edema which made donning shoe easily. Pt completed toileting using FWW, BSC and grabbar with supervision. Supervision using FWW, grabbar and BSC for toilet transfer. Pt washed hands at sink with SBA. Pt educated on using counter tops for stabilization when washing hands, working in kitchen and doing laundry. Increased anxiety with using counter instead of FWW. PT took over care after therapy. All needs met in room. Functional [place] Measure 0=Not Assessed/NA 4=Minimal Assistance 1=Total Assistance 5=Supervision or Setup 2=Maximal Assistance 6=Modified [place] 3=Moderate Assistance 7=Complete IndependenceIRFPAI Quality Coding Scale 6 Independent with activity with or without an assistive device 5 Patient requires set up or clean up by helper. Patient completes activity by themselves 4 Supervision or touching assist (CGA). [place] provide cues , steadying assist 3 The helper provides less than half the effort to complete the activity 2 The helper provides more than half the effort to complete the activity 1 Dependent. The helper does all the effort to complete an activity 7 Patient refused to complete or attempt activity 9 The patient did not perform the activity before the current illness or injury 88 Not attempted due to Medical conditions or safety concerns Toileting (FIM): 5 Toileting Hygiene (QC): 4 Toilet/Commode Transfer (FIM): 5 Toilet Transfer (QC): 4 OT Short Term Goals Short Term Goals Time Frame: Jul 09, 2018 Grooming(FIM): 5 Upper Body Dressing(FIM): 5 Lower Body Dressing(FIM): 3 Toileting(FIM): 3 Toilet/Commode Transfer(FIM): 3 Comprehension(FIM): 7 Expression(FIM): 4 Social Interaction(FIM): 7 Problem Solving(FIM): 7 Memory(FIM): 7 Additional Short Term Goals: 1-Demonstrate ADL Tasks, 2-Verbalize Understanding , 3-ImproveStrength/Lizet 1=Demonstrate adherence to instructed precautions during ADL tasks. 2=Patient will verbalize/demonstrate understanding of assistive devices/ modifications for ADL. 3=Patient will improve strength/tolerance for activity to enable patient to perform ADL's. OT Penitentiary Goals Electrician Journeyman Wireman Goals Time Frame: Jul 23, 2018 Eating (FIM): 6 Eating (QC): 6 Groomin Oral Hygiene (QC): 6 Bathing(FIM): 5 Shower/Bathe Self (QC): 5 Upper Body Dressing(FIM): 5 Upper Body Dressing (QC): 5 Lower Body Dressing(FIM): 5 Lower Body Dressing (QC): 5 On/Off Footwear (QC): 5 Toileting(FIM): 6 Toileting Hygiene (QC): 6 Toilet/Commode Transfer(FIM): 6 Toilet/Commode Transfer (QC): 6 Shower Transfer(FIM): 5 Comprehension(FIM): 7 Expression (FIM): 6 Social Interaction(FIM): 7 Problem Solving(FIM): 7 Memory(FIM): 7 Additional Goals: 1-Demonstrate ADL Tasks, 2-Verbalize Understanding, 3- ImproveStrength/Lizet 1=Demonstrate adherence to instructed precautions during ADL tasks. 2=Patient will verbalize/demonstrate understanding of assistive devices/ modifications for ADL. 3=Patient will improve strength/tolerance for activity to enable patient to perform ADL's. OT Education/Plan Discharge Recommendations Plan/Recommendations: Continue POC Treatment Plan/Plan of Care Patient would benefit from OT for education, treatment and training to promote independence in ADL's, mobility, safety and/or upper extremity function for ADL' s. Plan of Care: ADL Retraining, Functional Mobility, Group Exercise/Act as Ind ( education, exercise, activity tolerance, communication, functional activities, functional mobility), UE Funct Exercise/Act, UE Neuromus Re-Ed/Coord, Visual/ Perceptual Retrain (if needed) Treatment Duration: Jul 23, 2018 Frequency: At least 5 of 7 days/Wk (IRF) Estimated Hrs Per Day: 1.5 hours per day Agreement: Yes Rehab Potential: Good Time/GCodes Start Time: 12:30 Stop Time: 13:00 Total Time Billed (hr/min): 30 Billed Treatment Time 1 visit-ADL 1 (15 min) FA 1 (15 min) DAVID CRUZ Jul 21, 2018 14:00
--- NOTE | 2018-07-21 14:05 | Physical Therapy Daily Note ---
PT Daily Note-Current Subjective Agrees to Rx Pain Numeric Pain Scale: 0-No Pain Mental Status Patient Orientation: Normal For Age hard of hearing Transfers Functional [place] Measure 0=Not Assessed/NA 4=Minimal Assistance 1=Total Assistance 5=Supervision or Setup 2=Maximal Assistance 6=Modified [place] 3=Moderate Assistance 7=Complete IndependenceIRFPAI Quality Coding Scale 6 Independent with activity with or without an assistive device 5 Patient requires set up or clean up by helper. Patient completes activity by themselves 4 Supervision or touching assist (CGA). [place] provide cues , steadying assist 3 The helper provides less than half the effort to complete the activity 2 The helper provides more than half the effort to complete the activity 1 Dependent. The helper does all the effort to complete an activity 7 Patient refused to complete or attempt activity 9 The patient did not perform the activity before the current illness or injury 88 Not attempted due to Medical conditions or safety concerns Transfers (B, C, W/C) (FIM): 6 sit to stand all SBA to Mod I, sup to sit toward right all SBA to mod I Weight Bearing Right Lower Extremity: Right Full Weight Bearing Left Lower Extremity: Left Full Weight Bearing Gait Training Does the Patient Walk?: Yes Gait (FIM): 5 Distance (FIM): 3=150 ft (x2) Gait Level of Assist: 5 Gait Persons Needed: 1 Gait Assistive Device: FWW better LORETA and alignment Wheelchair Training Does the Pt Use a Wheelchair?: No Stair Training Stair Training: Handrails/: 2 handrails Stairs (FIM): 2 #of Steps: 4 Stairs: Pattern: Step to Level of Assist: 4 Exercises Supine Ex: Bridging, Ankle pumps, Quad Set, Rolling, Glut sets, Heel Slides, Short Arc Quads, Scooting, Straight leg raise, Hip abd/add Supine Reps: 15 NuStep Minutes: 10 NuStep Workload: 3 Treatments toiletd all MOD I Assessment Current Status: Good Progress PT Short Term Goals Short Term Goals Time Frame: Jul 16, 2018 Gait (FIM): 4 Distance (FIM): 3=150 ft Gait Assistive Device: FWW Wheelchair Distance: 150' PT Detention Goals Detention Goals PT Detention Goals Time Frame: Jul 30, 2018 Transfers (B,C,W/C) (FIM): 6 Sit to Lying (QC): 6 Lying-Sitting on Side/Bed(QC): 6 Sit to Stand (QC): 6 Rollin Roll Left to Right (QC): 6 Chair/Gal-jw-Lhrxd Xfer(QC): 6 Car Transfer (QC): 6 Gait (FIM): 6 Gait distance (FIM): 3=150 ft Walk 10 feet (QC): 6 Walk 10ft-Uneven Surface(QC): 6 Walk 50ft with 2 Turns (QC): 6 Walk 150 ft (QC): 6 Gait Assistive Device: FWW Stairs (FIM): 5 # of Steps: 4 (household exception) 1 Step (curb) (QC): 6 4 Steps (QC): 6 12 Steps (QC): 88 Stairs Level Of Assist: 6 Picking up an Object (QC): 4 PT Plan Treatment/Plan Treatment Plan: Continue Plan of Care Treatment Plan: Bed Mobility, Education, Functional Activity Lizet, Functional Strength, Group Therapy, Gait, Safety, Therapeutic Exercise, Transfers Treatment Duration: Jul 30, 2018 Frequency: At least 5 of 7 days/Wk (IRF) Estimated Hrs Per Day: 1.5 hours per day Patient and/or Family Agrees t: Yes Safety Risks/Education Patient Education: Gait Training, Transfer Techniques, Steps, Correct Positioning, Disease Process, Safety Issues Teaching Recipient: Patient Teaching Methods: Demonstration, Discussion Response to Teaching: Verbalize Understanding, Return Demonstration, Reinforcement Needed Time/GCodes Time In: 1300 Time Out: 1400 Total Billed Treatment Time: 60 Total Billed Treatment 1,EX20m,FA25m,GT15m G Codes Necessary: FRANTZ Kolb ENTERTAINMENT CENTRE MANAGER Jul 21, 2018 14:05
[2018-07-21 17:46] VITALS: BP 145/80
[2018-07-21] MEDS: ATORVASTATIN 10 MG (LIPITOR) TABLET PO SCH (20:56)
[2018-07-22 05:05] VITALS: BP_SYST 107; BP_SYST 156; BP_DIAS 68; BP_DIAS 75
[2018-07-22] MEDS: LEVOTHYROXINE 50 MCG (LEVOTHROID) TAB PO SCH (06:01)
--- NOTE | 2018-07-22 07:59 | Occupational Ther Daily Note ---
OT Current Status-Daily Note Subjective Pt alert, lying in bed. No c/o pain. Pt agrees to therapy by denies changing any clothing. Mental Status/Objective Patient Orientation: Person, Place, Time, Situation Functional [place] Measure 0=Not Assessed/NA 4=Minimal Assistance 1=Total Assistance 5=Supervision or Setup 2=Maximal Assistance 6=Modified [place] 3=Moderate Assistance 7=Complete [place] ADL-Treatment Functional [place] Measure 0=Not Assessed/NA 4=Minimal Assistance 1=Total Assistance 5=Supervision or Setup 2=Maximal Assistance 6=Modified [place] 3=Moderate Assistance 7=Complete IndependenceIRFPAI Quality Coding Scale 6 Independent with activity with or without an assistive device 5 Patient requires set up or clean up by helper. Patient completes activity by themselves 4 Supervision or touching assist (CGA). [place] provide cues , steadying assist 3 The helper provides less than half the effort to complete the activity 2 The helper provides more than half the effort to complete the activity 1 Dependent. The helper does all the effort to complete an activity 7 Patient refused to complete or attempt activity 9 The patient did not perform the activity before the current illness or injury 88 Not attempted due to Medical conditions or safety concerns Grooming (FIM): 6 (Pt able to complete by self at sink at sitting position. ) Oral Hygiene (QC): 6 On/Off Footwear (QC): 4 (Pt able to don L LE by self using AE. Pt able to get R LE toes into shoe, Min A on pulling shoe over heel due to edema. ) Toileting (FIM): 5 (SBA, pt able to complete by self using grabbars and FWW for stability while hiking pants over hips. ) Toileting Hygiene (QC): 4 Transfers (B, C, W/C) (FIM): 5 (SBA, pt able to complete by self using FWW and arm rails for stability. ) Toilet/Commode Transfer (FIM): 5 (Pt able to complete by self using grabbars and FWW for stability, SBA. ) Toilet Transfer (QC): 4 Pt ambulated to therapy gym using FWW needing no rest breaks. Pt increased UE strengthening needed for Activity tolerance and transfers by completing 15 min/ 20 watt resistance on the arm bike. Pt increased core strength and dynamic sitting balance by completing bending forward tasks alternating R/L UE to grasp objects. Pt ambulated back to room using FWW needing no rest breaks. After therapy, pt sitting in recliner with call light/ phone within reach. All needs met in room. OT Short Term Goals Short Term Goals Time Frame: Jul 09, 2018 Grooming(FIM): 5 Upper Body Dressing(FIM): 5 Lower Body Dressing(FIM): 3 Toileting(FIM): 3 Toilet/Commode Transfer(FIM): 3 Comprehension(FIM): 7 Expression(FIM): 4 Social Interaction(FIM): 7 Problem Solving(FIM): 7 Memory(FIM): 7 Additional Short Term Goals: 1-Demonstrate ADL Tasks, 2-Verbalize Understanding , 3-ImproveStrength/Lizet 1=Demonstrate adherence to instructed precautions during ADL tasks. 2=Patient will verbalize/demonstrate understanding of assistive devices/ modifications for ADL. 3=Patient will improve strength/tolerance for activity to enable patient to perform ADL's. OT Penitentiary Goals Penitentiary Goals Time Frame: Jul 23, 2018 Eating (FIM): 6 Eating (QC): 6 Groomin Oral Hygiene (QC): 6 Bathing(FIM): 5 Shower/Bathe Self (QC): 5 Upper Body Dressing(FIM): 5 Upper Body Dressing (QC): 5 Lower Body Dressing(FIM): 5 Lower Body Dressing (QC): 5 On/Off Footwear (QC): 5 Toileting(FIM): 6 Toileting Hygiene (QC): 6 Toilet/Commode Transfer(FIM): 6 Toilet/Commode Transfer (QC): 6 Shower Transfer(FIM): 5 Comprehension(FIM): 7 Expression (FIM): 6 Social Interaction(FIM): 7 Problem Solving(FIM): 7 Memory(FIM): 7 Additional Goals: 1-Demonstrate ADL Tasks, 2-Verbalize Understanding, 3- ImproveStrength/Lizet 1=Demonstrate adherence to instructed precautions during ADL tasks. 2=Patient will verbalize/demonstrate understanding of assistive devices/ modifications for ADL. 3=Patient will improve strength/tolerance for activity to enable patient to perform ADL's. OT Education/Plan Discharge Recommendations Plan/Recommendations: Continue POC Treatment Plan/Plan of Care Patient would benefit from OT for education, treatment and training to promote independence in ADL's, mobility, safety and/or upper extremity function for ADL' s. Plan of Care: ADL Retraining, Functional Mobility, Group Exercise/Act as Ind ( education, exercise, activity tolerance, communication, functional activities, functional mobility), UE Funct Exercise/Act, UE Neuromus Re-Ed/Coord, Visual/ Perceptual Retrain (if needed) Treatment Duration: Jul 23, 2018 Frequency: At least 5 of 7 days/Wk (IRF) Estimated Hrs Per Day: 1.5 hours per day Agreement: Yes Rehab Potential: Good Time/GCodes Start Time: 06:54 Stop Time: 07:56 Total Time Billed (hr/min): 62 Billed Treatment Time 1 visit- ADL 2 (28 min) Ex 2 (34 min) DAVID CRUZ Jul 22, 2018 07:59
[2018-07-22] MEDS: SENNA W/DOCUSATE (SENOKOT S) TABLET PO SCH ×2 (08:01→20:55)
[2018-07-22] MEDS: POLYETHYLENE GLYCOL 17 GM (MIRALAX) PACK PO SCH ×2 (08:01→20:54)
[2018-07-22] MEDS: APIXABAN 5 MG (ELIQUIS) TABLET PO SCH ×2 (08:01→20:54)
[2018-07-22] MEDS: ENALAPRIL 5 MG (VASOTEC) TAB PO SCH (08:01)
[2018-07-22] MEDS: meTOprolol TARTRATE 50 MG (LOPRESSOR) TAB PO SCH ×2 (08:01→20:54)
[2018-07-22] MEDS: azaTHIOprine (IMURAN) 50 MG TAB PO SCH (08:01)
[2018-07-22] MEDS: VITAMIN E 400 INTLU CAP PO SCH (08:01)
--- NOTE | 2018-07-22 08:05 | PM & R (SOAP) Progress Note ---
Subjective This was a face to face visit with the patient. Date Seen by Provider: Jul 22, 2018 Time Seen by Provider: 07:50 Subjective/Events-last exam Patient was seen in GYM this AM Patient SBA to Mod Independent for transfers Continues to improve. Objective Physician Exam Last Set of Vital Signs Vital Signs Date Time Temp Pulse Resp B/P (MAP) Pulse Ox O2 Delivery O2 Flow Rate FiO2 07/22/18 05:05 98.7 60 18 156/75 (102) 97 Room Air Capillary Refill : I&O Intake and Output 07/22/18 00:00 Intake Total 845 ml Balance 845 ml Intake Oral 845 ml # Voids 5 # Bowel Movements 1 General: Alert, Oriented X3, Cooperative, No Acute Distress HEENT: Atraumatic, PERRLA, EOMI, Mucous Memb Moist/[place] Neck: Supple, No JVD Lungs: Clear to Auscultation Heart: Regular Rate Abdomen: Normal Bowel Sounds, Soft, No Tenderness Extremities: No Edema Neuro: Other (RT HP gait imbalance poor standing balance) Assessment/Plan Assessment and Plan 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 Co-Morbidities that are continuing to impact the rehab process: (include details ) RATNA COULTER MD Jul 22, 2018 08:05
--- NOTE | 2018-07-22 08:39 | Occ Therapy Rehab Re-Cert ---
OT Re-Certification Form Plan of Care: ADL Retraining, Functional Mobility, Group Exercise/Act as Ind ( education, exercise, activity tolerance, communication, functional activities, functional mobility), UE Funct Exercise/Act, UE Neuromus Re-Ed/Coord, Visual/ Perceptual Retrain (if needed) Pt has made significant progress towards goals but is not yet independent enough for discharge to home, since she lives alone. Will continue with same LTG and interventions but extend treatment plan to 08-06-18 Treatment Duration: 08-06-18 Frequency: At least 5 of 7 days/Wk (IRF) Estimated Hrs Per Day: 1.5 hours per day Agreement: Yes Rehab Potential: Good OT Short Term Goals Short Term Goals Time Frame: Jul 09, 2018 Grooming(FIM): 5 Upper Body Dressing(FIM): 5 Lower Body Dressing(FIM): 3 Toileting(FIM): 3 Toilet/Commode Transfer(FIM): 3 Comprehension(FIM): 7 Expression(FIM): 4 Social Interaction(FIM): 7 Problem Solving(FIM): 7 Memory(FIM): 7 Additional Short Term Goals: 1-Demonstrate ADL Tasks, 2-Verbalize Understanding , 3-ImproveStrength/Lizet 1=Demonstrate adherence to instructed precautions during ADL tasks. 2=Patient will verbalize/demonstrate understanding of assistive devices/ modifications for ADL. 3=Patient will improve strength/tolerance for activity to enable patient to perform ADL's. OT Marker Delivery Goals Marker Delivery Goals Time Frame: Jul 23, 2018 Eating (FIM): 6 Grooming(FIM): 6 Bathing(FIM): 5 Upper Body Dressing(FIM): 5 Lower Body Dressing(FIM): 5 Toileting(FIM): 6 Toilet/Commode Transfer(FIM): 6 Shower Transfer(FIM): 5 Comprehension(FIM): 7 Expression (FIM): 6 Social Interaction(FIM): 7 Problem Solving(FIM): 7 Memory(FIM): 7 Additional Goals: 1-Demonstrate ADL Tasks, 2-Verbalize Understanding, 3- ImproveStrength/Lizet 1=Demonstrate adherence to instructed precautions during ADL tasks. 2=Patient will verbalize/demonstrate understanding of assistive devices/ modifications for ADL. 3=Patient will improve strength/tolerance for activity to enable patient to perform ADL's. ELIZABETH HUDSON OT Jul 22, 2018 08:39
--- NOTE | 2018-07-22 12:12 | Physical Therapy Daily Note ---
PT Daily Note-Current Subjective Pt laying Supine in bed upon arrival. Pt agrees to PT. Pain Location: No Pain Reported Mental Status Patient Orientation: Person, Place, Time, Situation Transfers Functional [place] Measure 0=Not Assessed/NA 4=Minimal Assistance 1=Total Assistance 5=Supervision or Setup 2=Maximal Assistance 6=Modified [place] 3=Moderate Assistance 7=Complete IndependenceIRFPAI Quality Coding Scale 6 Independent with activity with or without an assistive device 5 Patient requires set up or clean up by helper. Patient completes activity by themselves 4 Supervision or touching assist ([facility]). [place] provide cues , steadying assist 3 The helper provides less than half the effort to complete the activity 2 The helper provides more than half the effort to complete the activity 1 Dependent. The helper does all the effort to complete an activity 7 Patient refused to complete or attempt activity 9 The patient did not perform the activity before the current illness or injury 88 Not attempted due to Medical conditions or safety concerns Scootin Rollin Roll Left to Right (QC): 5 Supine to/from Sit: 5 Sit to/from Stand: 5 Sit to Lying (QC): 5 Sit to Stand (QC): 5 Weight Bearing Right Lower Extremity: Right Full Weight Bearing Left Lower Extremity: Left Full Weight Bearing Gait Training Does the Patient Walk?: Yes Distance (FIM): 3=150 ft Distance: 150' Walk 10 feet (QC): 5 Walk 50 ft with 2 Turns(QC): 5 Walk 150 ft (QC): 5 Gait Level of Assist: 5 Gait Assistive Device: FWW Pt has slow luca, slight kyphotic posture and will shuffle R foot forward when tired while ambulating. Wheelchair Training Does the Pt Use a Wheelchair?: No Stair Training Stair Training: Handrails/: 2 handrails #of Steps: 4 1 Step (curb) (QC): 4 4 Steps (QC): 4 Stairs: Pattern: Step to Level of Assist: 4 Exercises Seated Therapy Exercises: Ankle pumps, Hip flexion, Kicking activity NuStep Minutes: 15 NuStep Workload: 4 Treatments Pt ambulates using FWW at [facility]. Pt transfers using FWW at A. Pt completes 1 set of stairs, uses NuStep for 15m at [facility] 4 followed by Seated Ex. Pt returns to room to rest Supine in bed at do tx with all needs met. Assessment Current Status: Good Progress Pt continues to improve with transfers and mobility although will fatigue. PT Short Term Goals Short Term Goals Time Frame: Jul 16, 2018 Gait (FIM): 4 Distance (FIM): 3=150 ft Gait Assistive Device: FWW Wheelchair Distance: 150' PT Manager Safe Goals Manager Safe Goals PT Manager Safe Goals Time Frame: Jul 30, 2018 Transfers (B,C,W/C) (FIM): 6 Sit to Lying (QC): 6 Lying-Sitting on Side/Bed(QC): 6 Sit to Stand (QC): 6 Rollin Roll Left to Right (QC): 6 Chair/Xaf-ax-Ottxf Xfer(QC): 6 Car Transfer (QC): 6 Gait (FIM): 6 Gait distance (FIM): 3=150 ft Walk 10 feet (QC): 6 Walk 10ft-Uneven Surface(QC): 6 Walk 50ft with 2 Turns (QC): 6 Walk 150 ft (QC): 6 Gait Assistive Device: FWW Stairs (FIM): 5 # of Steps: 4 (household exception) 1 Step (curb) (QC): 6 4 Steps (QC): 6 12 Steps (QC): 88 Stairs Level Of Assist: 6 Picking up an Object (QC): 4 PT Plan Problem List Problem List: Activity Tolerance, Functional Strength, Gait Treatment/Plan Treatment Plan: Continue Plan of Care Treatment Plan: Bed Mobility, Education, Functional Activity Lizet, Functional Strength, Group Therapy, Gait, Safety, Therapeutic Exercise, Transfers Treatment Duration: Jul 30, 2018 Frequency: At least 5 of 7 days/Wk (IRF) Estimated Hrs Per Day: 1.5 hours per day Patient and/or Family Agrees t: Yes Safety Risks/Education Patient Education: Gait Training, Transfer Techniques, Correct Positioning, Safety Issues Teaching Recipient: Patient Teaching Methods: Discussion Response to Teaching: Verbalize Understanding Time/GCodes Time In: 800 Time Out: 900 Total Billed Treatment Time: 60 Total Billed Treatment 1, GT (15m), EX x2 (30m) & FA (15m) G Codes Necessary: KISHOR Kaur NURSE TECHNICIAN Jul 22, 2018 12:12
--- NOTE | 2018-07-22 13:07 | Occupational Ther Daily Note ---
OT Current Status-Daily Note Subjective Pt alert, lying in bed. No c/o pain. Pt agrees to therapy. Mental Status/Objective Patient Orientation: Person, Place, Time, Situation Functional [place] Measure 0=Not Assessed/NA 4=Minimal Assistance 1=Total Assistance 5=Supervision or Setup 2=Maximal Assistance 6=Modified [place] 3=Moderate Assistance 7=Complete [place] ADL-Treatment Functional [place] Measure 0=Not Assessed/NA 4=Minimal Assistance 1=Total Assistance 5=Supervision or Setup 2=Maximal Assistance 6=Modified [place] 3=Moderate Assistance 7=Complete IndependenceIRFPAI Quality Coding Scale 6 Independent with activity with or without an assistive device 5 Patient requires set up or clean up by helper. Patient completes activity by themselves 4 Supervision or touching assist (CGA). [place] provide cues , steadying assist 3 The helper provides less than half the effort to complete the activity 2 The helper provides more than half the effort to complete the activity 1 Dependent. The helper does all the effort to complete an activity 7 Patient refused to complete or attempt activity 9 The patient did not perform the activity before the current illness or injury 88 Not attempted due to Medical conditions or safety concerns Toileting (FIM): 5 (SBA, pt able to complete using FWW, BSC, and grabbars for stability. ) Toileting Hygiene (QC): 4 Transfers (B, C, W/C) (FIM): 5 (SBA, pt able to complete using FWW and arm rails. ) Toilet/Commode Transfer (FIM): 5 (SBA, pt able to complete using FWW , BSC, and grabbars for stability. ) Toilet Transfer (QC): 4 Other Treatment Pt ambulated using FWW to therapy gym needing no rest breaks. Pt increased core strength and balance completing activities in dynamic standing for functional tasks. Pt remained in therapy gym, continuing therapy with PT after OT session. OT Short Term Goals Short Term Goals Time Frame: Jul 09, 2018 Grooming(FIM): 5 Upper Body Dressing(FIM): 5 Lower Body Dressing(FIM): 3 Toileting(FIM): 3 Toilet/Commode Transfer(FIM): 3 Comprehension(FIM): 7 Expression(FIM): 4 Social Interaction(FIM): 7 Problem Solving(FIM): 7 Memory(FIM): 7 Additional Short Term Goals: 1-Demonstrate ADL Tasks, 2-Verbalize Understanding , 3-ImproveStrength/Lizet 1=Demonstrate adherence to instructed precautions during ADL tasks. 2=Patient will verbalize/demonstrate understanding of assistive devices/ modifications for ADL. 3=Patient will improve strength/tolerance for activity to enable patient to perform ADL's. OT Medical Review Coordinator Goals Fdc Goals Time Frame: Jul 23, 2018 Eating (FIM): 6 Eating (QC): 6 Groomin Oral Hygiene (QC): 6 Bathing(FIM): 5 Shower/Bathe Self (QC): 5 Upper Body Dressing(FIM): 5 Upper Body Dressing (QC): 5 Lower Body Dressing(FIM): 5 Lower Body Dressing (QC): 5 On/Off Footwear (QC): 5 Toileting(FIM): 6 Toileting Hygiene (QC): 6 Toilet/Commode Transfer(FIM): 6 Toilet/Commode Transfer (QC): 6 Shower Transfer(FIM): 5 Comprehension(FIM): 7 Expression (FIM): 6 Social Interaction(FIM): 7 Problem Solving(FIM): 7 Memory(FIM): 7 Additional Goals: 1-Demonstrate ADL Tasks, 2-Verbalize Understanding, 3- ImproveStrength/Lizet 1=Demonstrate adherence to instructed precautions during ADL tasks. 2=Patient will verbalize/demonstrate understanding of assistive devices/ modifications for ADL. 3=Patient will improve strength/tolerance for activity to enable patient to perform ADL's. OT Education/Plan Discharge Recommendations Plan/Recommendations: Continue POC Treatment Plan/Plan of Care Patient would benefit from OT for education, treatment and training to promote independence in ADL's, mobility, safety and/or upper extremity function for ADL' s. Plan of Care: ADL Retraining, Functional Mobility, Group Exercise/Act as Ind ( education, exercise, activity tolerance, communication, functional activities, functional mobility), UE Funct Exercise/Act, UE Neuromus Re-Ed/Coord, Visual/ Perceptual Retrain (if needed) Treatment Duration: Jul 23, 2018 Frequency: At least 5 of 7 days/Wk (IRF) Estimated Hrs Per Day: 1.5 hours per day Agreement: Yes Rehab Potential: Good Time/GCodes Start Time: 12:27 Stop Time: 12:57 Total Time Billed (hr/min): 30 Billed Treatment Time 1 visit- NM 2 (30 min) DAVID CRUZ Jul 22, 2018 13:07
--- NOTE | 2018-07-22 16:07 | Physical Therapy Daily Note ---
PT Daily Note-Current Subjective Pt just finishing w/OT in Therapy Gym upon arrival. Pt agrees to PT. Pain Location: No Pain Reported Mental Status Patient Orientation: Person, Place, Time, Situation Transfers Functional [place] Measure 0=Not Assessed/NA 4=Minimal Assistance 1=Total Assistance 5=Supervision or Setup 2=Maximal Assistance 6=Modified [place] 3=Moderate Assistance 7=Complete IndependenceIRFPAI Quality Coding Scale 6 Independent with activity with or without an assistive device 5 Patient requires set up or clean up by helper. Patient completes activity by themselves 4 Supervision or touching assist (CGA). [place] provide cues , steadying assist 3 The helper provides less than half the effort to complete the activity 2 The helper provides more than half the effort to complete the activity 1 Dependent. The helper does all the effort to complete an activity 7 Patient refused to complete or attempt activity 9 The patient did not perform the activity before the current illness or injury 88 Not attempted due to Medical conditions or safety concerns Scootin Sit to/from Stand: 5 Weight Bearing Right Lower Extremity: Right Full Weight Bearing Left Lower Extremity: Left Full Weight Bearing Gait Training Does the Patient Walk?: Yes Distance (FIM): 3=150 ft Distance: 150' Walk 10 feet (QC): 5 Walk 50 ft with 2 Turns(QC): 5 Walk 150 ft (QC): 5 Gait Level of Assist: 5 Gait Assistive Device: FWW As pt fatigues, R foot shuffles more instead of lifting to advance. Wheelchair Training Does the Pt Use a Wheelchair?: No Exercises Standing: Hamstring curls, Heel/toe raises, Marching, Mini squats, Weight shifts Treatments Pt completes Standing EX at //bars with a couple of rest breaks. Pt ambulates back to room to rest Supine in bed. Pt has all needs met. Assessment Current Status: Good Progress Pt is improving with strength and balance. PT Short Term Goals Short Term Goals Time Frame: Jul 16, 2018 Gait (FIM): 4 Distance (FIM): 3=150 ft Gait Assistive Device: FWW Wheelchair Distance: 150' PT Mcc Goals Mcc Goals PT Food Assembler Goals Time Frame: Jul 30, 2018 Transfers (B,C,W/C) (FIM): 6 Sit to Lying (QC): 6 Lying-Sitting on Side/Bed(QC): 6 Sit to Stand (QC): 6 Rollin Roll Left to Right (QC): 6 Chair/Emv-zt-Ymufa Xfer(QC): 6 Car Transfer (QC): 6 Gait (FIM): 6 Gait distance (FIM): 3=150 ft Walk 10 feet (QC): 6 Walk 10ft-Uneven Surface(QC): 6 Walk 50ft with 2 Turns (QC): 6 Walk 150 ft (QC): 6 Gait Assistive Device: FWW Stairs (FIM): 5 # of Steps: 4 (household exception) 1 Step (curb) (QC): 6 4 Steps (QC): 6 12 Steps (QC): 88 Stairs Level Of Assist: 6 Picking up an Object (QC): 4 PT Plan Problem List Problem List: Activity Tolerance, Functional Strength, Safety, Gait Treatment/Plan Treatment Plan: Continue Plan of Care Treatment Plan: Bed Mobility, Education, Functional Activity Lizet, Functional Strength, Group Therapy, Gait, Safety, Therapeutic Exercise, Transfers Treatment Duration: Jul 30, 2018 Frequency: At least 5 of 7 days/Wk (IRF) Estimated Hrs Per Day: 1.5 hours per day Patient and/or Family Agrees t: Yes Safety Risks/Education Patient Education: Gait Training, Transfer Techniques, Correct Positioning, Safety Issues Teaching Recipient: Patient Teaching Methods: Discussion Response to Teaching: Verbalize Understanding Time/GCodes Time In: 1300 Time Out: 1330 Total Billed Treatment 1, GT (10m) & EX (20m) G Codes Necessary: KISHOR Kaur LOADER MAGAZINE GRINDER Jul 22, 2018 16:07
[2018-07-22 16:29] VITALS: BP 117/69
[2018-07-22] MEDS: ATORVASTATIN 10 MG (LIPITOR) TABLET PO SCH (20:54)
[2018-07-23 05:03] VITALS: BP 123/70
[2018-07-23] MEDS: LEVOTHYROXINE 50 MCG (LEVOTHROID) TAB PO SCH (05:49)
--- NOTE | 2018-07-23 07:20 | PM & R (SOAP) Progress Note ---
Subjective This was a face to face visit with the patient. Date Seen by Provider: Jul 23, 2018 Time Seen by Provider: 06:50 Subjective/Events-last exam Patient was seen in her room this AM Patient SBA for transfers,Discharge set for Thursday07-26-18.Patient family will help out upon discharge Current meds reviewed Objective Physician Exam Last Set of Vital Signs Vital Signs Date Time Temp Pulse Resp B/P (MAP) Pulse Ox O2 Delivery O2 Flow Rate FiO2 07/23/18 05:03 97.4 51 16 123/70 (87) 96 Room Air Capillary Refill : I&O Intake and Output 07/23/18 00:00 Intake Total 440 ml Balance 440 ml Intake Oral 440 ml # Voids 5 # Bowel Movements 1 General: Alert, Oriented X3, Cooperative, No Acute Distress HEENT: Atraumatic, PERRLA, EOMI, Mucous Memb Moist/[place] Neck: Supple, No JVD Lungs: Clear to Auscultation Heart: Regular Rate Abdomen: Normal Bowel Sounds, Soft, No Tenderness Extremities: No Edema Neuro: Other (RT HP gait imbalance poor standing balance) Assessment/Plan Assessment and Plan Left pontine stroke with RT HP improved PAF on Eliquis Hypercalcemia Autoimmune hepatitis on meds Constipation treated Plan Continue PT/OT ST has signed off F/U with PCP Discharge remains tentatively set for Thursday07-26-18 Co-Morbidities that are continuing to impact the rehab process: (include details ) RATNA COULTER MD Jul 23, 2018 07:20
[2018-07-23] MEDS ORDERED: ATOR10TA66 PO (07:22)
[2018-07-23] MEDS: meTOprolol TARTRATE 50 MG (LOPRESSOR) TAB PO SCH (08:02)
[2018-07-23] MEDS: APIXABAN 5 MG (ELIQUIS) TABLET PO SCH ×2 (08:02→20:26)
[2018-07-23] MEDS: SENNA W/DOCUSATE (SENOKOT S) TABLET PO SCH ×2 (08:02→20:27)
[2018-07-23] MEDS: VITAMIN E 400 INTLU CAP PO SCH (08:02)
[2018-07-23] MEDS: POLYETHYLENE GLYCOL 17 GM (MIRALAX) PACK PO SCH ×2 (08:02→20:27)
[2018-07-23] MEDS: azaTHIOprine (IMURAN) 50 MG TAB PO SCH (08:03)
[2018-07-23] MEDS: ENALAPRIL 5 MG (VASOTEC) TAB PO SCH (08:03)
--- NOTE | 2018-07-23 10:54 | Physical Therapy Daily Note ---
PT Daily Note-Current Subjective Pt. states she is tired today. States she is palnning DC to home and would like HC assistance as well as Med Alert system at DC Pain Numeric Pain Scale: 0-No Pain Mental Status Patient Orientation: Normal For Age Transfers Functional [place] Measure 0=Not Assessed/NA 4=Minimal Assistance 1=Total Assistance 5=Supervision or Setup 2=Maximal Assistance 6=Modified [place] 3=Moderate Assistance 7=Complete IndependenceIRFPAI Quality Coding Scale 6 Independent with activity with or without an assistive device 5 Patient requires set up or clean up by helper. Patient completes activity by themselves 4 Supervision or touching assist (CGA). [place] provide cues , steadying assist 3 The helper provides less than half the effort to complete the activity 2 The helper provides more than half the effort to complete the activity 1 Dependent. The helper does all the effort to complete an activity 7 Patient refused to complete or attempt activity 9 The patient did not perform the activity before the current illness or injury 88 Not attempted due to Medical conditions or safety concerns Transfers (B, C, W/C) (FIM): 6 Scootin Rollin Supine to/from Sit: 6 Sit to/from Stand: 6 car TRF with SBA and instruction, all other TRFs also require time and occas instructions Weight Bearing Right Lower Extremity: Right Full Weight Bearing Left Lower Extremity: Left Full Weight Bearing Gait Training Does the Patient Walk?: Yes Gait (FIM): 5 Distance (FIM): 3=150 ft (x3) Gait Level of Assist: 5 Gait Persons Needed: 1 Gait Assistive Device: FWW some instruction this date for gazing up occas etc, alignment Stair Training Stair Training: Handrails/: 2 handrails Stairs (FIM): 2 #of Steps: 4 Stairs: Pattern: Step to Level of Assist: 4 Exercises Supine Ex: Bridging, Ankle pumps (HC stretch right), Quad Set, Rolling, Glut sets, Heel Slides, Short Arc Quads, Scooting, Straight leg raise, Hip abd/add Supine Reps: 15 Seated Therapy Exercises: Long arc quads, Hip flexion Seated Reps: 10 NuStep Minutes: 10 NuStep Workload: 3 Treatments toileting, managing cleaning and pants up down as well as standing at sink for hand washing all min assist Assessment Current Status: Good Progress slow, steady progress PT Short Term Goals Short Term Goals Time Frame: Jul 16, 2018 Gait (FIM): 4 Distance (FIM): 3=150 ft Gait Assistive Device: FWW Wheelchair Distance: 150' PT Heat And Frost Insulator Helper Goals Heat And Frost Insulator Helper Goals PT Heat And Frost Insulator Helper Goals Time Frame: Jul 30, 2018 Transfers (B,C,W/C) (FIM): 6 Sit to Lying (QC): 6 Lying-Sitting on Side/Bed(QC): 6 Sit to Stand (QC): 6 Rollin Roll Left to Right (QC): 6 Chair/Vht-tk-Tozqb Xfer(QC): 6 Car Transfer (QC): 6 Gait (FIM): 6 Gait distance (FIM): 3=150 ft Walk 10 feet (QC): 6 Walk 10ft-Uneven Surface(QC): 6 Walk 50ft with 2 Turns (QC): 6 Walk 150 ft (QC): 6 Gait Assistive Device: FWW Stairs (FIM): 5 # of Steps: 4 (household exception) 1 Step (curb) (QC): 6 4 Steps (QC): 6 12 Steps (QC): 88 Stairs Level Of Assist: 6 Picking up an Object (QC): 4 PT Plan Treatment/Plan Treatment Plan: Continue Plan of Care Treatment Plan: Bed Mobility, Education, Functional Activity Lizet, Functional Strength, Group Therapy, Gait, Safety, Therapeutic Exercise, Transfers Treatment Duration: Jul 30, 2018 Frequency: At least 5 of 7 days/Wk (IRF) Estimated Hrs Per Day: 1.5 hours per day Patient and/or Family Agrees t: Yes Safety Risks/Education Patient Education: Gait Training, Transfer Techniques, Steps, Correct Positioning, Disease Process, Safety Issues Teaching Recipient: Patient Teaching Methods: Demonstration, Discussion Response to Teaching: Verbalize Understanding, Return Demonstration, Reinforcement Needed Time/GCodes Time In: 910 Time Out: 1010 Total Billed Treatment Time: 60 Total Billed Treatment 1,GT15m,FA15m,EX30m G Codes Necessary: FRANTZ Kolb LIFTER DRIVER Jul 23, 2018 10:54
--- NOTE | 2018-07-23 12:43 | Progress Note-Hospitalist ---
Subjective HPI/CC On Admission Date Seen by Provider: Jul 23, 2018 Time Seen by Provider: 12:30 patient reports she feels she'll be ready for discharge on Thursday. She states that she does have a family member who is going to stay with her and she is looking nto getting some extra help with cooking and cleaning which was strongly advised. She is littledisappointed about her egree of progress She has however made significant progress in the balance department and is been independent in clothing herself is a big improvement from a week ago. Objective Exam Vital Signs Vital Signs Date Time Temp Pulse Resp B/P (MAP) Pulse Ox O2 Delivery O2 Flow Rate FiO2 07/23/18 05:03 97.4 51 16 123/70 (87) 96 Room Air Capillary Refill : General Appearance: No Apparent Distress, WD/WN Respiratory: Chest Non Tender, Lungs Clear, Normal Breath Sounds, No Accessory Muscle Use, No Respiratory Distress Cardiovascular: Regular Rate, Rhythm, No Edema, No Gallop, No JVD, No Murmur, Normal Peripheral Pulses Extremity: No Pedal Edema Results/Procedures Lab Patient resulted labs reviewed. Assessment/Plan Assessment and Plan Assess & Plan/Chief Complaint 1. 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 2. Paroxysmal atrial fibrillation patient remains in sinus rhythm continue ELIQUIS 3. Mild hypercalcemia on admission her persists with a level of 10.8 and an inappropriately elevated PTH in the 50s compatible with hyperparathyroidism. Hypercalcemia remains mild patient has had no problems with kidney stones and constipation is under control with no history of peptic ulcer disease or GI bleeding. We will obtain as an outpatient a bone density test to determine whether or not workup for parathyroidectomy is warranted versus conservative medical management considering age and current medical comorbidity. 4. Autoimmune hepatitis stable continue low-dose azathioprine. 5. Constipation resolved will discontinue lactulose continue MiraLAX and Senokot likely aggravated by hyperparathyroidism. 6. Tentative discharge Thursday continue physical therapy and likely home health services. Clinical Quality Measures DVT/VTE Risk/Contraindication: Risk Factor Score Per Nursin RFS Level Per Nursing on Admit: 3=High HENNA COLE MD Jul 23, 2018 12:43
--- NOTE | 2018-07-23 12:57 | Occupational Ther Daily Note ---
OT Current Status-Daily Note Subjective Pt alert, sitting in recliner. No c/o pain. Pt agrees to therapy. Mental Status/Objective Patient Orientation: Person, Place, Time, Situation Functional [place] Measure 0=Not Assessed/NA 4=Minimal Assistance 1=Total Assistance 5=Supervision or Setup 2=Maximal Assistance 6=Modified [place] 3=Moderate Assistance 7=Complete [place] ADL-Treatment Functional [place] Measure 0=Not Assessed/NA 4=Minimal Assistance 1=Total Assistance 5=Supervision or Setup 2=Maximal Assistance 6=Modified [place] 3=Moderate Assistance 7=Complete IndependenceIRFPAI Quality Coding Scale 6 Independent with activity with or without an assistive device 5 Patient requires set up or clean up by helper. Patient completes activity by themselves 4 Supervision or touching assist (CGA). [place] provide cues , steadying assist 3 The helper provides less than half the effort to complete the activity 2 The helper provides more than half the effort to complete the activity 1 Dependent. The helper does all the effort to complete an activity 7 Patient refused to complete or attempt activity 9 The patient did not perform the activity before the current illness or injury 88 Not attempted due to Medical conditions or safety concerns Grooming (FIM): 6 (Pt able to complete at w/c level. ) Oral Hygiene (QC): 6 Bathing (FIM): 6 (Pt able to complete using grabbars, shower chair, and hand held shower. Concerns for safety. ) Bathing Location: L Arm, R Arm, L Upper Leg, R Upper Leg, L Lower Leg ( including foot), R Lower Leg (including foot), Chest, Abdomen, Buttocks, Perineal Area Shower/Bathe Self (QC): 6 Upper Body (FIM): 6 (Pt retrieved clothing by self using FWW. Pt able to don/ doff clothing by self at sitting position. Concerns for safety. ) Upper Body Dressing (QC): 6 Lower Body Dressing (FIM): 6 (Pt able to complete by self at sitting position. Pt uses FWW and arm rails for stability while hiking pants over hips. ) Lower Body Dressing (QC): 6 On/Off Footwear (QC): 4 (Pt able to get R LE toes half into shoe, Min A getting shoe over heel due to edema. Pt able to don L LE by self using AE. ) Toileting (FIM): 6 (Pt able to complete by self using grabbars, BSC, and FWW for stability. Concerns for safety. ) Toileting Hygiene (QC): 6 Transfers (B, C, W/C) (FIM): 6 (Pt able to complete by self using FWW for stability. Concerns for safety. ) Toilet/Commode Transfer (FIM): 6 (Pt able to complete by self using BSC, grabbars, and FWW for stability while hiking pants over hips. ) Toilet Transfer (QC): 6 Shower Transfer(FIM): 6 (Pt completes by self using grabbars, shower chair, and FWW for stability. Concerns for safety. ) OT Short Term Goals Short Term Goals Time Frame: Jul 09, 2018 Grooming(FIM): 5 Upper Body Dressing(FIM): 5 Lower Body Dressing(FIM): 3 Toileting(FIM): 3 Toilet/Commode Transfer(FIM): 3 Comprehension(FIM): 7 Expression(FIM): 4 Social Interaction(FIM): 7 Problem Solving(FIM): 7 Memory(FIM): 7 Additional Short Term Goals: 1-Demonstrate ADL Tasks, 2-Verbalize Understanding , 3-ImproveStrength/[place] 1=Demonstrate adherence to instructed precautions during ADL tasks. 2=Patient will verbalize/demonstrate understanding of assistive devices/ modifications for ADL. 3=Patient will improve strength/tolerance for activity to enable patient to perform ADL's. OT Skilled Nursing Goals Skilled Nursing Goals Time Frame: Jul 23, 2018 Eating (FIM): 6 Eating (QC): 6 Groomin Oral Hygiene (QC): 6 Bathing(FIM): 5 Shower/Bathe Self (QC): 5 Upper Body Dressing(FIM): 5 Upper Body Dressing (QC): 5 Lower Body Dressing(FIM): 5 Lower Body Dressing (QC): 5 On/Off Footwear (QC): 5 Toileting(FIM): 6 Toileting Hygiene (QC): 6 Toilet/Commode Transfer(FIM): 6 Toilet/Commode Transfer (QC): 6 Shower Transfer(FIM): 5 Comprehension(FIM): 7 Expression (FIM): 6 Social Interaction(FIM): 7 Problem Solving(FIM): 7 Memory(FIM): 7 Additional Goals: 1-Demonstrate ADL Tasks, 2-Verbalize Understanding, 3- ImproveStrength/[place] 1=Demonstrate adherence to instructed precautions during ADL tasks. 2=Patient will verbalize/demonstrate understanding of assistive devices/ modifications for ADL. 3=Patient will improve strength/tolerance for activity to enable patient to perform ADL's. OT Education/Plan Discharge Recommendations Plan/Recommendations: Continue POC Treatment Plan/Plan of Care Patient would benefit from OT for education, treatment and training to promote independence in ADL's, mobility, safety and/or upper extremity function for ADL' s. Plan of Care: ADL Retraining, Functional Mobility, Group Exercise/Act as Ind ( education, exercise, activity tolerance, communication, functional activities, functional mobility), UE Funct Exercise/Act, UE Neuromus Re-Ed/Coord, Visual/ Perceptual Retrain (if needed) Treatment Duration: Jul 23, 2018 Frequency: At least 5 of 7 days/Wk (IRF) Estimated Hrs Per Day: 1.5 hours per day Agreement: Yes Rehab Potential: Good Time/GCodes Start Time: 11:00 Stop Time: 12:00 Total Time Billed (hr/min): 60 Billed Treatment Time 1 visit- ADL 4 (60 min) DAVID CRUZ Jul 23, 2018 12:57
--- NOTE | 2018-07-23 14:50 | Therapy Group Daily Note ---
Therapy Daily Group Note Patient Education Topic Other List Below (nutrition, neuropathy, oral care, rehab orientation) Exercises Fine Motor (hand to mouth) Other/Notes Pt ambulated with FWW to OT/PT group. Group consisted of introductions (name, place, worst food eaten), socialization, ARU description/expectation, education on nutrition/oral health/neuropathy and fine motor activity. Pt introduced self appropriately and actively listened to peers. Pt verbalized understanding about educational topics. Contributed to topics and discussions throughout group. Pt demonstrated good fine motor skills during activities during group. After group, pt up ambulated FWW SBA . All needs met. On toilet with jackson at hand Start Time: 13:00 Stop Time: 14:15 Total Billed Treatment Time: 75 Total Billed Treatment 1,GRP FRANTZ DILLARD IT SENIOR SOFTWARE ENGINEER JAVA Jul 23, 2018 14:50
[2018-07-23 17:02] VITALS: BP 126/76
[2018-07-23] MEDS: meTOprolol TARTRATE 25 MG (LOPRESSOR) TABLET PO SCH (20:26)
[2018-07-23] MEDS: ATORVASTATIN 10 MG (LIPITOR) TABLET PO SCH (20:26)
[2018-07-23] MEDS ORDERED: meTOprolol TARTRATE 50 MG (LOPRESSOR) TAB PO SCH (21:00)
[2018-07-24] MEDS: LEVOTHYROXINE 50 MCG (LEVOTHROID) TAB PO SCH (05:37)
[2018-07-24 06:12] VITALS: BP 125/76
--- NOTE | 2018-07-24 07:30 | PM & R (SOAP) Progress Note ---
Subjective This was a face to face visit with the patient. Date Seen by Provider: Jul 24, 2018 Time Seen by Provider: 06:55 Subjective/Events-last exam Patient was seen in her room this Am Patient SBA for transfers Patient set for discharge to home with family to help out this coming Thursday07-26-18 Objective Physician Exam Last Set of Vital Signs Vital Signs Date Time Temp Pulse Resp B/P (MAP) Pulse Ox O2 Delivery O2 Flow Rate FiO2 07/24/18 06:12 97.7 57 16 125/76 (92) 98 Room Air Capillary Refill : I&O Intake and Output 07/24/18 00:00 Intake Total 1050 ml Balance 1050 ml Intake Oral 1050 ml # Voids 5 General: Alert, Oriented X3, Cooperative, No Acute Distress HEENT: Atraumatic, PERRLA, EOMI, Mucous Memb Moist/[place] Neck: Supple, No JVD Lungs: Clear to Auscultation Heart: Regular Rate Abdomen: Normal Bowel Sounds, Soft, No Tenderness Extremities: No Edema Neuro: Other (RT HP gait imbalance poor standing balance) Assessment/Plan Assessment and Plan Left pontine cva with RT HP improving PAF on Eliquis Hypercalcemia Autoimmune hepatitis on meds Constipation treated Plan Continue PT/OT Discharge remains set for Thursday07-26-18 Current meds reviewed See Orders F/U with PCP Co-Morbidities that are continuing to impact the rehab process: (include details ) RATNA COULTER MD Jul 24, 2018 07:30
[2018-07-24 09:50] VITALS: BP 121/76
[2018-07-24] MEDS: meTOprolol TARTRATE 25 MG (LOPRESSOR) TABLET PO SCH ×2 (09:57→20:10)
[2018-07-24] MEDS: ENALAPRIL 5 MG (VASOTEC) TAB PO SCH (09:57)
[2018-07-24] MEDS: azaTHIOprine (IMURAN) 50 MG TAB PO SCH (09:57)
[2018-07-24] MEDS: APIXABAN 5 MG (ELIQUIS) TABLET PO SCH ×2 (09:57→20:09)
[2018-07-24] MEDS: VITAMIN E 400 INTLU CAP PO SCH (09:57)
[2018-07-24] MEDS: SENNA W/DOCUSATE (SENOKOT S) TABLET PO SCH ×2 (09:58→20:10)
[2018-07-24] MEDS: POLYETHYLENE GLYCOL 17 GM (MIRALAX) PACK PO SCH ×2 (09:58→20:10)
--- NOTE | 2018-07-24 10:50 | Physical Therapy Daily Note ---
PT Daily Note-Current Subjective Pt. states she is surprised to see therapy today. Agrees to Rx. Mental Status Patient Orientation: Normal For Age Transfers Functional [place] Measure 0=Not Assessed/NA 4=Minimal Assistance 1=Total Assistance 5=Supervision or Setup 2=Maximal Assistance 6=Modified [place] 3=Moderate Assistance 7=Complete IndependenceIRFPAI Quality Coding Scale 6 Independent with activity with or without an assistive device 5 Patient requires set up or clean up by helper. Patient completes activity by themselves 4 Supervision or touching assist (CGA). [place] provide cues , steadying assist 3 The helper provides less than half the effort to complete the activity 2 The helper provides more than half the effort to complete the activity 1 Dependent. The helper does all the effort to complete an activity 7 Patient refused to complete or attempt activity 9 The patient did not perform the activity before the current illness or injury 88 Not attempted due to Medical conditions or safety concerns Transfers (B, C, W/C) (FIM): 5 Scootin Rollin Supine to/from Sit: 5 Sit to/from Stand: 5 Weight Bearing Right Lower Extremity: Right Full Weight Bearing Left Lower Extremity: Left Full Weight Bearing Gait Training Does the Patient Walk?: Yes Gait (FIM): 5 Distance (FIM): 3=150 ft (200x2) Gait Level of Assist: 5 Gait Persons Needed: 1 Gait Assistive Device: FWW Exercises NuStep Minutes: 8 NuStep Workload: 3 Assessment Current Status: Good Progress PT Short Term Goals Short Term Goals Time Frame: Jul 16, 2018 Gait (FIM): 4 Distance (FIM): 3=150 ft Gait Assistive Device: FWW Wheelchair Distance: 150' PT Correction Goals Oncology Physician Goals PT Correction Goals Time Frame: Jul 30, 2018 Transfers (B,C,W/C) (FIM): 6 Sit to Lying (QC): 6 Lying-Sitting on Side/Bed(QC): 6 Sit to Stand (QC): 6 Rollin Roll Left to Right (QC): 6 Chair/Aqy-iw-Awgnv Xfer(QC): 6 Car Transfer (QC): 6 Gait (FIM): 6 Gait distance (FIM): 3=150 ft Walk 10 feet (QC): 6 Walk 10ft-Uneven Surface(QC): 6 Walk 50ft with 2 Turns (QC): 6 Walk 150 ft (QC): 6 Gait Assistive Device: FWW Stairs (FIM): 5 # of Steps: 4 (household exception) 1 Step (curb) (QC): 6 4 Steps (QC): 6 12 Steps (QC): 88 Stairs Level Of Assist: 6 Picking up an Object (QC): 4 PT Plan Treatment/Plan Treatment Plan: Continue Plan of Care Treatment Plan: Bed Mobility, Education, Functional Activity Lizet, Functional Strength, Group Therapy, Gait, Safety, Therapeutic Exercise, Transfers Treatment Duration: Jul 30, 2018 Frequency: At least 5 of 7 days/Wk (IRF) Estimated Hrs Per Day: 1.5 hours per day Patient and/or Family Agrees t: Yes Safety Risks/Education Patient Education: Gait Training, Transfer Techniques, Correct Positioning, Disease Process, Safety Issues Teaching Recipient: Patient Teaching Methods: Demonstration, Discussion Response to Teaching: Verbalize Understanding, Return Demonstration, Reinforcement Needed Time/GCodes Time In: 910 Time Out: 935 Total Billed Treatment Time: 25 Total Billed Treatment 1,FA15m,EX10m G Codes Necessary: FRANTZ Kolb DIRECTOR OF CLINICAL TRIALS Jul 24, 2018 10:50
[2018-07-24 18:06] VITALS: BP 130/78
[2018-07-24] MEDS: ATORVASTATIN 10 MG (LIPITOR) TABLET PO SCH (20:09)
[2018-07-25] MEDS: LEVOTHYROXINE 50 MCG (LEVOTHROID) TAB PO SCH (05:38)
[2018-07-25 06:00] VITALS: BP 124/73
[2018-07-25] MEDS: POLYETHYLENE GLYCOL 17 GM (MIRALAX) PACK PO SCH ×2 (08:47→22:00)
[2018-07-25] MEDS: SENNA W/DOCUSATE (SENOKOT S) TABLET PO SCH ×2 (08:47→22:00)
[2018-07-25] MEDS: APIXABAN 5 MG (ELIQUIS) TABLET PO SCH ×2 (08:47→20:55)
[2018-07-25] MEDS: ENALAPRIL 5 MG (VASOTEC) TAB PO SCH (08:47)
[2018-07-25] MEDS: azaTHIOprine (IMURAN) 50 MG TAB PO SCH (08:47)
[2018-07-25] MEDS: VITAMIN E 400 INTLU CAP PO SCH (08:47)
[2018-07-25] MEDS: meTOprolol TARTRATE 25 MG (LOPRESSOR) TABLET PO SCH ×2 (08:47→20:55)
[2018-07-25 17:56] VITALS: BP 124/70
[2018-07-25] MEDS: ATORVASTATIN 10 MG (LIPITOR) TABLET PO SCH (20:55)
[2018-07-26] MEDS: LEVOTHYROXINE 50 MCG (LEVOTHROID) TAB PO SCH (06:08)
[2018-07-26 06:21] VITALS: BP 122/68
[2018-07-26] MEDS: VITAMIN E 400 INTLU CAP PO SCH (08:08)
[2018-07-26] MEDS: meTOprolol TARTRATE 25 MG (LOPRESSOR) TABLET PO SCH (08:08)
[2018-07-26] MEDS: ENALAPRIL 5 MG (VASOTEC) TAB PO SCH (08:08)
[2018-07-26] MEDS: APIXABAN 5 MG (ELIQUIS) TABLET PO SCH (08:08)
[2018-07-26] MEDS: azaTHIOprine (IMURAN) 50 MG TAB PO SCH (08:08)
[2018-07-26] MEDS: SENNA W/DOCUSATE (SENOKOT S) TABLET PO SCH (08:09)
[2018-07-26] MEDS: POLYETHYLENE GLYCOL 17 GM (MIRALAX) PACK PO SCH (08:09)
[2018-07-26] MEDS ORDERED: METO-333 PO (08:31)
--- NOTE | 2018-07-26 08:54 | Progress Note-Hospitalist ---
Subjective HPI/CC On Admission Time Seen by Provider: 10:00 patient reports she feels she'll be ready for discharge on Thursday. She states that she does have a family member who is going to stay with her and she is looking nto getting some extra help with cooking and cleaning which was strongly advised. She is littledisappointed about her egree of progress She has however made significant progress in the balance department and is been independent in clothing herself is a big improvement from a week ago. Subjective/Events-last exam Patient reports that she is feeling better with goal of going home with home care services and family support. She denies dysphasia and has noted improvement in her balance. She denies any problems with headache. Objective Exam Vital Signs Vital Signs Date Time Temp Pulse Resp B/P (MAP) Pulse Ox O2 Delivery O2 Flow Rate FiO2 07/26/18 16:35 63 14 125/59 97 Room Air 07/26/18 15:31 96.3 Capillary Refill : General Appearance: No Apparent Distress Respiratory: Chest Non Tender, Lungs Clear, Normal Breath Sounds, No Accessory Muscle Use, No Respiratory Distress Cardiovascular: Regular Rate, Rhythm, No Edema, No Gallop, No JVD, No Murmur, Normal Peripheral Pulses Gastrointestinal: Normal Bowel Sounds, No Organomegaly, No Pulsatile Mass, Non Tender, Soft Neurologic/Psychiatric: Alert, Normal Mood/Affect, glassware selector II-XII Norm as Tested, Other (Upper extremity motor control improving significantly patient still has some truncal ataxia and more significant dysmetria of the right lower extremity but it is improving.) Results/Procedures Lab Patient resulted labs reviewed. Assessment/Plan Assessment and Plan Assess & Plan/Chief Complaint 1. 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 2. Paroxysmal atrial fibrillation patient remains in sinus rhythm continue ELIQUIS 3. Mild hypercalcemia on admission her persists with a level of 10.8 and an inappropriately elevated PTH in the 50s compatible with hyperparathyroidism. Hypercalcemia remains mild patient has had no problems with kidney stones and constipation is under control with no history of peptic ulcer disease or GI bleeding. We will obtain as an outpatient a bone density test to determine whether or not workup for parathyroidectomy is warranted versus conservative medical management considering age and current medical comorbidity. 4. Autoimmune hepatitis stable continue low-dose azathioprine. 5. Constipation resolved will discontinue lactulose continue MiraLAX and Senokot likely aggravated by hyperparathyroidism. 6. Tentative discharge Thursday continue physical therapy and likely home health services. Clinical Quality Measures DVT/VTE Risk/Contraindication: Risk Factor Score Per Nursin RFS Level Per Nursing on Admit: 3=High HENNA COLE MD Jul 26, 2018 08:54
--- NOTE | 2018-07-26 09:52 | D/C HH Face to Face Order ---
D/C Face to Face Orders Instructions for Patient Patient Instructions/FollowUp: Dr. Lowe Physician to follow Patient: Dr. Lowe Discharge Diet for Home: Regular Diet Patient Data-Allergies,Ht & Wt Patient Allergies: Coded Allergies: Sulfa (Sulfonamide Antibiotics) (Unverified Allergy, Unknown, 08/31/14) aspirin (Unverified Allergy, Unknown, 08/31/14) Height (Feet): 5 Height (Inches): 4.00 Weight (Pounds): 165 Weight (Ounces): 12.8 Home Health Need/Face to Face Date of Face to Face: Jul 26, 2018 Clinical Findings: Generalized weakness and fatigue, Muscle weakness, Unsteady gait I have seen Pt [id number]: Yes Discharged To: Home Diagnosis/Conditions: CVA Patient is Homebound due to: Nisreen fall risk due to instabilty, Muscle weakness Homebound Status Due to the above stated illness, injury or surgical procedure (medical condition or diagnosis) and associated clinical findings, the patient is homebound because of his/her inability to leave home except with aid of a supportive device and/or person AND leaving the home requires a considerable and taxing effort or is medically contraindicated. Pt req the following assistanc: Walker Home Health Nursing Orders Home Health Services Order: Nursing Services, Mems Engineer-Evaluate & Treat, Physical Therapy-Evaluate & Treat RN for med management Home Health Infusion Therapy Line Type: [place] Site Location: Antecubital Therapy Orders Therapy Orders: OT (must have SN or PT order), Physical Therapy Therapy Specific Orders: Eval assistive deivces, Teach enviro modifications/ safety, Gait training, Increase strength/endurance Certify Stmt I certify that this patient is under my care and that I, a nurse practitioner or a physician; a executive personal assistant working with me, had a face to face encounter that - meets the physician face to face encounter requirements with this patient as dated. I personally scribed for RATNA COULTER MD (HELEN) on 07/26/18 at 09:52. Electronically submitted by Torie Hanna ([id number]). I personally scribed for RATNA COULTER MD (HELEN) on 07/26/18 at 13:29. Electronically submitted by Torie Hanna ([id number]). RATNA COULTER MD Jul 26, 2018 09:52
--- NOTE | 2018-07-26 10:25 | Physical Therapy Daily Note ---
PT Daily Note-Current Subjective Patient in recliner pre tx, agrees to PT, has no complaints of pain. Patient is leaving today and needs FIM measurements. Appearance Patient in recliner post tx with nurse call, phone, tray, all needs met. Mental Status Patient Orientation: Person, Place, Situation Transfers Functional [place] Measure 0=Not Assessed/NA 4=Minimal Assistance 1=Total Assistance 5=Supervision or Setup 2=Maximal Assistance 6=Modified [place] 3=Moderate Assistance 7=Complete IndependenceIRFPAI Quality Coding Scale 6 Independent with activity with or without an assistive device 5 Patient requires set up or clean up by helper. Patient completes activity by themselves 4 Supervision or touching assist (CGA). [place] provide cues , steadying assist 3 The helper provides less than half the effort to complete the activity 2 The helper provides more than half the effort to complete the activity 1 Dependent. The helper does all the effort to complete an activity 7 Patient refused to complete or attempt activity 9 The patient did not perform the activity before the current illness or injury 88 Not attempted due to Medical conditions or safety concerns Transfers (B, C, W/C) (FIM): 6 Scootin Rollin Roll Left to Right (QC): 6 Supine to/from Sit: 6 Sit to/from Stand: 6 Sit to Lying (QC): 6 Sit to Stand (QC): 6 Chair/Gzc-ui-Znmgw Xfer(QC): 6 Bed to/from Chair: 6 Car Transfer (QC): 3 Patient performs bed mobility and sit <-> stand and stand pivot transfers with mod I, car transfer with min assist. Patient needs assist getting right leg into and out of the car transfer machine. Weight Bearing Right Lower Extremity: Right Full Weight Bearing Left Lower Extremity: Left Full Weight Bearing Gait Training Gait (FIM): 5 Distance: 150'x2 Walk 10 feet (QC): 4 Walk 50 ft with 2 Turns(QC): 4 Walk 150 ft (QC): 4 Walking 10ft/uneven surface-QC: 4 Gait Level of Assist: 5 Gait Persons Needed: 1 Gait Assistive Device: FWW Patient can ambulate 150' with a rolling walker with SBA, including 50' with at least 2 turns of 90 degrees and 10' over an uneven surface. Patient has increased extensor tone in right leg and no heel strike. Wheelchair Training Does the Pt Use a Wheelchair?: No Stair Training Stair Training: Handrails/: 2 handrails Stairs (FIM): 2 #of Steps: 4 1 Step (curb) (QC): 4 4 Steps (QC): 4 Stairs: Pattern: Step to Level of Assist: 4 Patient can go up and down 4 steps using 2 handrails with CGA. Cues for safety and foot placement. Treatments bed mobility and transfers, ambulation, stair training Assessment Current Status: Fair Progress improved overall functional mobility PT Short Term Goals Short Term Goals Time Frame: Jul 16, 2018 Gait (FIM): 4 Distance (FIM): 3=150 ft Gait Assistive Device: FWW Wheelchair Distance: 150' PT Grapple Skidder Operator Goals Grapple Skidder Operator Goals PT Care Home Goals Time Frame: Jul 30, 2018 Transfers (B,C,W/C) (FIM): 6 (met) Sit to Lying (QC): 6 (met) Lying-Sitting on Side/Bed(QC): 6 (met) Sit to Stand (QC): 6 (met) Rollin (met) Roll Left to Right (QC): 6 (met) Chair/Xrs-nm-Tmyji Xfer(QC): 6 (met) Car Transfer (QC): 6 Gait (FIM): 6 Gait distance (FIM): 3=150 ft Walk 10 feet (QC): 6 Walk 10ft-Uneven Surface(QC): 6 Walk 50ft with 2 Turns (QC): 6 Walk 150 ft (QC): 6 Gait Assistive Device: FWW Stairs (FIM): 5 # of Steps: 4 (household exception) 1 Step (curb) (QC): 6 4 Steps (QC): 6 12 Steps (QC): 88 Stairs Level Of Assist: 6 Picking up an Object (QC): 4 PT Plan Problem List Problem List: Activity Tolerance, Functional Strength, Safety, Balance, Gait, Transfer, Bed Mobility, ROM Treatment/Plan Treatment Plan: Continue Plan of Care Treatment Plan: Bed Mobility, Education, Functional Activity Lizet, Functional Strength, Group Therapy, Gait, Safety, Therapeutic Exercise, Transfers Treatment Duration: Jul 30, 2018 Frequency: At least 5 of 7 days/Wk (IRF) Estimated Hrs Per Day: 1.5 hours per day Patient and/or Family Agrees t: Yes Safety Risks/Education Patient Education: Gait Training, Transfer Techniques, Steps, Correct Positioning, Safety Issues Teaching Recipient: Patient Teaching Methods: Demonstration, Discussion Response to Teaching: Reinforcement Needed Time/GCodes Time In: 1000 Time Out: 1030 Total Billed Treatment Time: 30 Total Billed Treatment 1 visit GT 20' FA 10' NEDRA SHOOK PT Jul 26, 2018 10:25
--- NOTE | 2018-07-26 10:32 | Therapy Team Discharge Summary ---
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 Upon evaluation patient performed bed mobility and transfers with min to mod assist, car transfer with min assist, ambulated 50' with a rolling walker with CGA (including 50' with at least 2 turns of 90 degrees and 10' over an uneven surface), and can go up and down 1 step using a rolling walker with mod assist. Patient has been performing bed mobility and transfer training, balance and endurance training, functional strengthening, stair training, gait training, and education. Patient has made fair progress but has only met her alf goals for bed mobility and transfers. Now, patient performs bed mobility and transfers with mod I, car transfer min assist, ambulates 150' with a rolling walker with SBA (including 50' with at least 2 turns of 90 degrees and 10' over an uneven surface), and can go up and down 4 steps using 2 handrails with CGA. Patient is being discharged from this facility today and will be discharged from PT at this time. Occupational Therapy Decreased Activ Tolerance, Decreased UE Strength, Dependent Transfers, Impaired Coordination, Impaired Funct Balance, Impaired Self-Care Skills, Restricted Funct UE ROM, Visual-Perceptual Deficit PT Direct Casting Operator Goals Residential Goals PT Residential Goals Time Frame: Jul 30, 2018 Transfers (B,C,W/C) (FIM): 6 (met) Roll Left to Right (QC): 6 (met) Sit to Lying (QC): 6 (met) Lying-Sitting on Side/Bed(QC): 6 (met) Sit to Stand (QC): 6 (met) Chair/Kjo-li-Mqssd Xfer(QC): 6 (met) Car Transfer (QC): 6 Gait (FIM): 6 Gait distance (FIM): 3=150 ft Walk 10 feet (QC): 6 Walk 10ft-Uneven Surface(QC): 6 Walk 50ft with 2 Turns (QC): 6 Walk 150 ft (QC): 6 Gait Assistive Device: FWW Stairs (FIM): 5 # of Steps: 4 (household exception) 1 Step (curb) (QC): 6 4 Steps (QC): 6 12 Steps (QC): 88 Stairs Level Of Assist: 6 Picking up an Object (QC): 4 OT Direct Casting Operator Goals Direct Casting Operator Goals Time Frame: Jul 23, 2018 Eating (FIM): 6 Eating (QC): 6 Oral Hygiene (QC): 6 Grooming(FIM): 6 Bathing(FIM): 5 Shower/Bathe Self (QC): 5 Upper Body Dressing(FIM): 5 Upper Body Dressing (QC): 5 Lower Body Dressing(FIM): 5 Lower Body Dressing (QC): 5 On/Off Footwear (QC): 5 Toileting(FIM): 6 Toileting Hygiene (QC): 6 Toilet/Commode Transfer(FIM): 6 Toilet/Commode Transfer (QC): 6 Shower Transfer(FIM): 5 Comprehension(FIM): 7 Expression (FIM): 6 Social Interaction(FIM): 7 Problem Solving(FIM): 7 Memory(FIM): 7 Additional Goals: 1-Demonstrate ADL Tasks, 2-Verbalize Understanding, 3- ImproveStrength/Lizet 1=Demonstrate adherence to instructed precautions during ADL tasks. 2=Patient will verbalize/demonstrate understanding of assistive devices/ modifications for ADL. 3=Patient will improve strength/tolerance for activity to enable patient to perform ADL's. Speech Residential Goals Direct Casting Operator Goals Pt will be independent with Oral motor exercises Pt's verbal expressive speech will be at least 95% accurate with or without the use compensatory strategies. Goal met 07/16/2018. Time Frame: 2-3 weeks Comprehension: 7 Expression: 6 Social Interaction: 7 Problem Solvin Memory: 7 NEDRA SHOOK PT Jul 26, 2018 10:32
--- NOTE | 2018-07-26 10:32 | Occupational Ther Daily Note ---
OT Current Status-Daily Note Subjective Pt alert, lying in bed finishing breakfast. No c/o pain. Pt agrees to therapy. Mental Status/Objective Patient Orientation: Person, Place, Time, Situation Functional [place] Measure 0=Not Assessed/NA 4=Minimal Assistance 1=Total Assistance 5=Supervision or Setup 2=Maximal Assistance 6=Modified [place] 3=Moderate Assistance 7=Complete [place] ADL-Treatment Functional [place] Measure 0=Not Assessed/NA 4=Minimal Assistance 1=Total Assistance 5=Supervision or Setup 2=Maximal Assistance 6=Modified [place] 3=Moderate Assistance 7=Complete IndependenceIRFPAI Quality Coding Scale 6 Independent with activity with or without an assistive device 5 Patient requires set up or clean up by helper. Patient completes activity by themselves 4 Supervision or touching assist (CGA). [place] provide cues , steadying assist 3 The helper provides less than half the effort to complete the activity 2 The helper provides more than half the effort to complete the activity 1 Dependent. The helper does all the effort to complete an activity 7 Patient refused to complete or attempt activity 9 The patient did not perform the activity before the current illness or injury 88 Not attempted due to Medical conditions or safety concerns Eating (FIM): 6 (Pt has partial dentures. Pt able to manipulate packaging ans uses normal utensils. ) Eating (QC): 6 Grooming (FIM): 6 (Pt able to complete by self at sitting position in front of sink. ) Oral Hygiene (QC): 6 Bathing (FIM): 6 (Pt completes by self using hand held shower, shower chair, and grabbars for stability. Concerns for safety. ) Bathing Location: L Arm, R Arm, L Upper Leg, R Upper Leg, L Lower Leg ( including foot), R Lower Leg (including foot), Chest, Abdomen, Buttocks, Perineal Area Shower/Bathe Self (QC): 6 Upper Body (FIM): 6 (Pt able to complete by self at sitting position. ) Upper Body Dressing (QC): 6 Lower Body Dressing (FIM): 6 (Pt able to complete at sitting position, using FWW for stability to hike pants over hips. Concern for safety. ) Lower Body Dressing (QC): 6 On/Off Footwear (QC): 4 (Pt able to get R LE toes into shoe, Assist with pulling shoes over heel due to edema. Pt able to don L LE by self using AE. Pt has demonstrated ability to complete task during prior OT sessions. ) Toileting (FIM): 6 (Pt able to complete using grabbars, BSC, and FWW for stability. ) Toileting Hygiene (QC): 6 Transfers (B, C, W/C) (FIM): 6 (Pt able to go from supine to EOB. Pt completes by self using FWW for stability. Concern for safety. ) Toilet/Commode Transfer (FIM): 6 (Pt able to complete by self using BSC, FWW and grabbars for stability. Concerns for safety. ) Toilet Transfer (QC): 6 Shower Transfer(FIM): 6 (Pt completes using w/c, grabbars and shower chair for stability. ) After therapy, pt sitting in recliner with call light/phone within reach. All needs met in room. OT Short Term Goals Short Term Goals Time Frame: Jul 09, 2018 Grooming(FIM): 5 Upper Body Dressing(FIM): 5 Lower Body Dressing(FIM): 3 Toileting(FIM): 3 Toilet/Commode Transfer(FIM): 3 Comprehension(FIM): 7 Expression(FIM): 4 Social Interaction(FIM): 7 Problem Solving(FIM): 7 Memory(FIM): 7 Additional Short Term Goals: 1-Demonstrate ADL Tasks, 2-Verbalize Understanding , 3-ImproveStrength/Lizet 1=Demonstrate adherence to instructed precautions during ADL tasks. 2=Patient will verbalize/demonstrate understanding of assistive devices/ modifications for ADL. 3=Patient will improve strength/tolerance for activity to enable patient to perform ADL's. OT Shelter Goals Shelter Goals Time Frame: Jul 23, 2018 Eating (FIM): 6 (met) Eating (QC): 6 (met) Groomin (met) Oral Hygiene (QC): 6 (met) Bathing(FIM): 5 (met) Bathing Location: L Arm, R Arm, L Upper Leg, R Upper Leg, L Lower Leg ( including foot), R Lower Leg (including foot), Chest, Abdomen, Buttocks, Perineal Area Shower/Bathe Self (QC): 5 (met) Upper Body Dressing(FIM): 5 (met) Upper Body Dressing (QC): 5 (met) Lower Body Dressing(FIM): 5 (met) Lower Body Dressing (QC): 5 (met) On/Off Footwear (QC): 5 (not met) Toileting(FIM): 6 (met) Toileting Hygiene (QC): 6 (met) Transfers (B,C,W/C) (FIM): 6 (met) Toilet/Commode Transfer(FIM): 6 (met) Toilet/Commode Transfer (QC): 6 (met) Shower Transfer(FIM): 5 (met) Comprehension(FIM): 7 Expression (FIM): 6 Social Interaction(FIM): 7 Problem Solving(FIM): 7 Memory(FIM): 7 Additional Goals: 1-Demonstrate ADL Tasks, 2-Verbalize Understanding, 3- ImproveStrength/Lizet 1=Demonstrate adherence to instructed precautions during ADL tasks. 2=Patient will verbalize/demonstrate understanding of assistive devices/ modifications for ADL. 3=Patient will improve strength/tolerance for activity to enable patient to perform ADL's. OT Education/Plan Discharge Recommendations Plan/Recommendations: Discharge/Goals Met Treatment Plan/Plan of Care Patient would benefit from OT for education, treatment and training to promote independence in ADL's, mobility, safety and/or upper extremity function for ADL' s. Plan of Care: ADL Retraining, Functional Mobility, Group Exercise/Act as Ind ( education, exercise, activity tolerance, communication, functional activities, functional mobility), UE Funct Exercise/Act, UE Neuromus Re-Ed/Coord, Visual/ Perceptual Retrain (if needed) Treatment Duration: Jul 23, 2018 Frequency: At least 5 of 7 days/Wk (IRF) Estimated Hrs Per Day: 1.5 hours per day Agreement: Yes Rehab Potential: Good Time/GCodes Start Time: 06:55 Stop Time: 08:00 Total Time Billed (hr/min): 65 Billed Treatment Time 1 visit- ADL 4 (65 min) DAVID CRUZ Jul 26, 2018 10:32
[2018-07-26 15:31] VITALS: BP 125/59
[2018-07-26 16:35] VITALS: BP 125/59
--- NOTE | 2018-07-26 18:14 | PM & R (SOAP) Progress Note ---
Subjective This was a face to face visit with the patient. Date Seen by Provider: Jul 26, 2018 Time Seen by Provider: 16:00 Subjective/Events-last exam Patient discharged to home with family and HHC today.Case discussed with station mechanic apprentice meds adjusted to DR Greene new orders last week Blood pressure shows good control Objective Physician Exam Last Set of Vital Signs Vital Signs Date Time Temp Pulse Resp B/P (MAP) Pulse Ox O2 Delivery O2 Flow Rate FiO2 07/26/18 15:31 96.3 63 14 125/59 (81) 97 Room Air Capillary Refill : I&O Intake and Output 07/26/18 00:00 Intake Total 1240 ml Balance 1240 ml Intake Oral 1240 ml # Voids 6 # Bowel Movements 1 General: Alert, Oriented X3, Cooperative, No Acute Distress HEENT: Atraumatic, PERRLA, EOMI, Mucous Memb Moist/[place] Neck: Supple, No JVD Lungs: Clear to Auscultation Heart: Regular Rate Abdomen: Normal Bowel Sounds, Soft, No Tenderness Extremities: No Edema Neuro: Other (RT HP gait imbalance poor standing balance) Assessment/Plan Assessment and Plan Home today with HHC and family Current meds reviewed F/U with PCP DR Lowe see orders Co-Morbidities that are continuing to impact the rehab process: (include details ) RATNA COULTER MD Jul 26, 2018 18:14
--- NOTE | 2018-07-27 09:01 | Therapy Team Discharge Summary ---
Therapy Discharge Summary Discharge Recommendations Date of Discharge Jul 26, 2018 at 16:35 Therapy D/C Recommendations: Occupational Therapy Home Care Occupational Therapy Pt seen for skilled OT to increase her independence ini basic self care to allow her to safely return home after CVA with UE and LE weakness. On admission she needed setup for eating, min assist grooming, mod assist bathing, upper body dressing and toilet transfer and dependant with lower body dressing and toileting. By discharge she was modified independent with all basic ADLs, with some mild safety concerns, using FWW, grab bars, BSC, shower bench. See tx plan for goals met. Recommend home health OT. DC OT Decreased Activ Tolerance, Decreased UE Strength, Dependent Transfers, Impaired Coordination, Impaired Funct Balance, Impaired Self-Care Skills, Restricted Funct UE ROM, Visual-Perceptual Deficit PT Half-Way Goals Half-Way Goals PT Diesel Pile Hammer Operator Goals Time Frame: Jul 30, 2018 Transfers (B,C,W/C) (FIM): 6 (met) Roll Left to Right (QC): 6 (met) Sit to Lying (QC): 6 (met) Lying-Sitting on Side/Bed(QC): 6 (met) Sit to Stand (QC): 6 (met) Chair/Ebb-nv-Ojbgp Xfer(QC): 6 (met) Car Transfer (QC): 6 Gait (FIM): 6 Gait distance (FIM): 3=150 ft Walk 10 feet (QC): 6 Walk 10ft-Uneven Surface(QC): 6 Walk 50ft with 2 Turns (QC): 6 Walk 150 ft (QC): 6 Gait Assistive Device: FWW Stairs (FIM): 5 # of Steps: 4 (household exception) 1 Step (curb) (QC): 6 4 Steps (QC): 6 12 Steps (QC): 88 Stairs Level Of Assist: 6 Picking up an Object (QC): 4 OT Diesel Pile Hammer Operator Goals Diesel Pile Hammer Operator Goals Time Frame: Jul 23, 2018 Eating (FIM): 6 (met) Eating (QC): 6 (met) Oral Hygiene (QC): 6 (met) Grooming(FIM): 6 (met) Bathing(FIM): 5 (met) Bathing Location: L Arm, R Arm, L Upper Leg, R Upper Leg, L Lower Leg ( including foot), R Lower Leg (including foot), Chest, Abdomen, Buttocks, Perineal Area Shower/Bathe Self (QC): 5 (met) Upper Body Dressing(FIM): 5 (met) Upper Body Dressing (QC): 5 (met) Lower Body Dressing(FIM): 5 (met) Lower Body Dressing (QC): 5 (met) On/Off Footwear (QC): 5 (not met) Toileting(FIM): 6 (met) Toileting Hygiene (QC): 6 (met) Transfers (B,C,W/C) (FIM): 6 (met) Toilet/Commode Transfer(FIM): 6 (met) Toilet/Commode Transfer (QC): 6 (met) Shower Transfer(FIM): 5 (met) Comprehension(FIM): 7 Expression (FIM): 6 Social Interaction(FIM): 7 Problem Solving(FIM): 7 Memory(FIM): 7 Additional Goals: 1-Demonstrate ADL Tasks, 2-Verbalize Understanding, 3- ImproveStrength/[place]iz[place] 1=Demonstrate adherence to instructed precautions during ADL tasks. 2=Patient will verbalize/demonstrate understanding of assistive devices/ modifications for ADL. 3=Patient will improve strength/tolerance for activity to enable patient to perform ADL's. Speech Diesel Pile Hammer Operator Goals Diesel Pile Hammer Operator Goals Pt will be independent with Oral motor exercises Pt's verbal expressive speech will be at least 95% accurate with or without the use compensatory strategies. Goal met 07/16/2018. Time Frame: 2-3 weeks Comprehension: 7 Expression: 6 Social Interaction: 7 Problem Solvin Memory: 7 ELIZABETH HUDSON OT Jul 27, 2018 09:01
--- NOTE | 2018-08-04 01:09 | DISCHARGE SUMMARY ---
DATE OF SERVICE: 07/26/2018 HISTORY OF PRESENT ILLNESS: The patient is a 78-year-old female who had been independent, living alone in [facility], developed dizziness and difficulty walking and difficulty with balance. She was admitted to the service of Dr. Lowe, PCP for evaluation and treatment. MRI revealed an acute/subacute infarct involving the left jennifer accounting for her complaints jennifer. Therapies were begun. She was felt to be appropriate for inpatient rehabilitation unit. PAST MEDICAL HISTORY: Paroxysmal atrial fibrillation, placed on Eliquis with aspirin now added, autoimmune hepatitis under good control on low dose of medication, hypertension. MEDICAL COURSE: The patient was followed by Dr. Mendosa and Dr. Lowe while on rehab unit. She continued on her Eliquis. She had mild hypercalcemia, which was trended. She was continued on medication for autoimmune hepatitis. She developed some constipation, which was treated. She was afebrile during her stay. Her blood pressure was 125/59 on 07/26, pulse was 63, respirations 14 and O2 sat 97% on room air. Chemistry on 07/09 showed chloride elevated at 109, blood glucose mildly elevated at 110 and calcium stable elevated at 10.6. Calcium PTH was 10.2, PTH intact was 59.9. REHABILITATION COURSE: She progressed well with the therapy. She had increased strength and endurance, improve coordination and balance. Speech therapy notes that the patient did exhibit a mild dysarthria. Upon admission, she was provided with oral motor exercises and was able to complete these independently and this largely resolved. In conversation, the patient's speech intelligibility was 90% to 100% accurate. PT notes upon admission, the patient performed bed mobility and transfers with min to mod assist, car transfers with min assist, could ambulate 50 feet with a wheeled walker with contact guard assist. The patient has been performing bed mobility and transfer training, balance and endurance training, functional strengthening, stair training, gait training. Education upon discharge, she is modified independent for bed mobility and transfers, modified in the min assist for car transfers, can ambulate 150 feet with a wheeled walker with standby assist. OT notes upon admission, the patient was set up for eating, min assist for grooming, mod assist for bathing, upper body dressing and toilet transfers, dependent for lower body dressing and toileting. By discharge, she was modified independent with all basic ADLs with some mild safety concerns using a front wheel walker, grab bars, bedside commode and shower bench. DISCHARGE INSTRUCTIONS: The patient is discharged to home with home health services. The patient will follow up with Dr. Lowe, PCP. Continue current diet. Follow up with Dr. Chester, cardiology. Prescription for wheeled walker was provided. DISCHARGE MEDICATIONS: 1. Lipitor 10 mg p.o. each day at bedtime. 2. Metoprolol 25 mg p.o. b.i.d. 3. Eliquis 5 mg p.o. b.i.d. 4. Azathioprine 50 mg p.o. daily. 5. Enalapril 5 mg p.o. daily. 6. Levothyroxine 50 mcg p.o. daily. 7. Vitamin E 400 units p.o. daily. DISCHARGE DIAGNOSES: 1. Rehabilitation, infarction, left jennifer with right hemiplegia, dysarthria, difficulty walking, ataxia, improving. 2. Paroxysmal atrial fibrillation, controlled with medication. 3. Hypertension, controlled with medication. 4. Autoimmune hepatitis, controlled with medication. 5. Hypercalcemia, mild, stable. 6. Constipation, treated. 7. Peripheral arterial disease. CONDITION AT DISCHARGE: Improved and stable. PROGNOSIS: Rehab prognosis appears good for some continued improvement at home and return to independent living; however, due to her age, stroke, and comorbidities. She may require more formal assisted living setting in the near future if family is not able to provide significant assistance as needed. Job ID: [id number] DocumentID: [id number] Dictated Date: 08/03/2018 09:46:22 Typing Section Chief Date: 08/04/2018 01:08:40 Dictated By: RATNA MENDOSA MD
== END 2018-07-26 16:35 | disposition home health service (06) | DRG 57 ==
PROVIDERS: ADMIT Physical Medicine & Rehabilitation; ATTEND Physical Medicine & Rehabilitation
DX: I69.353 Hemiplegia and hemiparesis following cerebral infarction affecting right non-dominant side (principal); I69.322 Dysarthria following cerebral infarction; I69.393 Ataxia following cerebral infarction; R26.0 Ataxic gait; I48.0 Paroxysmal atrial fibrillation; I10 Essential (primary) hypertension; K75.4 Autoimmune hepatitis; E83.52 Hypercalcemia; K59.00 Constipation, unspecified; I73.9 Peripheral vascular disease, unspecified
CPT/HCPCS: 36415; 80048; 83970

== ENCOUNTER → 2020-01-16 | Outpatient (CLI) | payer MEDICARE, OTHER ==
[~2020-01-16] MED LIST changes: +ATOR10TA66 PO; -ENAL5TAB PO; +ENLP5T PO; +METO-333 PO
== END ==
LOC: CARD 14:59
PROVIDERS: ATTEND Internal Medicine Cardiovascular Disease
DX: I08.0 Rheumatic disorders of both mitral and aortic valves (principal); I48.0 Paroxysmal atrial fibrillation; I10 Essential (primary) hypertension; I25.10 Atherosclerotic heart disease of native coronary artery without angina pectoris
CPT/HCPCS: 93306

== ENCOUNTER 2020-05-17 22:25 | Emergency (ER) | payer MEDICARE, OTHER ==
[~2020-05-17] VITALS: Ht 162 cm; Wt 71.0 kg
[2020-05-17 22:29] VITALS: BP 174/92
--- OUTSIDE RECORDS SUMMARY | 2020-05-17 22:33 | XMS REPORT ---
Author Author Accessory Addict Society [facility] [employer] [facility] Possibility Space Address [address] [address] Care Team Providers Care Associate Professor Of Philosophy Name Role Phone HENNA COLE Unavailable HENNA COLE MD Unavailable Unavailable ALICE SOUSA MD Unavailable Unavailable HENNA COLE Unavailable HENNA COLE Unavailable KAILASH CHESTER MD Unavailable Unavailable YFN BECKFORD, RATNA Beck Unavailable Unavailable YFN BECKFORD, RATNA Beck Unavailable Unavailable LATOYA BARRON MD Unavailable Unavailable KAILASH CHESTER MD Unavailable Unavailable CLAIR ENRIQUE APRN Unavailable Unavailable RODRÍGUEZ DO, JESSICA S Unavailable Unavailable Unavailable Unavailable Allergies No Information Medications Medication Ingredient Drug Dose Dates Status Sig Sig Care Class(es) (Normalized) (Original) Provid er atorvastati atorvastati HMG-CoA 10 mg 07-23-20 Complete take 1 Atorvastatin Ratna E n 10 mg n Reductase 18 - d tablet by Calcium 10 Khanna sen oral tablet Inhibitor 08-22-20 mouth at Mg Tablet 10 (no (3 18 bedtime Mg ORAL phone) sources.) Bedtime 30 Days 30 Tab 07/23/18 10 mg 07-02-2018 Completed take 1 Atorvast Jessica tablet atin Rodríguez by Calcium (no mouth 10 Mg phone) at Tablet bedtim 10 Mg e ORAL Bedtime 30 Tab 07/02/18 10 mg 07-02-2018 Completed take 1 Atorvast Jessica tablet atin Rodríguez by Calcium (no mouth 10 Mg phone) at Tablet bedtim 10 Mg e ORAL Bedtime 30 Tab 07/02/18 no Vitamin E no 400 Complete take 1 Vitamin E (no information Acetate information [IU] d capsule by Acetate phone) (3 (Vitamin E) mouth once (Vitamin E) sources.) 400 Unit daily 400 Unit Capsule Capsule 400 Unit ORAL Daily Problems Active Problems Problem Normalized Date Last Normalized Normalized Provider Ellen murillo Classification Problem(s) Recorded Problem Problem Sta tus Duration Deficiency and Anemia, 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 LATOYA [facility] Via other anemia unspecified TAKOTNAMD Lakisha OCHOA (7 sources.) Hospital - [place] () Other nervous Ataxia, 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 HENNA COLE [facility] Via system unspecified [facility] [place] disorders (9 Hospital - sources.) [place] () Other nervous Ataxic gait 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 RATNA COULTER [facility] Via system [facility] [place] disorders (7 Hospital - sources.) [place] () Hepatitis (20 Autoimmune Chronic Active HENNA COLE , [facility] Via sources.) hepatitis MD [place] () Cyndi-; endo-; Cardiomyopathy Chronic Active HENNA COLE [facility] Via and , unspecified [facility] [place] myocarditis; Hospital - cardiomyopathy [place] (except that () caused by tuberculosis or sexually transmitted disease) (5 sources.) Acute Cerebral Chronic Active HENNA COLE [facility] Via cerebrovascula infarction, [facility] [place] r disease (20 unspecified Hospital - sources.) [place] () Congestive Congestive Chronic Active KAILASH CHESTER [facility] V ia heart failure; heart failure, [facility] [place] nonhypertensiv unspecified Hospital - e (10 Translations: [place] sources.) [ HEART () FAILURE, UNSPECIFIED] Other Constipation, 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 RATNA COULTER [facility] Via gastrointestin unspecified [facility] [place] al disorders Hospital - (7 sources.) [place] () Fluid and Dehydration 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 KAILASH CHESTER [facility] V ia electrolyte Translations: [facility] [place] disorders (15 [ Hospital - sources.) HYPOPOTASSEMIA [place] , DEHYDRATION, (41386) HYPOPOTASSEMIA ] NEGATED Difficulty in Chronic Active no name Not Avai lable no walking, not () information (8 elsewhere sources.) classified Other nervous Dysarthria 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 HENNA COLE Via [facility] system [id number] Hospital disorders (6 [place] sources.) ([address]) Other nervous Dysarthria and 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 HENNA COLE [facility] Via system anarthria [facility] [place] disorders (9 Hospital - sources.) [place] () Late effects Dysarthria Chronic Active RATNA COULTER [facility] Via of following [facility] [place] cerebrovascula cerebral Hospital - r disease (29 infarction [place] sources.) Translations: (21871) [ ATAXIA FOLLOWING CEREBRAL INFARCTION, FACIAL WEAKNESS FOLLOWING CEREBRAL INFAR, HEMIPLGA FOLLOWING CEREBRAL INFRC AFF RI, OTHER SEQUELAE OF CEREBRAL INFARCTION, DYSARTHRIA FOLLOWING CEREBRAL INFARCTION, DYSARTHRIA FOLLOWING CEREBRAL INFARCTION, ATAXIA FOLLOWING CEREBRAL INFARCTION] Essential Essential Chronic Active HENNA COLE , [facility] Via hypertension (primary) [facility] [place] (20 sources.) hypertension Hospital - [place] ([address]) Other Facial 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 HENNA COLE [facility] Via connective weakness [facility] [place] tissue disease Hospital - (9 sources.) [place] ([address]) Other injuries Foreign body 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 LATOYA [facility] Via and conditions in left ear, TAKOTNA , [facility] [place] due to initial Hospital - external encounter [place] causes (8 (58425) sources.) Paralysis (15 Hemiplegia, Chronic Active HENNA COLE , [facility] Via sources.) unspecified [facility] [place] affecting Hospital - right dominant [place] side (61296) Other Hypercalcemia Chronic Active RATNA COULTER , [facility] Via nutritional; [facility] [place] endocrine; and Hospital - metabolic [place] disorders (7 (57599) sources.) Other Hypercalcemia Chronic Active KAILASH CHESTER , [facility] Via nutritional; [facility] [place] endocrine; and Hospital - metabolic [place] disorders (5 (10116) sources.) Thyroid Hypothyroidism Chronic Active KAILASH CHESTER , No t Available disorders (20 , unspecified (86963) sources.) Translations: [ ACQUIRED HYPOTHYROID NEC] 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 HENNA COLE , Not Selin ilable aftercare (23 (current) use () sources.) of anticoagulants Acute NIHSS score 0 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 HENNA COLE , [facility] Via cerebrovascula [facility] [place] r disease (4 Hospital - sources.) [place] ([address]) Noninfectious Noninfective 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 HENNA COLE , [facility] Via gastroenteriti gastroenteriti [facility] [place] s (5 sources.) s and colitis, Hospital - unspecified [place] (10464) Heart valve Nonrheumatic Chronic Active KAILASH CHESTER , [facility] Via disorders (20 mitral (valve) [facility] [place] sources.) insufficiency Hospital - Translations: [place] [ MITRAL VALVE (91307) DISORDER, TRICUSPID VALVE DISEASE, TRICUSPID VALVE DISEASE, 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 or Occlusion and Chronic Active HENNA COLE [facility] Via stenosis of stenosis of [facility] [place] precerebral bilateral Hospital - arteries (5 carotid [place] sources.) arteries (74395) 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 LATOYA Not Selin ilable atherosclerosi infarction MD BE[facility] (76716) s and other Translations: heart disease [ ATHSCL HEART (20 sources.) DISEASE OF [place] CORONARY , CORONARY ATHEROSCLEROSI S OF [place] CORON, CORON ATHEROSCLER NOS TYPE VESSEL, NATIV, OLD MYOCARDIAL INFARCTION, OLD MYOCARDIAL INFARCTION] Other Other abnormal 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 BERNARD COLE No t Available screening for blood () suspected chemistry conditions Translations: (not mental [ OTH SCREEN disorders or MAMMO-MALIGN infectious NEOPLASM OF disease) (6 PAZ] sources.) Diabetes Other abnormal 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 KAILASH CHESTER [facility] Via mellitus glucose [facility] [place] without Hospital - complication [place] (5 sources.) ([address]) Disorders of Other and Chronic Active KAILASH CHESTER [facility] Via lipid unspecified [facility] [place] metabolism (10 hyperlipidemia Hospital - sources.) Translations: [place] [ () HYPERLIPIDEMIA , UNSPECIFIED] Unclassified Other back no information Active HENNA COLE Via Lakisha (3 sources.) symptoms [address] [facility] (039[address]) Other Other long 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 HENNA COLE [facility] Vi a aftercare (9 term (current) [facility] [place] sources.) drug therapy [facility] () Malaise and Other malaise 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 KAILASH CHESTER , [facility] Via fatigue (5 and fatigue [facility] [place] sources.) [facility] () Other Other 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 KAILASH CHESTER , [facility] Via circulatory specified [facility] [place] disease (6 symptoms and Hospital - sources.) signs [place] involving the ([address]) circulatory and respiratory systems Peripheral and Peripheral Chronic Active RATNA COULTER [facility] Via visceral vascular [facility] [place] atherosclerosi disease, Hospital - s (7 sources.) unspecified [place] (63394) Other ear and Presence of 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 HENNA COLE , [facility] Via sense organ external [facility] [place] disorders (9 hearing-aid Hospital - sources.) [place] ([address]) Other eye Redness or 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 FLORENTINO REID Via disorders (5 discharge of AUTOMOBILE RACER Lakisha sources.) eye [facility] (86380) Essential Unspecified Chronic Active KAILASH CHESTER [facility] V ia hypertension essential [facility] [place] (10 sources.) hypertension [facility] (32064) Glaucoma (9 Unspecified Chronic Active HENNA COLE , [facility] Via sources.) glaucoma [facility] (57458) Other ear and Unspecified Chronic Active HENNA COLE , [facility] Via sense organ hearing loss, [facility] [place] disorders (15 bilateral Hospital - sources.) [place] ([address]) Other eye Vascular 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 CLAIR ENRIQUE , [facility] Via disorders (5 abnormalities [employer]BI[employer] [facility] sources.) of conjunctiva [facility] (67632) Past or Other Problems Problem Normalized Date Last Normalized Normalized Provider Fa cility Classification Problem(s) Recorded Problem Problem Sta tus Duration Other injuries Foreign body no information no information TIMOT HY Not Available and conditions in left ear, MD [place] (99832) due to initial external encounter causes (6 sources.) Unclassified NIHSS score 0 no information no information no nam e Not Available (5 sources.) (15488) Procedures Procedure Normalized Procedure Procedure Result Performer Facility Date 07-01-2018 Computed tomography of no information JESSICA RODRÍGUEZ Via [facility] head and neck [place] ([address]) 06-29-2018 Ct Head Wo-R/O Stroke no information CARLOS ALBERTO J LEONARDO Via [facility] (36970) 06-28-2018 Electrocardiographic no information CARLOS ALBERTO J LEONARDO Via [facility] procedure [place] ([address]) 09-02-2014 Left heart cardiac no information no name [facility] Via [facility] catheterization [facility] (46824) Left heart cardiac no information no name Not Availab le (78835) catheterization 06-29-2018 Magnetic resonance no information ALICE SOUSA Via [facility] imaging of brain [place] (94241) without contrast 07-01-2018 Magnetic resonance no information JESSICA RODRÍGUEZ Via [facility] imaging of brain [place] (73745) without then with contrast Immunizations No Information Results Test Name Value Interpretation Reference Range Date Time Fa cility (Normalized) (Normalized) (Medline Reference) serum or plasma urea nitrogen/creatin ine mass ratio on 2018-07-09 Urea 21 mg/mg (no code) 6 - 22 mg/mg Via [facility] nitrogen/Creatin Hospital ine mass ratio [place] (24348) serum or plasma urea nitrogen measurement (mass/volume) on 2018-07-09 Urea nitrogen 15 mg/dL (no code) 7 - 20 mg/dL Via [facility] (74571) serum or plasma sodium measurement (moles/volume) on 2018-07-09 Sodium molar 142 mmol/L (no code) 135 - 145 mmol/L Via [facility] (83406) serum or plasma potassium measurement (moles/volume) on 2018-07-09 Potassium molar 3.9 mmol/L (no code) 3.7 - 5.2 mmol/L Via [facility] (58123) serum or plasma intact parathyroid hormone measurement (mass/volume) on 2018-07-09 Parathyrin.intac 59.9 pg/mL (no code) 10 - 55 pg/mL Via [facility] t [facility] (01661) serum or plasma glucose measurement (mass/volume) on 2018-07-09 Glucose mass 110 mg/dL (H) 60 - 125 mg/dL Via [facility] (94820) serum or plasma creatinine measurement with calculation of estimated glomerular filtration rate on 2018-07-09 GFR/1.73 sq M no information (no code) Via [facility] vol rate/area (48816) (S/P/Bld) serum or plasma creatinine measurement (mass/volume) on 2018-07-09 Creatinine mass 0.70 mg/dL (no code) Via [facility] () serum or plasma chloride measurement (moles/volume) on 2018-07-09 Chloride molar 109 mmol/L (H) 95 - 106 mmol/L Via [facility] (57507) serum or plasma calcium measurement (mass/volume) on 2018-07-09 Calcium mass 10.6 mg/dL (H) 8.5 - 10.2 mg/dL Via [facility] (02571) serum or plasma anion gap determination (moles/volume) on 2018-07-09 Anion gap 3 9 mmol/L (no code) 3 - 11 mmol/L Via [facility] (44989) carbon dioxide on 2018-07-09 CO2 molar conc 24 mmol/L (no code) 23 - 29 mmol/L Via [facility] (25715) bio-intact parathyroid hormone (pth) measurement with calcium on 2018-07-09 Calcium mass 10.2 mg/dL (no code) 8.5 - 10.2 mg/dL Via [facility] (89276) venous blood hemoglobin measurement (mass/volume) on 2018-07-01 Hemoglobin mass 14.3 g/dL (no code) 12.1 - 17.2 g/dL Via [facility] (03234) serum or plasma urea nitrogen/creatin ine mass ratio on 2018-07-01 Urea 14 mg/mg (no code) 6 - 22 mg/mg Via [facility] nitrogen/Creatin Hospital ine mass ratio [place] (02314) serum or plasma urea nitrogen measurement (mass/volume) on 2018-07-01 Urea nitrogen 11 mg/dL (no code) 7 - 20 mg/dL Via [facility] (28501) serum or plasma total bilirubin measurement (mass/volume) on 2018-07-01 Bilirubin mass 0.9 mg/dL (no code) 0.1 - 1.2 mg/dL Via [facility] (60055) serum or plasma sodium measurement (moles/volume) on 2018-07-01 Sodium molar 138 mmol/L (no code) 135 - 145 mmol/L Via [facility] (97057) serum or plasma protein measurement (mass/volume) on 2018-07-01 Protein mass 7.3 g/dL (no code) 6.4 - 8.3 g/dL Via [facility] (11644) serum or plasma potassium measurement (moles/volume) on 2018-07-01 Potassium molar 3.7 mmol/L (no code) 3.7 - 5.2 mmol/L Via [facility] (97957) serum or plasma glucose measurement (mass/volume) on 2018-07-01 Glucose mass 116 mg/dL (H) 60 - 125 mg/dL Via [facility] (77919) serum or plasma creatinine measurement with calculation of estimated glomerular filtration rate on 2018-07-01 GFR/1.73 sq M no information (no code) Via [facility] rate/area (79943) (S/P/Bld) serum or plasma creatinine measurement (mass/volume) on 2018-07-01 Creatinine mass 0.76 mg/dL (no code) Via [facility] (03197) serum or plasma chloride measurement (moles/volume) on 2018-07-01 Chloride molar 105 mmol/L (no code) 95 - 106 mmol/L Via [facility] (17571) serum or plasma aspartate aminotransferase measurement (enzymatic activity/volume) on 2018-07-01 AST enzyme 37 U/L (H) 10 - 34 U/L Via [facility] (76192) serum or plasma anion gap determination (moles/volume) on 2018-07-01 Anion gap 3 8 mmol/L (no code) 3 - 11 mmol/L Via [facility] (42949) serum or plasma alkaline phosphatase measurement (enzymatic activity/volume) on 2018-07-01 ALP enzyme 146 U/L (H) 44 - 147 U/L Via [facility] (91834) serum or plasma albumin measurement (mass/volume) on 2018-07-01 Albumin mass 4.0 g/dL (no code) 3.4 - 5.4 g/dL Via [facility] (10717) serum or plasma alanine aminotransferase measurement (enzymatic activity/volume) on 2018-07-01 ALT enzyme 54 U/L (no code) 4 - 40 U/L Via [facility] (87162) carbon dioxide on 2018-07-01 CO2 molar conc 25 mmol/L (no code) 23 - 29 mmol/L Via [facility] (17006) calcium measurement corrected for albumin on 2018-07-01 Calcium mass 10.7 mg/dL (H) 8.5 - 10.2 mg/dL Via [facility] (58302) blood leukocytes automated count (number/volume) on 2018-07-01 WBC Auto #/vol 7.6 10*3/uL (no code) 3.5 - 10.5 Via [facility] (Bld) 10*3/uL [facility] (38170) blood hematocrit (volume fraction) on 2018-07-01 Hematocrit Auto 44 % (no code) 36.1 - 50.3 % Via [facility] Volume Fraction [facility] ([facility] (65015) blood erythrocytes automated count (number/volume) on 2018-07-01 RBC Auto #/vol 4.82 10*6/uL (no code) 4.2 - 6.1 Via [facility] (Bld) 10*6/uL [facility] (70241) automated erythrocyte mean corpuscular volume on 2018-07-01 MCV Auto Entitic 91 fL (no code) 80 - 100 fL Via Chri sti volume (RBC) [facility] (11081) automated erythrocyte mean corpuscular hemoglobin concentration measurement (mass/volume) on 2018-07-01 MCHC Auto mass 33 g/dL (no code) 32 - 36 g/dL Via Bjorn ti conc (RBC) [facility] (76637) automated erythrocyte mean corpuscular hemoglobin (mass per erythrocyte) on 2018-07-01 MCH Auto Entitic 30 pg (no code) 27 - 31 pg Via [facility]orn ti mass (RBC) [facility] (99814) automated erythrocyte distribution width ratio on 2018-07-01 Erythrocyte 14.5 % (no code) 11.6 - 14.6 % Via [facility] distribution Hospital width Auto Ratio [place] (RBC) (55063) automated blood platelet mean volume measurement on 2018-07-01 Platelet mean 9.6 fL (no code) 7.2 - 11.7 fL Via Bjorn ti volume Auto Hospital Entitic volume [place] (Bld) (13071) automated blood platelet count (count/volume) on 2018-07-01 Platelets Auto 287 10*3/uL (no code) 150 - 450 Via [facility] #/vol (Bld) 10*3/uL [facility] (66374) urine urobilinogen measurement by automated test strip (mass/volume) on 2018-06-29 Urobilinogen NORMAL (no code) Via [facility] (11970) urine total bilirubin detection by test strip on 2018-06-29 Bilirubin Ql (U) Negative (no code) Via [facility] (77189) urine protein assay by test strip, semi-quantitativ e on 2018-06-29 Protein Test 3+ (*) Via Lakisha strip Ql () [facility] (57477) urine ph measurement by test strip on 2018-06-29 pH Test strip 6 [pH] (no code) 4.6 - 8 [pH] Via Gurmeet i (U) [facility] (32285) urine nitrite detection by test strip on 2018-06-29 Nitrite Test Negative (no code) Via [facility] strip Ql (U) [facility] (09990) urine ketones detection by automated test strip on 2018-06-29 Ketones Negative (no code) Via [facility] Automated test Hospital strip Ql (U) [place] (65959) urine glucose detection by automated test strip on 2018-06-29 Glucose Negative (no code) Via [facility] Automated test Hospital strip Ql (U) [place] (06706) urine color determination on 2018-06-29 Color Nom (U) YELLOW (no code) Via [facility] (95342) urine clarity determination on 2018-06-29 Clarity Nom (U) SLIGHTLY CLOUDY (no code) Via [facility] (56937) squamous epithelial cells detection in urine sediment by light microscopy on 2018-06-29 Epithelial no information (no code) Via [facility] cellssquamous Hospital LM Ql (Urine [place] sed) (77947) specific gravity of urine by test strip on 2018-06-29 Specific gravity 1.015 (*) Via [facility] Relative Density [facility] ([facility] (45570) serum or plasma troponin i.cardiac measurement (mass/volume) on 2018-06-29 Troponin no information (no code) Via [facility].cardiac [facility] (06277) serum or plasma triglyceride measurement (mass/volume) on 2018-06-29 Triglyceride 127 mg/dL (no code) 0 - 150 mg/dL Via [facility] (16051) serum or plasma cholesterol measurement (mass/volume) on 2018-06-29 Cholesterol mass 235 mg/dL (H) 180 - 200 mg/dL Via [facility] (49575) serum or plasma cholesterol in vldl measurement (mass/volume) on 2018-06-29 Cholesterol in 25 mg/dL (no code) Via [facility] VLDL [facility] (41747) serum or plasma cholesterol in hdl measurement (mass/volume) on 2018-06-29 Cholesterol in 59 mg/dL (no code) [facility] HDL [facility] (52849) prothrombin time (pt) in platelet poor plasma by coagulation assay on 2018-06-29 Prothrombin time 13.0 s (no code) 9.4 - 12.5 s Via [facility] isti (PT) Coag time [facility] ([facility]) [place] (14921) mucus detection in urine sediment by light microscopy on 2018-06-29 Mucus LM Ql LARGE (*) Via [facility] (Urine sed) [facility] (73555) leukocyte esterase on 2018-06-29 Leukocyte 2+ (*) Via [facility] esterase Test Hospital strip Ql (U) [place] (89811) inr in platelet poor plasma or blood by coagulation assay on 2018-06-29 INR Coag RelTime 1.0 (no code) Via [facility] (Platelet poor Hospital plasma or blood) [place] (17395) fibrin d-dimer feu measurement in platelet poor plasma (mass/volume) on 2018-06-29 Fibrin D-dimer 0.38 ug/mL (no code) 0 - 0.5 ug/mL Via [facility] sti FEU IA [facility] ([facility]) [place] (63514) erythrocytes detection in urine sediment by light microscopy on 2018-06-29 RBC LM Ql (Urine 2+ (*) [facility] sed) [facility] (70350) crystals detection in urine sediment by light microscopy on 2018-06-29 Crystals LM Ql NONE (no code) Via [facility] (Urine sed) [facility] (18168) complete urinalysis with reflex to culture on 2018-06-29 Complete YES (no code) [facility] urinalysis with Hospital reflex to [place] culture (00084) cholesterol in ldl [mass/volume] in serum or plasma by direct assay on 2018-06-29 Cholesterol in 155 mg/dL (H) 0 - 100 mg/dL Via [facility] sti LDL [facility] (33104) casts detection in urine sediment by light microscopy on 2018-06-29 Casts LM Ql NONE (no code) Via [facility] (Urine sed) [facility] (58421) capillary blood glucose measurement by glucometer (mass/volume) on 2018-06-29 Glucose mass 115 mg/dL (H) 60 - 125 mg/dL Via [facility] (80468) blood neutrophils automated count (number/volume) on 2018-06-29 Neutrophils Auto 8.5 10*3/uL (H) 1.7 - 7 10*3/uL Via [facility] #/vol (d) [facility] (69680) blood monocytes/100 leukocytes on 2018-06-29 Monocytes/100 6 % (no code) 2 - 8 % [facility] WBC Auto (d) [facility] (56941) blood monocytes automated count (number/volume) on 2018-06-29 Monocytes Auto 0.6 10*3/uL (no code) 0.3 - 0.9 Via [facility] #/vol (Bld) 10*3/uL [facility] (87256) blood lymphocytes automated count (number/volume) on 2018-06-29 Lymphocytes Auto 0.8 10*3/uL (L) 0.9 - 2.9 Via Bjorn ti #/vol (Bld) 10*3/uL [facility] (81553) bacterial urine culture on 2018-06-29 Bacteria Organism: SEE (no code) Via [facility] identified Cx COMMENTS [facility] ([facility] (28259) Bacteria Organism: SENT (no code) Via [facility] identified Cx TO [facility] ([facility] (29833) bacteria detection in urine sediment by light microscopy on 2018-06-29 Bacteria LM Ql MODERATE (*) Via [facility] (Urine sed) [facility] (91885) automated urine sediment leukocyte count by microscopy (number/high power field) on 2018-06-29 WBC LM.HPF no information (no code) Via [facility] #/area (Urine Hospital [facility]) [place] (35003) automated urine sediment erythrocyte count by microscopy (number/high power field) on 2018-06-29 RBC LM.HPF NONE (no code) Via [facility] #/area (Urine [facility]) [place] (64374) automated eosinophil count on 2018-06-29 Eosinophils Auto 0.0 10*3/uL (no code) 0.05 - 0.5 Via Bjorn ti #/vol (Bld) 10*3/uL [facility] (50758) automated blood neutrophils/100 leukocytes on 2018-06-29 Neutrophils/100 85 % (H) 40 - 60 % Via [facility] i WBC Auto (Bld) [facility] (37650) automated blood lymphocytes/100 leukocytes on 2018-06-29 Lymphocytes/100 8 % (L) 20 - 40 % Via [facility] i WBC Auto (d) [facility] ([id number]) automated blood eosinophils/100 leukocytes on 2018-06-29 Eosinophils/100 0 % (no code) 1 - 4 % Via [facility] [place] i WBC Auto (Bld) [facility] ([id number]) automated blood basophils/100 leukocytes on 2018-06-29 Basophils/100 0 % (no code) 0.5 - 1 % [facility] WBC Auto ([facility]) [facility] ([id number]) automated blood basophil count (count/volume) on 2018-06-29 Basophils Auto 0.0 10*3/uL (no code) 0 - 0.3 10*3/uL Via risti #/vol ([facility]) [facility] ([id number]) activated partial thromboplastin time (aptt) in platelet poor plasma bycoagulation assay on 2018-06-29 aPTT Coag time 28 s (no code) 25 - 35 s Via [facility] ([facility]) [facility] ([id number]) Vital Signs The data below is from unstructured sources Vital Response Date/Time Temperature (Fahrenheit) 97.8 degree s F (97.6 - 99.5) 11/19/2015 1:36pm Temperature (Calculated Celsius) 36. 28395 degrees C (36.4 - 37.5) 11/19/2015 10:00am Temperature Source Tympanic 11/19/2015 1:36pm Pulse Rate (adult) 51 bpm (60 - 90) 11/19/2015 1:36pm Respiratory Rate 20 bpm (12 - 24) 11/19/2015 1:36pm O2 Sat by Pulse Oximetry 97 % (88 - 100) 11/19/2015 1:36pm Blood Pressure 146/65 mm Hg 11/19/2015 1:36pm Blood Pressure Mean 92 mm Hg 11/19/2015 10:00am Pain Pain Intensity 0 2015 1:35pm Height (Feet) 5 feet 11/2015 12:10pm Height (Inches) 4.00 inches 11/16/2015 12:10pm Height (Calculated Centimeters) 162. 615211 cm 11/16/2015 12:10pm Weight (Pounds) 158 pounds 11/19/2015 6:00am Weight (Ounces) 12.8 oz 11/19/2015 6:00am Weight (Calculated Grams) 72983.469 gm 11/19/2015 6:00am Weight (Calculated Kilograms) 72.030 469 kilograms 11/19/2015 6:00am Calculated BMI 26.95 11/2015 12:10pm Vital Response Date/Time Temperature (Fahrenheit) 97.5 degree s F (97.6 - 99.5) Temperature (Calculated Celsius) 36. 71357 degrees C (36.4 - 37.5) Temperature Source Temporal Pulse Rate (adult) 91 bpm (60 - 90) Respiratory Rate 20 bpm (12 - 24) O2 Sat by Pulse Oximetry 100 % (88 - 100) Blood Pressure 153/89 mm Hg Blood Pressure Mean 110 mm Hg Pain Pain Intensity 3 Height (Feet) 5 feet Height (Inches) 4 inches Height (Calculated Centimeters) 162. 052636 cm Weight (Pounds) 145 pounds Weight (Calculated Kilograms) 65.770 894 kilograms Calculated BMI 24.89 Vital Response Date/Time Temperature (Fahrenheit) 98.4 degree s F (97.6 - 99.5) Temperature (Calculated Celsius) 36. 96395 degrees C (36.4 - 37.5) Temperature Source Tympanic Pulse Rate (adult) 62 bpm (60 - 90) Respiratory Rate 18 bpm (12 - 24) O2 Sat by Pulse Oximetry 99 % (88 - 100) Blood Pressure 115/58 mm Hg Pain Pain Intensity 0 Height (Feet) 5 feet Height (Inches) 4.00 inches Height (Calculated Centimeters) 162. 935055 cm Weight (Pounds) 173 pounds Weight (Ounces) 9.6 oz Weight (Calculated Grams) 96128.481 gm Weight (Calculated Kilograms) 78.471 481 kilograms Calculated BMI 26.95 Vital Response Date/Time Temperature (Fahrenheit) 98.1 degree s F (97.6 - 99.5) 06/23/2017 11:25am Temperature (Calculated Celsius) 36. 44463 degrees C (36.4 - 37.5) 06/23/2017 11:25am Temperature Source Temporal 06/23/2017 11:25am Pulse Rate (adult) 76 bpm (60 - 90) 06/23/2017 11:25am Respiratory Rate 18 bpm (12 - 24) 06/23/2017 11:25am O2 Sat by Pulse Oximetry 100 % (88 - 100) 06/23/2017 11:25am Blood Pressure 156/90 mm Hg 06/23/2017 11:25am Blood Pressure Mean 112 mm Hg 06/23/2017 11:25am Pain Numeric Pain Scale 0-No Pain 06/23/2017 11:25am Height (Feet) 5 feet 06/2017 11:25am Height (Inches) 4.00 inches 06/23/2017 11:25am Height (Calculated Centimeters) 162. 693531 cm 06/23/2017 11:25am Height Method Stated 06/2017 11:25am Weight (Pounds) 160 pounds 06/23/2017 11:25am Weight (Calculated Kilograms) 72.574 780 kilograms 06/23/2017 11:25am Weight Method Stated 06/2017 11:25am Capillary Refill Capillary Refill Less Than 3 Seconds 06/23/2017 11:25am Height 5 ft 4 in 017 11:25am Weight 160 lb 06/23/2017 11:25am Body Mass Index 27.5 kg/m^2 06/23/2017 11:25am Vital Response Date/Time Temperature (Fahrenheit) 97.0 degree s F (97.6 - 99.5) 07/02/2018 7:35am Temperature (Calculated Celsius) 36. 99173 degrees C (36.4 - 37.5) 07/02/2018 7:35am Temperature Source Temporal 07/02/2018 7:35am Pulse Rate (adult) 62 bpm (60 - 90) 07/02/2018 7:35am Respiratory Rate 18 bpm (12 - 24) 07/02/2018 7:35am O2 Sat by Pulse Oximetry 97 % (88 - 100) 07/02/2018 7:35am Blood Pressure 151/67 mm Hg 07/02/2018 7:35am Blood Pressure Mean 95 mm Hg (65 - 110) 07/02/2018 7:35am Pain Numeric Pain Scale 0-No Pain 07/02/2018 8:00am Alertness Fully Awake and Alert 06/29/2018 4:07am Calmness/Agitation Calm 06/29/2018 4:07am Respiratory Response (Ventilated Child) No Cough/No Spont. Resp 06/29/2018 4:07am Cry (Non-Ventilated Children) Quiet Breathing No Crying 06/29/2018 4:07am Muscle Tone No Muscle Tone/Relaxed 06/29/2018 4:07am Facial Tension Facial Muscle Relaxed 06/29/2018 4:07am Quantitative Score 10 points (6 - 30) 06/29/2018 4:07am Breathing Independent of Vocalization Normal 06/29/2018 4:15am Negative Vocalization None 06/29/2018 4:15am Facial Expression Smiling or Inexpressive 06/29/2018 4:15am Consolability No Need to Console 06/29/2018 4:15am Quantitative Score 0 points (0 - 10) 06/29/2018 4:15am Height (Feet) 5 feet 11:09pm Height (Inches) 4.00 inches 06/28/2018 11:09pm Height (Calculated Centimeters) 162. 851725 cm 06/28/2018 11:09pm Height Method Stated 11:09pm Weight (Pounds) 75 pounds 06/29/2018 4:05am Weight (Ounces) 3.0 oz 0 06/29/2018 4:05am Weight (Calculated Grams) 23726.477 gm 06/29/2018 4:05am Weight (Calculated Kilograms) 34.104 477 kilograms 06/29/2018 4:05am Weight Method Stated 11:09pm Capillary Refill Capillary Refill Less Than 3 Seconds 06/28/2018 11:09pm Height 5 ft 4 in 018 11:09pm Weight 75.19 lb 06/29/20 18 4:05am Body Mass Index 12.9 kg/m^2 06/29/2018 4:05am Vital Response Date/Time Temperature (Fahrenheit) 96.3 degree s F (97.6 - 99.5) 07/26/2018 4:35pm Temperature (Calculated Celsius) 35. 38460 degrees C (36.4 - 37.5) 07/26/2018 3:31pm Temperature Source Tympanic 07/26/2018 4:35pm Pulse Rate (adult) 63 bpm (60 - 90) 07/26/2018 4:35pm Respiratory Rate 14 bpm (12 - 24) 07/26/2018 4:35pm O2 Sat by Pulse Oximetry 97 % (88 - 100) 07/26/2018 4:35pm Blood Pressure 125/59 mm Hg 07/26/2018 4:35pm Blood Pressure Mean 81 mm Hg (65 - 110) 07/26/2018 3:31pm Pain Numeric Pain Scale 0-No Pain 07/26/2018 4:35pm Alertness Fully Awake and Alert 06/29/2018 4:07am Calmness/Agitation Calm 06/29/2018 4:07am Respiratory Response (Ventilated Child) No Cough/No Spont. Resp 06/29/2018 4:07am Cry (Non-Ventilated Children) Quiet Breathing No Crying 06/29/2018 4:07am Muscle Tone No Muscle Tone/Relaxed 06/29/2018 4:07am Facial Tension Facial Muscle Relaxed 06/29/2018 4:07am Quantitative Score 10 points (6 - 30) 06/29/2018 4:07am Breathing Independent of Vocalization Normal 06/29/2018 4:15am Negative Vocalization None 06/29/2018 4:15am Facial Expression Smiling or Inexpressive 06/29/2018 4:15am Consolability No Need to Console 06/29/2018 4:15am Quantitative Score 0 points (0 - 10) 06/29/2018 4:15am Height (Feet) 5 feet 1:06pm Height (Inches) 4.00 inches 07/02/2018 1:06pm Height (Calculated Centimeters) 162. 341220 cm 07/02/2018 1:06pm Height Method Stated 11:09pm Weight (Pounds) 165 pounds 07/22/2018 5:26am Weight (Ounces) 12.8 oz 07/22/2018 5:26am Weight (Calculated Grams) 75962.616 gm 07/22/2018 5:26am Weight (Calculated Kilograms) 75.205 616 kilograms 07/22/2018 5:26am Calculated BMI 27.5 06/16 1:06pm Weight Method Stated 11:09pm Weight Measurement [facility] 07/22/2018 5:26am Capillary Refill Capillary Refill Less Than 3 Seconds 06/28/2018 11:09pm Vital Response Date/Time Temperature (Fahrenheit) 96.3 degree s F (97.6 - 99.5) 07/26/2018 4:35pm Temperature (Calculated Celsius) 35. 32786 degrees C (36.4 - 37.5) 07/26/2018 3:31pm Temperature Source Tympanic 07/26/2018 4:35pm Pulse Rate (adult) 63 bpm (60 - 90) 07/26/2018 4:35pm Respiratory Rate 14 bpm (12 - 24) 07/26/2018 4:35pm O2 Sat by Pulse Oximetry 97 % (88 - 100) 07/26/2018 4:35pm Blood Pressure 125/59 mm Hg 07/26/2018 4:35pm Blood Pressure Mean 81 mm Hg (65 - 110) 07/26/2018 3:31pm Pain Numeric Pain Scale 0-No Pain 07/26/2018 4:35pm Alertness Fully Awake and Alert 06/29/2018 4:07am Calmness/Agitation Calm 06/29/2018 4:07am Respiratory Response (Ventilated Child) No Cough/No Spont. Resp 06/29/2018 4:07am Cry (Non-Ventilated Children) Quiet Breathing No Crying 06/29/2018 4:07am Muscle Tone No Muscle Tone/Relaxed 06/29/2018 4:07am Facial Tension Facial Muscle Relaxed 06/29/2018 4:07am Quantitative Score 10 points (6 - 30) 06/29/2018 4:07am Breathing Independent of Vocalization Normal 06/29/2018 4:15am Negative Vocalization None 06/29/2018 4:15am Facial Expression Smiling or Inexpressive 06/29/2018 4:15am Consolability No Need to Console 06/29/2018 4:15am Quantitative Score 0 points (0 - 10) 06/29/2018 4:15am Height (Feet) 5 feet 1:06pm Height (Inches) 4.00 inches 07/02/2018 1:06pm Height (Calculated Centimeters) 162. 476703 cm 07/02/2018 1:06pm Height Method Stated 11:09pm Weight (Pounds) 165 pounds 07/22/2018 5:26am Weight (Ounces) 12.8 oz 07/22/2018 5:26am Weight (Calculated Grams) 48162.616 gm 07/22/2018 5:26am Weight (Calculated Kilograms) 75.205 616 kilograms 07/22/2018 5:26am Calculated BMI 27.5 06/16 1:06pm Weight Method Stated 11:09pm Weight Measurement Method Built in [facility] e 07/22/2018 5:26am Capillary Refill Capillary Refill Less Than 3 Seconds 06/28/2018 11:09pm Interventions No Information Plan of Treatment The data below is from unstructured sources Discharge Date 11/19/15 1:45pm Disposition 01 HOME, SELF-CARE Instructions/Education Provided Atri al Fibrillation (GEN) Prescriptions See Medication Section Referrals (Unspecified) - Reason(s) for Referral: FOR FOLLOW UP APPOINTMENT CALL DR COLE'S OFFICE [phone] HE WANTS TO SEE Y0U IN ONE TO TWO WEEKS Care Plan and Goals Discharge Date 09/03/14 2:05pm Disposition 30 STILL A PATIENT Instructions/Education Provided CARD IAC CATH DISCHARGE INSTRUC 2 Gram Sodium Diet (DC) Prescriptions See Medications Sectio n Referrals (Unspecified) Care Plan and Goals appointment with Dr. Chester's office in one week Appointment with Dr. Cole's office Discharge Date 06/23/17 11:43am Disposition 01 HOME, SELF-CARE Condition at Discharge Improved Instructions/Education Provided Gene ral (DC) Prescriptions See Medication Section Referrals DIEGO ALVARADO MD Address: [address] [place] [address] [address] [place] [address] HENNA COLE MD Order Date: Primary Care Physician Address: [facility] [address] [place] [address] [phone] Note: HENNA COLE MD Order Date: Primary Care Physician Address: [address] [place] [address] [address] [place] [address] [phone] Note: Additional Instructions/Education Al l discharge instructions reviewed with patient and/or family. Voiced understanding. No obvious foreign body found. Follow-up with Dr. Alvarado to evaluate your hearing aid. Return for other concerns as needed. Discharge Date 07/02/18 9:40am Disposition 09 ADMITTED INPATIENT Instructions/Education Provided Stro ke Prescriptions See Medication Section Discharge Date 07/26/18 4:35pm Disposition 09 ADMITTED INPATIENT Instructions/Education Provided Stro ke (DC) Lowering the Risk of Having Another Stroke Left-Side Stroke (DC) Forms Provided Rehab Team Conference Summary Prescriptions See Medication Section Referrals HENNA COLE MD (Unspeci fied) Entered Date: 07/26/2018 2:06pm Address: [facility] [address] [place] [address] [phone] Note: August 02 @ 10:00 KAILASH CHESTER MD (Unspecified) Entered Date: 07/26/2018 2:06pm Address: [address] [place] [id number] [phone] Note: August 26 @ 9:00 AM Care Plan and Goals F/U with PCP Discharge Date 07/26/18 4:35pm Disposition 09 ADMITTED INPATIENT Instructions/Education Provided Stro ke (DC) Lowering the Risk of Having Another Stroke Left-Side Stroke (DC) Forms Provided Rehab Team Conference Summary Prescriptions See Medication Section Referrals HENNA COLE MD (Unspeci fied) Entered Date: 07/26/2018 2:06pm Address: Formerly named [facility] [address] [place] [address] [phone] Note: August 02 @ 10:00 KAILASH CHESTER MD (Unspecified) Entered Date: 07/26/2018 2:06pm Address: [address] [place] [id number] [phone] Note: August 26 @ 9:00 AM Care Plan and Goals F/U with PCP Goals No Information Social History No Information Functional Status The data below is from unstructured sources Query Response Date Sidney rded Patient Orientation Person Place Time Situation November 19, 2015 2:00pm Comprehension Ability Understands Co ncepts November 19, 2015 8:00am Query Response Date Sidney rded Patient Orientation Person Place Time Situation September 03, 2014 3:08pm Comprehension Ability Understands Co ncepts September 03, 2014 8:00am Query Response Date Sidney rded Patient Orientation Person Place July 01, 2018 11:29am Patient Orientation Person Place Time Situation July 02, 2018 8:00am Comprehension Ability Understands Co ncepts July 02, 2018 8:00am Query Response Date Sidney rded Patient Orientation Person Place Time Situation July 26, 2018 10:32am Comprehension Ability Understands Co ncepts July 26, 2018 8:14am Query Response Date Sidney rded Patient Orientation Person Place Time Situation July 26, 2018 10:32am Comprehension Ability Understands Co ncepts July 26, 2018 8:14am Mental Status No Information Encounters Encounter Normalized Encounter Encounter Diagnosis Care Provi brett Organization Date Type NEGATED Emergency department no information no name no organization name 06-28-2018 patient visit - 06-29-2018 06-23-2017 Emergency department no information LATOYA OCHOA MD [facility] - patient visit (no phone) [facility] 06-23-2017 (no phone) 07-02-2018 Evaluation and Cerebrovascular RATNA COULTER Work no organization name - management of accident Phone: 07-26-2018 inpatient 07-02-2018 Evaluation and no information RATNA COULTER MD (no [facility] - management of phone) [facility] 07-26-2018 inpatient (no phone) 06-29-2018 Evaluation and Atrial fibrillation HENNA COLE W ork no organization name - management of Phone: 07-02-2018 inpatient HENNA COLE HENNA COLE 06-29-2018 Evaluation and no information HENNA COLE MD (no [facility] - management of phone) [facility] 07-02-2018 inpatient (no phone) 06-28-2018 Evaluation and no information no name no organ ization name management of inpatient 11-16-2015 Evaluation and no information HENNA COLE MD (no [facility] - management of phone) [facility] 11-19-2015 inpatient (no phone) 07-02-2018 Patient encounter no information no name no or ganization name - 07-26-2018 06-29-2018 Patient encounter no information no name no or ganization name - 07-02-2018 09-07-2017 Patient encounter no information no name no or ganization name 01-16-2020 Patient encounter no information KAILASH CHESTER MD (no [facility] procedure phone) [facility] (no phone) 09-07-2017 Patient encounter no information KAILASH CHESTER MD (no [facility] procedure phone) [facility] (no phone) 11-27-2014 Patient encounter no information no name no or ganization name procedure 11-27-2014 Patient encounter no information HENNA COLE MD (no [facility] procedure phone) [facility] (no phone) 09-26-2014 Patient encounter no information no name no or ganization name procedure 09-26-2014 Patient encounter no information KAILASH CHESTER MD (no [facility] procedure phone) [facility] (no phone) 07-09-2012 Patient encounter no information no name no or ganization name procedure Medical Equipment No Information Payers No Information Advance Directives Directive Response Recor ded Date/Time Advance Directives No 12:10pm Health Care Power of Underwear Hemmer No 11/16/15 12:10pm Organ Donor Yes 11/16/15 12:10pm Resuscitation Status Full Code 11/16/15 12:10pm Directive Response Recor ded Date/Time Advance Directives No 3:48pm Organ Donor Yes 05/25/15 3:48pm Resuscitation Status Full Code 05/25/15 3:48pm Directive Response Recor ded Date/Time Advance Directives No 2:46am Resuscitation Status Full Code 08/31/14 2:46am Directive Response Recor ded Date/Time Advance Directives No 11:25am Health Care Power of Underwear Hemmer No 06/23/17 11:25am Organ Donor Yes 06/23/17 11:25am Resuscitation Status Full Code 06/23/17 11:25am Directive Response Recor ded Date/Time Advance Directives No 11:09am Health Care Power of Underwear Hemmer No 07/02/18 11:09am Organ Donor No 07/02/18 11:09am Resuscitation Status Full Code 06/29/18 4:16am Directive Response Recor ded Date/Time Advance Directives No 4:16am Health Care Power of Underwear Hemmer No 06/29/18 4:16am Organ Donor No 06/29/18 4:16am Resuscitation Status Full Code 06/29/18 4:16am Directive Response Recor ded Date/Time Advance Directives No 11:09am Health Care Power of Underwear Hemmer No 07/02/18 11:09am Organ Donor No 07/02/18 11:09am Resuscitation Status Full Code 07/02/18 11:09am Discharge Instructions No hospital discharge instructions.No hospital discharge instructions.No hospital discharge instructions.No hospital discharge instruction information available.No hospital discharge instruction information available.No hospital discharge instruction information available.No hospital discharge instruction information available. Chief Complaint and Reason for Visit Chief Complaint CVA Reason for Visit Acute CVA (cerebrov ascular accident) Dysarthria Atrial fibrillation Hemiparesis Additional Source Comments This clinical document has been generated using [employer] software that has been certified by the Office of the National Coordinator for Health Information Technology (ONC 15.99.04.3023.Diam.31.00.0.524091) and the National Committee for Dev Manager (NCQA, as an eMeasure certified technology). FOR RECORDS PERTAINING TO PATIENTS WHO ARE OR HAVE BEEN ENROLLED IN A CHEMICAL D EPENDENCY/SUBSTANCE ABUSE PROGRAM, SOME INFORMATION MAY BE OMITTED. This clinica l summary was aggregated from multiple sources. Caution should be exercised in using it in the provision of clinical care. This summary normalizes information from multiple sources, and as a consequence, information in this document may ma terially change the coding, format and clinical context of patient data. In flory tion, data may be omitted in some cases. CLINICAL DECISIONS SHOULD BE BASED ON T HE PRIMARY CLINICAL RECORDS. [employer] provides no warranty or guara ntee of the accuracy or completeness of information in this document.The followi ng information is based on time limited clinical information
--- OUTSIDE RECORDS SUMMARY | 2020-05-17 22:33 | XMS REPORT | Continuity of Care Document ---
Author Organization Unknown Address Unknown Phone Unavailable Allergies Active Description Code Type Severity Reaction Onset Reported/Identified Relationship to Patient Clinical Status Yes aspirin [id number] Drug Allergy Unknown N/A 08/31/2014 Yes Sulfa (Sulfonamide Antibiotics) [id number] Drug Allergy Unknown N/A 014 Medications There is no data. Problems Date Dx Coded Attending Type Code Diagnosis Diagnosed By 09/03/2014 KAILASH CANALES MD Ot 244. 8 ACQUIRED HYPOTHYROID NEC 09/03/2014 KAILASH CANALES MD Ot 272. 4 HYPERLIPIDEMIA NEC/NOS 09/03/2014 KAILASH CANALES MD Ot 275. 42 HYPERCALCEMIA 09/03/2014 KAILASH CANALES MD Ot 276. 51 DEHYDRATION 09/03/2014 KAILASH CANALES MD Ot 276. 8 HYPOPOTASSEMIA 09/03/2014 KAILASH CANALES MD Ot 401. 9 HYPERTENSION NOS 09/03/2014 KAILASH CANALES MD Ot 414. 01 CORONARY ATHEROSCLEROSIS OF [place] CORON 09/03/2014 KAILASH CANALES MD Ot 427. 31 ATRIAL FIBRILLATION 09/03/2014 KAILASH CANALES MD Ot 780. 79 OTH MALAISE FATIGUE 09/03/2014 KAILASH CANALES MD Ot 787. 01 NAUSEA WITH VOMITING 09/03/2014 KAILASH CANALES MD Ot 790. 29 OTHER ABNORMAL GLUCOSE 09/29/2014 KAILASH CANALES MD Ot 397. 0 09/29/2014 KAILASH CANALES MD Ot 401. 9 09/29/2014 KAILASH CANALES MD Ot 414. 00 09/29/2014 KAILASH CANALES MD Ot 424. 0 09/29/2014 KAILASH CANALES MD Ot 427. 31 09/29/2014 KAILASH CANALES MD Ot 428. 0 11/03/2014 KAILASH CANALES MD Ot 397. 0 11/03/2014 KAILASH CANALES MD Ot 401. 9 11/03/2014 SADIA CANALES MDHAR J Ot 414. 00 11/03/2014 PARKER BECKFORD, KAILASH García Ot 424. 0 11/03/2014 PARKER BECKFORD, KAILASH García Ot 427. 31 11/03/2014 PARKER BECKFORD, KAILASH García Ot 428. 0 11/28/2014 HENNA COLE MD Ot 790. 6 12/25/2014 HENNA COLE MD Ot 790. 6 01/01/2015 HENNA COLE MD Ot 790. 6 05/25/2015 CLAIR ENRIQUE NETWORK CABLER Ot 372.74 CONJUNCTIVA VASC ANOMALY 05/25/2015 CLAIR ENRIQUE NETWORK CABLER Ot 379.93 REDNESS/DISCHARGE OF EYE 05/25/2015 CLAIR ENRIQUE [employer]WORK CABLER Ot 465 .9 ACUTE URI NOS 11/19/2015 HENNA COLE MD Ot E03. 9 HYPOTHYROIDISM, UNSPECIFIED 11/19/2015 HENNA COLE MD Ot E78. 5 HYPERLIPIDEMIA, UNSPECIFIED 11/19/2015 HENNA COLE MD Ot E86. 0 DEHYDRATION 11/19/2015 HENNA COLE MD Ot I10 ESSENTIAL (PRIMARY) HYPERTENSION 11/19/2015 HENNA COLE MD Ot I25. 10 ATHSCL HEART DISEASE OF [place] CORONARY 11/19/2015 HENNA COLE MD Ot I25. 2 OLD MYOCARDIAL INFARCTION 11/19/2015 HENNA COLE MD Ot I42. 9 CARDIOMYOPATHY, UNSPECIFIED 11/19/2015 HENNA COLE MD Ot I48. 0 PAROXYSMAL ATRIAL FIBRILLATION 11/19/2015 HENNA COLE MD Ot I50. 9 HEART FAILURE, UNSPECIFIED 11/19/2015 HENNA COLE MD Ot I65. 23 OCCLUSION AND STENOSIS OF BILATERAL [place] 11/19/2015 HENNA COLE MD Ot K52. 9 NONINFECTIVE GASTROENTERITIS AND COLITIS 11/19/2015 HENNA COLE MD Ot K75. 4 AUTOIMMUNE HEPATITIS 11/19/2015 HENNA COLE MD Ot Z79. 01 NEON PUMPER (CURRENT) USE OF ANTICOAGULANT 06/23/2017 LATOYA BARRON [...] ENCOUN 06/23/2017 LATOYA BARRON MD Ot Z79.01 NEON PUMPER (CURRENT) USE OF ANTICOAGULANT 06/23/2017 Ot V76.12 OTH SCREEN MAMMO- MALIGN NEOPLASM OF PAZ 06/23/2017 KAILASH CANALES MD Ot 397. 0 TRICUSPID VALVE DISEASE 06/23/2017 KAILASH CANALES MD Ot 401. 9 HYPERTENSION NOS 06/23/2017 KAILASH CANALES MD Ot 414. 00 CORON ATHEROSCLER NOS TYPE VESSEL, NATIV 06/23/2017 KAILASH CANALES MD Ot 424. 0 MITRAL VALVE DISORDER 06/23/2017 KAILASH CANALES MD Ot 427. 31 ATRIAL FIBRILLATION 06/23/2017 KAILASH CANALES MD Ot 428. 0 CONGESTIVE HEART FAILURE NOS 06/23/2017 HENNA COLE MD Ot 790. 6 ABN BLOOD CHEMISTRY NEC 09/29/2017 KAILASH CANALES MD Ot I10 ESSENTIAL (PRIMARY) HYPERTENSION 09/29/2017 KAILASH CANALES MD Ot I25. 10 ATHSCL HEART DISEASE OF [place] CORONARY 09/29/2017 KAILASH CANALES MD Ot I34. 0 NONRHEUMATIC MITRAL (VALVE) INSUFFICIENC 09/29/2017 KAILASH CANALES MD Ot I48. 0 PAROXYSMAL ATRIAL FIBRILLATION 09/29/2017 KAILASH CANALES MD Ot R09. 89 OTH SYMPTOMS AND SIGNS INVOLVING THE CIR 10/01/2017 KAILASH CANALES MD Ot I10 ESSENTIAL (PRIMARY) HYPERTENSION 10/01/2017 KAILASH CANALES MD Ot I25. 10 ATHSCL HEART DISEASE OF [place] CORONARY 10/01/2017 KAILASH CANALES MD Ot I34. 0 NONRHEUMATIC MITRAL (VALVE) INSUFFICIENC 10/01/2017 KAILASH CANALES MD Ot I48. 0 PAROXYSMAL ATRIAL FIBRILLATION 10/01/2017 KAILASH CANALES MD Ot R09. 89 OTH SYMPTOMS AND SIGNS INVOLVING THE CIR 06/29/2018 HENNA COLE MD Ot E03. 9 HYPOTHYROIDISM, UNSPECIFIED 06/29/2018 KELSEY BECKFORD, HENNA Moreland Ot H91. 93 UNSPECIFIED HEARING LOSS, BILATERAL 06/29/2018 KELSEY BECKFORD, HENNA Moreland Ot I10 ESSENTIAL (PRIMARY) HYPERTENSION 06/29/2018 KELSEY BECKFORD, HENNA Moreland Ot I25. 2 OLD MYOCARDIAL INFARCTION 06/29/2018 HENNA COLE MD Ot I48. 0 PAROXYSMAL ATRIAL FIBRILLATION 06/29/2018 HENNA COLE MD Ot I63. 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 4 AUTOIMMUNE HEPATITIS 06/29/2018 HENNA COLE MD Ot Z79. 01 NEON PUMPER (CURRENT) USE OF ANTICOAGULANT 07/02/2018 HENNA COLE MD Ot E03. 9 HYPOTHYROIDISM, UNSPECIFIED 07/02/2018 HENNA COLE MD Ot G81. 91 HEMIPLEGIA, UNSPECIFIED AFFECTING RIGHT 07/02/2018 HENNA COLE MD Ot H40. 9 UNSPECIFIED GLAUCOMA 07/02/2018 HENNA COLE MD Ot H91. 93 UNSPECIFIED HEARING LOSS, BILATERAL 07/02/2018 KELSEY BECKFORD, HENNA Moreland Ot I10 ESSENTIAL (PRIMARY) HYPERTENSION 07/02/2018 KELSEY BECKFORD, HENNA Moreland Ot I25. 2 OLD MYOCARDIAL INFARCTION 07/02/2018 HENNA COLE MD Ot I48. 0 PAROXYSMAL ATRIAL FIBRILLATION 07/02/2018 HENNA COLE MD Ot I63. 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 4 AUTOIMMUNE HEPATITIS 07/02/2018 HENNA COLE MD Ot R27. 0 ATAX[place], UNSPECIFIED 07/02/2018 HENNA COLE MD Ot R29.700 NIHSS SCORE 0 07/02/2018 HENNA COLE MD Ot R29.810 FACIAL WEAKNESS 07/02/2018 HENNA COLE MD Ot R47. 1 DYSARTHRIA AND ANARTHRIA 07/02/2018 HENNA COLE MD Ot Z79. 01 NEON PUMPER (CURRENT) USE OF ANTICOAGULANT 07/02/2018 HENNA COLE MD Ot Z79.899 OTHER [facility] (CURRENT) DRUG THERAPY 07/02/2018 HENNA COLE MD Ot Z97. 4 PRESENCE OF EXTERNAL HEARING-AID 07/02/2018 HENNA COLE MD Ot E03. 9 HYPOTHYROIDISM, UNSPECIFIED 07/02/2018 HENNA COLE MD Ot H91. 93 UNSPECIFIED HEARING LOSS, BILATERAL 07/02/2018 HENNA COLE MD Ot I10 ESSENTIAL (PRIMARY) HYPERTENSION 07/02/2018 HENNA COLE MD Ot I25. 2 OLD MYOCARDIAL INFARCTION 07/02/2018 HENNA COLE MD Ot I48. 0 PAROXYSMAL ATRIAL FIBRILLATION 07/02/2018 HENNA COLE MD Ot I63. 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 4 AUTOIMMUNE HEPATITIS 07/02/2018 HENNA COLE MD Ot Z79. 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 07/06/2018 RATNA COULTER MD Ot I69.3 53 HEMIPLGA FOLLOWING CEREBRAL INFRC AFF RI 07/06/2018 RATNA COULTER MD Ot I69.3 98 OTHER SEQUELAE OF CEREBRAL INFARCTION 07/06/2018 RATNA COULTER MD Ot K75.4 AUTOIMMUNE HEPATITIS 07/06/2018 RATNA COULTER MD Ot R26.2 DIFFICULTY IN WALKING, NOT ELSEWHERE CLA 07/06/2018 COULTER MD, RATNA E Ot I10 ESSENTIAL (PRIMARY) HYPERTENSION 07/06/2018 YFN BECKFORD RATNA E Ot I48.0 PAROXYSMAL ATRIAL FIBRILLATION 07/06/2018 YFN BECKFORD RATNA E Ot 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 07/06/2018 YFN BECKFORD RATNA E Ot I69.3 53 HEMIPLGA FOLLOWING CEREBRAL INFRC AFF RI 07/06/2018 RATNA COULTER MD E Ot I69.3 98 OTHER SEQUELAE OF CEREBRAL INFARCTION 07/06/2018 RATNA COULTER MD E Ot K75.4 AUTOIMMUNE HEPATITIS 07/06/2018 ZENON COULTER MDIC E Ot R26.2 DIFFICULTY IN WALKING, NOT ELSEWHERE CLA 07/10/2018 RATNA COULTER MD E Ot I10 ESSENTIAL (PRIMARY) HYPERTENSION 07/10/2018 ZENON COULTER MDIC E Ot I48.0 PAROXYSMAL ATRIAL FIBRILLATION 07/10/2018 ZENON COULTER MDIC E Ot 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 07/10/2018 RATNA COULTER MD E Ot I69.3 53 HEMIPLGA FOLLOWING CEREBRAL INFRC AFF RI 07/10/2018 ZENON COULTER MDIC E Ot I69.3 98 OTHER SEQUELAE OF CEREBRAL INFARCTION 07/10/2018 RATNA COULTER MD E Ot K75.4 AUTOIMMUNE HEPATITIS 07/10/2018 ZENON COULTER MDIC E Ot R26.2 DIFFICULTY IN WALKING, NOT ELSEWHERE CLA 07/15/2018 YFN BECKFORD RATNA E Ot I10 ESSENTIAL (PRIMARY) HYPERTENSION 07/15/2018 ZENON COULTER MDIC E Ot I48.0 PAROXYSMAL ATRIAL FIBRILLATION 07/15/2018 ZENON COULTER MDIC E Ot 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 07/15/2018 YFN BECKFORD RATNA E Ot I69.3 53 HEMIPLGA FOLLOWING CEREBRAL INFRC AFF RI 07/15/2018 YFN BECKFORD RATNA E Ot I69.3 98 OTHER SEQUELAE OF CEREBRAL INFARCTION 07/15/2018 YFN BECKFORD RATNA E Ot K75.4 AUTOIMMUNE HEPATITIS 07/15/2018 YFN BECKFORD RATNA E Ot R26.2 DIFFICULTY IN WALKING, NOT ELSEWHERE CLA 07/22/2018 RATNA COULTER MD E Ot I10 ESSENTIAL (PRIMARY) HYPERTENSION 07/22/2018 ZENON COULTER MDIC E Ot I48.0 PAROXYSMAL ATRIAL FIBRILLATION 07/22/2018 YFN BECKFORD RATNA E Ot 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 07/22/2018 YFN BECKFORD RATNA E Ot I69.3 53 HEMIPLGA FOLLOWING CEREBRAL INFRC AFF RI 07/22/2018 RATNA COULTER MD E Ot I69.3 98 OTHER SEQUELAE OF CEREBRAL INFARCTION 07/22/2018 ARTNA COULTER MD Ot K75.4 AUTOIMMUNE HEPATITIS 07/22/2018 RATNA COULTER MD Ot R26.2 DIFFICULTY IN WALKING, NOT ELSEWHERE CLA 07/26/2018 RATNA COULTER MD Ot E83.5 2 HYPERCALCEMIA 07/26/2018 RATNA COULTER MD Ot I10 ESSENTIAL (PRIMARY) HYPERTENSION 07/26/2018 RATNA COULTER MD Ot I48.0 PAROXYSMAL ATRIAL FIBRILLATION 07/26/2018 RATNA COULTER MD Ot 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 07/26/2018 RATNA COULTER MD Ot I69.3 53 HEMIPLGA FOLLOWING CEREBRAL INFRC AFF RI 07/26/2018 RATNA COULTER MD Ot I69.3 93 [place] FOLLOWING CEREBRAL INFARCTION 07/26/2018 RATNA COULTER MD Ot I69.3 98 OTHER SEQUELAE OF CEREBRAL INFARCTION 07/26/2018 RATNA COULTER MD Ot I73.9 PERIPHERAL VASCULAR DISEASE, UNSPECIFIED 07/26/2018 RATNA COULTER MD Ot K59.0 0 CONSTIPATION, UNSPECIFIED 07/26/2018 RATNA COULTER MD Ot K75.4 AUTOIMMUNE HEPATITIS 07/26/2018 RATNA COULTER MD Ot R26.0 ATAXIC GAIT 07/26/2018 RATNA COULTER MD Ot R26.2 DIFFICULTY IN WALKING, NOT ELSEWHERE CLA 01/09/2020 KAILASH CANALES MD Ot 397. 0 TRICUSPID VALVE DISEASE 01/09/2020 KAILASH CANALES MD Ot 401. 9 HYPERTENSION NOS 01/09/2020 KAILASH CANALES MD Ot 414. 00 CORON ATHEROSCLER NOS TYPE VESSEL, NATIV 01/09/2020 KAILASH CANALES MD Ot 424. 0 MITRAL VALVE DISORDER 01/09/2020 KAILASH CANALES MD Ot 427. 31 ATRIAL FIBRILLATION 01/09/2020 KAILASH CANALES MD Ot 428. 0 CONGESTIVE HEART FAILURE NOS 01/09/2020 KELSEY BECKFORD, HENNA Moreland Ot 790. 6 ABN BLOOD CHEMISTRY NEC 01/09/2020 KAILASH CANALES MD Ot I10 ESSENTIAL (PRIMARY) HYPERTENSION 01/09/2020 KAILASH CANALES MD Ot I25. 10 ATHSCL HEART DISEASE OF [place] CORONARY 01/09/2020 KAILASH CANALES MD Ot I34. 0 NONRHEUMATIC MITRAL (VALVE) INSUFFICIENC 01/09/2020 KAILASH CANALES MD Ot I48. 0 PAROXYSMAL ATRIAL FIBRILLATION 01/09/2020 KAILASH CANALES MD Ot R09. 89 OTH SYMPTOMS AND SIGNS INVOLVING THE CIR 01/16/2020 KAILASH CANALES MD Ot 397. 0 TRICUSPID VALVE DISEASE 01/16/2020 KAILASH CANALES MD Ot 401. 9 HYPERTENSION NOS 01/16/2020 KAILASH CANALES MD Ot 414. 00 CORON ATHEROSCLER NOS TYPE VESSEL, NATIV 01/16/2020 KAILASH CANALES MD Ot 424. 0 MITRAL VALVE DISORDER 01/16/2020 KAILASH CANALES MD Ot 427. 31 ATRIAL FIBRILLATION 01/16/2020 KAILASH CANALES MD Ot 428. 0 CONGESTIVE HEART FAILURE NOS 01/16/2020 KELSEY BECKFORD, HENNA Moreland Ot 790. 6 ABN BLOOD CHEMISTRY NEC 01/16/2020 KAILASH CANALES MD Ot I10 ESSENTIAL (PRIMARY) HYPERTENSION 01/16/2020 KAILASH CANALES MD Ot I25. 10 ATHSCL HEART DISEASE OF [place] CORONARY 01/16/2020 KAILASH CANALES MD Ot I34. 0 NONRHEUMATIC MITRAL (VALVE) INSUFFICIENC 01/16/2020 KAILASH CANALES MD Ot I48. 0 PAROXYSMAL ATRIAL FIBRILLATION 01/16/2020 KAILASH CANALES MD Ot R09. 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 10 ATHSCL HEART DISEASE OF [place] CORONARY 01/31/2020 KAILASH CANALES MD Ot I48. 0 PAROXYSMAL ATRIAL FIBRILLATION 02/01/2020 KAILASH CANALES MD Ot 397. 0 TRICUSPID VALVE DISEASE 02/01/2020 KAILASH CANALES MD Ot 401. 9 HYPERTENSION NOS 02/01/2020 KAILASH CANALES MD Ot 414. 00 CORON ATHEROSCLER NOS TYPE VESSEL, NATIV 02/01/2020 KAILASH CANALES MD Ot 424. 0 MITRAL VALVE DISORDER 02/01/2020 KAILASH CANALES MD Ot 427. 31 ATRIAL FIBRILLATION 02/01/2020 KAILASH CANALES MD Ot 428. 0 CONGESTIVE HEART FAILURE NOS 02/01/2020 KELSEY BECKFORD, HENNA Moreland Ot 790. 6 ABN BLOOD CHEMISTRY NEC 02/01/2020 KAILASH CANALES MD Ot I10 ESSENTIAL (PRIMARY) HYPERTENSION 02/01/2020 KAILASH CANALES MD Ot I25. 10 ATHSCL HEART DISEASE OF [place] CORONARY 02/01/2020 KAILASH CANALES MD Ot I34. 0 NONRHEUMATIC MITRAL (VALVE) INSUFFICIENC 02/01/2020 KAILASH CANALES MD Ot I48. 0 PAROXYSMAL ATRIAL FIBRILLATION 02/01/2020 KAILASH CANALES MD Ot R09. 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 10 ATHSCL HEART DISEASE OF [place] CORONARY 02/01/2020 KAILASH CANALES MD, Ot I48. 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 10 ATHSCL HEART DISEASE OF [place] CORONARY 02/21/2020 KAILASH CANALES MD, Ot I48. 0 PAROXYSMAL ATRIAL FIBRILLATION Procedures Code Description Performed By Per formed On 37.22 LEFT HEART CARDIAC CATH 09/02/2014 88.56 SIVAN MUKUL ARTERIOGR-2 CATH 09/02/2014 Results Test Result Range Whole blood basic metabolic panel - 06/17 03/03 10:35 Serum or plasma sodium measurement (moles/volume) 142 mmol/L 135-145 Serum or plasma potassium measurement (moles/volume) 3.9 mmol/L 3.6-5.0 Serum or plasma chloride measurement (moles/volume) 109 mmol/L 98-107 Carbon dioxide 24 mmol/L 21-32 Serum or plasma anion gap determination (moles/volume) 9 mmol/L 5-14 Serum or plasma urea nitrogen measurement (mass/volume ) 15 mg/dL 7-18 Serum or plasma creatinine measurement (mass/volume) 0.70 mg/dL 0.60-1.30 Serum or plasma urea nitrogen/creatinine mass ratio 21 NRG Serum or plasma creatinine measurement w ith calculation of estimated glomerular filtration rate > NRG Serum or plasma glucose measurement (mass/volume) 110 mg/dL 70-105 Serum or plasma calcium measurement (mass/volume) 10.6 mg/dL 8.5-10.1 Serum or plasma intact pararthyroid horm one measurement (mass/volume) - 07/09/18 10:35 Serum or plasma intact parathyroid hormone measurement (mass/volume) 59.9 pg/mL 9.0-77.0 Bio-intact parathyroid hormone (PTH) measurement with calcium 10.2 % 8.5-10.5 Encounters ACCT No. Visit Date/Time Discharge Status Pt. Type Provider Facility Loc./Unit Complaint [id number] 01/16/2020 14:59:00 020 23:59:59 CLS Outpatient KAILASH CANALES MD [facility] [address] CARD MR,PAF,HTN,CAD [id number] 07/02/2018 09:40:00 018 16:35:00 DIS Inpatient RATNA COULTER MD [facility] [address] IRF CVA [id number] 06/29/2018 14:14:00 018 09:40:00 DIS Inpatient HENNA COLE MD [facility] [address] 4TH CEREBELLAR D/O,N/V [id number] 09/07/2017 12:59:00 017 23:59:59 CLS Outpatient KAILASH CANALES MD [facility] [address] CARD CAD I25.10 [id number] 06/23/2017 11:15:00 017 11:43:00 DIS Emergency LATOYA BARRON MD [facility] [address] ER HEARING AID STUCK IN LE FT EAR [id number] 11/16/2015 11:25:00 016 13:45:00 DIS Inpatient HENNA COLE MD [facility] [address] 4TH AFIB WITH RVR NAUSEA VO MITING [id number] 05/25/2015 15:31:00 015 16:08:00 DIS Emergency CLAIR ENRIQUE NETWORK CABLER [facility] [address] ER EYE IRRITATION [id number] 11/27/2014 10:43:00 015 23:59:59 CLS Outpatient HENNA COLE MD [facility] [address] RAD ELEVATED LFT [id number] 09/26/2014 08:56:00 014 23:59:59 CLS Outpatient KAILASH CANALES MD [facility] [address] CARD AFIB,CAD,CHF,HTN [id number] 08/31/2014 02:43:00 014 14:05:00 DIS Inpatient KAILASH CANALES MD [facility] [address] CSD A FIB W/RVR [id number] 07/09/2012 10:29:00 Document Registration
--- NOTE | 2020-05-17 22:37 | ED EENT ---
History of Present Illness General Chief Complaint: General Problems/Pain Stated Complaint: HEARING AID POSS BROKE OFF IN LEFT EAR Source: patient Exam Limitations: no limitations History of Present Illness Date Seen by Provider: May 17, 2020 Time Seen by Provider: 22:35 Initial Comments To ER with concerns that part of her hearing aid might have broken off in her left ear as she is unable to find it Timing/Duration: abrupt Severity: mild Associated Symptoms: denies symptoms Allergies and Home Medications Allergies Coded Allergies: Sulfa (Sulfonamide Antibiotics) (Unverified Allergy, Unknown, 08/31/14) aspirin (Unverified Allergy, Unknown, 08/31/14) Home Medications Apixaban 5 Mg Tablet, 5 MG PO BID, (Reported) Atorvastatin Calcium 10 Mg Tablet, 10 MG PO HS Prescribed by: RATNA COULTER on 07/23/18 0722 Azathioprine 50 Mg Tablet, 50 MG PO DAILY, (Reported) Enalapril Maleate 5 Mg Tablet, 5 MG PO DAILY, (Reported) Levothyroxine Sodium 50 Mcg Tablet, 50 MCG PO DAILY, (Reported) Metoprolol Tartrate 25 Mg Tablet, 25 MG PO BID Prescribed by: RATNA COULTER on 07/26/18 0831 Vitamin E Acetate 400 Unit Capsule, 400 UNIT PO DAILY, (Reported) Patient Home Medication List Home Medication List Reviewed: Yes Review of Systems Review of Systems Constitutional: see HPI Eyes: No Symptoms Reported Ears: No Symptoms Reported Nose: no symptoms reported Mouth: no symptoms reported Throat: no symptoms reported Respiratory: no symptoms reported Cardiovascular: no symptoms reported Musculoskeletal: see HPI Skin: no symptoms reported Neurological: No Symptoms Reported Hematologic/Lymphatic: No Symptoms Reported Immunological/Allergic: no symptoms reported Past Qsytdbp-Aiyyot-Lotplc Hx Patient Social History Recent Foreign Travel: No Contact w/Someone Who Travel: No Recent Hopitalizations: Yes Immunizations Up To Date PED Vaccines UTD: No Date of Influenza Vaccine: Aug 16, 2015 Seasonal Allergies Seasonal Allergies: No Past Medical History Surgeries: Yes Gallbladder Respiratory: No Cardiac: Yes (NH 2013, EF 35% when in Afib last in 2013, up to 52% on conversion) Atrial Fibrillation, Heart Attack, Hypertension Neurological: Yes Reproductive Disorders: No Female Reproductive Disorders: Denies Sexually Transmitted Disease: No HIV/AIDS: No Genitourinary: No Gastrointestinal: Yes (Autoimmune Hepatitis ) Hepatitis, Gall Bladder Disease Musculoskeletal: No Endocrine: Yes Hypothyroidsim HEENT: Yes Hearing Impairment: Hard of Hearing, Bilateral Hearing Aide Cancer: No Psychosocial: No Integumentary: No Blood Disorders: Yes (anemia) Adverse Reaction/Blood Tranf: No Family Medical History Cardiovascular disease G8 BROTHER (PACEMAKER) Completed stroke 19 FATHER 19 MOTHER Congenital disease Diabetes mellitus G8 BROTHER FHx: cancer G8 SISTER (FEMALE CANCER, UNSURE OF TYPE, OF CA) Myocardial infarction 19 FATHER Prostate cancer 19 FATHER Physical Exam Height, Weight, BMI Height: 5'4.00" Weight: 165lbs. 12.8oz. 75.004921ss; 27.5 BMI Method:Stated General Appearance: WD/WN, no apparent distress Eyes: bilateral eye normal inspection, bilateral eye PERRL, bilateral eye EOMI Ears: bilateral ear auricle normal, bilateral ear canal normal, bilateral ear TM normal Neck: non-tender, full range of motion Respiratory: lungs clear, normal breath sounds, no respiratory distress, no accessory muscle use Neurologic/Psychiatric: alert, normal mood/affect, oriented x 3 Skin: normal color, warm/dry Departure Impression Primary Impression: General medical exam Disposition: 01 HOME, SELF-CARE Condition: Stable Departure-Patient Inst. Decision time for Depature: 22:37 Referrals: HENNA COLE MD (PCP/Family) Primary Care Physician Patient Instructions: NO INSTRUCTIONS GIVEN Add. Discharge Instructions: All discharge instructions reviewed with patient and/or family. Voiced understanding. CLAIR ENRIQUE FUND RAISER May 17, 2020 22:37
== END 2020-05-17 22:49 | disposition home or self-care (01) ==
LOC: EDUNIT# 22:25 → ER 22:27
DX: Z04.89 Encounter for examination and observation for other specified reasons (principal); I48.91 Unspecified atrial fibrillation; I10 Essential (primary) hypertension; I25.2 Old myocardial infarction; E03.9 Hypothyroidism, unspecified; Z97.4 Presence of external hearing-aid; Z79.899 Other long term (current) drug therapy; Z79.890 Hormone replacement therapy; Z88.8 Allergy status to other drugs, medicaments and biological substances; Z88.2 Allergy status to sulfonamides
CPT/HCPCS: 99281

== ENCOUNTER → 2020-08-08 | Outpatient (CLI) | payer MEDICARE, OTHER ==
[~2020-08-08] VITALS: Ht 162 cm; Wt 68.0 kg
[~2020-08-08] MED LIST changes: +CATHETER FLUSH 10 ML SYR IV PRN; +REGADENOSON 0.4 MG/5 ML SYR (LEXISCAN) IV ONE
[2020-08-08 09:45] VITALS: BP 154/78
--- NOTE | 2020-08-08 11:35 | Cardiology Stress Test Report ---
Stress Test Report Date of Procedure/Referring: Date of Procedure: Aug 08, 2020 PCP Yasmin Liz Admitting Physician Carlin Lowe MD Indications: Congestive heart failure Baseline Heart Rate: 67 Baseline Blood Pressure: Blood Pressure Systolic: 154 Blood Pressure Diastolic: 78 Baseline Vitals Vital Signs Date Time Temp Pulse Resp B/P (MAP) Pulse Ox O2 Delivery O2 Flow Rate FiO2 08/08/20 09:45 68 154/78 (103) 96 Baseline EKG: Baseline EKG: normal sinus rhythm Summary After explaining the procedure to the patient, she signed a consent and then brought to the stress nuclear laboratory. Patient received 0.4 mg Lexiscan for stress test, ECG, heart rate and blood pressure were monitored continuously. Resting and stress dose of radio tracer were injected, imaging was acquired and reviewed in short axis, horizontal long axis and vertical long axis views. TID: 1.11 SSS: 0 SDS: 0 EF: 77 1. Patient tolerated Lexiscan well 2. No ischemia or infarction on SPECT images 3. Normal left ventricular size, EF 77 percent KAILASH CANALES MD Aug 08, 2020 11:35
== END ==
LOC: CARD 08:30
PROVIDERS: ATTEND Physician Assistant
DX: I25.10 Atherosclerotic heart disease of native coronary artery without angina pectoris (principal); I48.91 Unspecified atrial fibrillation; I07.1 Rheumatic tricuspid insufficiency; I50.9 Heart failure, unspecified
CPT/HCPCS: 78452; 93017; A9502

== ENCOUNTER → 2022-10-06 | Outpatient (CLI) | payer MEDICARE, OTHER ==
[~2022-10-06] MED LIST changes: -CATHETER FLUSH 10 ML SYR IV PRN; -REGADENOSON 0.4 MG/5 ML SYR (LEXISCAN) IV ONE
== END ==
LOC: CARD 12:49
PROVIDERS: ATTEND Internal Medicine Cardiovascular Disease
DX: I08.0 Rheumatic disorders of both mitral and aortic valves (principal); I10 Essential (primary) hypertension
CPT/HCPCS: 93306